=== PATIENT | female | born 1930 | race Caucasian/White ===

== ENCOUNTER 2017-01-05 13:01 | Inpatient (IN) | payer MEDICARE, BC ==
[~2017-01-05] VITALS: Ht 157.5 cm; Wt 48.3 kg
[~2017-01-05 13:01] MED LIST: CHOL20002 PO; DIVA250T4 PO; DIVA500T2 PO; DONE5TAB56 PO; HYDR-2678 PO; HYDR10TA2 PO; LEVO112T2 PO; LORA0.5T PO; MAG30ORA PO; MAGN2400 PO; MELA1TAB9 PO; METH29OI TP; OLAN5TAB5 PO; OMEG-85 PO; QUET25TA5 PO; TRAM50TA PO; TRAZ50TA15 PO
--- NOTE | 2017-01-05 13:07 | PHYS DOC ---
General Chief Complaint: PSYCH EVALUATION Stated Complaint: PSYCH EVAL Time Seen by MD: 13:03 Source: patient, EMS, [facility] records Exam Limitations: clinical condition Problems: History of Present Illness Initial Comments Patient is an 86-year-old female with baseline dementia brought to the emergency department by EMS from [facility] for medical clearance and [facility] admission. Patient has been accepted for [facility] admission pending medical clearance. [facility] records indicate that for approximately the last 2 weeks the patient has become more disruptive. Patient has been screaming/saying "okay" repetitively ( over essentially at all times while awake. The patient has been pinching caregivers she has been physically aggressive hitting and pushing other residents. Patient has prior [facility] admission to this facility. In the emergency department the patient requires constant supervision to prevent her from getting out of bed and trying to wander the halls. She constantly repeats "okay okay" and grabs at ED staff whenever they get into her close proximity. Her vital signs are unremarkable in the emergency department and she refuses to sit still. She appears to understand and be able to answer some questions primarily with "yes no" answers but when asked for other types of detailed responses she ignores or shakes her head. She answers no to if she' s having any discomfort or trouble breathing. Patient is full code Timing/Duration: constant, other Severity: severe Modifying Factors: improves with other Associated Symptoms: other Allergies: Coded Allergies: oxycodone (Verified Allergy, Intermediate, 09/13/14) divalproex sodium (Verified Allergy, Unknown, 01/05/17) hydrocodone (Verified Allergy, Unknown, 01/05/17) sertraline (Verified Allergy, Unknown, 01/05/17) Past Medical History Medical History: other (Alzheimer's dementia, hypothyroidism, anxiety, CKD, depression, encephalopathy, impulse control disorder) Surgical History: other Social History Smoker: non-smoker Alcohol: none Drugs: none Review of Systems All Other Systems: Reviewed and Negative (review of systems as per history of present illness as patient is either too confused or uncooperative for accurate review of systems assessment.) Physical Exam General Appearance: mild distress (disheveled) Eyes: bilateral eye PERRL, bilateral eye EOMI Ear, Nose, Throat: hearing grossly normal, normal ENT inspection, normal pharynx Neck: non-tender, supple Respiratory: normal breath sounds, no respiratory distress Cardiovascular: normal peripheral pulses, regular rate, rhythm Gastrointestinal: non tender, soft Back: no CVA tenderness, no vertebral tenderness Extremities: normal range of motion, non-tender, normal inspection, no calf tenderness, pelvis stable Neurologic/Psychiatric: senior nurse manager II-XII nml as tested, no motor/sensory deficits, alert, other (patient constantly moving a true tremor more rocking, she is alert but has she is unable or unwilling to answer questions her orientation is difficult to establish. She does follow some directions and does not appear to be having any hallucinations) Skin: normal color, warm/dry Orders, Labs, Meds ED staff notifies that EKG evaluation cannot be undertaken in the emergency department due to the patient's constant movement and lack of cooperation. Hemoglobin 11.8 normocytic, BUNs 33, creatinine 1.4, albumin 3.3 otherwise unremarkable ED labs and urine workup with iron, thyroid, and vitamin studies pending. Patient medically cleared for [facility] admission Dr. Minaya is accepting. Departure Time of Disposition: 14:05 Disposition: ADMITTED INPATIENT Diagnosis: Dementia with Behavior Disorder, Condition: STABLE Additional Instructions: [facility] admission Dr Minaya is accepting. WANG RUIZ DO Jan 05, 2017 13:07
[2017-01-05 13:35] LABS: BASO # 0.1 x10^3/uL (0.0-0.2); BASO % 1 % (0-3); EOS # 0.2 x10^3/uL (0.0-0.7); EOS % 3 % (0-3); HEMATOCRIT 36.5 % (36.0-47.0); HEMOGLOBIN 11.8 g/dL (12.0-15.5); LYMPH # 1.6 x10^3/uL (1.0-4.8); LYMPH % 22 % (24-48); MEAN CORPUSCULAR HEMOGLOBIN 28 pg (25-35); MEAN CORPUSCULAR HGB CONC 32 g/dL (31-37); MEAN CORPUSCULAR VOLUME 85 fL (79-100); MONO # 0.8 x10^3/uL (0.0-1.1); MONO % 11 % (0-9); NEUT # 4.7 x10^3uL (1.8-7.7); NEUT % 63 % (31-73); PLATELET COUNT 308 x10^3/uL (140-400); RED BLOOD COUNT 4.28 x10^6/uL (3.50-5.40); RED CELL DISTRIBUTION WIDTH 16.2 % (11.5-14.5); WHITE BLOOD COUNT 7.5 x10^3/uL (4.0-11.0)
[2017-01-05 13:40] LABS: BILIRUBIN,URINE NEG (NEG); CLARITY,URINE CLEAR; COLOR,URINE YELLOW; GLUCOSE,URINE NEG (NEG)
[2017-01-05 13:41] LABS: BACTERIA,URINE 0 /HPF (0-FEW); NITRITE,URINE NEG (NEG); RBC,URINE 0 /HPF (0-2); SQUAMOUS EPITHELIAL CELL,UR OCC /LPF; UROBILINOGEN,URINE 0.2 mg/dL (0.2 mg/dL); WBC,URINE 0 /HPF (0-4)
[2017-01-05 13:49] LABS: ALBUMIN 3.3 g/dL (3.4-5.0); ALBUMIN/GLOBULIN RATIO 0.7 (1.0-1.7); CALCIUM 9.2 mg/dL (8.5-10.1); CREATININE 1.4 mg/dL (0.6-1.0); GFR 35.8; TOTAL BILIRUBIN 0.4 mg/dL (0.2-1.0); TOTAL PROTEIN 8.1 g/dL (6.4-8.2)
--- NOTE | 2017-01-05 15:10 | NUR ---
Admission Note with Justification for Admission to [facility] Patient admitted to [facility] for protective oversight for emergency stabilization of acute psychiatric crisis. Pt admitted from: LT Facility Mode of arrival: EMS Accompanied By: EMS and ER staff Precipitating behaviors that initiated intake and admission: screaming and saying "ok" all day. Pinching care givers, hitting and pushing other residents. Description of failure of out patient attempts at stabilization in previous setting list behavior and medication trials: medication changes Behaviors and assessment findings upon admission: Pt is continuously saying "ok" when staff assess pt, pt has become agitated and has grabbed staff's clothing, pushed staff away and was non compliant when staff attempted to see if pt had dentures-pt pinched staff. Plan: Admit for protective oversight for adjustment and stabilization of medications, behaviors and mood. Intense treatment regimen including groups, medication adjustments, therapy, consistent regimen for ADL's, self care, and sleep hygiene. Daily monitoring by Inpatient staff, Psychiatry, and Medical Physician.
[2017-01-05 15:17] VITALS: BP 121/56
[2017-01-05] MEDS ORDERED: CALC-157 PO (15:45)
[2017-01-05] MEDS ORDERED: CITA10TA8 PO (15:45)
[2017-01-05] MEDS ORDERED: BISA10SU2 RC (15:45)
[2017-01-05] MEDS ORDERED: ACET500T68 PO (15:45)
[2017-01-05] MEDS ORDERED: MEMA10TA PO (15:45)
[2017-01-05] MEDS ORDERED: OMEP20CA9 PO (15:45)
[2017-01-05] MEDS ORDERED: LEVO75TA PO (15:45)
[2017-01-05] MEDS ORDERED: SENN8.6T99 PO (15:45)
[2017-01-05] MEDS ORDERED: NEO/5DRO OU (15:45)
[2017-01-05] MEDS ORDERED: MULT1TAB52 PO (15:45)
[2017-01-05] MEDS ORDERED: DEXT1CAP PO (15:45)
[2017-01-05] MEDS ORDERED: QUET50TA5 PO (15:45)
[2017-01-05] MEDS ORDERED: ZIPR40CA2 PO (15:45)
--- NOTE | 2017-01-05 16:07 | NUR ---
Unable to assess pts skin at this time d/t pts behavior. Pt is wandering up and down the constantly saying "ok" and gets agitated grabbing and pinching staff with redirection.
--- NOTE | 2017-01-05 16:32 | NUR ---
Pt is very intrusive, and resistive and aggressive with redirection. Dr. Toldeo paged. New order to give pt 0.5mg Ativan now and then another 0.5mg in 30 minutes if pts behavior does not improve. Also, Ativan 0.5mg Q4 hours PRN.
[2017-01-05] MEDS: LORazepam 0.5 MG TABLET PO PRN ×2 (16:48→18:24)
[2017-01-05] MEDS ORDERED: METHYL SALICYLATE/MENTHOL TOPICAL OINTMENT 29GM TUBE. TP PRN (17:00)
[2017-01-05] MEDS ORDERED: MAG HYDROX/AL HYDROX/SIMETH 30 ML ORAL.SUSP PO PRN (17:15)
--- NOTE | 2017-01-05 18:27 | NUR ---
Pt is very intrusive wandering up and down the [place] and to other pts continuously saying "ok." staff is unable to redirect pt at this time. PRN ativan given at this time.
[2017-01-05] MEDS: SENNOSIDES 8.6 MG TABLET PO SCH (20:02)
[2017-01-05] MEDS: MEMANTINE 10 MG TABLET. PO SCH (20:02)
[2017-01-05] MEDS: QUEtiapine 50 MG TABLET. PO SCH (20:02)
[2017-01-05] MEDS: CALCIUM CARB/VIT D3 500/200 TABLET PO SCH (20:03)
[2017-01-05] MEDS: DEXTROMETHORPHAN/QUINIDINE 20/10MG CAPSULE. PO SCH (20:04)
[2017-01-05] MEDS: NEO/POLYMYX/DEXAMETH OPHTH SUSPENSION 5ML BOTTLE. OU SCH (20:05)
--- NOTE | 2017-01-05 22:50 | NUR ---
Behavior Intervention Response and Plan: BIRP Note: Behavior: Assumed Care of patient, patient located in Hallway at shift change. Patient exhibited the following behavior Restless, Disorganized, Anxious. Brief assessment on rounds of vital signs, medication needs, lab studies, and pain. Treatment plan problems :1-2 Intervention: Patient assessed and the following interventions initiated safety checks 15 Minute Checks Cognitive Assessment , Head to toe Assessment , Medications. Response: After interactions and interventions patient responded in the following manner, Disorganized , Compliant ,Anxious. Continue to assess behaviors and condition will continue to monitor throughout the shift as needed. Patient educated on ADL's, and hand hygiene. Pt was cooperative w/meds, assessment & ADL's. RAT BREEDER reports that pt's skin is intact w/ no wounds noted. Plan: Continue to monitor Master Treatment Plan for patient's progress toward short term goals of Decreased Agitation, Decreased Aggression, senior care goals to return to previous living setting vs placement. Continue to assess patient for changes in above assessment. Monitor for medication needs, pain, and safety concerns. Hourly rounding performed to ensure safe environment.
[2017-01-06 05:57] VITALS: BP 164/71
[2017-01-06] MEDS: LEVOTHYROXINE 75 MCG TABLET PO SCH (06:05)
[2017-01-06] MEDS: PANTOPRAZOLE 40 MG TABLET. PO SCH (09:01)
[2017-01-06] MEDS: CITALOPRAM 10 MG TABLET. PO SCH (09:01)
[2017-01-06] MEDS: DEXTROMETHORPHAN/QUINIDINE 20/10MG CAPSULE. PO SCH ×2 (09:01→19:32)
[2017-01-06] MEDS: ZIPRASIDONE 40 MG CAPSULE. PO SCH (09:01)
[2017-01-06] MEDS: CALCIUM CARB/VIT D3 500/200 TABLET PO SCH ×2 (09:01→19:32)
[2017-01-06] MEDS: SENNOSIDES 8.6 MG TABLET PO SCH ×2 (09:03→19:32)
[2017-01-06] MEDS: QUEtiapine 50 MG TABLET. PO SCH ×3 (09:03→19:32)
[2017-01-06] MEDS: NEO/POLYMYX/DEXAMETH OPHTH SUSPENSION 5ML BOTTLE. OU SCH ×3 (09:03→19:34)
[2017-01-06] MEDS: MULTIVITAMIN with MINERAL TABLET. PO SCH (09:03)
--- NOTE | 2017-01-06 09:54 | NUR ---
Behavior Intervention Response and Plan: BIRP Note: Behavior: Assumed Care of patient, patient located in Hallway at shift change. Patient exhibited the following behavior Restless, Disorganized, Anxious, constantly saying "ok." Visual hallucinations. Brief assessment on rounds of vital signs, medication needs, lab studies, and pain. Treatment plan problems :1-2 Intervention: Patient assessed and the following interventions initiated safety checks 15 Minute Checks Cognitive Assessment , Head to toe Assessment , Medications. Response: After interactions and interventions patient responded in the following manner, Disorganized, saying "ok." Compliant, Anxious. Continue to assess behaviors and condition will continue to monitor throughout the shift as needed. Patient educated on ADL's, and hand hygiene. Pt was cooperative w/meds, assessment & ADL's. SENIOR MARKET INTELLIGENCE CONSULTANT reports that pt's skin is intact w/ no wounds noted. Plan: Continue to monitor Master Treatment Plan for patient's progress toward short term goals of Decreased Agitation, Decreased Aggression, [facility] goals to return to previous living setting vs placement. Continue to assess patient for changes in above assessment. Monitor for medication needs, pain, and safety concerns. Hourly rounding performed to ensure safe environment.
[2017-01-06] MEDS: LORazepam 0.5 MG TABLET PO PRN (10:01)
--- NOTE | 2017-01-06 10:05 | NUR ---
Pt is attempting to climb the wall, wandering, saying "ok" constantly, Pt pinched and grabbed RASPBERRY CHECKER with redirection. PRN ativan given.
--- NOTE | 2017-01-06 15:46 | NUR ---
Pt was in dayroom ambulating and attempted to sit on the armrest of a chair, pt then slid herself to the floor using the chair and table.
[2017-01-06 17:10] LABS: HEMOGLOBIN A1C 5.2 % (4.8-5.6)
--- NOTE | 2017-01-06 18:21 | NUR ---
Bladder scanned pt, 94mls of urine in bladder.
[2017-01-06] MEDS: MEMANTINE 10 MG TABLET. PO SCH (19:32)
--- NOTE | 2017-01-06 23:12 | NUR ---
Behavior Intervention Response and Plan: BIRP Note: Behavior: Assumed Care of patient, patient located in Bed at shift change. Patient exhibited the following behavior Restless, Disorganized, Compliant. Brief assessment on rounds of vital signs, medication needs, lab studies, and pain. Treatment plan problems:1-2 Intervention: Patient assessed and the following interventions initiated safety checks 15 Minute Checks Cognitive Assessment , Head to toe Assessment , Medications. Response: After interactions and interventions patient responded in the following manner, Disorganized , Anxious ,Compliant. Continue to assess behaviors and condition will continue to monitor throughout the shift as needed. Patient educated on ADL's, and hand hygiene. Plan: Continue to monitor Master Treatment Plan for patient's progress toward short term goals of Decreased Agitation, Decreased Anxiety, watermaster goals to return to previous living setting vs placement. Continue to assess patient for changes in above assessment. Monitor for medication needs, pain, and safety concerns. Hourly rounding performed to ensure safe environment.
--- NOTE | 2017-01-07 00:14 | PSYEV ---
DATE OF SERVICE: 01/06/2017 PSYCHIATRIC EVALUATION REASON FOR ADMISSION: This 86-year-old female was admitted to inpatient program at [facility] and she was transferred from [facility] where she has been a resident since 12/17/2016. The patient was sent here because of the staff's inability to control her behaviors. She is constantly vocalizing one word "okay, okay," keeps on going indefinitely, unable to stop. Sometimes very loud, upsetting all the residents. Also, patient's daughter who is the guardian is trying to set some limits to the staff there; however, she can be treated there, asking to change her meds, sometimes asking her to give her too much medications. Finally, it was decided, it was better for her to be here so that she will be observed and able to control her behavior with the medication without having any major side effects. The patient was also seen on consult at the [facility] on 12/20/2016 for her evaluation. HISTORY OF PRESENT ILLNESS: The patient apparently has been at in 2014. She was also at the [facility] as an inpatient. The patient has been tried on several medications. She was on Haldol 5 mg, then it was decreased to 1 mg daily, stayed on for 2 months. The patient also was at [facility] for 2 years. I met with the daughter at the sn[facility], spent considerable amount of time with her, trying to figure out what the best options we have to treat her. The patient also fell once. The patient was also on Geodon according to her daughter, she did better. She was also on Seroquel for a couple of weeks. The patient tends to grab people screaming constantly, pinching caregivers, hitting, pushing other residents. The patient constantly holding a conversation to herself. The patient sometimes become combative, kicking staff. The patient also has history of alcoholism, was drinking until 13 years ago, she was hospitalized for alcohol poisoning at one time. The patient apparently also having some chronic pain because she had a back surgery and also hip fracture on the left side in 2012 because of the falls. The patient also has been tried on Seroquel 25 mg t.i.d. She was also on Nuedexta twice a day and also Seroquel 100 mg at night. She was also on citalopram 40 mg at night. The patient is constantly pacing, able to walk. Poor eye contact. The patient is indifferent to her surroundings, feeling helpless. CURRENT MEDICATIONS: Include acetaminophen 650 mg q.6 hours p.r.n., vitamin C 1000 mg daily, aspirin 81 mg daily, Zyrtec 10 mg daily, Aricept 10 mg at night, meclizine 25 mg t.i.d. p.r.n., mirtazapine 15 mg at night, olanzapine 1.25 mg q.2 hours p.r.n., Seroquel 25 mg at night and 25 mg t.i.d., Zoloft 75 mg at night, trazodone 50 mg at night and p.r.n. for sleep. PAST MEDICAL HISTORY: History of alcoholic hepatitis, history of falls, history of encephalopathy, macular degeneration. ALLERGIES: OXYCODONE, DEPAKOTE, ZOLOFT, HYDROCODONE, but the patient is still taking Zoloft. Apparently, the patient is having the side effects, not the allergies. VITAL SIGNS: Temperature 97.4, blood pressure 164/71, pulse 68, respirations 20, O2 sat 98% and slept about 8 hours last night. PSYCHOSOCIAL HISTORY: The patient is not able to give much information. Most of the information obtained from medical records and also from the previous assessment when she was at the [facility]. The patient has high school education. 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 No history of any physical or emotional abuse, but patient apparently was a heavy drinker for several years. No history of any legal problems. No history of physical or emotional abuse or sexual abuse. FAMILY HISTORY: Noncontributory. MENTAL STATUS EXAMINATION: The patient appeared to be of her stated age, casually dressed, highly anxious and nervous, constantly pacing. The patient is indifferent to people. The patient starts pinching them and grabbing them and also has been combative with the staff and other residents at the [facility] care. Speech continued vocalization mostly monosyllabic "okay" keeps repeating continuously when she is awake. The only time she stops when she is sleeping. The patient is difficult to redirect. Affect and mood highly anxious, nervous, appears to be hallucinating, seems to be responding to internal stimuli. The patient also not able to comprehend of surroundings. She is disoriented to time, place, and person. Her memory is not testable because of patient's inability to interact, not able to hold a conversation. The patient's judgment is impaired, insight minimal. The patient's functioning in an average intellectual capacity, but patient is very confused. STRENGTHS: Fairly in good health, able to walk, supportive family. ADMITTING DIAGNOSES: AXIS I: 1. Major neurocognitive disorder, most likely Alzheimer's, Lewy body disease, and from chronic alcoholism. 2. Rule out alcohol amnestic disorder. AXIS II: None. AXIS III: Alcoholic hepatitis, macular degeneration, history of falls. INITIAL TREATMENT PLAN: The patient will have a full lab work, physical exam will be seen by the psychiatrist on a daily basis. The patient was given Ativan 0.5 mg q.6 hours p.r.n. p.o. mainly for sedation to keep her calm. The patient will continue on the current medications. The patient at one time was taking fairly high doses of Geodon 40 mg b.i.d. The patient will be observed closely. Also, consider getting an MRI and neurology consultation if she has not had an MRI before. The patient will continue on the medications listed above. The length of stay is 7-10 days. ODILON EMERY MD DR: GURDEEP/shelley JOB#: [id number] / [id number]
[2017-01-07] MEDS: ACETAMINOPHEN 500 MG TABLET PO PRN (05:22)
[2017-01-07] MEDS: LEVOTHYROXINE 75 MCG TABLET PO SCH (05:22)
[2017-01-07] MEDS: LORazepam 0.5 MG TABLET PO PRN (05:22)
--- NOTE | 2017-01-07 06:06 | NUR ---
Nsg Note: Pt awoke & was very anxious. Would not respond to re-direction or engage in activity. She kept trying to get up without assistance & was very ataxic. She also kept repeating "OK , OK" in a loud voice which was agitating her peers. She was given prn Ativan 0.5mg which is beginning to be effective AEB less vocalizations & playing w/ crayons. Will continue to monitor.
[2017-01-07 06:22] VITALS: BP 136/67
[2017-01-07] MEDS: PANTOPRAZOLE 40 MG TABLET. PO SCH (07:49)
--- NOTE | 2017-01-07 08:52 | NUR ---
Nursing Note; Pt scratched and attempted to bite staff in the shower; taken to quiet room to deescalate. Pt placed on mattress on the floor. Pt attempted to stand and fell. Pt did not have any apparent injuries to her head or body. No scrapes, lumps, no rotation of any limbs. Dr. Ruiz and eRi were notified and pt's daughter was notified as well. No orders were received.
[2017-01-07] MEDS: QUEtiapine 50 MG TABLET. PO SCH ×3 (10:09→19:41)
[2017-01-07] MEDS: CITALOPRAM 10 MG TABLET. PO SCH (10:09)
[2017-01-07] MEDS: SENNOSIDES 8.6 MG TABLET PO SCH ×2 (10:10→19:41)
[2017-01-07] MEDS: MULTIVITAMIN with MINERAL TABLET. PO SCH (10:10)
[2017-01-07] MEDS: ZIPRASIDONE 40 MG CAPSULE. PO SCH (10:10)
[2017-01-07] MEDS: CALCIUM CARB/VIT D3 500/200 TABLET PO SCH ×2 (10:10→19:41)
[2017-01-07] MEDS: NEO/POLYMYX/DEXAMETH OPHTH SUSPENSION 5ML BOTTLE. OU SCH ×3 (10:11→19:39)
[2017-01-07] MEDS: DEXTROMETHORPHAN/QUINIDINE 20/10MG CAPSULE. PO SCH ×2 (10:11→19:40)
--- NOTE | 2017-01-07 11:09 | NUR ---
Nursing Note Spoke to pt's daughter Chen and told her about pt's fall that took place in quiet room at approx 0850. Pt shared that her mother has spinal bifida and arthritis in her lower back; however, pt does not adjust her movements accordingly. Daughter stated, "Mom just gets up and goes without thinking. 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 Pt really doesn't like anything around her head at all. Not tags in her clothes- also agitates her. Pt loves singing especially songs by Raul Mccullough. You are my [place], Coming Around the [place], and [place]where [place] the [place] are some of her favorite songs. Needs her space and need things to be explained to her. Best to tell her often that she is in the right place or repeating the following: "You are in the hospital getting your meds adjusted." "You are where you are suppose to be." "Chen is near by."
--- NOTE | 2017-01-07 12:48 | CONS ---
DATE OF CONSULTATION: 01/06/2017 REASON FOR CONSULTATION: Medical management. HISTORY OF PRESENT ILLNESS: The patient is an 86-year-old female patient, a resident of [facility], who was [facility] on account of increasing being aggressive, hitting, pinching other residents and caregivers. All this in the background of dementia, Alzheimer's, vascular with depression, delusion and behavioral disorder. PAST MEDICAL HISTORY: Significant for hypothyroidism, hypovitaminosis D, senile macular degeneration and encephalopathy. PAST SURGICAL HISTORY: Unremarkable. ALLERGIES: SHE IS ALLERGIC TO DIVALPROEX SODIUM, HYDROCODONE, OXYCODONE, SERTRALINE. MEDICATIONS: She is currently on following medications: She is on Tylenol 500 mg every 6 hours, bisacodyl 10 mg suppositories rectally as needed for constipation, calcium carbonate with vitamin D 1 tablet twice a day, Celexa 10 mg once a day, dextromethorphan/quinidine (Nuedexta) 1 capsule twice a day, levothyroxine sodium 75 mcg once a day, milk of magnesia 30 mL p.o. daily p.r.n. for constipation, Namenda 10 mg twice at bedtime, multivitamin 1 tablet once a day, omeprazole 20 mg once a day, quetiapine fumarate 150 mg at bedtime and Seroquel 50 mg twice a day, senna 1 tablet twice a day and ziprasidone 40 mg daily. FAMILY HISTORY: Unremarkable. SOCIAL HISTORY: She is a resident at [facility]. She does not smoke, drink alcohol or use any recreational drugs. REVIEW OF SYSTEMS: Unobtainable. PHYSICAL EXAMINATION: GENERAL: On examining her, she was sitting comfortably in her bed, in no apparent respiratory distress. She was pale, but no jaundice, cyanosis or thyromegaly. No jugular venous distention. No limb edema. VITAL SIGNS: Her heart rate was 68, blood pressure 164/71, temperature was 97.4, respiratory rate 20, and oxygen saturation was 98% on room air. HEAD, EYES, EARS, NOSE AND THROAT: Showed normocephalic, atraumatic. NECK: Supple. HEART: Showed normal first and second heart sounds with no gallop, rub or murmur. CHEST: Clear to auscultation. No crepitation or rhonchi. ABDOMEN: Distended, soft, nontender. No guarding or rigidity. No organomegaly. Hernial orifices intact. Bowel sounds normal. NEUROLOGIC: She is demented without any obvious lateralizing sign. All her cranial nerves intact. She moves extremities without difficulty. She ambulates without assistance or assistive device, although she is very unsteady and a very high fall risk. LABORATORY DATA: Showed white cell count 7500, hemoglobin 11.8, hematocrit 36.5, MCV 85 and platelet count 308,000. Her chemistry showed a serum sodium 144, potassium 4, chloride 105, bicarbonate 29, anion gap of 10, BUN 33, creatinine 1.4, estimated GFR was 36 mL per minute. Her glucose was 84, calcium was 9.2, magnesium 2. Hemoglobin A1c was 5.2. Her serum iron 60, TIBC was 336, percent saturation was 18. Total bilirubin, AST, ALT, alkaline phosphatase were normal. Her total protein was 8.1, albumin was 3.3. Her serum triglycerides of 58, total cholesterol 191, LDL cholesterol 108, VLDL was 11, and HDL cholesterol was 72 and the ratio was 2. Her TSH was . Urinalysis was essentially unremarkable. It was negative for nitrite and leukocyte esterase. No rbc's, no wbc's, and no bacteria. SUMMARY: This is an 86-year-old female patient, who was a resident at [facility] and was admitted. She has been hitting and pinching other residents and caregivers, all this in a background of dementia, Alzheimer's, vascular with depression, delusion, behavioral disorder. She is constantly saying okay, okay, repeatedly. She apparently has been aggressive hitting and pinching caregivers, hitting other residents and pushing other residents. She was admitted to this facility for inpatient psychiatric stabilization. Medically, her vital signs were mostly stable, although she has somewhat labile blood pressure. Her lab work showed that she has some impairment of kidney function as her kidney function before was normal with a creatinine of 0.7 and today her creatinine is 1.4 and BUN is 33. She has hypothyroidism, but she is biochemically euthyroid with a TSH of . Her most recent 25-hydroxy vitamin D was normal at 32 ng/mL. She does have mild normochromic normocytic anemia. Her iron indices are consistent with iron deficiency anemia. I review with her medication and she does not seem to be in any nephrotoxic medications. She probably needs more fluid. Thank you Dr. Minaya for allowing me to participate in the care of this patient. MARGARET MADSEN MD DR: GA/shelley JOB#: [id number] / [id number]
--- NOTE | 2017-01-07 14:52 | NUR ---
SW reviewed Pt. insurance upon admit. Face sheet, csnap and intake state Pt's insurance is Medicare A/B, no Part C and BCBS secondary. NO Part C, no auth required.
--- NOTE | 2017-01-07 15:05 | NUR ---
Psychosocial Assessment completed at previous admit 09/2014 SW spoke w/Marbella Pasha-Dimitris, daughter at [phone] to collect PSA info. and who is also DPOA w/sister Riri Pak. PT has 5 children, all within 4 1/2 year age range. Riri, Marbella, Mini, Driscoll, Blaise. Blaise is diagnosed w/ ALS and not doing well. PT worries about him - family tells her he is in his "special room doing good" PT has 2 siblings - she is middle child oldest is Demetria (diagnosed w/Agoraphobia) and Simone (kidney cancer) PT grew up in a house where she was responsible for her siblings from a very young age. Parents were very controlling and rigid. very young and 1st , Wero and had 5 kids within 4 1/2 years - was also very controlling. in 1966 and met Lizz in 1968 - who she was with, but never until he in 2013. PT becomes upset when you tell her Lizz passed. PT. checked herself into a psych hospital during her final w/Blaise. PT. has a long history of alcoholism. including mixing w/pain meds. Was sober for 12 years after a successful rehab stay. Since the development of Dementia symptoms, PT. has lost interest in alcohol, per daughter, because of her body changes and "not craving" the alcohol anymore. PT. was moved to [facility] in 2013. Up until this time, PT was home and doing well. Family noticed Dementia symptoms in 2006. Daughters Riri and Marbella have both attended [facility] [employer] training and read several books to help better understand Pt's diagnosis and care needed. Pt. admit to this facility in 09/2014 and [facility] in [place] in 10/2016. Pt. transitioned from [facility] to [facility] to [employer]. Addendum: 10/30/17 at 1531 by TERESITA PEREIRA GOALS: Pt. unable to cognitively process goals Pt's dtrRiri, would like for Pt. to be stabilized on medications. 1. Family Support 2. Facility willing to have Pt. return.
[2017-01-07 16:02] VITALS: BP 137/69
--- NOTE | 2017-01-07 17:48 | NUR ---
Behavior Intervention Response and Plan: BIRP Note: Behavior: Assumed Care of patient, patient located in Day Room at shift change. Patient exhibited the following behavior Disorganized, Compulsive, Anxious. Brief assessment on rounds of vital signs, medication needs, lab studies, and pain. Treatment plan problems Dementia w/ depression and Fall Risk. Intervention: Patient assessed and the following interventions initiated safety checks 15 Minute Checks Cognitive Assessment , Head to toe Assessment , Medications. Response: After interactions and interventions patient responded in the following manner, Anxious , Compulsive ,Disorganized. Continue to assess behaviors and condition will continue to monitor throughout the shift as needed. Patient educated on ADL's, and hand hygiene. Plan: Continue to monitor Master Treatment Plan for patient's progress toward short term goals of Decreased Aggression, Decreased Anxiety, nursing home goals to return to previous living setting vs placement. Continue to assess patient for changes in above assessment. Monitor for medication needs, pain, and safety concerns. Hourly rounding performed to ensure safe environment.
[2017-01-07] MEDS: MEMANTINE 10 MG TABLET. PO SCH (19:40)
--- NOTE | 2017-01-07 20:40 | PDOC ---
Exam Ronen Demential Exam: Ronen Note: Please also refer to the separate dictated note~for this date of service dictated separately.~Patient seen individually. Discussed the patient with Nursing staff reviewed the chart.~Reviewed interim history and current functioning. Reviewed vital signs,~Labs/ Radiology~and current medications noted below. Continue current treatment with the changes noted in the dictated addendum note Assessment: Vital Signs: Vital Signs Date Time Temp Pulse Resp B/P (MAP) Pulse Ox O2 Delivery O2 Flow Rate FiO2 01/07/17 16:02 97.5 83 20 137/69 (91) 97 01/07/17 06:22 Room Air I&O Intake and Output 01/08/17 07:00 Intake Total 420 ml Balance 420 ml Intake Oral 420 ml Current Medications: Meds: Current Medications Lorazepam (Ativan) 0.5 mg PRN Q4HRS PRN PO ANXIETY / AGITATION Last administered on 01/07/17 05:22; Start 01/05/17 at 16:45 Acetaminophen (Tylenol) 500 mg Q6HRS PRN PO PAIN / TEMP Last administered on 05:22; Start 01/05/17 at 17:00 Bisacodyl (Dulcolax Supp) 10 mg PRN DAILY PRN RC CONSTIPATION; Start 01/05/17 at 17:00 Calcium/Vitamin D (Oscal D 500mg/ 200uts) 1 tab BID PO Last administered on 19:41; Start 01/05/17 at 21:00 Levothyroxine Sodium (Synthroid) 75 mcg DAILY06 PO Last administered on 05:22; Start 01/06/17 at 06:00 Multi-Ingredient Ointment (Analgesic [place]) 1 peewee PRN QID PRN TP muscle pain; Start 01/05/17 at 17:00 Neomycin/ Polymyxin/ Dexamethasone (Maxitrol) 2 drop TID OU Last administered on 01/07/17 19:39; Start 01/05/17 at 21:00 Sennosides (Senna) 8.6 mg BID PO Last administered on 01/07/17 19:41; Start 01/05/17 at 21:00 Al Hydroxide/Mg Hydroxide (Mylanta Plus Xs) 15 ml PRN AFTMEALHC PRN PO DYSPEPSIA; Start 01/05/17 at 17:15 Magnesium Hydroxide (Milk Of Magnesia) 2,400 mg PRN QHS PRN PO CONSTIPATION; Start 01/05/17 at 17:15 Multivitamins/ Calcium (Thera-M Plus) 1 tab DAILY PO Last administered on 01/07 10:10; Start 01/06/17 at 09:00 Pantoprazole Sodium (Protonix) 40 mg DAILYAC PO Last administered on 07:49; Start 01/06/17 at 07:30 Citalopram Hydrobromide (CeleXA) 10 mg DAILY PO Last administered on 10:09; Start 01/06/17 at 09:00; Stop 01/07/17 at 19:34; Status DC Memantine (Namenda) 10 mg HS PO Last administered on 01/07/17 19:40; Start 01/05/17 at 21:00 Quetiapine Fumarate (SEROquel) 150 mg QHS PO Last administered on 01/07/17 19 :41; Start 01/05/17 at 21:00 Quetiapine Fumarate (SEROquel) 50 mg BID92 PO Last administered on 01/07/17 15:00; Start 01/06/17 at 09:00 Ziprasidone (Geodon) 40 mg DAILY PO Last administered on 01/07/17 10:10; Start 01/06/17 at 09:00 Pneumococcal Polyvalent Vaccine (Pneumovax 23) 0.5 ml ONCE ONCE VAX IM ; Start 01/07/17 at 21:00; Stop 01/07/17 at 21:01 Influenza Virus Vaccine Quadrival (Fluarix Quad [id number] Syringe) 0.5 ml ONCE ONCE VAX IM ; Start 01/07/17 at 21:00; Stop 01/07/17 at 21:01 Fluvoxamine Maleate (Luvox) 25 mg HS PO ; Start 01/07/17 at 21:00; Stop at 20:59 Fluvoxamine Maleate (Luvox) 50 mg HS PO ; Start 01/10/17 at 21:00 Active Scripts Active Reported Synthroid (Levothyroxine Sodium) 75 Mcg Tablet 1 Tab PO DAILY06 Senokot (Sennosides) 8.6 Mg Tablet 1 Tab PO BID Seroquel (Quetiapine Fumarate) 50 Mg Tablet 1 Tab PO BID92 Omeprazole 20 Mg Capsule.dr 1 Cap PO DAILY Nuedexta 20-10 Mg Capsule (Dextromethorphan Hbr/Quinidine) 1 Each Capsule 1 Each PO BID Multivitamins (Multivitamin) 1 Each Tablet 1 Tab PO DAILY Namenda (Memantine Hcl) 10 Mg Tablet 10 Mg PO HS Maxitrol Eye Drops (Jhonathan/Polymyx B Sulf/Dexameth) 5 Ml Drops.susp 2 Drop OU TID Geodon (Ziprasidone Hcl) 40 Mg Capsule 40 Mg PO DAILY Celexa (Citalopram Hydrobromide) 10 Mg Tablet 10 Mg PO DAILY Calcium 500 + Vit D 200 Tablet (Calcium Carbonate/Vitamin D3) 1 Each Tablet 1 Each PO BID Bisacodyl 10 Mg Supp.rect 10 Mg RC PRN DAILY PRN Acetaminophen 500 Mg Tablet 1 Tab PO Q6HRS PRN Mag-Al Plus Suspension (Mag Hydrox/Al Hydrox/Simeth) 30 Ml Oral.susp 15 Ml PO PRN AFTMEALHC PRN Seroquel (Quetiapine Fumarate) 25 Mg Tablet 150 Mg PO HS Analgesic [place] (Methyl Salicylate/Menthol) 29 Gm Oint...g. 1 Peewee TP PRN QID PRN Milk Of Magnesia (Magnesium Hydroxide) 2,400 Mg/10 Ml Oral.susp 2,400 Mg PO PRN QHS PRN Diagnosis: Problems: (1) Hypothyroid (2) Dementia with behavioral disturbance (3) Alzheimer disease (4) Impulse control disorder GRANT STOVER MD Jan 07, 2017 20:40
[2017-01-07] MEDS ORDERED: PNEUMOC CONJ VACC 23-VALENT 0.5 ML VIAL. VAX IM ONE (21:00)
[2017-01-07] MEDS ORDERED: FLU VACC QS2017-18 (36MOS+)/PF 0.5 ML SYRINGE. VAX IM ONE (21:00)
--- NOTE | 2017-01-07 21:18 | NUR ---
Behavior Intervention Response and Plan: BIRP Note: Behavior: Assumed Care of patient, patient located in Day Room at shift change. Patient exhibited the following behavior Disorganized, Irritable, Resistive. Brief assessment on rounds of vital signs, medication needs, lab studies, and pain. Treatment plan problems . Intervention: Patient assessed and the following interventions initiated safety checks 15 Minute Checks Cognitive Assessment , Head to toe Assessment , Medications. Response: After interactions and interventions patient responded in the following manner, Non Compliant with Meds , Defensive ,Agitated. Continue to assess behaviors and condition will continue to monitor throughout the shift as needed. Patient educated on ADL's, and hand hygiene. 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 Continue to assess patient for changes in above assessment. Monitor for medication needs, pain, and safety concerns. Hourly rounding performed to ensure safe environment.
[2017-01-08] MEDS: LEVOTHYROXINE 75 MCG TABLET PO SCH (05:18)
[2017-01-08 05:50] VITALS: BP 120/75
[2017-01-08] MEDS: LORazepam 0.5 MG TABLET PO PRN (05:53)
--- NOTE | 2017-01-08 07:21 | NUR ---
Nursing Note: Pt's daughter Riri reported that pt cannot process generic Synthroid (Levothyroxine). Pharmacy contacted, pt is not receiving generic. Will notify daughter of this fact.
[2017-01-08] MEDS: PANTOPRAZOLE 40 MG TABLET. PO SCH (08:43)
[2017-01-08] MEDS: QUEtiapine 50 MG TABLET. PO SCH ×3 (08:44→19:15)
[2017-01-08] MEDS: SENNOSIDES 8.6 MG TABLET PO SCH ×2 (08:44→19:15)
[2017-01-08] MEDS: ACETAMINOPHEN 500 MG TABLET PO PRN (08:44)
[2017-01-08] MEDS: CALCIUM CARB/VIT D3 500/200 TABLET PO SCH ×2 (08:44→19:15)
[2017-01-08] MEDS: MULTIVITAMIN with MINERAL TABLET. PO SCH (08:44)
[2017-01-08] MEDS: ZIPRASIDONE 40 MG CAPSULE. PO SCH (08:44)
[2017-01-08] MEDS: DEXTROMETHORPHAN/QUINIDINE 20/10MG CAPSULE. PO SCH ×2 (08:46→19:15)
[2017-01-08] MEDS: NEO/POLYMYX/DEXAMETH OPHTH SUSPENSION 5ML BOTTLE. OU SCH ×3 (08:47→19:14)
--- NOTE | 2017-01-08 12:26 | NUR ---
Nursing Note: Attempted to feed pt her lunch which consisted of roast turkey chopped, green beans, mashed sweet potatoes, and tapioca pudding. pt had great difficulty staying away which made it difficult to feed pt as it was hard to know if pt would completely swallow entire bite. Spoke with Deandra, chip unloader, about placing pt on pureed diet which is what pt was on at previous facility according to daughter, Riri. Daughter had wanted pt on regular diet; however, witnessing pt struggle to stay awake to eat and discussing her behavior this am pureed would be best. This morning at breakfast staff reported that pt repeating words over and over made it difficult to feed pt. Will call and discuss returning pt [facility] with and daughter today.
--- NOTE | 2017-01-08 13:20 | NUR ---
SW contacted Pt's dtr/Riri VIRAMONTES to discuss changed treatment team for this week. Will still plan to call.
[2017-01-08 16:12] VITALS: BP 136/67
--- NOTE | 2017-01-08 16:15 | NUR ---
Attempted to meet and complete Activity Therapy Assessment; however, Pt. was asleep.
[2017-01-08] MEDS: MAGNESIUM HYDROXIDE 2,400 MG/30 ML ORAL.SUSP. PO PRN (17:21)
[2017-01-08] MEDS: MEMANTINE 10 MG TABLET. PO SCH (19:14)
--- NOTE | 2017-01-08 21:56 | NUR ---
Behavior Intervention Response and Plan: BIRP Note: Behavior: Assumed Care of patient, patient located in Day Room at shift change. Patient exhibited the following behavior Calm, Compliant, Compulsive. Brief assessment on rounds of vital signs, medication needs, lab studies, and pain. Treatment plan problems . Intervention: Patient assessed and the following interventions initiated safety checks 15 Minute Checks Cognitive Assessment , Head to toe Assessment , Medications. Response: After interactions and interventions patient responded in the following manner, Anxious , Disorganized ,Restless. Continue to assess behaviors and condition will continue to monitor throughout the shift as needed. Patient educated on ADL's, and hand hygiene. 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 Continue to assess patient for changes in above assessment. Monitor for medication needs, pain, and safety concerns. Hourly rounding performed to ensure safe environment.
--- NOTE | 2017-01-08 22:05 | PDOC ---
Exam Ronen Demential Exam: Ronen Note: Please also refer to the separate dictated note~for this date of service dictated separately.~Patient seen individually. Discussed the patient with Nursing staff reviewed the chart.~Reviewed interim history and current functioning. Reviewed vital signs,~Labs/ Radiology~and current medications noted below. Continue current treatment with the changes noted in the dictated addendum note Assessment: Vital Signs: Vital Signs Date Time Temp Pulse Resp B/P (MAP) Pulse Ox O2 Delivery O2 Flow Rate FiO2 01/08/17 16:12 97.8 71 18 136/67 (90) 98 01/07/17 06:22 Room Air I&O Intake and Output 01/09/17 07:00 Intake Total 600 ml Balance 600 ml Intake Oral 600 ml Current Medications: Meds: Current Medications Lorazepam (Ativan) 0.5 mg PRN Q4HRS PRN PO ANXIETY / AGITATION Last administered on 01/08/17 05:53; Start 01/05/17 at 16:45 Acetaminophen (Tylenol) 500 mg Q6HRS PRN PO PAIN / TEMP Last administered on 08:44; Start 01/05/17 at 17:00 Bisacodyl (Dulcolax Supp) 10 mg PRN DAILY PRN RC CONSTIPATION; Start 01/05/17 at 17:00 Calcium/Vitamin D (Oscal D 500mg/ 200uts) 1 tab BID PO Last administered on 19:15; Start 01/05/17 at 21:00 Levothyroxine Sodium (Synthroid) 75 mcg DAILY06 PO Last administered on 05:18; Start 01/06/17 at 06:00 Multi-Ingredient Ointment (Analgesic [place]) 1 peewee PRN QID PRN TP muscle pain; Start 01/05/17 at 17:00 Neomycin/ Polymyxin/ Dexamethasone (Maxitrol) 2 drop TID OU Last administered on 01/08/17 19:14; Start 01/05/17 at 21:00 Sennosides (Senna) 8.6 mg BID PO Last administered on 01/08/17 19:15; Start 01/05/17 at 21:00 Al Hydroxide/Mg Hydroxide (Mylanta Plus Xs) 15 ml PRN AFTMEALHC PRN PO DYSPEPSIA; Start 01/05/17 at 17:15 Magnesium Hydroxide (Milk Of Magnesia) 2,400 mg PRN QHS PRN PO CONSTIPATION Last administered on 01/08/17 17:21; Start 01/05/17 at 17:15 Multivitamins/ Calcium (Thera-M Plus) 1 tab DAILY PO Last administered on 01/08 08:44; Start 01/06/17 at 09:00 Pantoprazole Sodium (Protonix) 40 mg DAILYAC PO Last administered on 08:43; Start 01/06/17 at 07:30 Citalopram Hydrobromide (CeleXA) 10 mg DAILY PO Last administered on 10:09; Start 01/06/17 at 09:00; Stop 01/07/17 at 19:34; Status DC Memantine (Namenda) 10 mg HS PO Last administered on 01/08/17 19:14; Start 01/05/17 at 21:00 Quetiapine Fumarate (SEROquel) 150 mg QHS PO Last administered on 01/08/17 19 :15; Start 01/05/17 at 21:00 Quetiapine Fumarate (SEROquel) 50 mg BID92 PO Last administered on 01/08/17 14:39; Start 01/06/17 at 09:00 Ziprasidone (Geodon) 40 mg DAILY PO Last administered on 01/08/17 08:44; Start 01/06/17 at 09:00 Pneumococcal Polyvalent Vaccine (Pneumovax 23) 0.5 ml ONCE ONCE VAX IM Last administered on 01/07/17 23:11; Start 01/07/17 at 21:00; Stop 01/07/17 at 21 :01; Status DC Influenza Virus Vaccine Quadrival (Fluarix Quad [id number] Syringe) 0.5 ml ONCE ONCE VAX IM Last administered on 01/07/17 23:13; Start 01/07/17 at 21:00; Stop 01/07/17 at 21:01; Status DC Fluvoxamine Maleate (Luvox) 25 mg HS PO Last administered on 01/08/17 19:14; Start 01/07/17 at 21:00; Stop 01/10/17 at 20:59 Fluvoxamine Maleate (Luvox) 50 mg HS PO ; Start 01/10/17 at 21:00 Active Scripts Active Reported Synthroid (Levothyroxine Sodium) 75 Mcg Tablet 1 Tab PO DAILY06 Senokot (Sennosides) 8.6 Mg Tablet 1 Tab PO BID Seroquel (Quetiapine Fumarate) 50 Mg Tablet 1 Tab PO BID92 Omeprazole 20 Mg Capsule.dr 1 Cap PO DAILY Nuedexta 20-10 Mg Capsule (Dextromethorphan Hbr/Quinidine) 1 Each Capsule 1 Each PO BID Multivitamins (Multivitamin) 1 Each Tablet 1 Tab PO DAILY Namenda (Memantine Hcl) 10 Mg Tablet 10 Mg PO HS Maxitrol Eye Drops (Jhonathan/Polymyx B Sulf/Dexameth) 5 Ml Drops.susp 2 Drop OU TID Geodon (Ziprasidone Hcl) 40 Mg Capsule 40 Mg PO DAILY Celexa (Citalopram Hydrobromide) 10 Mg Tablet 10 Mg PO DAILY Calcium 500 + Vit D 200 Tablet (Calcium Carbonate/Vitamin D3) 1 Each Tablet 1 Each PO BID Bisacodyl 10 Mg Supp.rect 10 Mg RC PRN DAILY PRN Acetaminophen 500 Mg Tablet 1 Tab PO Q6HRS PRN Mag-Al Plus Suspension (Mag Hydrox/Al Hydrox/Simeth) 30 Ml Oral.susp 15 Ml PO PRN AFTMEALHC PRN Seroquel (Quetiapine Fumarate) 25 Mg Tablet 150 Mg PO HS Analgesic [place] (Methyl Salicylate/Menthol) 29 Gm Oint...g. 1 Peewee TP PRN QID PRN Milk Of Magnesia (Magnesium Hydroxide) 2,400 Mg/10 Ml Oral.susp 2,400 Mg PO PRN QHS PRN Diagnosis: Problems: (1) Alzheimer disease (2) Impulse control disorder (3) Hypothyroid (4) Dementia with behavioral disturbance GRANT STOVER MD Jan 08, 2017 22:05
--- NOTE | 2017-01-09 01:31 | PN ---
DATE: 01/07/2017 PSYCHIATRIC PROGRESS NOTE This is a late entry for 01/07/2017, covers elements not covered in my initial note of 01/07/2017. SUBJECTIVE: I met with the patient the evening of 01/07/2017. Discussed with Dr. Toledo, who has covered for me on the patient over the last several days. The patient remains confused, somewhat repetitive, anxious. The patient is extremely obsessive about tags per nursing report, repetitive. 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 Gait is unsteady. She is quite labile in her mood the morning of 01/07/2017, scratching and biting in the morning. REVIEW OF SYSTEMS: Ambulation impaired. No CV, , pulmonary, eye, ENT system symptoms on review. Reliability poor. MENTAL STATUS EXAM: Oriented to herself. Insight, judgment, recent and remote memory, attention, concentration, fund of knowledge poor, consistent with her diagnosis mentioned in my initial note. PLAN: Change Celexa 10 mg a day to Luvox 25 mg p.o. at bedtime for 3 days, then 50 mg p.o. at bedtime. It should help with her anxiety, obsessive thought processes and as an antidepressant. Continue Geodon, Nuedexta, Seroquel, Namenda along with Ativan p.r.n. for now. I would like to avoid using 2 atypical antipsychotics and we may taper and stop the Geodon depending on how she does on the Luvox. Reviewed drug interactions. Risk/benefit ratio favors no further change. MAN Abdullahi STOVER MD DR: AMOL/shelley JOB#: [id number] / [id number]
[2017-01-09] MEDS: LEVOTHYROXINE 75 MCG TABLET PO SCH (05:52)
[2017-01-09 05:54] VITALS: BP 134/67
[2017-01-09] MEDS: ACETAMINOPHEN 500 MG TABLET PO PRN (07:56)
[2017-01-09] MEDS: CALCIUM CARB/VIT D3 500/200 TABLET PO SCH ×2 (07:56→19:47)
[2017-01-09] MEDS: ZIPRASIDONE 40 MG CAPSULE. PO SCH (07:56)
[2017-01-09] MEDS: SENNOSIDES 8.6 MG TABLET PO SCH ×2 (07:56→19:47)
[2017-01-09] MEDS: QUEtiapine 50 MG TABLET. PO SCH ×3 (07:56→19:49)
[2017-01-09] MEDS: MULTIVITAMIN with MINERAL TABLET. PO SCH (07:56)
[2017-01-09] MEDS: NEO/POLYMYX/DEXAMETH OPHTH SUSPENSION 5ML BOTTLE. OU SCH ×3 (07:57→19:50)
[2017-01-09] MEDS: DEXTROMETHORPHAN/QUINIDINE 20/10MG CAPSULE. PO SCH ×2 (07:57→19:49)
[2017-01-09] MEDS: PANTOPRAZOLE 40 MG PACKET. PO SCH (08:15)
--- NOTE | 2017-01-09 08:40 | NUR ---
Behavior Intervention Response and Plan: BIRP Note: Behavior: Assumed Care of patient, patient located in Dining Room at shift change. Patient exhibited the following behavior Restless, Disorganized, Compulsive. Brief assessment on rounds of vital signs, medication needs, lab studies, and pain. Treatment plan problems . Intervention: Patient assessed and the following interventions initiated safety checks 15 Minute Checks Head to toe Assessment , Cognitive Assessment , Medications. Response: After interactions and interventions patient responded in the following manner, Resistive , Anxious ,Agitated. Continue to assess behaviors and condition will continue to monitor throughout the shift as needed. Patient educated on ADL's, and hand hygiene. Plan: Continue to monitor Master Treatment Plan for patient's progress toward short term goals of Improved Mood, Medication Compliance, chcf goals to return to previous living setting vs placement. Continue to assess patient for changes in above assessment. Monitor for medication needs, pain, and safety concerns. Hourly rounding performed to ensure safe environment.
--- NOTE | 2017-01-09 08:50 | NUR ---
Patient has no documented BM since 01/05. Administered PRN MOM. Patients bowel sounds are active will continue to monitor for BM.
--- NOTE | 2017-01-09 14:00 | NUR ---
ACTIVITY THERAPY ASSESSMENT Completed based on observation and interview. Pt. constantly talks and says "ok, ok, ok, ok." It is difficult to get her attention and keep it. She is able to process simple, clear directions with repeats often and also able to answer most yes/no questions. Pt. has difficulty answering any assessment questions. Before she closed her eyes to rest, she sang "Piyush love me this I know." Pt. allows headphones to be placed on her head but she shows no sign of relaxation with them. There are moments where she squeezes, hits, kicks but they quickly fade and her attention goes to something else. Initial goal aimed to increase relaxation: Pt. will participate in all sensory stimulation activities.
[2017-01-09] MEDS: MEMANTINE 10 MG TABLET. PO SCH (19:47)
--- NOTE | 2017-01-09 20:49 | PDOC ---
Exam Ronen Demential Exam: Ronen Note: Please also refer to the separate dictated note~for this date of service dictated separately.~Patient seen individually. Discussed the patient with Nursing staff reviewed the chart.~Reviewed interim history and current functioning. Reviewed vital signs,~Labs/ Radiology~and current medications noted below. Continue current treatment with the changes noted in the dictated addendum note Assessment: Vital Signs: Vital Signs Date Time Temp Pulse Resp B/P (MAP) Pulse Ox O2 Delivery O2 Flow Rate FiO2 01/09/17 05:54 97.4 70 16 134/67 (89) 100 Room Air I&O Intake and Output 01/10/17 07:00 Intake Total 960 ml Balance 960 ml Intake Oral 960 ml Current Medications: Meds: Current Medications Lorazepam (Ativan) 0.5 mg PRN Q4HRS PRN PO ANXIETY / AGITATION Last administered on 01/08/17 05:53; Start 01/05/17 at 16:45 Acetaminophen (Tylenol) 500 mg Q6HRS PRN PO PAIN / TEMP Last administered on 07:56; Start 01/05/17 at 17:00 Bisacodyl (Dulcolax Supp) 10 mg PRN DAILY PRN RC CONSTIPATION; Start 01/05/17 at 17:00 Calcium/Vitamin D (Oscal D 500mg/ 200uts) 1 tab BID PO Last administered on 19:47; Start 01/05/17 at 21:00 Levothyroxine Sodium (Synthroid) 75 mcg DAILY06 PO Last administered on 05:52; Start 01/06/17 at 06:00 Multi-Ingredient Ointment (Analgesic [place]) 1 peewee PRN QID PRN TP muscle pain; Start 01/05/17 at 17:00 Neomycin/ Polymyxin/ Dexamethasone (Maxitrol) 2 drop TID OU Last administered on 01/09/17 19:50; Start 01/05/17 at 21:00 Sennosides (Senna) 8.6 mg BID PO Last administered on 01/09/17 19:47; Start 01/05/17 at 21:00 Al Hydroxide/Mg Hydroxide (Mylanta Plus Xs) 15 ml PRN AFTMEALHC PRN PO DYSPEPSIA; Start 01/05/17 at 17:15 Magnesium Hydroxide (Milk Of Magnesia) 2,400 mg PRN QHS PRN PO CONSTIPATION Last administered on 01/08/17 17:21; Start 01/05/17 at 17:15 Multivitamins/ Calcium (Thera-M Plus) 1 tab DAILY PO Last administered on 07:56; Start 01/06/17 at 09:00 Pantoprazole Sodium (Protonix) 40 mg DAILYAC PO Last administered on 08:43; Start 01/06/17 at 07:30; Stop 01/09/17 at 07:50; Status DC Citalopram Hydrobromide (CeleXA) 10 mg DAILY PO Last administered on 10:09; Start 01/06/17 at 09:00; Stop 01/07/17 at 19:34; Status DC Memantine (Namenda) 10 mg HS PO Last administered on 01/09/17 19:47; Start at 21:00 Quetiapine Fumarate (SEROquel) 150 mg QHS PO Last administered on 01/09/17 19: 49; Start 01/05/17 at 21:00 Quetiapine Fumarate (SEROquel) 50 mg BID92 PO Last administered on 01/09/17 13 :43; Start 01/06/17 at 09:00 Ziprasidone (Geodon) 40 mg DAILY PO Last administered on 01/09/17 07:56; Start 01/06/17 at 09:00 Pneumococcal Polyvalent Vaccine (Pneumovax 23) 0.5 ml ONCE ONCE VAX IM Last administered on 01/07/17 23:11; Start 01/07/17 at 21:00; Stop 01/07/17 at 21 :01; Status DC Influenza Virus Vaccine Quadrival (Fluarix Quad [id number] Syringe) 0.5 ml ONCE ONCE VAX IM Last administered on 01/07/17 23:13; Start 01/07/17 at 21:00; Stop 01/07/17 at 21:01; Status DC Fluvoxamine Maleate (Luvox) 25 mg HS PO Last administered on 01/09/17 19:47; Start 01/07/17 at 21:00; Stop 01/10/17 at 20:59 Fluvoxamine Maleate (Luvox) 50 mg HS PO ; Start 01/10/17 at 21:00 Pantoprazole Sodium (Protonix Packet) 40 mg DAILYAC PO Last administered on t 08:15; Start 01/09/17 at 08:15 Active Scripts Active Reported Synthroid (Levothyroxine Sodium) 75 Mcg Tablet 1 Tab PO DAILY06 Senokot (Sennosides) 8.6 Mg Tablet 1 Tab PO BID Seroquel (Quetiapine Fumarate) 50 Mg Tablet 1 Tab PO BID92 Omeprazole 20 Mg Capsule.dr 1 Cap PO DAILY Nuedexta 20-10 Mg Capsule (Dextromethorphan Hbr/Quinidine) 1 Each Capsule 1 Each PO BID Multivitamins (Multivitamin) 1 Each Tablet 1 Tab PO DAILY Namenda (Memantine Hcl) 10 Mg Tablet 10 Mg PO HS Maxitrol Eye Drops (Jhonathan/Polymyx B Sulf/Dexameth) 5 Ml Drops.susp 2 Drop OU TID Geodon (Ziprasidone Hcl) 40 Mg Capsule 40 Mg PO DAILY Celexa (Citalopram Hydrobromide) 10 Mg Tablet 10 Mg PO DAILY Calcium 500 + Vit D 200 Tablet (Calcium Carbonate/Vitamin D3) 1 Each Tablet 1 Each PO BID Bisacodyl 10 Mg Supp.rect 10 Mg RC PRN DAILY PRN Acetaminophen 500 Mg Tablet 1 Tab PO Q6HRS PRN Mag-Al Plus Suspension (Mag Hydrox/Al Hydrox/Simeth) 30 Ml Oral.susp 15 Ml PO PRN AFTMEALHC PRN Seroquel (Quetiapine Fumarate) 25 Mg Tablet 150 Mg PO HS Analgesic [place] (Methyl Salicylate/Menthol) 29 Gm Oint...g. 1 [place]ee[place] TP PRN QID PRN Milk Of Magnesia (Magnesium Hydroxide) 2,400 Mg/10 Ml Oral.susp 2,400 Mg PO PRN QHS PRN Diagnosis: Problems: (1) Alzheimer disease (2) Impulse control disorder (3) Hypothyroid (4) Dementia with behavioral disturbance GRANT STOVER MD Jan 09, 2017 20:49
--- NOTE | 2017-01-09 23:14 | PN ---
DATE: 01/08/2017 PSYCHIATRIC PROGRESS NOTE This late entry date of 01/08/2017 covers elements not covered in my initial note of 01/08/2017. SUBJECTIVE: I met with the patient evening of 01/08/2017. The patient slept 8 hours previous evening, slept in the afternoon, had to be woken up for dinner. She is less anxious, verbally responded briefly to nursing staff, which was improvement for her. She was tired at lunchtime. Diet is changed back to pureed. Around dinnertime, she was more anxious, restless, crashed to nursing staff, difficult to redirect. REVIEW OF SYSTEMS: No CV, , pulmonary, eye, ENT system symptoms on review. Reliability poor. MENTAL STATUS EXAM: Oriented to herself. Insight, judgment, recent and remote memory, attention, concentration, fund of knowledge poor, consistent with her diagnosis. LABORATORY DATA: Reviewed. IMPRESSION: Unchanged from initial note. PLAN: The patient has been started on Luvox, to be increased to 50 mg a day. Maintain the rest of the psychotropics. Reviewed drug interactions, risk/benefit ratio favors no further change. The patient is on 2 atypical antipsychotics, Geodon and Seroquel and depending on how she does on the Luvox, we may simplify that regimen to a single atypical. Reviewed drug interactions, risk/benefit ratio favors no further change at this time. GRANT STOVER MD DR: AMOL/shelley JOB#: [id number] / [id number]
--- NOTE | 2017-01-09 23:24 | NUR ---
Behavior Intervention Response and Plan: BIRP Note: Behavior: Assumed Care of patient, patient located in Day Room at shift change. Patient exhibited the following behavior Restless, Disorganized, Compulsive. Brief assessment on rounds of vital signs, medication needs, lab studies, and pain. Treatment plan problems . Intervention: Patient assessed and the following interventions initiated safety checks 15 Minute Checks Head to toe Assessment , Cognitive Assessment , Medications. Response: After interactions and interventions patient responded in the following manner, Resistive , Agitated ,Combative. Continue to assess behaviors and condition will continue to monitor throughout the shift as needed. Patient educated on ADL's, and hand hygiene. 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 Continue to assess patient for changes in above assessment. Monitor for medication needs, pain, and safety concerns. Hourly rounding performed to ensure safe environment.
[2017-01-10] MEDS: LORazepam 0.5 MG TABLET PO PRN ×2 (00:51→20:30)
[2017-01-10] MEDS: LEVOTHYROXINE 75 MCG TABLET PO SCH (05:49)
[2017-01-10] MEDS: DEXTROMETHORPHAN/QUINIDINE 20/10MG CAPSULE. PO SCH ×2 (07:51→20:40)
[2017-01-10] MEDS: CALCIUM CARB/VIT D3 500/200 TABLET PO SCH ×2 (07:52→20:28)
[2017-01-10] MEDS: QUEtiapine 50 MG TABLET. PO SCH ×3 (07:52→20:28)
[2017-01-10] MEDS: SENNOSIDES 8.6 MG TABLET PO SCH ×2 (07:52→20:26)
[2017-01-10] MEDS: PANTOPRAZOLE 40 MG PACKET. PO SCH (07:52)
[2017-01-10] MEDS: ZIPRASIDONE 40 MG CAPSULE. PO SCH (07:52)
[2017-01-10] MEDS: MULTIVITAMIN with MINERAL TABLET. PO SCH (07:52)
[2017-01-10] MEDS: NEO/POLYMYX/DEXAMETH OPHTH SUSPENSION 5ML BOTTLE. OU SCH ×4 (07:56→20:40)
--- NOTE | 2017-01-10 08:30 | NUR ---
Nursing Note: Pt grabbed spoon out of this nurse's hand and grabbed at this nurse during assessment. Pt held on to this nurse's shirt and would not let go. Administered Pt am meds. Will continue to monitor.
--- NOTE | 2017-01-10 10:52 | NUR ---
Behavior Intervention Response and Plan: BIRP Note: Behavior: Assumed Care of patient, patient located in Dining Room at shift change. Patient exhibited the following behavior Disorganized, Restless, Agitated. Brief assessment on rounds of vital signs, medication needs, lab studies, and pain. Treatment plan problems . Intervention: Patient assessed and the following interventions initiated safety checks 15 Minute Checks Cognitive Assessment , Head to toe Assessment , Medications. Response: After interactions and interventions patient responded in the following manner, Restless , Disorganized ,Agitated. Continue to assess behaviors and condition will continue to monitor throughout the shift as needed. Patient educated on ADL's, and hand hygiene. 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 Continue to assess patient for changes in above assessment. Monitor for medication needs, pain, and safety concerns. Hourly rounding performed to ensure safe environment.
--- NOTE | 2017-01-10 12:21 | PN ---
DATE: 01/09/2017 This is a late entry for date of service 01/09/2017 and covers elements not covered in my initial note of 01/09/2017. The patient was staffed at treatment team meeting with entire team and the patient's daughter, Chen morning of 01/09/2017. Seen individually evening of 01/09/2017. We reviewed the patient's history at length including her admission to [facility] in [place] from 11/05/2016 to 12/17/2016. I have reviewed those records as well the evening of 01/09/2017 with diagnosis consistent with our current diagnosis. Multiple psychotropic medication changes reflected in [facility]'s records, treated by Dr. Goins and Dr. Padilla. The patient takes her medications crushed, remains agitated, aggressive, disruptive, digging her nails into the arms of the nursing staff, repeatedly stating "okay, okay, okay." Past functional history has been quite high, running 3 different Tempronics. Ambulation is impaired, possibly due to her spina bifida and pain which she does not allude to directly, though this could be a function of her dementia. REVIEW OF SYSTEMS: Ambulation impaired. No CV, , pulmonary, eye, ENT system symptoms on review. Reliability poor. MENTAL STATUS EXAM: Oriented to herself. Insight, judgment, recent and remote memory, attention, concentration, fund of knowledge poor, consistent with her diagnoses as mentioned in my note. PLAN: Luvox has been initiated, increasing to 50 mg at bedtime. She was on Geodon 40 mg twice a day at [facility] together with Seroquel. Currently, the Geodon is 40 mg a day, Nuedexta together with Seroquel, Namenda. We will make further adjustments in her psychotropics as clinically indicated. We will try and avoid using atypical antipsychotics due to risk/benefit ratio. Reviewed drug interactions, risk/benefit ratio favors no further change for now. MAN Abdullahi STOVER MD DR: AMOL/shelley JOB#: [id number] / [id number]
[2017-01-10 16:22] VITALS: BP 141/67
[2017-01-10] MEDS: MEMANTINE 10 MG TABLET. PO SCH (20:28)
--- NOTE | 2017-01-10 20:47 | PDOC ---
Exam Ronen Demential Exam: Ronen Note: Please also refer to the separate dictated note~for this date of service dictated separately.~Patient seen individually. Discussed the patient with Nursing staff reviewed the chart.~Reviewed interim history and current functioning. Reviewed vital signs,~Labs/ Radiology~and current medications noted below. Continue current treatment with the changes noted in the dictated addendum note Assessment: Vital Signs: Vital Signs Date Time Temp Pulse Resp B/P (MAP) Pulse Ox O2 Delivery O2 Flow Rate FiO2 01/10/17 16:22 98.7 77 18 141/67 (91) 95 Room Air I&O Intake and Output 01/11/17 07:00 Intake Total 600 ml Balance 600 ml Intake Oral 600 ml Current Medications: Meds: Current Medications Lorazepam (Ativan) 0.5 mg PRN Q4HRS PRN PO ANXIETY / AGITATION Last administered on 01/10/17 20:30; Start 01/05/17 at 16:45 Acetaminophen (Tylenol) 500 mg Q6HRS PRN PO PAIN / TEMP Last administered on 07:56; Start 01/05/17 at 17:00 Bisacodyl (Dulcolax Supp) 10 mg PRN DAILY PRN RC CONSTIPATION; Start 01/05/17 at 17:00 Calcium/Vitamin D (Oscal D 500mg/ 200uts) 1 tab BID PO Last administered on 20:28; Start 01/05/17 at 21:00 Levothyroxine Sodium (Synthroid) 75 mcg DAILY06 PO Last administered on 05:49; Start 01/06/17 at 06:00 Multi-Ingredient Ointment (Analgesic [place]) 1 peewee PRN QID PRN TP muscle pain; Start 01/05/17 at 17:00 Neomycin/ Polymyxin/ Dexamethasone (Maxitrol) 2 drop TID OU Last administered on 01/10/17 20:40; Start 01/05/17 at 21:00 Sennosides (Senna) 8.6 mg BID PO Last administered on 01/10/17 20:26; Start 01/05/17 at 21:00 Al Hydroxide/Mg Hydroxide (Mylanta Plus Xs) 15 ml PRN AFTMEALHC PRN PO DYSPEPSIA; Start 01/05/17 at 17:15 Magnesium Hydroxide (Milk Of Magnesia) 2,400 mg PRN QHS PRN PO CONSTIPATION Last administered on 01/08/17 17:21; Start 01/05/17 at 17:15 Multivitamins/ Calcium (Thera-M Plus) 1 tab DAILY PO Last administered on 07:52; Start 01/06/17 at 09:00 Pantoprazole Sodium (Protonix) 40 mg DAILYAC PO Last administered on 08:43; Start 01/06/17 at 07:30; Stop 01/09/17 at 07:50; Status DC Citalopram Hydrobromide (CeleXA) 10 mg DAILY PO Last administered on 10:09; Start 01/06/17 at 09:00; Stop 01/07/17 at 19:34; Status DC Memantine (Namenda) 10 mg HS PO Last administered on 01/10/17 20:28; Start at 21:00 Quetiapine Fumarate (SEROquel) 150 mg QHS PO Last administered on 01/10/17 20: 28; Start 01/05/17 at 21:00 Quetiapine Fumarate (SEROquel) 50 mg BID92 PO Last administered on 01/10/17 14 :06; Start 01/06/17 at 09:00; Stop 01/10/17 at 19:13; Status DC Ziprasidone (Geodon) 40 mg DAILY PO Last administered on 01/10/17 07:52; Start 01/06/17 at 09:00 Pneumococcal Polyvalent Vaccine (Pneumovax 23) 0.5 ml ONCE ONCE VAX IM Last administered on 01/07/17 23:11; Start 01/07/17 at 21:00; Stop 01/07/17 at 21 :01; Status DC Influenza Virus Vaccine Quadrival (Fluarix Quad [id number] Syringe) 0.5 ml ONCE ONCE VAX IM Last administered on 01/07/17 23:13; Start 01/07/17 at 21:00; Stop 01/07/17 at 21:01; Status DC Fluvoxamine Maleate (Luvox) 25 mg HS PO Last administered on 01/09/17 19:47; Start 01/07/17 at 21:00; Stop 01/10/17 at 20:59 Fluvoxamine Maleate (Luvox) 50 mg HS PO Last administered on 01/10/17 20:28; Start 01/10/17 at 21:00 Pantoprazole Sodium (Protonix Packet) 40 mg DAILYAC PO Last administered on 07:52; Start 01/09/17 at 08:15 Quetiapine Fumarate (SEROquel) 75 mg BID92 PO ; Start 01/11/17 at 09:00 Active Scripts Active Reported Synthroid (Levothyroxine Sodium) 75 Mcg Tablet 1 Tab PO DAILY06 Senokot (Sennosides) 8.6 Mg Tablet 1 Tab PO BID Seroquel (Quetiapine Fumarate) 50 Mg Tablet 1 Tab PO BID92 Omeprazole 20 Mg Capsule.dr 1 Cap PO DAILY Nuedexta 20-10 Mg Capsule (Dextromethorphan Hbr/Quinidine) 1 Each Capsule 1 Each PO BID Multivitamins (Multivitamin) 1 Each Tablet 1 Tab PO DAILY Namenda (Memantine Hcl) 10 Mg Tablet 10 Mg PO HS Maxitrol Eye Drops (Jhonathan/Polymyx B Sulf/Dexameth) 5 Ml Drops.susp 2 Drop OU TID Geodon (Ziprasidone Hcl) 40 Mg Capsule 40 Mg PO DAILY Celexa (Citalopram Hydrobromide) 10 Mg Tablet 10 Mg PO DAILY Calcium 500 + Vit D 200 Tablet (Calcium Carbonate/Vitamin D3) 1 Each Tablet 1 Each PO BID Bisacodyl 10 Mg Supp.rect 10 Mg RC PRN DAILY PRN Acetaminophen 500 Mg Tablet 1 Tab PO Q6HRS PRN Mag-Al Plus Suspension (Mag Hydrox/Al Hydrox/Simeth) 30 Ml Oral.susp 15 Ml PO PRN AFTMEALHC PRN Seroquel (Quetiapine Fumarate) 25 Mg Tablet 150 Mg PO HS Analgesic [place] (Methyl Salicylate/Menthol) 29 Gm Oint...g. 1 [place] TP PRN QID PRN Milk Of Magnesia (Magnesium Hydroxide) 2,400 Mg/10 Ml Oral.susp 2,400 Mg PO PRN QHS PRN Diagnosis: Problems: (1) Alzheimer disease (2) Impulse control disorder (3) Hypothyroid (4) Dementia with behavioral disturbance GRANT STOVER MD Jan 10, 2017 20:47
--- NOTE | 2017-01-10 21:00 | NUR ---
Behavior Intervention Response and Plan: BIRP Note: Behavior: Assumed Care of patient, patient located in Day Room at shift change. Patient exhibited the following behavior Anxious, Resistive, Disorganized. Brief assessment on rounds of vital signs, medication needs, lab studies, and pain. Treatment plan problems 1-3. Intervention: Patient assessed and the following interventions initiated safety checks 15 Minute Checks Head to toe Assessment , Medications , ADL's. Response: After interactions and interventions patient responded in the following manner, Cooperative , Compliant ,Disorganized. Continue to assess behaviors and condition will continue to monitor throughout the shift as needed. Patient educated on ADL's, and hand hygiene. Plan: Continue to monitor Master Treatment Plan for patient's progress toward short term goals of Improved Mood, Decreased Anxiety, senior care goals to return to previous living setting vs placement. Continue to assess patient for changes in above assessment. Monitor for medication needs, pain, and safety concerns. Hourly rounding performed to ensure safe environment.
[2017-01-11 06:12] VITALS: BP 168/62
[2017-01-11] MEDS: LEVOTHYROXINE 75 MCG TABLET PO SCH (06:17)
[2017-01-11] MEDS: NEO/POLYMYX/DEXAMETH OPHTH SUSPENSION 5ML BOTTLE. OU SCH ×3 (09:00→19:22)
[2017-01-11] MEDS: MULTIVITAMIN with MINERAL TABLET. PO SCH (09:21)
[2017-01-11] MEDS: PANTOPRAZOLE 40 MG PACKET. PO SCH (09:21)
[2017-01-11] MEDS: SENNOSIDES 8.6 MG TABLET PO SCH ×2 (09:21→19:20)
[2017-01-11] MEDS: ZIPRASIDONE 40 MG CAPSULE. PO SCH (09:21)
[2017-01-11] MEDS: DEXTROMETHORPHAN/QUINIDINE 20/10MG CAPSULE. PO SCH ×2 (09:21→19:22)
[2017-01-11] MEDS: CALCIUM CARB/VIT D3 500/200 TABLET PO SCH ×2 (09:21→19:20)
[2017-01-11] MEDS: QUEtiapine 50 MG TABLET. PO SCH ×3 (09:23→19:20)
--- NOTE | 2017-01-11 09:37 | NUR ---
Behavior Intervention Response and Plan: BIRP Note: Behavior: Assumed Care of patient, patient located in Patient Room at shift change. Patient exhibited the following behavior Disorganized, Anxious, Cooperative. Brief assessment on rounds of vital signs, medication needs, lab studies, and pain. Treatment plan problems . Intervention: Patient assessed and the following interventions initiated safety checks 15 Minute Checks Cognitive Assessment , Head to toe Assessment , Medications. Response: After interactions and interventions patient responded in the following manner, Disorganized , Anxious ,Compliant. Continue to assess behaviors and condition will continue to monitor throughout the shift as needed. Patient educated on ADL's, and hand hygiene. 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 Continue to assess patient for changes in above assessment. Monitor for medication needs, pain, and safety concerns. Hourly rounding performed to ensure safe environment.
--- NOTE | 2017-01-11 10:02 | NUR ---
KELLI faxed updated clinical notes to [facility].
[2017-01-11] MEDS: LORazepam 0.5 MG TABLET PO PRN (10:39)
[2017-01-11] MEDS: MAGNESIUM HYDROXIDE 2,400 MG/30 ML ORAL.SUSP. PO PRN (10:39)
--- NOTE | 2017-01-11 10:40 | NUR ---
Nursing Note: Pt reached arm for staff, grabbing staff and digging nails into arm and refusing to let go. Attempted to redirect pt and was not successful. Administered PRN Ativan. Will continue to monitor.
[2017-01-11 16:13] VITALS: BP 131/62
--- NOTE | 2017-01-11 17:05 | NUR ---
SW Weekly Progress Note Pt. continues to repeat "OK" throughout the day. Pt. can answer some basic questions posed by this SW, but is unable to follow a full conversation at this time. Pt. will return to [facility] at [place]..
[2017-01-11 17:14] LABS: T3 TOTAL 61 ng/dL (71-180); THYROXINE 4.6 ug/dL (4.5-12.0)
[2017-01-11] MEDS: MEMANTINE 10 MG TABLET. PO SCH (19:20)
--- NOTE | 2017-01-11 20:56 | PDOC ---
Exam Ronen Demential Exam: Ronen Note: Please also refer to the separate dictated note~for this date of service dictated separately.~Patient seen individually. Discussed the patient with Nursing staff reviewed the chart.~Reviewed interim history and current functioning. Reviewed vital signs,~Labs/ Radiology~and current medications noted below. Continue current treatment with the changes noted in the dictated addendum note Assessment: Vital Signs: Vital Signs Date Time Temp Pulse Resp B/P (MAP) Pulse Ox O2 Delivery O2 Flow Rate FiO2 01/11/17 16:13 97.8 80 20 131/62 (85) 98 01/10/17 16:22 Room Air I&O Intake and Output 01/12/17 07:00 Intake Total 720 ml Balance 720 ml Intake Oral 720 ml Current Medications: Meds: Current Medications Lorazepam (Ativan) 0.5 mg PRN Q4HRS PRN PO ANXIETY / AGITATION Last administered on 01/11/17 10:39; Start 01/05/17 at 16:45 Acetaminophen (Tylenol) 500 mg Q6HRS PRN PO PAIN / TEMP Last administered on 07:56; Start 01/05/17 at 17:00 Bisacodyl (Dulcolax Supp) 10 mg PRN DAILY PRN RC CONSTIPATION; Start 01/05/17 at 17:00 Calcium/Vitamin D (Oscal D 500mg/ 200uts) 1 tab BID PO Last administered on 19:20; Start 01/05/17 at 21:00 Levothyroxine Sodium (Synthroid) 75 mcg DAILY06 PO Last administered on 06:17; Start 01/06/17 at 06:00 Multi-Ingredient Ointment (Analgesic [place]) 1 peewee PRN QID PRN TP muscle pain; Start 01/05/17 at 17:00 Neomycin/ Polymyxin/ Dexamethasone (Maxitrol) 2 drop TID OU Last administered on 01/11/17 19:22; Start 01/05/17 at 21:00 Sennosides (Senna) 8.6 mg BID PO Last administered on 01/11/17 19:20; Start 01/05/17 at 21:00 Al Hydroxide/Mg Hydroxide (Mylanta Plus Xs) 15 ml PRN AFTMEALHC PRN PO DYSPEPSIA; Start 01/05/17 at 17:15 Magnesium Hydroxide (Milk Of Magnesia) 2,400 mg PRN QHS PRN PO CONSTIPATION Last administered on 01/11/17 10:39; Start 01/05/17 at 17:15 Multivitamins/ Calcium (Thera-M Plus) 1 tab DAILY PO Last administered on 09:21; Start 01/06/17 at 09:00 Pantoprazole Sodium (Protonix) 40 mg DAILYAC PO Last administered on 08:43; Start 01/06/17 at 07:30; Stop 01/09/17 at 07:50; Status DC Citalopram Hydrobromide (CeleXA) 10 mg DAILY PO Last administered on 10:09; Start 01/06/17 at 09:00; Stop 01/07/17 at 19:34; Status DC Memantine (Namenda) 10 mg HS PO Last administered on 01/11/17 19:20; Start at 21:00 Quetiapine Fumarate (SEROquel) 150 mg QHS PO Last administered on 01/11/17 19: 20; Start 01/05/17 at 21:00 Quetiapine Fumarate (SEROquel) 50 mg BID92 PO Last administered on 01/10/17 14 :06; Start 01/06/17 at 09:00; Stop 01/10/17 at 19:13; Status DC Ziprasidone (Geodon) 40 mg DAILY PO Last administered on 01/11/17 09:21; Start 01/06/17 at 09:00; Stop 01/11/17 at 18:37; Status DC Pneumococcal Polyvalent Vaccine (Pneumovax 23) 0.5 ml ONCE ONCE VAX IM Last administered on 01/07/17 23:11; Start 01/07/17 at 21:00; Stop 01/07/17 at 21 :01; Status DC Influenza Virus Vaccine Quadrival (Fluarix Quad [id number] Syringe) 0.5 ml ONCE ONCE VAX IM Last administered on 01/07/17 23:13; Start 01/07/17 at 21:00; Stop 01/07/17 at 21:01; Status DC Fluvoxamine Maleate (Luvox) 25 mg HS PO Last administered on 01/09/17 19:47; Start 01/07/17 at 21:00; Stop 01/10/17 at 20:59; Status DC Fluvoxamine Maleate (Luvox) 50 mg HS PO Last administered on 01/11/17 19:20; Start 01/10/17 at 21:00 Pantoprazole Sodium (Protonix Packet) 40 mg DAILYAC PO Last administered on 09:21; Start 01/09/17 at 08:15 Quetiapine Fumarate (SEROquel) 75 mg BID92 PO Last administered on 01/11/17 15 :28; Start 01/11/17 at 09:00 Clonazepam (KlonoPIN) 0.25 mg DAILY PO ; Start 01/12/17 at 09:00 Active Scripts Active Reported Synthroid (Levothyroxine Sodium) 75 Mcg Tablet 1 Tab PO DAILY06 Senokot (Sennosides) 8.6 Mg Tablet 1 Tab PO BID Seroquel (Quetiapine Fumarate) 50 Mg Tablet 1 Tab PO BID92 Omeprazole 20 Mg Capsule.dr 1 Cap PO DAILY Nuedexta 20-10 Mg Capsule (Dextromethorphan Hbr/Quinidine) 1 Each Capsule 1 Each PO BID Multivitamins (Multivitamin) 1 Each Tablet 1 Tab PO DAILY Namenda (Memantine Hcl) 10 Mg Tablet 10 Mg PO HS Maxitrol Eye Drops (Jhonathan/Polymyx B Sulf/Dexameth) 5 Ml Drops.susp 2 Drop OU TID Geodon (Ziprasidone Hcl) 40 Mg Capsule 40 Mg PO DAILY Celexa (Citalopram Hydrobromide) 10 Mg Tablet 10 Mg PO DAILY Calcium 500 + Vit D 200 Tablet (Calcium Carbonate/Vitamin D3) 1 Each Tablet 1 Each PO BID Bisacodyl 10 Mg Supp.rect 10 Mg RC PRN DAILY PRN Acetaminophen 500 Mg Tablet 1 Tab PO Q6HRS PRN Mag-Al Plus Suspension (Mag Hydrox/Al Hydrox/Simeth) 30 Ml Oral.susp 15 Ml PO PRN AFTMEALHC PRN Seroquel (Quetiapine Fumarate) 25 Mg Tablet 150 Mg PO HS Analgesic [place] (Methyl Salicylate/Menthol) 29 Gm Oint...g. 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
--- NOTE | 2017-01-11 23:13 | NUR ---
Behavior Intervention Response and Plan: BIRP Note: Behavior: Assumed Care of patient, patient located in Patient Room at shift change. Patient exhibited the following behavior Disorganized, Anxious, Cooperative. Brief assessment on rounds of vital signs, medication needs, lab studies, and pain. Treatment plan problems . Intervention: Patient assessed and the following interventions initiated safety checks 15 Minute Checks Cognitive Assessment , Head to toe Assessment , Medications. Response: After interactions and interventions patient responded in the following manner, Disorganized , Anxious ,Compliant. Continue to assess behaviors and condition will continue to monitor throughout the shift as needed. Patient educated on ADL's, and hand hygiene. 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 Continue to assess patient for changes in above assessment. Monitor for medication needs, pain, and safety concerns. Hourly rounding performed to ensure safe environment.
[2017-01-12] MEDS: LEVOTHYROXINE 75 MCG TABLET PO SCH (05:02)
[2017-01-12 06:02] VITALS: BP 124/62
[2017-01-12] MEDS: LORazepam 0.5 MG TABLET PO PRN (06:08)
[2017-01-12] MEDS: PANTOPRAZOLE 40 MG PACKET. PO SCH (06:35)
[2017-01-12] MEDS: MULTIVITAMIN with MINERAL TABLET. PO SCH (06:35)
[2017-01-12] MEDS: CALCIUM CARB/VIT D3 500/200 TABLET PO SCH ×2 (06:35→19:21)
[2017-01-12] MEDS: SENNOSIDES 8.6 MG TABLET PO SCH ×2 (06:35→19:21)
[2017-01-12] MEDS: QUEtiapine 50 MG TABLET. PO SCH ×3 (06:35→19:21)
[2017-01-12] MEDS ORDERED: clonazePAM 0.5 MG TABLET ONE (06:37)
[2017-01-12] MEDS: clonazePAM 0.5 MG TABLET PO SCH (06:38)
[2017-01-12] MEDS: NEO/POLYMYX/DEXAMETH OPHTH SUSPENSION 5ML BOTTLE. OU SCH ×3 (06:38→19:35)
[2017-01-12] MEDS: DEXTROMETHORPHAN/QUINIDINE 20/10MG CAPSULE. PO SCH ×2 (06:38→19:21)
[2017-01-12] MEDS ORDERED: MAGNESIUM CITRATE 296 ML SOLUTION. PO PRN (07:45)
--- NOTE | 2017-01-12 08:00 | NUR ---
Behavior Intervention Response and Plan: BIRP Note: Behavior: Assumed Care of patient, patient located in Dining Room at shift change. Patient exhibited the following behavior Disorganized, Drowsy, Compliant. Brief assessment on rounds of vital signs, medication needs, lab studies, and pain. Treatment plan problems . Intervention: Patient assessed and the following interventions initiated safety checks 15 Minute Checks Head to toe Assessment , Cognitive Assessment , Medications. Response: After interactions and interventions patient responded in the following manner, Anxious , Drowsy ,Sleeping. Continue to assess behaviors and condition will continue to monitor throughout the shift as needed. Patient educated on ADL's, and hand hygiene. 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 Continue to assess patient for changes in above assessment. Monitor for medication needs, pain, and safety concerns. Hourly rounding performed to ensure safe environment.
--- NOTE | 2017-01-12 09:11 | PN ---
DATE: 01/10/2017 This late entry, 01/10/2017, covers elements not covered in my initial of 01/10/2017. SUBJECTIVE: Met with the patient the evening of 01/10/2017. The patient slept 5-1/4 hours previous evening. She continues to be agitated, anxious, labile, grabbing at anyone around her, trying to dig her nails into their arms, grabbed my tie as I met with her, grabbed my arm, was digging her nails into the arm, repeatedly stating "okay, okay, okay, okay." REVIEW OF SYSTEMS: Ambulation impaired, in Broda chair. No CV, , pulmonary, eye, ENT system symptoms on review. Reliability poor. MENTAL STATUS EXAM: Oriented to herself. Insight, judgment, recent and remote memory, attention, concentration, fund of knowledge poor consistent with her diagnosis mentioned in my initial note. PLAN: Continue Luvox increased to 50 mg a day. Seroquel currently is 50 mg at 9:00 a.m. and 2:00 p.m., 150 mg at bedtime. We will increase the 9:00 a.m. and 2:00 p.m. Seroquel to 75 mg. Maintain the rest unchanged including Geodon, Nuedexta, Luvox along with Ativan p.r.n. Namenda is 10 mg at bedtime, but it is unclear would benefit this could be having at this stage of her dementia. We will reassess this. Reviewed drug interactions. Risk/benefit ratio favors no further change. GRANT STOVER MD DR: AMOL/shelley JOB#: [id number] / [id number]
--- NOTE | 2017-01-12 10:10 | RAD ---
Examination: Single frontal view of the abdomen History: History of abdominal pain, constipation. Comparison: None available Findings: The bowel gas pattern appears unremarkable. Feces and gas noted throughout the colon. Left-sided femoral prosthesis identified. Severe degenerative changes right hip joint. Impression: 1. Unremarkable bowel gas pattern. 2. Feces and gas noted in the colon. Correlate for constipation.
[2017-01-12 16:13] VITALS: BP 165/71
[2017-01-12] MEDS: MEMANTINE 10 MG TABLET. PO SCH (19:21)
--- NOTE | 2017-01-12 21:47 | NUR ---
Behavior Intervention Response and Plan: BIRP Note: Behavior: Assumed Care of patient, patient located in Day Room at shift change. Patient exhibited the following behavior Restless, Disorganized, Agitated. Brief assessment on rounds of vital signs, medication needs, lab studies, and pain. Treatment plan problems:1-2 Intervention: Patient assessed and the following interventions initiated safety checks 15 Minute Checks Cognitive Assessment , Head to toe Assessment , Medications. Response: After interactions and interventions patient responded in the following manner, Restless , Disorganized ,Non Compliant. Continue to assess behaviors and condition will continue to monitor throughout the shift as needed. Patient educated on ADL's, and hand hygiene. 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 Continue to assess patient for changes in above assessment. Monitor for medication needs, pain, and safety concerns. Hourly rounding performed to ensure safe environment.
--- NOTE | 2017-01-12 22:24 | PN ---
DATE: 01/11/2017 This is a late entry for date of service 01/11/2017 and covers elements not covered in my initial note of 01/11/2017. I met with the patient the evening of 01/11/2017. Per nursing report, the patient did well this morning of 01/11/2017 until about 10:30 and then she was agitated, clawing at nursing staff, reaching out, grabbing at things around her. Ativan seemed to help and the nursing staff were quite clear that for a couple of hours, Ativan was very effective. She ate 100% of lunch as a consequence of this little for supper. REVIEW OF SYSTEMS: No CV, , pulmonary, eye, ENT system symptoms on review. Reliability poor. Ambulation impaired, in a Broda chair. MENTAL STATUS EXAM: Oriented to herself. Insight, judgment, recent and remote memory, attention, concentration, fund of knowledge poor, consistent with her diagnoses mentioned in my initial note. PLAN: Since the patient responded to the Ativan, but only for a short period of time, it appears she may do better on low dose benzodiazepines. We will start Klonopin 0.25 mg at 9:00 a.m. Maintain the rest of the psychotropics unchanged. Reviewed drug interactions, risk/benefit ratio favors no further change. GRANT STOVER MD DR: AMOL/shelley JOB#: [id number] / [id number]
--- NOTE | 2017-01-12 23:50 | PDOC ---
Exam Ronen Demential Exam: Ronen Note: Please also refer to the separate dictated note~for this date of service dictated separately.~Patient seen individually. Discussed the patient with Nursing staff reviewed the chart.~Reviewed interim history and current functioning. Reviewed vital signs,~Labs/ Radiology~and current medications noted below. Continue current treatment with the changes noted in the dictated addendum note Assessment: Vital Signs: Vital Signs Date Time Temp Pulse Resp B/P (MAP) Pulse Ox O2 Delivery O2 Flow Rate FiO2 01/12/17 16:13 97.3 67 20 165/71 (102) 99 01/10/17 16:22 Room Air I&O Intake and Output 01/13/17 07:00 Intake Total 360 ml Balance 360 ml Intake Oral 360 ml Current Medications: Meds: Current Medications Lorazepam (Ativan) 0.5 mg PRN Q4HRS PRN PO ANXIETY / AGITATION Last administered on 01/12/17 06:08; Start 01/05/17 at 16:45; Stop 01/12/17 at 19: 11; Status DC Acetaminophen (Tylenol) 500 mg Q6HRS PRN PO PAIN / TEMP Last administered on 07:56; Start 01/05/17 at 17:00 Bisacodyl (Dulcolax Supp) 10 mg PRN DAILY PRN RC CONSTIPATION; Start 01/05/17 at 17:00 Calcium/Vitamin D (Oscal D 500mg/ 200uts) 1 tab BID PO Last administered on 19:21; Start 01/05/17 at 21:00 Levothyroxine Sodium (Synthroid) 75 mcg DAILY06 PO Last administered on 05:02; Start 01/06/17 at 06:00 Multi-Ingredient Ointment (Analgesic [place]) 1 peewee PRN QID PRN TP muscle pain; Start 01/05/17 at 17:00 Neomycin/ Polymyxin/ Dexamethasone (Maxitrol) 2 drop TID OU Last administered on 01/12/17 19:35; Start 01/05/17 at 21:00 Sennosides (Senna) 8.6 mg BID PO Last administered on 01/12/17 19:21; Start 01/05/17 at 21:00 Al Hydroxide/Mg Hydroxide (Mylanta Plus Xs) 15 ml PRN AFTMEALHC PRN PO DYSPEPSIA; Start 01/05/17 at 17:15 Magnesium Hydroxide (Milk Of Magnesia) 2,400 mg PRN QHS PRN PO CONSTIPATION Last administered on 01/11/17 10:39; Start 01/05/17 at 17:15 Multivitamins/ Calcium (Thera-M Plus) 1 tab DAILY PO Last administered on 06:35; Start 01/06/17 at 09:00 Pantoprazole Sodium (Protonix) 40 mg DAILYAC PO Last administered on 08:43; Start 01/06/17 at 07:30; Stop 01/09/17 at 07:50; Status DC Citalopram Hydrobromide (CeleXA) 10 mg DAILY PO Last administered on 10:09; Start 01/06/17 at 09:00; Stop 01/07/17 at 19:34; Status DC Memantine (Namenda) 10 mg HS PO Last administered on 01/12/17 19:21; Start at 21:00 Quetiapine Fumarate (SEROquel) 150 mg QHS PO Last administered on 01/12/17 19: 21; Start 01/05/17 at 21:00 Quetiapine Fumarate (SEROquel) 50 mg BID92 PO Last administered on 01/10/17 14 :06; Start 01/06/17 at 09:00; Stop 01/10/17 at 19:13; Status DC Ziprasidone (Geodon) 40 mg DAILY PO Last administered on 01/11/17 09:21; Start 01/06/17 at 09:00; Stop 01/11/17 at 18:37; Status DC Pneumococcal Polyvalent Vaccine (Pneumovax 23) 0.5 ml ONCE ONCE VAX IM Last administered on 01/07/17 23:11; Start 01/07/17 at 21:00; Stop 01/07/17 at 21 :01; Status DC Influenza Virus Vaccine Quadrival (Fluarix Quad [id number] Syringe) 0.5 ml ONCE ONCE VAX IM Last administered on 01/07/17 23:13; Start 01/07/17 at 21:00; Stop 01/07/17 at 21:01; Status DC Fluvoxamine Maleate (Luvox) 25 mg HS PO Last administered on 01/09/17 19:47; Start 01/07/17 at 21:00; Stop 01/10/17 at 20:59; Status DC Fluvoxamine Maleate (Luvox) 50 mg HS PO Last administered on 01/12/17 19:20; Start 01/10/17 at 21:00 Pantoprazole Sodium (Protonix Packet) 40 mg DAILYAC PO Last administered on 06:35; Start 01/09/17 at 08:15 Quetiapine Fumarate (SEROquel) 75 mg BID92 PO Last administered on 01/12/17 06 :35; Start 01/11/17 at 09:00 Clonazepam (KlonoPIN) 0.25 mg DAILY PO Last administered on 01/12/17 06:38; Start 01/12/17 at 09:00 Clonazepam (KlonoPIN) 0.5 mg STK-MED ONCE .ROUTE Last administered on 06:37; Start 01/12/17 at 06:37; Stop 01/12/17 at 06:38; Status DC Magnesium Citrate (Citroma) 296 ml PRN 1X PRN PO CONSTIPATION Last administered on 01/12/17 19:34; Start 01/12/17 at 07:45 Lorazepam (Ativan) 0.25 mg PRN Q4HRS PRN PO ANXIETY / AGITATION; Start at 19:15 Active Scripts Active Reported Synthroid (Levothyroxine Sodium) 75 Mcg Tablet 1 Tab PO DAILY06 Senokot (Sennosides) 8.6 Mg Tablet 1 Tab PO BID Seroquel (Quetiapine Fumarate) 50 Mg Tablet 1 Tab PO BID92 Omeprazole 20 Mg Capsule.dr 1 Cap PO DAILY Nuedexta 20-10 Mg Capsule (Dextromethorphan Hbr/Quinidine) 1 Each Capsule 1 Each PO BID Multivitamins (Multivitamin) 1 Each Tablet 1 Tab PO DAILY Namenda (Memantine Hcl) 10 Mg Tablet 10 Mg PO HS Maxitrol Eye Drops (Jhonathan/Polymyx B Sulf/Dexameth) 5 Ml Drops.susp 2 Drop OU TID Geodon (Ziprasidone Hcl) 40 Mg Capsule 40 Mg PO DAILY Celexa (Citalopram Hydrobromide) 10 Mg Tablet 10 Mg PO DAILY Calcium 500 + Vit D 200 Tablet (Calcium Carbonate/Vitamin D3) 1 Each Tablet 1 Each PO BID Bisacodyl 10 Mg Supp.rect 10 Mg RC PRN DAILY PRN Acetaminophen 500 Mg Tablet 1 Tab PO Q6HRS PRN Mag-Al Plus Suspension (Mag Hydrox/Al Hydrox/Simeth) 30 Ml Oral.susp 15 Ml PO PRN AFTMEALHC PRN Seroquel (Quetiapine Fumarate) 25 Mg Tablet 150 Mg PO HS Analgesic [place] (Methyl Salicylate/Menthol) 29 Gm Oint...g. 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
[2017-01-13] MEDS: LEVOTHYROXINE 75 MCG TABLET PO SCH (05:40)
[2017-01-13 06:15] VITALS: BP 111/64
[2017-01-13] MEDS: DEXTROMETHORPHAN/QUINIDINE 20/10MG CAPSULE. PO SCH ×2 (06:34→17:30)
[2017-01-13] MEDS: SENNOSIDES 8.6 MG TABLET PO SCH ×2 (06:34→17:27)
[2017-01-13] MEDS: QUEtiapine 50 MG TABLET. PO SCH ×3 (06:34→17:27)
[2017-01-13] MEDS: MULTIVITAMIN with MINERAL TABLET. PO SCH (06:34)
[2017-01-13] MEDS: PANTOPRAZOLE 40 MG PACKET. PO SCH (06:34)
[2017-01-13] MEDS: CALCIUM CARB/VIT D3 500/200 TABLET PO SCH ×2 (06:35→17:27)
[2017-01-13] MEDS: clonazePAM 0.5 MG TABLET PO SCH (06:35)
[2017-01-13] MEDS: NEO/POLYMYX/DEXAMETH OPHTH SUSPENSION 5ML BOTTLE. OU SCH ×3 (06:36→17:27)
--- NOTE | 2017-01-13 08:15 | NUR ---
Behavior Intervention Response and Plan: BIRP Note: Behavior: Assumed Care of patient, patient located in Patient Room at shift change. Patient exhibited the following behavior , Compliant, Cooperative. Brief assessment on rounds of vital signs, medication needs, lab studies, and pain. Treatment plan problems . Intervention: Patient assessed and the following interventions initiated safety checks 15 Minute Checks Head to toe Assessment , Cognitive Assessment , Medications. Response: After interactions and interventions patient responded in the following manner, Drowsy , Disorganized ,Calm. Continue to assess behaviors and condition will continue to monitor throughout the shift as needed. Patient educated on ADL's, and hand hygiene. 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 Continue to assess patient for changes in above assessment. Monitor for medication needs, pain, and safety concerns. Hourly rounding performed to ensure safe environment.
[2017-01-13] MEDS ORDERED: POLYETHYLENE GLYCOL 3350 17 GM PACKET. PO ONE (14:00)
[2017-01-13] MEDS ORDERED: SODIUM PHOSPHATES 19/7GM 133 ML ENEMA. PR ONE (14:15)
[2017-01-13] MEDS: LORazepam 0.5 MG TABLET PO PRN (15:29)
[2017-01-13 16:36] VITALS: BP 95/50
[2017-01-13] MEDS: MEMANTINE 10 MG TABLET. PO SCH (17:27)
--- NOTE | 2017-01-13 18:04 | PDOC ---
Exam Ronen Demential Exam: Ronen Note: Please also refer to the separate dictated note~for this date of service dictated separately.~Patient seen individually. Discussed the patient with Nursing staff reviewed the chart.~Reviewed interim history and current functioning. Reviewed vital signs,~Labs/ Radiology~and current medications noted below. Continue current treatment with the changes noted in the dictated addendum note Assessment: Vital Signs: Vital Signs Date Time Temp Pulse Resp B/P (MAP) Pulse Ox O2 Delivery O2 Flow Rate FiO2 01/13/17 16:36 97.2 76 18 95/50 (65) 96 01/10/17 16:22 Room Air I&O Intake and Output 01/14/17 07:00 Intake Total 240 ml Balance 240 ml Intake Oral 240 ml # Bowel Movements 1 Current Medications: Meds: Current Medications Lorazepam (Ativan) 0.5 mg PRN Q4HRS PRN PO ANXIETY / AGITATION Last administered on 01/12/17 06:08; Start 01/05/17 at 16:45; Stop 01/12/17 at 19: 11; Status DC Acetaminophen (Tylenol) 500 mg Q6HRS PRN PO PAIN / TEMP Last administered on 07:56; Start 01/05/17 at 17:00; Stop 01/13/17 at 14:02; Status DC Bisacodyl (Dulcolax Supp) 10 mg PRN DAILY PRN RC CONSTIPATION; Start 01/05/17 at 17:00 Calcium/Vitamin D (Oscal D 500mg/ 200uts) 1 tab BID PO Last administered on 17:27; Start 01/05/17 at 21:00 Levothyroxine Sodium (Synthroid) 75 mcg DAILY06 PO Last administered on 05:40; Start 01/06/17 at 06:00 Multi-Ingredient Ointment (Analgesic [place]) 1 peewee PRN QID PRN TP muscle pain; Start 01/05/17 at 17:00 Neomycin/ Polymyxin/ Dexamethasone (Maxitrol) 2 drop TID OU Last administered on 01/13/17 17:27; Start 01/05/17 at 21:00 Sennosides (Senna) 8.6 mg BID PO Last administered on 01/13/17 17:27; Start 01/05/17 at 21:00 Al Hydroxide/Mg Hydroxide (Mylanta Plus Xs) 15 ml PRN AFTMEALHC PRN PO DYSPEPSIA; Start 01/05/17 at 17:15 Magnesium Hydroxide (Milk Of Magnesia) 2,400 mg PRN QHS PRN PO CONSTIPATION Last administered on 01/11/17 10:39; Start 01/05/17 at 17:15 Multivitamins/ Calcium (Thera-M Plus) 1 tab DAILY PO Last administered on 06:34; Start 01/06/17 at 09:00 Pantoprazole Sodium (Protonix) 40 mg DAILYAC PO Last administered on 08:43; Start 01/06/17 at 07:30; Stop 01/09/17 at 07:50; Status DC Citalopram Hydrobromide (CeleXA) 10 mg DAILY PO Last administered on 10:09; Start 01/06/17 at 09:00; Stop 01/07/17 at 19:34; Status DC Memantine (Namenda) 10 mg HS PO Last administered on 01/13/17 17:27; Start at 21:00 Quetiapine Fumarate (SEROquel) 150 mg QHS PO Last administered on 01/13/17 17: 27; Start 01/05/17 at 21:00 Quetiapine Fumarate (SEROquel) 50 mg BID92 PO Last administered on 01/10/17 14 :06; Start 01/06/17 at 09:00; Stop 01/10/17 at 19:13; Status DC Ziprasidone (Geodon) 40 mg DAILY PO Last administered on 01/11/17 09:21; Start 01/06/17 at 09:00; Stop 01/11/17 at 18:37; Status DC Pneumococcal Polyvalent Vaccine (Pneumovax 23) 0.5 ml ONCE ONCE VAX IM Last administered on 01/07/17 23:11; Start 01/07/17 at 21:00; Stop 01/07/17 at 21 :01; Status DC Influenza Virus Vaccine Quadrival (Fluarix Quad [id number] Syringe) 0.5 ml ONCE ONCE VAX IM Last administered on 01/07/17 23:13; Start 01/07/17 at 21:00; Stop 01/07/17 at 21:01; Status DC Fluvoxamine Maleate (Luvox) 25 mg HS PO Last administered on 01/09/17 19:47; Start 01/07/17 at 21:00; Stop 01/10/17 at 20:59; Status DC Fluvoxamine Maleate (Luvox) 50 mg HS PO Last administered on 01/13/17 17:27; Start 01/10/17 at 21:00 Pantoprazole Sodium (Protonix Packet) 40 mg DAILYAC PO Last administered on 06:34; Start 01/09/17 at 08:15 Quetiapine Fumarate (SEROquel) 75 mg BID92 PO Last administered on 01/13/17 13 :49; Start 01/11/17 at 09:00 Clonazepam (KlonoPIN) 0.25 mg DAILY PO Last administered on 01/13/17 06:35; Start 01/12/17 at 09:00 Clonazepam (KlonoPIN) 0.5 mg STK-MED ONCE .ROUTE Last administered on 06:37; Start 01/12/17 at 06:37; Stop 01/12/17 at 06:38; Status DC Magnesium Citrate (Citroma) 296 ml PRN 1X PRN PO CONSTIPATION Last administered on 01/12/17 19:34; Start 01/12/17 at 07:45 Lorazepam (Ativan) 0.25 mg PRN Q4HRS PRN PO ANXIETY / AGITATION Last administered on 01/13/17 15:29; Start 01/12/17 at 19:15 Sodium Biphosphate/ Sodium Phosphate (Fleet Adult) 133 ml 1X ONCE MS Last administered on 01/13/17 15:24; Start 01/13/17 at 14:15; Stop 01/13/17 at 14:16 ; Status DC Polyethylene Glycol (miraLAX) 17 gm DAILY PO ; Start 01/14/17 at 09:00 Polyethylene Glycol (miraLAX) 17 gm 1X ONCE PO Last administered on 01/13/17 17:26; Start 01/13/17 at 14:00; Stop 01/13/17 at 14:01; Status DC Acetaminophen (Tylenol) 500 mg PRN Q6HRS PRN PO PAIN / TEMP; Start 01/13/17 at 14:15 Active Scripts Active Reported Synthroid (Levothyroxine Sodium) 75 Mcg Tablet 1 Tab PO DAILY06 Senokot (Sennosides) 8.6 Mg Tablet 1 Tab PO BID Seroquel (Quetiapine Fumarate) 50 Mg Tablet 1 Tab PO BID92 Omeprazole 20 Mg Capsule.dr 1 Cap PO DAILY Nuedexta 20-10 Mg Capsule (Dextromethorphan Hbr/Quinidine) 1 Each Capsule 1 Each PO BID Multivitamins (Multivitamin) 1 Each Tablet 1 Tab PO DAILY Namenda (Memantine Hcl) 10 Mg Tablet 10 Mg PO HS Maxitrol Eye Drops (Jhonathan/Polymyx B Sulf/Dexameth) 5 Ml Drops.susp 2 Drop OU TID Geodon (Ziprasidone Hcl) 40 Mg Capsule 40 Mg PO DAILY Celexa (Citalopram Hydrobromide) 10 Mg Tablet 10 Mg PO DAILY Calcium 500 + Vit D 200 Tablet (Calcium Carbonate/Vitamin D3) 1 Each Tablet 1 Each PO BID Bisacodyl 10 Mg Supp.rect 10 Mg RC PRN DAILY PRN Acetaminophen 500 Mg Tablet 1 Tab PO Q6HRS PRN Mag-Al Plus Suspension (Mag Hydrox/Al Hydrox/Simeth) 30 Ml Oral.susp 15 Ml PO PRN AFTMEALHC PRN Seroquel (Quetiapine Fumarate) 25 Mg Tablet 150 Mg PO HS Analgesic [place] (Methyl Salicylate/Menthol) 29 Gm Oint...g. 1 [place] TP PRN QID PRN Milk Of Magnesia (Magnesium Hydroxide) 2,400 Mg/10 Ml Oral.susp 2,400 Mg PO PRN QHS PRN Diagnosis: Problems: (1) Impulse control disorder (2) Dementia in Alzheimer's disease with delusions (3) Dementia in Alzheimer's disease with depression (4) Dementia, vascular, with delusions (5) Dementia, vascular, with depression (6) Anxiety disorder (7) Dementia with behavioral disturbance (8) Impulse control disorder GRANT STOVER MD Jan 13, 2017 18:04
--- NOTE | 2017-01-13 23:31 | NUR ---
Behavior Intervention Response and Plan: BIRP Note: Behavior: Assumed Care of patient, patient located in Day Room at shift change. Patient exhibited the following behavior Disorganized, Defensive, Anxious. Brief assessment on rounds of vital signs, medication needs, lab studies, and pain. Treatment plan problems :1-2 Intervention: Patient assessed and the following interventions initiated safety checks 15 Minute Checks Cognitive Assessment , Head to toe Assessment , Medications. Response: After interactions and interventions patient responded in the following manner, Irritable , Defensive ,Resistive. Continue to assess behaviors and condition will continue to monitor throughout the shift as needed. Patient educated on ADL's, and hand hygiene. 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 Continue to assess patient for changes in above assessment. Monitor for medication needs, pain, and safety concerns. Hourly rounding performed to ensure safe environment.
[2017-01-14] MEDS: LEVOTHYROXINE 75 MCG TABLET PO SCH (05:46)
[2017-01-14 06:24] VITALS: BP 146/75
[2017-01-14] MEDS: NEO/POLYMYX/DEXAMETH OPHTH SUSPENSION 5ML BOTTLE. OU SCH ×3 (08:53→20:05)
[2017-01-14] MEDS: PANTOPRAZOLE 40 MG PACKET. PO SCH (08:53)
[2017-01-14] MEDS: MULTIVITAMIN with MINERAL TABLET. PO SCH (08:54)
[2017-01-14] MEDS: QUEtiapine 50 MG TABLET. PO SCH ×3 (08:54→20:04)
[2017-01-14] MEDS: DEXTROMETHORPHAN/QUINIDINE 20/10MG CAPSULE. PO SCH ×2 (08:54→20:06)
[2017-01-14] MEDS: SENNOSIDES 8.6 MG TABLET PO SCH ×2 (08:54→20:04)
[2017-01-14] MEDS: CALCIUM CARB/VIT D3 500/200 TABLET PO SCH ×2 (08:55→20:05)
[2017-01-14] MEDS: POLYETHYLENE GLYCOL 3350 17 GM PACKET. PO SCH (08:55)
[2017-01-14] MEDS: clonazePAM 0.5 MG TABLET PO SCH (09:08)
[2017-01-14] MEDS: LORazepam 0.5 MG TABLET PO PRN ×2 (12:22→23:14)
[2017-01-14] MEDS: MAGNESIUM HYDROXIDE 2,400 MG/30 ML ORAL.SUSP. PO PRN (12:22)
--- NOTE | 2017-01-14 12:23 | NUR ---
Nursing Note: Pt agitated. Staff reports pt scratching, pulling, and attempting to bite. This nurse witness pt scratching staff this am. PRN given.
[2017-01-14 16:03] VITALS: BP 113/68
--- NOTE | 2017-01-14 17:47 | NUR ---
Behavior Intervention Response and Plan: BIRP Note: Behavior: Assumed Care of patient, patient located in Day Room at shift change. Patient exhibited the following behavior Disorganized, Agitated, Agitated. Brief assessment on rounds of vital signs, medication needs, lab studies, and pain. Treatment plan problems Dementia w/ BD and Fall risk. Intervention: Patient assessed and the following interventions initiated safety checks 15 Minute Checks Cognitive Assessment , Head to toe Assessment , Medications. Response: After interactions and interventions patient responded in the following manner, Disorganized , Irritable ,Anxious. Continue to assess behaviors and condition will continue to monitor throughout the shift as needed. Patient educated on ADL's, and hand hygiene. 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 Continue to assess patient for changes in above assessment. Monitor for medication needs, pain, and safety concerns. Hourly rounding performed to ensure safe environment.
--- NOTE | 2017-01-14 19:57 | PDOC ---
Exam Ronen Demential Exam: Ronen Note: Please also refer to the separate dictated note~for this date of service dictated separately.~Patient seen individually. Discussed the patient with Nursing staff reviewed the chart.~Reviewed interim history and current functioning. Reviewed vital signs,~Labs/ Radiology~and current medications noted below. Continue current treatment with the changes noted in the dictated addendum note Assessment: Vital Signs: Vital Signs Date Time Temp Pulse Resp B/P (MAP) Pulse Ox O2 Delivery O2 Flow Rate FiO2 01/14/17 16:03 98.6 75 20 113/68 (83) 99 01/10/17 16:22 Room Air I&O Intake and Output 01/15/17 07:00 Intake Total 600 ml Balance 600 ml Intake Oral 600 ml # Bowel Movements 1 Current Medications: Meds: Current Medications Lorazepam (Ativan) 0.5 mg PRN Q4HRS PRN PO ANXIETY / AGITATION Last administered on 01/12/17 06:08; Start 01/05/17 at 16:45; Stop 01/12/17 at 19: 11; Status DC Acetaminophen (Tylenol) 500 mg Q6HRS PRN PO PAIN / TEMP Last administered on 07:56; Start 01/05/17 at 17:00; Stop 01/13/17 at 14:02; Status DC Bisacodyl (Dulcolax Supp) 10 mg PRN DAILY PRN RC CONSTIPATION; Start 01/05/17 at 17:00 Calcium/Vitamin D (Oscal D 500mg/ 200uts) 1 tab BID PO Last administered on 08:55; Start 01/05/17 at 21:00 Levothyroxine Sodium (Synthroid) 75 mcg DAILY06 PO Last administered on 05:46; Start 01/06/17 at 06:00 Multi-Ingredient Ointment (Analgesic [place]) 1 peewee PRN QID PRN TP muscle pain; Start 01/05/17 at 17:00 Neomycin/ Polymyxin/ Dexamethasone (Maxitrol) 2 drop TID OU Last administered on 01/14/17 14:59; Start 01/05/17 at 21:00 Sennosides (Senna) 8.6 mg BID PO Last administered on 01/14/17 08:54; Start 01/05/17 at 21:00 Al Hydroxide/Mg Hydroxide (Mylanta Plus Xs) 15 ml PRN AFTMEALHC PRN PO DYSPEPSIA; Start 01/05/17 at 17:15 Magnesium Hydroxide (Milk Of Magnesia) 2,400 mg PRN QHS PRN PO CONSTIPATION Last administered on 01/14/17 12:22; Start 01/05/17 at 17:15 Multivitamins/ Calcium (Thera-M Plus) 1 tab DAILY PO Last administered on 08:54; Start 01/06/17 at 09:00 Pantoprazole Sodium (Protonix) 40 mg DAILYAC PO Last administered on 08:43; Start 01/06/17 at 07:30; Stop 01/09/17 at 07:50; Status DC Citalopram Hydrobromide (CeleXA) 10 mg DAILY PO Last administered on 10:09; Start 01/06/17 at 09:00; Stop 01/07/17 at 19:34; Status DC Memantine (Namenda) 10 mg HS PO Last administered on 01/13/17 17:27; Start at 21:00 Quetiapine Fumarate (SEROquel) 150 mg QHS PO Last administered on 01/13/17 17: 27; Start 01/05/17 at 21:00 Quetiapine Fumarate (SEROquel) 50 mg BID92 PO Last administered on 01/10/17 14 :06; Start 01/06/17 at 09:00; Stop 01/10/17 at 19:13; Status DC Ziprasidone (Geodon) 40 mg DAILY PO Last administered on 01/11/17 09:21; Start 01/06/17 at 09:00; Stop 01/11/17 at 18:37; Status DC Pneumococcal Polyvalent Vaccine (Pneumovax 23) 0.5 ml ONCE ONCE VAX IM Last administered on 01/07/17 23:11; Start 01/07/17 at 21:00; Stop 01/07/17 at 21 :01; Status DC Influenza Virus Vaccine Quadrival (Fluarix Quad 9127-3004 Syringe) 0.5 ml ONCE ONCE VAX IM Last administered on 01/07/17 23:13; Start 01/07/17 at 21:00; Stop 01/07/17 at 21:01; Status DC Fluvoxamine Maleate (Luvox) 25 mg HS PO Last administered on 01/09/17 19:47; Start 01/07/17 at 21:00; Stop 01/10/17 at 20:59; Status DC Fluvoxamine Maleate (Luvox) 50 mg HS PO Last administered on 01/13/17 17:27; Start 01/10/17 at 21:00 Pantoprazole Sodium (Protonix Packet) 40 mg DAILYAC PO Last administered on 08:53; Start 01/09/17 at 08:15 Quetiapine Fumarate (SEROquel) 75 mg BID92 PO Last administered on 01/14/17 14 :58; Start 01/11/17 at 09:00 Clonazepam (KlonoPIN) 0.25 mg DAILY PO Last administered on 01/14/17 09:08; Start 01/12/17 at 09:00 Clonazepam (KlonoPIN) 0.5 mg STK-MED ONCE .ROUTE Last administered on 06:37; Start 01/12/17 at 06:37; Stop 01/12/17 at 06:38; Status DC Magnesium Citrate (Citroma) 296 ml PRN 1X PRN PO CONSTIPATION Last administered on 01/12/17 19:34; Start 01/12/17 at 07:45 Lorazepam (Ativan) 0.25 mg PRN Q4HRS PRN PO ANXIETY / AGITATION Last administered on 01/14/17 12:22; Start 01/12/17 at 19:15 Sodium Biphosphate/ Sodium Phosphate (Fleet Adult) 133 ml 1X ONCE UT Last administered on 01/13/17 15:24; Start 01/13/17 at 14:15; Stop 01/13/17 at 14:16 ; Status DC Polyethylene Glycol (miraLAX) 17 gm DAILY PO Last administered on 01/14/17 08: 55; Start 01/14/17 at 09:00 Polyethylene Glycol (miraLAX) 17 gm 1X ONCE PO Last administered on 01/13/17 17:26; Start 01/13/17 at 14:00; Stop 01/13/17 at 14:01; Status DC Acetaminophen (Tylenol) 500 mg PRN Q6HRS PRN PO PAIN / TEMP; Start 01/13/17 at 14:15 Divalproex Sodium (Depakote Sprinkles) 125 mg BID92 PO ; Start 01/15/17 at 09:00 ; Status UNV Oxcarbazepine (Trileptal) 150 mg BID92 PO ; Start 01/15/17 at 09:00 Active Scripts Active Reported Synthroid (Levothyroxine Sodium) 75 Mcg Tablet 1 Tab PO DAILY06 Senokot (Sennosides) 8.6 Mg Tablet 1 Tab PO BID Seroquel (Quetiapine Fumarate) 50 Mg Tablet 1 Tab PO BID92 Omeprazole 20 Mg Capsule.dr 1 Cap PO DAILY Nuedexta 20-10 Mg Capsule (Dextromethorphan Hbr/Quinidine) 1 Each Capsule 1 Each PO BID Multivitamins (Multivitamin) 1 Each Tablet 1 Tab PO DAILY Namenda (Memantine Hcl) 10 Mg Tablet 10 Mg PO HS Maxitrol Eye Drops (Jhonathan/Polymyx B Sulf/Dexameth) 5 Ml Drops.susp 2 Drop OU TID Geodon (Ziprasidone Hcl) 40 Mg Capsule 40 Mg PO DAILY Celexa (Citalopram Hydrobromide) 10 Mg Tablet 10 Mg PO DAILY Calcium 500 + Vit D 200 Tablet (Calcium Carbonate/Vitamin D3) 1 Each Tablet 1 Each PO BID Bisacodyl 10 Mg Supp.rect 10 Mg RC PRN DAILY PRN Acetaminophen 500 Mg Tablet 1 Tab PO Q6HRS PRN Mag-Al Plus Suspension (Mag Hydrox/Al Hydrox/Simeth) 30 Ml Oral.susp 15 Ml PO PRN AFTMEALHC PRN Seroquel (Quetiapine Fumarate) 25 Mg Tablet 150 Mg PO HS Analgesic [place] (Methyl Salicylate/Menthol) 29 Gm Oint...g. 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
[2017-01-14] MEDS: MEMANTINE 10 MG TABLET. PO SCH (20:04)
--- NOTE | 2017-01-14 22:45 | NUR ---
Behavior Intervention Response and Plan: BIRP Note: Behavior: Assumed Care of patient, patient located in Day Room at shift change. Patient exhibited the following behavior Disorganized, Restless, Agitated. Brief assessment on rounds of vital signs, medication needs, lab studies, and pain. Treatment plan problems . Intervention: Patient assessed and the following interventions initiated safety checks 15 Minute Checks Cognitive Assessment , Head to toe Assessment , Medications. Response: After interactions and interventions patient responded in the following manner, Resistive , Agitated ,Defensive. Continue to assess behaviors and condition will continue to monitor throughout the shift as needed. Patient educated on ADL's, and hand hygiene. Plan: Continue to monitor Master Treatment Plan for patient's progress toward short term goals of Decreased Anxiety, Decreased Agitation, assistant terminal manager goals to return to previous living setting vs placement. Continue to assess patient for changes in above assessment. Monitor for medication needs, pain, and safety concerns. Hourly rounding performed to ensure safe environment.
[2017-01-14] MEDS: ACETAMINOPHEN 500 MG TABLET PO PRN (23:14)
--- NOTE | 2017-01-15 00:20 | PN ---
DATE: 01/12/2017 This late entry 01/12/2017, covers elements not covered in my initial note of 01/12/2017. SUBJECTIVE: The patient was seen individually evening of 01/12/2017. The patient was somewhat sedated in the morning. She skipped her 2:00 p.m. Seroquel because of sedation. She continues to repeatedly state, "okay, okay, okay, okay." She has been somewhat constipated, KUB was done, but defer to Dr. Ruiz. Received Ativan at 6:00 a.m. due to increased anxiety. REVIEW OF SYSTEMS: Ambulation impaired. No CV, , pulmonary, eye, ENT system symptoms on review. Reliability poor. MENTAL STATUS EXAM: Oriented to herself. Insight, judgment, recent and remote memory, attention, concentration, fund of knowledge poor, consistent with her diagnosis mentioned in my initial note. PLAN: Continue current psychotropics, reduce Ativan to 0.25 mg p.r.n. Maintain the rest unchanged. Consider Depakote as a mood stabilizer. Review drug contractions risk/benefit ratio favors no further change. MAN Abdullahi STOVER MD DR: AMOL/shelley JOB#: [id number] / [id number]
--- NOTE | 2017-01-15 05:57 | PN ---
DATE: 01/13/2017 This late entry for 01/13/2017 covers elements not covered in my initial note of 01/13/2017. SUBJECTIVE: I met with the patient the evening of 01/13/2017. The patient remains anxious, restless, constantly repeating, "okay, okay, okay" over and over. She is compliant with her meds and at bedtime routine. REVIEW OF SYSTEMS: No CV, , pulmonary, eye, ENT system symptoms on review, reliability poor. MENTAL STATUS EXAMINATION: Oriented to herself. Insight, judgment, recent and remote memory, attention, concentration, fund of knowledge poor, consistent with her diagnosis mentioned in my initial note. PLAN: Continue current psychotropics, reviewed drug interactions. Seroquel was increased. We started low dose Klonopin and Geodon was discontinued. We will consider starting Depakote as a mood stabilizer depending on how she does with the above changes. Reviewed drug interactions, risk/benefit ratio, favors no further change. GRANT STOVER MD DR: AMOL/shelley JOB#: [id number] / [id number]
[2017-01-15] MEDS: LEVOTHYROXINE 75 MCG TABLET PO SCH (06:22)
[2017-01-15 06:47] VITALS: BP 120/50
[2017-01-15] MEDS: MULTIVITAMIN with MINERAL TABLET. PO SCH (07:29)
[2017-01-15] MEDS: SENNOSIDES 8.6 MG TABLET PO SCH ×2 (07:29→19:05)
[2017-01-15] MEDS: PANTOPRAZOLE 40 MG PACKET. PO SCH (07:29)
[2017-01-15] MEDS: DEXTROMETHORPHAN/QUINIDINE 20/10MG CAPSULE. PO SCH ×2 (07:30→19:05)
[2017-01-15] MEDS: QUEtiapine 50 MG TABLET. PO SCH ×3 (07:30→19:05)
[2017-01-15] MEDS: CALCIUM CARB/VIT D3 500/200 TABLET PO SCH ×2 (07:30→19:05)
[2017-01-15] MEDS: NEO/POLYMYX/DEXAMETH OPHTH SUSPENSION 5ML BOTTLE. OU SCH ×3 (07:30→19:04)
[2017-01-15] MEDS: POLYETHYLENE GLYCOL 3350 17 GM PACKET. PO SCH (07:30)
[2017-01-15] MEDS: clonazePAM 0.5 MG TABLET PO SCH (07:36)
[2017-01-15] MEDS: OXcarbazepine 150 MG TABLET. PO SCH ×2 (08:27→13:58)
[2017-01-15 08:43] VITALS: BP 111/59
[2017-01-15] MEDS ORDERED: DIVALPROEX 125 MG CAP.SPRINK PO SCH (09:00)
[2017-01-15 09:29] VITALS: BP 119/62
--- NOTE | 2017-01-15 09:30 | NUR ---
Nursing Note: Just after pt finished eating breakfast staff was witnessed pt sleeping with her eyes open at the table. Pt was difficult to awaken and required vigorous shaking of the arm and numerous calls of her name before becoming alert to her surroundings. Doctor notified, orders rec for labs.
[2017-01-15 10:26] LABS: BILIRUBIN,URINE NEG (NEG); CLARITY,URINE HAZY; COLOR,URINE AMBER; GLUCOSE,URINE NEG (NEG)
[2017-01-15 10:27] LABS: BACTERIA,URINE FEW /HPF (0-FEW); GRANULAR CASTS,URINE FEW /HPF; HYALINE CASTS, URINE MANY /HPF; NITRITE,URINE NEG (NEG); SQUAMOUS EPITHELIAL CELL,UR FEW /LPF; UROBILINOGEN,URINE 0.2 mg/dL (0.2 mg/dL)
[2017-01-15 10:35] LABS: BASO # 0.1 x10^3/uL (0.0-0.2); BASO % 1 % (0-3); EOS # 0.2 x10^3/uL (0.0-0.7); EOS % 3 % (0-3); HEMATOCRIT 34.2 % (36.0-47.0); HEMOGLOBIN 11.2 g/dL (12.0-15.5); LYMPH # 1.3 x10^3/uL (1.0-4.8); LYMPH % 19 % (24-48); MEAN CORPUSCULAR HEMOGLOBIN 28 pg (25-35); MEAN CORPUSCULAR HGB CONC 33 g/dL (31-37); MEAN CORPUSCULAR VOLUME 85 fL (79-100); MONO # 0.7 x10^3/uL (0.0-1.1); MONO % 10 % (0-9); NEUT # 4.6 x10^3uL (1.8-7.7); NEUT % 67 % (31-73); PLATELET COUNT 252 x10^3/uL (140-400); RED BLOOD COUNT 4.03 x10^6/uL (3.50-5.40); RED CELL DISTRIBUTION WIDTH 15.8 % (11.5-14.5); WHITE BLOOD COUNT 6.9 x10^3/uL (4.0-11.0)
[2017-01-15 10:57] LABS: ALBUMIN/GLOBULIN RATIO 0.7 (1.0-1.7); CALCIUM 8.8 mg/dL (8.5-10.1); CREATININE 1.1 mg/dL (0.6-1.0); GFR 47.3; POTASSIUM 4.2 mmol/L (3.5-5.1); TOTAL BILIRUBIN 0.3 mg/dL (0.2-1.0); TOTAL PROTEIN 7.5 g/dL (6.4-8.2)
[2017-01-15] MEDS ORDERED: IV NORMAL SALINE 1,000ML 1,000 ML IV ONE (12:00)
--- NOTE | 2017-01-15 12:30 | NUR ---
Nursing Note: Order for bolus of 1000 ml of Normal Saline rec.
--- NOTE | 2017-01-15 14:33 | NUR ---
Nursing Note: Pt ate lunch and currently alert and sitting in day room repeating word, "Okay" over and over.
--- NOTE | 2017-01-15 14:43 | NUR ---
SW attempted to initiate afternoon group, but was unable to due to this peer constantly yelling out. SW met w/PTs individually in the day room. SW attempted to engage Pt. in an activity 1:1 while Pt. sat at the table to deter Pt. from continually yelling out. Pt. was able to interact w/SW rolling a ball back and forth. PT. answered some basic questions, allowed nursing to administer IV bag during activity. Pt. was not aggressive w/this SW.
[2017-01-15 16:38] VITALS: BP 133/54
--- NOTE | 2017-01-15 17:13 | NUR ---
Behavior Intervention Response and Plan: BIRP Note: Behavior: Assumed Care of patient, patient located in Day Room at shift change. Patient exhibited the following behavior Drowsy, Disorganized, Anxious. Brief assessment on rounds of vital signs, medication needs, lab studies, and pain. Treatment plan problems Dementia w/ BD and Fall Risk. Intervention: Patient assessed and the following interventions initiated safety checks 15 Minute Checks Cognitive Assessment , Head to toe Assessment , Medications. Response: After interactions and interventions patient responded in the following manner, Disorganized , Anxious ,Restless. Continue to assess behaviors and condition will continue to monitor throughout the shift as needed. Patient educated on ADL's, and hand hygiene. Plan: Continue to monitor Master Treatment Plan for patient's progress toward short term goals of Decreased Agitation, Decreased Aggression, chcf goals to return to previous living setting vs placement. Continue to assess patient for changes in above assessment. Monitor for medication needs, pain, and safety concerns. Hourly rounding performed to ensure safe environment.
[2017-01-15] MEDS: MEMANTINE 10 MG TABLET. PO SCH (19:05)
--- NOTE | 2017-01-15 21:01 | NUR ---
Behavior Intervention Response and Plan: BIRP Note: Behavior: Assumed Care of patient, patient located in Day Room at shift change. Patient exhibited the following behavior Restless, Disorganized, Compulsive. Brief assessment on rounds of vital signs, medication needs, lab studies, and pain. Treatment plan problems . Intervention: Patient assessed and the following interventions initiated safety checks 15 Minute Checks Cognitive Assessment , Head to toe Assessment , Medications. Response: After interactions and interventions patient responded in the following manner, Non Compliant , Resistive ,Agitated. Continue to assess behaviors and condition will continue to monitor throughout the shift as needed. Patient educated on ADL's, and hand hygiene. Plan: Continue to monitor Master Treatment Plan for patient's progress toward short term goals of Medication Compliance, Decreased Agitation, long term care phlebotomist goals to return to previous living setting vs placement. Continue to assess patient for changes in above assessment. Monitor for medication needs, pain, and safety concerns. Hourly rounding performed to ensure safe environment.
--- NOTE | 2017-01-15 21:46 | PDOC ---
Exam Ronen Demential Exam: Ronen Note: Please also refer to the separate dictated note~for this date of service dictated separately.~Patient seen individually. Discussed the patient with Nursing staff reviewed the chart.~Reviewed interim history and current functioning. Reviewed vital signs,~Labs/ Radiology~and current medications noted below. Continue current treatment with the changes noted in the dictated addendum note Assessment: Vital Signs: Vital Signs Date Time Temp Pulse Resp B/P (MAP) Pulse Ox O2 Delivery O2 Flow Rate FiO2 01/15/17 16:38 97.4 70 18 133/54 (80) 01/15/17 09:29 99 01/10/17 16:22 Room Air I&O Intake and Output 01/16/17 07:00 Intake Total 1310 ml Balance 1310 ml Intake Oral 360 ml Other 950 ml Labs: Laboratory Tests Test 01/15/17 09:49 01/15/17 10:24 Urine Collection Type U cath Urine Color Nella Urine Clarity Hazy Urine pH 6.5 Urine Specific [place] 1.025 Urine Protein Trace (NEG-TRACE) Urine Glucose (UA) Neg mg/dL (NEG) Urine Ketones (Stick) Neg mg/dL (NEG) Urine Blood Neg (NEG) Urine Nitrite Neg (NEG) Urine Bilirubin Neg (NEG) Urine Urobilinogen Dipstick 0.2 mg/dL (0.2 mg/dL) Urine Leukocyte Esterase Neg (NEG) Urine RBC 1-2 /HPF (0-2) Urine WBC 1-4 /HPF (0-4) Urine Squamous Epithelial Cells Few /LPF Urine Bacteria Few /HPF (0-FEW) Urine Hyaline Casts Many /HPF Urine Granular Casts Few /HPF Urine Mucus Slight /LPF White Blood Count 6.9 x10^3/uL (4.0-11.0) Red Blood Count 4.03 x10^6/uL (3.50-5.40) Hemoglobin 11.2 g/dL (12.0-15.5) L Hematocrit 34.2 % (36.0-47.0) L Mean Corpuscular Volume 85 fL (79-100) Mean Corpuscular Hemoglobin 28 pg (25-35) Mean Corpuscular Hemoglobin Concent 33 g/dL (31-37) Red Cell Distribution Width 15.8 % (11.5-14.5) H Platelet Count 252 x10^3/uL (140-400) Neutrophils (%) (Auto) 67 % (31-73) Lymphocytes (%) (Auto) 19 % (24-48) L Monocytes (%) (Auto) 10 % (0-9) H Eosinophils (%) (Auto) 3 % (0-3) Basophils (%) (Auto) 1 % (0-3) Neutrophils # (Auto) 4.6 x10^3uL (1.8-7.7) Lymphocytes # (Auto) 1.3 x10^3/uL (1.0-4.8) Monocytes # (Auto) 0.7 x10^3/uL (0.0-1.1) Eosinophils # (Auto) 0.2 x10^3/uL (0.0-0.7) Basophils # (Auto) 0.1 x10^3/uL (0.0-0.2) Arterial Blood Lactic Acid 0.7 mmol/L (0.5-1.6) Sodium Level 142 mmol/L (136-145) Potassium Level 4.2 mmol/L (3.5-5.1) Chloride Level 106 mmol/L (98-107) Carbon Dioxide Level 30 mmol/L (21-32) Anion Gap 6 (6-14) Blood Urea Nitrogen 30 mg/dL (7-20) H Creatinine 1.1 mg/dL (0.6-1.0) H Estimated GFR (Cockcroft-Gault) 47.3 BUN/Creatinine Ratio 27 (6-20) H Glucose Level 100 mg/dL (70-99) H Calcium Level 8.8 mg/dL (8.5-10.1) Total Bilirubin 0.3 mg/dL (0.2-1.0) Aspartate Amino Transferase (AST) 36 U/L (15-37) Alanine Aminotransferase (ALT) 66 U/L (14-59) H Alkaline Phosphatase 108 U/L (46-116) Creatine Kinase 47 U/L (26-192) Creatine Kinase MB (Mass) 0.8 ng/mL (0.0-3.6) Creatine Kinase MB Relative Index 1.7 % (0-4) Total Protein 7.5 g/dL (6.4-8.2) Albumin 3.0 g/dL (3.4-5.0) L Albumin/Globulin Ratio 0.7 (1.0-1.7) L Current Medications: Meds: Current Medications Lorazepam (Ativan) 0.5 mg PRN Q4HRS PRN PO ANXIETY / AGITATION Last administered on 01/12/17 06:08; Start 01/05/17 at 16:45; Stop 01/12/17 at 19: 11; Status DC Acetaminophen (Tylenol) 500 mg Q6HRS PRN PO PAIN / TEMP Last administered on 07:56; Start 01/05/17 at 17:00; Stop 01/13/17 at 14:02; Status DC Bisacodyl (Dulcolax Supp) 10 mg PRN DAILY PRN RC CONSTIPATION; Start 01/05/17 at 17:00 Calcium/Vitamin D (Oscal D 500mg/ 200uts) 1 tab BID PO Last administered on 19:05; Start 01/05/17 at 21:00 Levothyroxine Sodium (Synthroid) 75 mcg DAILY06 PO Last administered on 06:22; Start 01/06/17 at 06:00 Multi-Ingredient Ointment (Analgesic [place]) 1 peewee PRN QID PRN TP muscle pain; Start 01/05/17 at 17:00 Neomycin/ Polymyxin/ Dexamethasone (Maxitrol) 2 drop TID OU Last administered on 01/15/17 19:04; Start 01/05/17 at 21:00 Sennosides (Senna) 8.6 mg BID PO Last administered on 01/15/17 19:05; Start 01/05/17 at 21:00 Al Hydroxide/Mg Hydroxide (Mylanta Plus Xs) 15 ml PRN AFTMEALHC PRN PO DYSPEPSIA; Start 01/05/17 at 17:15 Magnesium Hydroxide (Milk Of Magnesia) 2,400 mg PRN QHS PRN PO CONSTIPATION Last administered on 01/14/17 12:22; Start 01/05/17 at 17:15 Multivitamins/ Calcium (Thera-M Plus) 1 tab DAILY PO Last administered on 07:29; Start 01/06/17 at 09:00 Pantoprazole Sodium (Protonix) 40 mg DAILYAC PO Last administered on 08:43; Start 01/06/17 at 07:30; Stop 01/09/17 at 07:50; Status DC Citalopram Hydrobromide (CeleXA) 10 mg DAILY PO Last administered on 10:09; Start 01/06/17 at 09:00; Stop 01/07/17 at 19:34; Status DC Memantine (Namenda) 10 mg HS PO Last administered on 01/15/17 19:05; Start at 21:00 Quetiapine Fumarate (SEROquel) 150 mg QHS PO Last administered on 01/15/17 19: 05; Start 01/05/17 at 21:00 Quetiapine Fumarate (SEROquel) 50 mg BID92 PO Last administered on 01/10/17 14 :06; Start 01/06/17 at 09:00; Stop 01/10/17 at 19:13; Status DC Ziprasidone (Geodon) 40 mg DAILY PO Last administered on 01/11/17 09:21; Start 01/06/17 at 09:00; Stop 01/11/17 at 18:37; Status DC Pneumococcal Polyvalent Vaccine (Pneumovax 23) 0.5 ml ONCE ONCE VAX IM Last administered on 01/07/17 23:11; Start 01/07/17 at 21:00; Stop 01/07/17 at 21 :01; Status DC Influenza Virus Vaccine Quadrival (Fluarix Quad [id number] Syringe) 0.5 ml ONCE ONCE VAX IM Last administered on 01/07/17 23:13; Start 01/07/17 at 21:00; Stop 01/07/17 at 21:01; Status DC Fluvoxamine Maleate (Luvox) 25 mg HS PO Last administered on 01/09/17 19:47; Start 01/07/17 at 21:00; Stop 01/10/17 at 20:59; Status DC Fluvoxamine Maleate (Luvox) 50 mg HS PO Last administered on 01/15/17 19:04; Start 01/10/17 at 21:00 Pantoprazole Sodium (Protonix Packet) 40 mg DAILYAC PO Last administered on 07:29; Start 01/09/17 at 08:15 Quetiapine Fumarate (SEROquel) 75 mg BID92 PO Last administered on 01/15/17 13 :59; Start 01/11/17 at 09:00 Clonazepam (KlonoPIN) 0.25 mg DAILY PO Last administered on 01/15/17 07:36; Start 01/12/17 at 09:00 Clonazepam (KlonoPIN) 0.5 mg STK-MED ONCE .ROUTE Last administered on 06:37; Start 01/12/17 at 06:37; Stop 01/12/17 at 06:38; Status DC Magnesium Citrate (Citroma) 296 ml PRN 1X PRN PO CONSTIPATION Last administered on 01/12/17 19:34; Start 01/12/17 at 07:45 Lorazepam (Ativan) 0.25 mg PRN Q4HRS PRN PO ANXIETY / AGITATION Last administered on 01/14/17 23:14; Start 01/12/17 at 19:15; Stop 01/15/17 at 19:30 ; Status DC Sodium Biphosphate/ Sodium Phosphate (Fleet Adult) 133 ml 1X ONCE NE Last administered on 01/13/17 15:24; Start 01/13/17 at 14:15; Stop 01/13/17 at 14:16 ; Status DC Polyethylene Glycol (miraLAX) 17 gm DAILY PO Last administered on 01/15/17 07: 30; Start 01/14/17 at 09:00 Polyethylene Glycol (miraLAX) 17 gm 1X ONCE PO Last administered on 01/13/17 17:26; Start 01/13/17 at 14:00; Stop 01/13/17 at 14:01; Status DC Acetaminophen (Tylenol) 500 mg PRN Q6HRS PRN PO PAIN / TEMP Last administered on 01/14/17 23:14; Start 01/13/17 at 14:15 Divalproex Sodium (Depakote Sprinkles) 125 mg BID92 PO ; Start 01/15/17 at 09:00 ; Status UNV Oxcarbazepine (Trileptal) 150 mg BID92 PO Last administered on 01/15/17 13:58 ; Start 01/15/17 at 09:00 Sodium Chloride 1,000 ml @ 1,000 mls/hr 1X ONCE IV Last administered on 13:50; Start 01/15/17 at 12:00; Stop 01/15/17 at 12:59; Status DC Active Scripts Active Reported Synthroid (Levothyroxine Sodium) 75 Mcg Tablet 1 Tab PO DAILY06 Senokot (Sennosides) 8.6 Mg Tablet 1 Tab PO BID Seroquel (Quetiapine Fumarate) 50 Mg Tablet 1 Tab PO BID92 Omeprazole 20 Mg Capsule.dr 1 Cap PO DAILY Nuedexta 20-10 Mg Capsule (Dextromethorphan Hbr/Quinidine) 1 Each Capsule 1 Each PO BID Multivitamins (Multivitamin) 1 Each Tablet 1 Tab PO DAILY Namenda (Memantine Hcl) 10 Mg Tablet 10 Mg PO HS Maxitrol Eye Drops (Jhonathan/Polymyx B Sulf/Dexameth) 5 Ml Drops.susp 2 Drop OU TID Geodon (Ziprasidone Hcl) 40 Mg Capsule 40 Mg PO DAILY Celexa (Citalopram Hydrobromide) 10 Mg Tablet 10 Mg PO DAILY Calcium 500 + Vit D 200 Tablet (Calcium Carbonate/Vitamin D3) 1 Each Tablet 1 Each PO BID Bisacodyl 10 Mg Supp.rect 10 Mg RC PRN DAILY PRN Acetaminophen 500 Mg Tablet 1 Tab PO Q6HRS PRN Mag-Al Plus Suspension (Mag Hydrox/Al Hydrox/Simeth) 30 Ml Oral.susp 15 Ml PO PRN AFTMEALHC PRN Seroquel (Quetiapine Fumarate) 25 Mg Tablet 150 Mg PO HS Analgesic [place] (Methyl Salicylate/Menthol) 29 Gm Oint...g. 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
[2017-01-16] MEDS: LEVOTHYROXINE 75 MCG TABLET PO SCH (06:06)
[2017-01-16 06:18] VITALS: BP 160/70
[2017-01-16] MEDS: PANTOPRAZOLE 40 MG PACKET. PO SCH (07:39)
[2017-01-16] MEDS: QUEtiapine 50 MG TABLET. PO SCH ×3 (07:40→19:59)
[2017-01-16] MEDS: CALCIUM CARB/VIT D3 500/200 TABLET PO SCH ×2 (07:42→19:59)
[2017-01-16] MEDS: MULTIVITAMIN with MINERAL TABLET. PO SCH (07:43)
[2017-01-16] MEDS: OXcarbazepine 150 MG TABLET. PO SCH ×3 (07:43→20:04)
[2017-01-16] MEDS: SENNOSIDES 8.6 MG TABLET PO SCH ×2 (07:43→19:59)
[2017-01-16] MEDS: DEXTROMETHORPHAN/QUINIDINE 20/10MG CAPSULE. PO SCH ×2 (07:44→19:59)
[2017-01-16] MEDS: POLYETHYLENE GLYCOL 3350 17 GM PACKET. PO SCH (07:44)
[2017-01-16] MEDS: NEO/POLYMYX/DEXAMETH OPHTH SUSPENSION 5ML BOTTLE. OU SCH ×3 (07:45→19:59)
[2017-01-16] MEDS: clonazePAM 0.5 MG TABLET PO SCH (07:48)
--- NOTE | 2017-01-16 08:00 | PN ---
DATE: 01/14/2017 PSYCHIATRIC PROGRESS NOTE This is a late entry for date of service 01/14/2017, covers elements not covered in my initial note of 01/14/2017. Met with the patient in the evening of 01/14/2017. The patient slept 8-1/4 hours previous evening, anxious, restless, grabbing people, scratching at people after lunch, received Ativan at 12:20. She is somewhat constipated. KUB has been ordered and she has received enema and thereafter some diarrhea as a consequence of this. No CV, , pulmonary, eye, ENT system symptoms on review. MENTAL STATUS EXAM: Oriented to herself. Insight, judgment, recent and remote memory, attention, concentration, fund of knowledge poor, consistent with her diagnosis mentioned in my initial note. PLAN: Continue current psychotropics. We will start Depakote 125 mg twice a day, but rechecked with the patient's daughter and the patient responded poorly to Depakote. In place for this, we will start Trileptal 150 mg twice a day. Reviewed CBC and CMP. Tegretol level in 3-5 days. Continue rest of the psychotropics. Reviewed drug interactions, risk/benefit ratio favors no further change. GRANT TSOVER MD DR: AMOL/shelley JOB#: [id number] / [id number]
--- NOTE | 2017-01-16 11:54 | NUR ---
Facility out to on site screen Pt. to determine if they are able to accept Pt. back at discharge. SW will follow up after treatment team on and gently remind facility they are obligated to accept Pt. back.
--- NOTE | 2017-01-16 15:00 | NUR ---
WEEKLY THERAPEUTIC RECREATION NOTE Date of Admission: 01/05/2017 Date of AT Assessment: 01/09/2017 Goal aimed: to increase relaxation Initial goal: Pt. will participate in all sensory stimulation activities. Weekly progress towards goal: on track, no sensory stimulation specific groups this week Group participation level: none besides occasional coffee group Behaviors observed: Pt. constantly saying "ok, ok, ok," and is difficult to redirect. Pt. did sit quietly during music groups yesterday when "[place] over [place] rainbow" was played. She grabs, squeezes, and hits hands occasionally Plan: no changes to goal
[2017-01-16] MEDS: ACETAMINOPHEN 500 MG TABLET PO PRN (16:25)
[2017-01-16 16:35] VITALS: BP 146/83
--- NOTE | 2017-01-16 16:43 | NUR ---
Behavior Intervention Response and Plan: BIRP Note: Behavior: Assumed Care of patient, patient located in Day Room at shift change. Patient exhibited the following behavior Disorganized, Compulsive, Agitated. Brief assessment on rounds of vital signs, medication needs, lab studies, and pain. Treatment plan problems depression w/ bd and fall risk. Intervention: Patient assessed and the following interventions initiated safety checks 15 Minute Checks Cognitive Assessment , Head to toe Assessment , Medications. Response: After interactions and interventions patient responded in the following manner, Restless , Compulsive ,Disorganized. Continue to assess behaviors and condition will continue to monitor throughout the shift as needed. Patient educated on ADL's, and hand hygiene. 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 Continue to assess patient for changes in above assessment. Monitor for medication needs, pain, and safety concerns. Hourly rounding performed to ensure safe environment.
[2017-01-16] MEDS: MEMANTINE 10 MG TABLET. PO SCH (19:59)
--- NOTE | 2017-01-16 21:36 | NUR ---
Behavior Intervention Response and Plan: BIRP Note: Behavior: Assumed Care of patient, patient located in Patient Room at shift change. Patient exhibited the following behavior Restless, Disorganized, Compulsive. Brief assessment on rounds of vital signs, medication needs, lab studies, and pain. Treatment plan problems . Intervention: Patient assessed and the following interventions initiated safety checks 15 Minute Checks Cognitive Assessment , Head to toe Assessment , Medications. Response: After interactions and interventions patient responded in the following manner, Attention Seeking , Agitated ,Anxious. Continue to assess behaviors and condition will continue to monitor throughout the shift as needed. Patient educated on ADL's, and hand hygiene. 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 Continue to assess patient for changes in above assessment. Monitor for medication needs, pain, and safety concerns. Hourly rounding performed to ensure safe environment.
--- NOTE | 2017-01-16 21:47 | PDOC ---
Exam Ronen Demential Exam: Ronen Note: Please also refer to the separate dictated note~for this date of service dictated separately.~Patient seen individually. Discussed the patient with Nursing staff reviewed the chart.~Reviewed interim history and current functioning. Reviewed vital signs,~Labs/ Radiology~and current medications noted below. Continue current treatment with the changes noted in the dictated addendum note Assessment: Vital Signs: Vital Signs Date Time Temp Pulse Resp B/P (MAP) Pulse Ox O2 Delivery O2 Flow Rate FiO2 01/16/17 16:35 97.3 93 22 146/83 (104) 93 Room Air I&O Intake and Output 01/17/17 07:00 Intake Total 480 ml Balance 480 ml Intake Oral 480 ml Current Medications: Meds: Current Medications Lorazepam (Ativan) 0.5 mg PRN Q4HRS PRN PO ANXIETY / AGITATION Last administered on 01/12/17 06:08; Start 01/05/17 at 16:45; Stop 01/12/17 at 19: 11; Status DC Acetaminophen (Tylenol) 500 mg Q6HRS PRN PO PAIN / TEMP Last administered on 07:56; Start 01/05/17 at 17:00; Stop 01/13/17 at 14:02; Status DC Bisacodyl (Dulcolax Supp) 10 mg PRN DAILY PRN RC CONSTIPATION; Start 01/05/17 at 17:00 Calcium/Vitamin D (Oscal D 500mg/ 200uts) 1 tab BID PO Last administered on 19:59; Start 01/05/17 at 21:00 Levothyroxine Sodium (Synthroid) 75 mcg DAILY06 PO Last administered on 06:06; Start 01/06/17 at 06:00 Multi-Ingredient Ointment (Analgesic [place]) 1 peewee PRN QID PRN TP muscle pain; Start 01/05/17 at 17:00 Neomycin/ Polymyxin/ Dexamethasone (Maxitrol) 2 drop TID OU Last administered on 01/16/17 19:59; Start 01/05/17 at 21:00 Sennosides (Senna) 8.6 mg BID PO Last administered on 01/16/17 19:59; Start 01/05/17 at 21:00 Al Hydroxide/Mg Hydroxide (Mylanta Plus Xs) 15 ml PRN AFTMEALHC PRN PO DYSPEPSIA; Start 01/05/17 at 17:15 Magnesium Hydroxide (Milk Of Magnesia) 2,400 mg PRN QHS PRN PO CONSTIPATION Last administered on 01/14/17 12:22; Start 01/05/17 at 17:15 Multivitamins/ Calcium (Thera-M Plus) 1 tab DAILY PO Last administered on 07:43; Start 01/06/17 at 09:00 Pantoprazole Sodium (Protonix) 40 mg DAILYAC PO Last administered on 08:43; Start 01/06/17 at 07:30; Stop 01/09/17 at 07:50; Status DC Citalopram Hydrobromide (CeleXA) 10 mg DAILY PO Last administered on 10:09; Start 01/06/17 at 09:00; Stop 01/07/17 at 19:34; Status DC Memantine (Namenda) 10 mg HS PO Last administered on 01/16/17 19:59; Start at 21:00 Quetiapine Fumarate (SEROquel) 150 mg QHS PO Last administered on 01/16/17 19: 59; Start 01/05/17 at 21:00 Quetiapine Fumarate (SEROquel) 50 mg BID92 PO Last administered on 01/10/17 14 :06; Start 01/06/17 at 09:00; Stop 01/10/17 at 19:13; Status DC Ziprasidone (Geodon) 40 mg DAILY PO Last administered on 01/11/17 09:21; Start 01/06/17 at 09:00; Stop 01/11/17 at 18:37; Status DC Pneumococcal Polyvalent Vaccine (Pneumovax 23) 0.5 ml ONCE ONCE VAX IM Last administered on 01/07/17 23:11; Start 01/07/17 at 21:00; Stop 01/07/17 at 21 :01; Status DC Influenza Virus Vaccine Quadrival (Fluarix Quad [id number] Syringe) 0.5 ml ONCE ONCE VAX IM Last administered on 01/07/17 23:13; Start 01/07/17 at 21:00; Stop 01/07/17 at 21:01; Status DC Fluvoxamine Maleate (Luvox) 25 mg HS PO Last administered on 01/09/17 19:47; Start 01/07/17 at 21:00; Stop 01/10/17 at 20:59; Status DC Fluvoxamine Maleate (Luvox) 50 mg HS PO Last administered on 01/16/17 19:59; Start 01/10/17 at 21:00 Pantoprazole Sodium (Protonix Packet) 40 mg DAILYAC PO Last administered on 07:39; Start 01/09/17 at 08:15 Quetiapine Fumarate (SEROquel) 75 mg BID92 PO Last administered on 01/16/17 14 :17; Start 01/11/17 at 09:00 Clonazepam (KlonoPIN) 0.25 mg DAILY PO Last administered on 01/16/17 07:48; Start 01/12/17 at 09:00 Clonazepam (KlonoPIN) 0.5 mg STK-MED ONCE .ROUTE Last administered on 06:37; Start 01/12/17 at 06:37; Stop 01/12/17 at 06:38; Status DC Magnesium Citrate (Citroma) 296 ml PRN 1X PRN PO CONSTIPATION Last administered on 01/12/17 19:34; Start 01/12/17 at 07:45 Lorazepam (Ativan) 0.25 mg PRN Q4HRS PRN PO ANXIETY / AGITATION Last administered on 01/14/17 23:14; Start 01/12/17 at 19:15; Stop 01/15/17 at 19:30 ; Status DC Sodium Biphosphate/ Sodium Phosphate (Fleet Adult) 133 ml 1X ONCE OK Last administered on 01/13/17 15:24; Start 01/13/17 at 14:15; Stop 01/13/17 at 14:16 ; Status DC Polyethylene Glycol (miraLAX) 17 gm DAILY PO Last administered on 01/16/17 07: 44; Start 01/14/17 at 09:00 Polyethylene Glycol (miraLAX) 17 gm 1X ONCE PO Last administered on 01/13/17 17:26; Start 01/13/17 at 14:00; Stop 01/13/17 at 14:01; Status DC Acetaminophen (Tylenol) 500 mg PRN Q6HRS PRN PO PAIN / TEMP Last administered on 01/16/17 16:25; Start 01/13/17 at 14:15 Divalproex Sodium (Depakote Sprinkles) 125 mg BID92 PO ; Start 01/15/17 at 09:00 ; Status UNV Oxcarbazepine (Trileptal) 150 mg BID92 PO Last administered on 01/16/17 14:17 ; Start 01/15/17 at 09:00; Stop 01/16/17 at 17:31; Status DC Sodium Chloride 1,000 ml @ 1,000 mls/hr 1X ONCE IV Last administered on 13:50; Start 01/15/17 at 12:00; Stop 01/15/17 at 12:59; Status DC Oxcarbazepine (Trileptal) 150 mg HS PO Last administered on 01/16/17 20:04; Start 01/16/17 at 21:00 Oxcarbazepine (Trileptal) 300 mg DAILY PO ; Start 01/17/17 at 09:00 Active Scripts Active Reported Synthroid (Levothyroxine Sodium) 75 Mcg Tablet 1 Tab PO DAILY06 Senokot (Sennosides) 8.6 Mg Tablet 1 Tab PO BID Seroquel (Quetiapine Fumarate) 50 Mg Tablet 1 Tab PO BID92 Omeprazole 20 Mg Capsule.dr 1 Cap PO DAILY Nuedexta 20-10 Mg Capsule (Dextromethorphan Hbr/Quinidine) 1 Each Capsule 1 Each PO BID Multivitamins (Multivitamin) 1 Each Tablet 1 Tab PO DAILY Namenda (Memantine Hcl) 10 Mg Tablet 10 Mg PO HS Maxitrol Eye Drops (Jhonathan/Polymyx B Sulf/Dexameth) 5 Ml Drops.susp 2 Drop OU TID Geodon (Ziprasidone Hcl) 40 Mg Capsule 40 Mg PO DAILY Celexa (Citalopram Hydrobromide) 10 Mg Tablet 10 Mg PO DAILY Calcium 500 + Vit D 200 Tablet (Calcium Carbonate/Vitamin D3) 1 Each Tablet 1 Each PO BID Bisacodyl 10 Mg Supp.rect 10 Mg RC PRN DAILY PRN Acetaminophen 500 Mg Tablet 1 Tab PO Q6HRS PRN Mag-Al Plus Suspension (Mag Hydrox/Al Hydrox/Simeth) 30 Ml Oral.susp 15 Ml PO PRN AFTMEALHC PRN Seroquel (Quetiapine Fumarate) 25 Mg Tablet 150 Mg PO HS Analgesic [place] (Methyl Salicylate/Menthol) 29 Gm Oint...g. 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
--- NOTE | 2017-01-17 03:50 | PN ---
DATE: 01/15/2017 This late entry for 01/15/2017 covers elements not covered in my initial note of 01/15/2017. SUBJECTIVE: I met with the patient the evening of 01/15/2017. The patient slept 5-1/4 hours previous evening, was quite tired, withdrawn, sleeping with her eyes open at breakfast. She received a bolus of normal saline, then was much more alert, interactive, still confused, repeatedly stating "okay, okay, okay." Nursing staff believe the morning tiredness was because she had received Ativan the previous evening, and still had not slept very well. We will go ahead and discontinue the Ativan p.r.n. REVIEW OF SYSTEMS: Ambulation impaired, in a Broda chair. No CV, , pulmonary, eye, ENT system symptoms on review. Reliability poor. MENTAL STATUS EXAMINATION: Oriented to herself. Insight, judgment, recent and remote memory, attention, concentration, fund of knowledge poor, consistent with her diagnosis mentioned in my initial note. PLAN: Continue current psychotropics. Reviewed drug interactions. Risk/benefit ratio favors no further change. GRANT STOVER MD DR: AMOL/shelley JOB#: [id number] / [id number]
[2017-01-17] MEDS: LEVOTHYROXINE 75 MCG TABLET PO SCH (05:48)
[2017-01-17 06:45] VITALS: BP 153/66
[2017-01-17] MEDS: PANTOPRAZOLE 40 MG PACKET. PO SCH ×2 (07:30→07:57)
[2017-01-17] MEDS: CALCIUM CARB/VIT D3 500/200 TABLET PO SCH ×2 (07:57→19:42)
[2017-01-17] MEDS: POLYETHYLENE GLYCOL 3350 17 GM PACKET. PO SCH (07:57)
[2017-01-17] MEDS: DEXTROMETHORPHAN/QUINIDINE 20/10MG CAPSULE. PO SCH ×2 (07:58→19:42)
[2017-01-17] MEDS: SENNOSIDES 8.6 MG TABLET PO SCH ×2 (07:58→19:41)
[2017-01-17] MEDS: clonazePAM 0.5 MG TABLET PO SCH (08:00)
[2017-01-17] MEDS: QUEtiapine 50 MG TABLET. PO SCH ×3 (08:00→19:41)
[2017-01-17] MEDS: MULTIVITAMIN with MINERAL TABLET. PO SCH (08:00)
[2017-01-17] MEDS: NEO/POLYMYX/DEXAMETH OPHTH SUSPENSION 5ML BOTTLE. OU SCH ×4 (08:05→19:41)
--- NOTE | 2017-01-17 13:07 | NUR ---
KELLI faxed updated clinical notes to [facility] w/a target dc date for next . KELLI also contacted Pt's dtr., Riri to update on new dc date. Riri is requesting referrals for [facility] prior to dc so that she can interview for new referral.
--- NOTE | 2017-01-17 14:57 | NUR ---
Behavior Intervention Response and Plan: BIRP Note: Behavior: Assumed Care of patient, patient located in Day Room at shift change. Patient exhibited the following behavior Restless, Disorganized, Anxious. Brief assessment on rounds of vital signs, medication needs, lab studies, and pain. Treatment plan problems 1-2. Intervention: Patient assessed and the following interventions initiated safety checks 15 Minute Checks Cognitive Assessment , Head to toe Assessment , Medications. Response: After interactions and interventions patient responded in the following manner, Restless , Irritable ,Anxious. Continue to assess behaviors and condition will continue to monitor throughout the shift as needed. Patient educated on ADL's, and hand hygiene. Plan: Continue to monitor Master Treatment Plan for patient's progress toward short term goals of Decreased Aggression, Decreased Anxiety, [facility] goals to return to previous living setting vs placement. Continue to assess patient for changes in above assessment. Monitor for medication needs, pain, and safety concerns. Hourly rounding performed to ensure safe environment.
[2017-01-17 15:34] VITALS: BP 120/58
[2017-01-17] MEDS: MEMANTINE 10 MG TABLET. PO SCH (19:41)
[2017-01-17] MEDS: OXcarbazepine 150 MG TABLET. PO SCH (19:41)
--- NOTE | 2017-01-17 23:22 | NUR ---
Behavior Intervention Response and Plan: BIRP Note: Behavior: Assumed Care of patient, patient located in Day Room at shift change. Patient exhibited the following behavior Restless, Disorganized, Combative. Brief assessment on rounds of vital signs, medication needs, lab studies, and pain. Treatment plan problems 1 and 2. Intervention: Patient assessed and the following interventions initiated safety checks 15 Minute Checks Cognitive Assessment , Head to toe Assessment , Medications. Response: After interactions and interventions patient responded in the following manner, Restless , Compliant ,Combative. Continue to assess behaviors and condition will continue to monitor throughout the shift as needed. Patient educated on ADL's, and hand hygiene. 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 Continue to assess patient for changes in above assessment. Monitor for medication needs, pain, and safety concerns. Hourly rounding performed to ensure safe environment.
[2017-01-18] MEDS: LEVOTHYROXINE 75 MCG TABLET PO SCH (06:06)
[2017-01-18 06:14] VITALS: BP 170/78
[2017-01-18] MEDS: PANTOPRAZOLE 40 MG PACKET. PO SCH (07:47)
[2017-01-18] MEDS: DEXTROMETHORPHAN/QUINIDINE 20/10MG CAPSULE. PO SCH ×2 (07:48→19:43)
[2017-01-18] MEDS: MULTIVITAMIN with MINERAL TABLET. PO SCH (07:48)
[2017-01-18] MEDS: POLYETHYLENE GLYCOL 3350 17 GM PACKET. PO SCH (07:48)
[2017-01-18] MEDS: SENNOSIDES 8.6 MG TABLET PO SCH ×2 (07:48→19:42)
[2017-01-18] MEDS: CALCIUM CARB/VIT D3 500/200 TABLET PO SCH ×2 (07:48→19:42)
[2017-01-18] MEDS: QUEtiapine 50 MG TABLET. PO SCH ×3 (07:48→19:42)
[2017-01-18] MEDS: clonazePAM 0.5 MG TABLET PO SCH (07:50)
[2017-01-18] MEDS: NEO/POLYMYX/DEXAMETH OPHTH SUSPENSION 5ML BOTTLE. OU SCH ×3 (07:52→19:42)
--- NOTE | 2017-01-18 10:32 | NUR ---
Behavior Intervention Response and Plan: BIRP Note: Behavior: Assumed Care of patient, patient located in Dining Room at shift change. Patient exhibited the following behavior Restless, Disorganized, Compulsive. Brief assessment on rounds of vital signs, medication needs, lab studies, and pain. Treatment plan problems . Intervention: Patient assessed and the following interventions initiated safety checks 15 Minute Checks Cognitive Assessment , Head to toe Assessment , Medications. Response: After interactions and interventions patient responded in the following manner, Disorganized , Irritable ,Anxious. Continue to assess behaviors and condition will continue to monitor throughout the shift as needed. Patient educated on ADL's, and hand hygiene. 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 Continue to assess patient for changes in above assessment. Monitor for medication needs, pain, and safety concerns. Hourly rounding performed to ensure safe environment.
[2017-01-18] MEDS: MAGNESIUM HYDROXIDE 2,400 MG/30 ML ORAL.SUSP. PO PRN (14:37)
[2017-01-18 16:38] VITALS: BP 100/50
--- NOTE | 2017-01-18 16:48 | NUR ---
SW Weekly Progress Note SW engages w/PT. and Pt. is able to answer short answers most of the time, but continue to say "ok" repeatedly. PT's facility has been out to check on Pt. and is concerned about her lack of improvement w/the "ok". SW stated that may be something that will continue as baseline for this part of the disease. SW will continue to follow up w/facility for dc plans. Pt's dtr, Riri, has also requested [facility] referral in the area for her to interview and possibly access at dc.
[2017-01-18] MEDS: OXcarbazepine 150 MG TABLET. PO SCH (19:42)
[2017-01-18] MEDS: MEMANTINE 10 MG TABLET. PO SCH (19:42)
--- NOTE | 2017-01-18 20:11 | PDOC ---
Exam Note: Ronen Note: Please also refer to the separate dictated note~for this date of service dictated separately.~Patient seen individually. Discussed the patient with Nursing staff reviewed the chart.~Reviewed interim history and current functioning. Reviewed vital signs,~Labs/ Radiology~and current medications noted below. Continue current treatment with the changes noted in the dictated addendum note Assessment: Vital Signs: Vital Signs Date Time Temp Pulse Resp B/P (MAP) Pulse Ox O2 Delivery O2 Flow Rate FiO2 01/18/17 16:38 98.0 80 16 100/50 (67) 95 01/16/17 16:35 Room Air I&O Intake and Output 01/19/17 07:00 Intake Total 700 ml Balance 700 ml Intake Oral 700 ml Current Medications: Meds: Current Medications Lorazepam (Ativan) 0.5 mg PRN Q4HRS PRN PO ANXIETY / AGITATION Last administered on 01/12/17 06:08; Start 01/05/17 at 16:45; Stop 01/12/17 at 19: 11; Status DC Acetaminophen (Tylenol) 500 mg Q6HRS PRN PO PAIN / TEMP Last administered on 07:56; Start 01/05/17 at 17:00; Stop 01/13/17 at 14:02; Status DC Bisacodyl (Dulcolax Supp) 10 mg PRN DAILY PRN RC CONSTIPATION; Start 01/05/17 at 17:00 Calcium/Vitamin D (Oscal D 500mg/ 200uts) 1 tab BID PO Last administered on 19:42; Start 01/05/17 at 21:00 Levothyroxine Sodium (Synthroid) 75 mcg DAILY06 PO Last administered on 06:06; Start 01/06/17 at 06:00 Multi-Ingredient Ointment (Analgesic [place]) 1 peewee PRN QID PRN TP muscle pain; Start 01/05/17 at 17:00 Neomycin/ Polymyxin/ Dexamethasone (Maxitrol) 2 drop TID OU Last administered on 01/18/17 19:42; Start 01/05/17 at 21:00 Sennosides (Senna) 8.6 mg BID PO Last administered on 01/18/17 19:42; Start 01/05/17 at 21:00 Al Hydroxide/Mg Hydroxide (Mylanta Plus Xs) 15 ml PRN AFTMEALHC PRN PO DYSPEPSIA; Start 01/05/17 at 17:15 Magnesium Hydroxide (Milk Of Magnesia) 2,400 mg PRN QHS PRN PO CONSTIPATION Last administered on 01/18/17 14:37; Start 01/05/17 at 17:15 Multivitamins/ Calcium (Thera-M Plus) 1 tab DAILY PO Last administered on 01/18 07:48; Start 01/06/17 at 09:00 Pantoprazole Sodium (Protonix) 40 mg DAILYAC PO Last administered on 08:43; Start 01/06/17 at 07:30; Stop 01/09/17 at 07:50; Status DC Citalopram Hydrobromide (CeleXA) 10 mg DAILY PO Last administered on 10:09; Start 01/06/17 at 09:00; Stop 01/07/17 at 19:34; Status DC Memantine (Namenda) 10 mg HS PO Last administered on 01/18/17 19:42; Start 01/05/17 at 21:00 Quetiapine Fumarate (SEROquel) 150 mg QHS PO Last administered on 01/18/17 19 :42; Start 01/05/17 at 21:00 Quetiapine Fumarate (SEROquel) 50 mg BID92 PO Last administered on 01/10/17 14 :06; Start 01/06/17 at 09:00; Stop 01/10/17 at 19:13; Status DC Ziprasidone (Geodon) 40 mg DAILY PO Last administered on 01/11/17 09:21; Start 01/06/17 at 09:00; Stop 01/11/17 at 18:37; Status DC Pneumococcal Polyvalent Vaccine (Pneumovax 23) 0.5 ml ONCE ONCE VAX IM Last administered on 01/07/17 23:11; Start 01/07/17 at 21:00; Stop 01/07/17 at 21 :01; Status DC Influenza Virus Vaccine Quadrival (Fluarix Quad [id number] Syringe) 0.5 ml ONCE ONCE VAX IM Last administered on 01/07/17 23:13; Start 01/07/17 at 21:00; Stop 01/07/17 at 21:01; Status DC Fluvoxamine Maleate (Luvox) 25 mg HS PO Last administered on 01/09/17 19:47; Start 01/07/17 at 21:00; Stop 01/10/17 at 20:59; Status DC Fluvoxamine Maleate (Luvox) 50 mg HS PO Last administered on 01/18/17 19:42; Start 01/10/17 at 21:00 Pantoprazole Sodium (Protonix Packet) 40 mg DAILYAC PO Last administered on 07:47; Start 01/09/17 at 08:15 Quetiapine Fumarate (SEROquel) 75 mg BID92 PO Last administered on 01/18/17 13:42; Start 01/11/17 at 09:00 Clonazepam (KlonoPIN) 0.25 mg DAILY PO Last administered on 01/18/17 07:50; Start 01/12/17 at 09:00 Clonazepam (KlonoPIN) 0.5 mg STK-MED ONCE .ROUTE Last administered on 06:37; Start 01/12/17 at 06:37; Stop 01/12/17 at 06:38; Status DC Magnesium Citrate (Citroma) 296 ml PRN 1X PRN PO CONSTIPATION Last administered on 01/12/17 19:34; Start 01/12/17 at 07:45 Lorazepam (Ativan) 0.25 mg PRN Q4HRS PRN PO ANXIETY / AGITATION Last administered on 01/14/17 23:14; Start 01/12/17 at 19:15; Stop 01/15/17 at 19:30 ; Status DC Sodium Biphosphate/ Sodium Phosphate (Fleet Adult) 133 ml 1X ONCE UT Last administered on 01/13/17 15:24; Start 01/13/17 at 14:15; Stop 01/13/17 at 14:16 ; Status DC Polyethylene Glycol (miraLAX) 17 gm DAILY PO Last administered on 01/18/17 07 :48; Start 01/14/17 at 09:00 Polyethylene Glycol (miraLAX) 17 gm 1X ONCE PO Last administered on 01/13/17 17:26; Start 01/13/17 at 14:00; Stop 01/13/17 at 14:01; Status DC Acetaminophen (Tylenol) 500 mg PRN Q6HRS PRN PO PAIN / TEMP Last administered on 01/16/17 16:25; Start 01/13/17 at 14:15 Divalproex Sodium (Depakote Sprinkles) 125 mg BID92 PO ; Start 01/15/17 at 09:00 ; Status UNV Oxcarbazepine (Trileptal) 150 mg BID92 PO Last administered on 01/16/17 14:17 ; Start 01/15/17 at 09:00; Stop 01/16/17 at 17:31; Status DC Sodium Chloride 1,000 ml @ 1,000 mls/hr 1X ONCE IV Last administered on 13:50; Start 01/15/17 at 12:00; Stop 01/15/17 at 12:59; Status DC Oxcarbazepine (Trileptal) 150 mg HS PO Last administered on 01/18/17 19:42; Start 01/16/17 at 21:00 Oxcarbazepine (Trileptal) 300 mg DAILY PO Last administered on 01/18/17 07:48 ; Start 01/17/17 at 09:00 Olanzapine (ZyPREXA ZYDIS) 0.125 mg PRN Q4HRS PRN PO PSYCHOSIS; Start at 19:00 Active Scripts Active Reported Synthroid (Levothyroxine Sodium) 75 Mcg Tablet 1 Tab PO DAILY06 Senokot (Sennosides) 8.6 Mg Tablet 1 Tab PO BID Seroquel (Quetiapine Fumarate) 50 Mg Tablet 1 Tab PO BID92 Omeprazole 20 Mg Capsule.dr 1 Cap PO DAILY Nuedexta 20-10 Mg Capsule (Dextromethorphan Hbr/Quinidine) 1 Each Capsule 1 Each PO BID Multivitamins (Multivitamin) 1 Each Tablet 1 Tab PO DAILY Namenda (Memantine Hcl) 10 Mg Tablet 10 Mg PO HS Maxitrol Eye Drops (Jhonathan/Polymyx B Sulf/Dexameth) 5 Ml Drops.susp 2 Drop OU TID Geodon (Ziprasidone Hcl) 40 Mg Capsule 40 Mg PO DAILY Celexa (Citalopram Hydrobromide) 10 Mg Tablet 10 Mg PO DAILY Calcium 500 + Vit D 200 Tablet (Calcium Carbonate/Vitamin D3) 1 Each Tablet 1 Each PO BID Bisacodyl 10 Mg Supp.rect 10 Mg RC PRN DAILY PRN Acetaminophen 500 Mg Tablet 1 Tab PO Q6HRS PRN Mag-Al Plus Suspension (Mag Hydrox/Al Hydrox/Simeth) 30 Ml Oral.susp 15 Ml PO PRN AFTMEALHC PRN Seroquel (Quetiapine Fumarate) 25 Mg Tablet 150 Mg PO HS Analgesic [place] (Methyl Salicylate/Menthol) 29 Gm Oint...g. 1 [place] TP PRN QID PRN Milk Of Magnesia (Magnesium Hydroxide) 2,400 Mg/10 Ml Oral.susp 2,400 Mg PO PRN QHS PRN I have reviewed the current psychotropics carefully including drug interactions. Risk benefit ratio favors no change other than as noted in my dictated progress note. 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
--- NOTE | 2017-01-19 00:52 | NUR ---
Behavior Intervention Response and Plan: BIRP Note: Behavior: Assumed Care of patient, patient located in Day Room at shift change. Patient exhibited the following behavior Restless, Compulsive, Agitated. Brief assessment on rounds of vital signs, medication needs, lab studies, and pain. Treatment plan problems 1 and 2. Intervention: Patient assessed and the following interventions initiated safety checks 15 Minute Checks Cognitive Assessment , Head to toe Assessment , Medications. Response: After interactions and interventions patient responded in the following manner, Restless , Compliant ,Resistive. Continue to assess behaviors and condition will continue to monitor throughout the shift as needed. Patient educated on ADL's, and hand hygiene. 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 Continue to assess patient for changes in above assessment. Monitor for medication needs, pain, and safety concerns. Hourly rounding performed to ensure safe environment.
[2017-01-19] MEDS: LEVOTHYROXINE 75 MCG TABLET PO SCH (06:02)
[2017-01-19 06:06] VITALS: BP 152/79
--- NOTE | 2017-01-19 06:26 | PN ---
DATE: 01/16/2017 PSYCHIATRIC PROGRESS NOTE This late entry 01/16/2017 covers elements, not covered in my initial note of 01/16/2017. I met with the patient evening of 01/16/2017. The patient continues to be repetitive "okay, okay, okay," slept 7-3/4 hours previous evening, scratching, grabbing at staff. REVIEW OF SYSTEMS: Ambulation impaired. No CV, , pulmonary, eye, ENT system symptoms on review. Reliability poor. MENTAL STATUS EXAM: Oriented to herself. Insight, judgment, recent and remote memory, attention, concentration, fund of knowledge poor, consistent with her diagnosis mentioned in my initial note. PLAN: Continue current psychotropics mentioned in my initial note, increase Trileptal from 150 mg b.i.d. to 300 mg in the morning and 150 in the afternoon. Maintain rest of psychotropics. Reviewed drugs interactions. Risk/benefit ratio favors no further change. GRANT STOVER MD DR: AMOL/shelley JOB#: [id number] / [id number]
--- NOTE | 2017-01-19 06:30 | PN ---
DATE: 01/17/2017 PSYCHIATRIC PROGRESS NOTE This is a late entry for 01/17/2017, covers elements not covered in my initial note of 01/17/2017. SUBJECTIVE: The patient staffed at treatment team meeting the morning of 01/17/2017, seen individually the evening of 01/17/2017. She has been somewhat dehydrated, received IV fluids, was much more awake, alert after that, less sedated on 01/17/2017, still grabbing and scratching at people around her. REVIEW OF SYSTEMS: Ambulation impaired, in a wheelchair. No CV, , pulmonary, eye, ENT system symptoms on review. Reliability poor. MENTAL STATUS EXAM: Oriented to herself. Insight, judgment, recent and remote memory, attention, concentration, fund of knowledge poor, consistent with her diagnosis mentioned in my initial note. PLAN: Continue current psychotropics. Reviewed drug interactions. Risk/benefit ratio favors no further change. GRANT STOVER MD DR: AMOL/shelley JOB#: [id number] / [id number]
[2017-01-19] MEDS: PANTOPRAZOLE 40 MG PACKET. PO SCH (10:16)
[2017-01-19] MEDS: NEO/POLYMYX/DEXAMETH OPHTH SUSPENSION 5ML BOTTLE. OU SCH ×3 (10:18→19:53)
[2017-01-19] MEDS: SENNOSIDES 8.6 MG TABLET PO SCH ×2 (10:20→19:54)
[2017-01-19] MEDS: DEXTROMETHORPHAN/QUINIDINE 20/10MG CAPSULE. PO SCH ×2 (10:20→19:54)
[2017-01-19] MEDS: MULTIVITAMIN with MINERAL TABLET. PO SCH (10:20)
[2017-01-19] MEDS: QUEtiapine 50 MG TABLET. PO SCH ×3 (10:20→19:53)
[2017-01-19] MEDS: CALCIUM CARB/VIT D3 500/200 TABLET PO SCH ×2 (10:20→19:54)
[2017-01-19] MEDS: POLYETHYLENE GLYCOL 3350 17 GM PACKET. PO SCH (10:20)
[2017-01-19] MEDS: clonazePAM 0.5 MG TABLET PO SCH (10:20)
--- NOTE | 2017-01-19 14:35 | NUR ---
Behavior Intervention Response and Plan: BIRP Note: Behavior: Assumed Care of patient, patient located in Hallway at shift change. Patient exhibited the following behavior Restless, Disorganized, Anxious, constantly saying "ok." Brief assessment on rounds of vital signs, medication needs, lab studies, and pain. Treatment plan problems :1-2 Intervention: Patient assessed and the following interventions initiated safety checks 15 Minute Checks Cognitive Assessment , Head to toe Assessment , Medications. Response: After interactions and interventions patient responded in the following manner, compliant but Disorganized, and continuously saying "ok." Anxious. Continue to assess behaviors and condition will continue to monitor throughout the shift as needed. Patient educated on ADL's, and hand hygiene. Pt was cooperative w/meds, assessment & ADL's. HEADER DOCK reports that pt's skin is intact w/ no wounds noted. 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 Continue to assess patient for changes in above assessment. Monitor for medication needs, pain, and safety concerns. Hourly rounding performed to ensure safe environment.
[2017-01-19 16:09] VITALS: BP 164/73
[2017-01-19 19:37] LABS: BASO # 0.1 x10^3/uL (0.0-0.2); BASO % 1 % (0-3); EOS # 0.3 x10^3/uL (0.0-0.7); EOS % 4 % (0-3); HEMATOCRIT 34.7 % (36.0-47.0); HEMOGLOBIN 11.4 g/dL (12.0-15.5); LYMPH # 1.9 x10^3/uL (1.0-4.8); LYMPH % 30 % (24-48); MEAN CORPUSCULAR HEMOGLOBIN 28 pg (25-35); MEAN CORPUSCULAR HGB CONC 33 g/dL (31-37); MEAN CORPUSCULAR VOLUME 85 fL (79-100); MONO # 0.8 x10^3/uL (0.0-1.1); MONO % 12 % (0-9); NEUT # 3.5 x10^3uL (1.8-7.7); NEUT % 53 % (31-73); PLATELET COUNT 256 x10^3/uL (140-400); RED BLOOD COUNT 4.09 x10^6/uL (3.50-5.40); RED CELL DISTRIBUTION WIDTH 15.8 % (11.5-14.5); WHITE BLOOD COUNT 6.5 x10^3/uL (4.0-11.0)
[2017-01-19 19:43] LABS: ALBUMIN/GLOBULIN RATIO 0.6 (1.0-1.7); CALCIUM 8.5 mg/dL (8.5-10.1); CREATININE 0.9 mg/dL (0.6-1.0); GFR 59.7; POTASSIUM 3.9 mmol/L (3.5-5.1); TOTAL BILIRUBIN 0.3 mg/dL (0.2-1.0); TOTAL PROTEIN 7.7 g/dL (6.4-8.2)
[2017-01-19] MEDS: OXcarbazepine 150 MG TABLET. PO SCH (19:53)
[2017-01-19] MEDS: MEMANTINE 10 MG TABLET. PO SCH (19:53)
[2017-01-19] MEDS: BISACODYL 10 MG SUPP.RECT RC PRN (19:54)
--- NOTE | 2017-01-19 19:59 | PDOC ---
Exam Note: Ronen Note: Please also refer to the separate dictated note~for this date of service dictated separately.~Patient seen individually. Discussed the patient with Nursing staff reviewed the chart.~Reviewed interim history and current functioning. Reviewed vital signs,~Labs/ Radiology~and current medications noted below. Continue current treatment with the changes noted in the dictated addendum note Assessment: Vital Signs: Vital Signs Date Time Temp Pulse Resp B/P (MAP) Pulse Ox O2 Delivery O2 Flow Rate FiO2 01/19/17 16:09 97.6 69 16 164/73 (103) 99 Room Air I&O Intake and Output 01/20/17 07:00 Intake Total 120 ml Balance 120 ml Intake Oral 120 ml Labs: Laboratory Tests Test 01/19/17 19:08 White Blood Count 6.5 x10^3/uL (4.0-11.0) Red Blood Count 4.09 x10^6/uL (3.50-5.40) Hemoglobin 11.4 g/dL (12.0-15.5) L Hematocrit 34.7 % (36.0-47.0) L Mean Corpuscular Volume 85 fL (79-100) Mean Corpuscular Hemoglobin 28 pg (25-35) Mean Corpuscular Hemoglobin Concent 33 g/dL (31-37) Red Cell Distribution Width 15.8 % (11.5-14.5) H Platelet Count 256 x10^3/uL (140-400) Neutrophils (%) (Auto) 53 % (31-73) Lymphocytes (%) (Auto) 30 % (24-48) Monocytes (%) (Auto) 12 % (0-9) H Eosinophils (%) (Auto) 4 % (0-3) H Basophils (%) (Auto) 1 % (0-3) Neutrophils # (Auto) 3.5 x10^3uL (1.8-7.7) Lymphocytes # (Auto) 1.9 x10^3/uL (1.0-4.8) Monocytes # (Auto) 0.8 x10^3/uL (0.0-1.1) Eosinophils # (Auto) 0.3 x10^3/uL (0.0-0.7) Basophils # (Auto) 0.1 x10^3/uL (0.0-0.2) Sodium Level 141 mmol/L (136-145) Potassium Level 3.9 mmol/L (3.5-5.1) Chloride Level 104 mmol/L (98-107) Carbon Dioxide Level 30 mmol/L (21-32) Anion Gap 7 (6-14) Blood Urea Nitrogen 20 mg/dL (7-20) Creatinine 0.9 mg/dL (0.6-1.0) Estimated GFR (Cockcroft-Gault) 59.7 BUN/Creatinine Ratio 22 (6-20) H Glucose Level 80 mg/dL (70-99) Calcium Level 8.5 mg/dL (8.5-10.1) Total Bilirubin 0.3 mg/dL (0.2-1.0) Aspartate Amino Transferase (AST) 52 U/L (15-37) H Alanine Aminotransferase (ALT) 93 U/L (14-59) H Alkaline Phosphatase 157 U/L (46-116) H Total Protein 7.7 g/dL (6.4-8.2) Albumin 3.0 g/dL (3.4-5.0) L Albumin/Globulin Ratio 0.6 (1.0-1.7) L Current Medications: Meds: Current Medications Lorazepam (Ativan) 0.5 mg PRN Q4HRS PRN PO ANXIETY / AGITATION Last administered on 01/12/17 06:08; Start 01/05/17 at 16:45; Stop 01/12/17 at 19: 11; Status DC Acetaminophen (Tylenol) 500 mg Q6HRS PRN PO PAIN / TEMP Last administered on 07:56; Start 01/05/17 at 17:00; Stop 01/13/17 at 14:02; Status DC Bisacodyl (Dulcolax Supp) 10 mg PRN DAILY PRN RC CONSTIPATION Last administered on 01/19/17 19:54; Start 01/05/17 at 17:00 Calcium/Vitamin D (Oscal D 500mg/ 200uts) 1 tab BID PO Last administered on 19:54; Start 01/05/17 at 21:00 Levothyroxine Sodium (Synthroid) 75 mcg DAILY06 PO Last administered on 06:02; Start 01/06/17 at 06:00 Multi-Ingredient Ointment (Analgesic [place]) 1 peewee PRN QID PRN TP muscle pain; Start 01/05/17 at 17:00 Neomycin/ Polymyxin/ Dexamethasone (Maxitrol) 2 drop TID OU Last administered on 01/19/17 19:53; Start 01/05/17 at 21:00 Sennosides (Senna) 8.6 mg BID PO Last administered on 01/19/17 19:54; Start 01/05/17 at 21:00 Al Hydroxide/Mg Hydroxide (Mylanta Plus Xs) 15 ml PRN AFTMEALHC PRN PO DYSPEPSIA; Start 01/05/17 at 17:15 Magnesium Hydroxide (Milk Of Magnesia) 2,400 mg PRN QHS PRN PO CONSTIPATION Last administered on 01/18/17 14:37; Start 01/05/17 at 17:15 Multivitamins/ Calcium (Thera-M Plus) 1 tab DAILY PO Last administered on 01/19 10:20; Start 01/06/17 at 09:00 Pantoprazole Sodium (Protonix) 40 mg DAILYAC PO Last administered on 08:43; Start 01/06/17 at 07:30; Stop 01/09/17 at 07:50; Status DC Citalopram Hydrobromide (CeleXA) 10 mg DAILY PO Last administered on 10:09; Start 01/06/17 at 09:00; Stop 01/07/17 at 19:34; Status DC Memantine (Namenda) 10 mg HS PO Last administered on 01/19/17 19:53; Start 01/05/17 at 21:00 Quetiapine Fumarate (SEROquel) 150 mg QHS PO Last administered on 01/19/17 19 :53; Start 01/05/17 at 21:00 Quetiapine Fumarate (SEROquel) 50 mg BID92 PO Last administered on 01/10/17 14 :06; Start 01/06/17 at 09:00; Stop 01/10/17 at 19:13; Status DC Ziprasidone (Geodon) 40 mg DAILY PO Last administered on 01/11/17 09:21; Start 01/06/17 at 09:00; Stop 01/11/17 at 18:37; Status DC Pneumococcal Polyvalent Vaccine (Pneumovax 23) 0.5 ml ONCE ONCE VAX IM Last administered on 01/07/17 23:11; Start 01/07/17 at 21:00; Stop 01/07/17 at 21 :01; Status DC Influenza Virus Vaccine Quadrival (Fluarix Quad 4452-0719 Syringe) 0.5 ml ONCE ONCE VAX IM Last administered on 01/07/17 23:13; Start 01/07/17 at 21:00; Stop 01/07/17 at 21:01; Status DC Fluvoxamine Maleate (Luvox) 25 mg HS PO Last administered on 01/09/17 19:47; Start 01/07/17 at 21:00; Stop 01/10/17 at 20:59; Status DC Fluvoxamine Maleate (Luvox) 50 mg HS PO Last administered on 01/19/17 19:54; Start 01/10/17 at 21:00 Pantoprazole Sodium (Protonix Packet) 40 mg DAILYAC PO Last administered on 10:16; Start 01/09/17 at 08:15 Quetiapine Fumarate (SEROquel) 75 mg BID92 PO Last administered on 01/19/17 14:00; Start 01/11/17 at 09:00 Clonazepam (KlonoPIN) 0.25 mg DAILY PO Last administered on 01/19/17 10:20; Start 01/12/17 at 09:00; Stop 01/19/17 at 17:57; Status DC Clonazepam (KlonoPIN) 0.5 mg STK-MED ONCE .ROUTE Last administered on 06:37; Start 01/12/17 at 06:37; Stop 01/12/17 at 06:38; Status DC Magnesium Citrate (Citroma) 296 ml PRN 1X PRN PO CONSTIPATION Last administered on 01/12/17 19:34; Start 01/12/17 at 07:45 Lorazepam (Ativan) 0.25 mg PRN Q4HRS PRN PO ANXIETY / AGITATION Last administered on 01/14/17 23:14; Start 01/12/17 at 19:15; Stop 01/15/17 at 19:30 ; Status DC Sodium Biphosphate/ Sodium Phosphate (Fleet Adult) 133 ml 1X ONCE [place] Last administered on 01/13/17 15:24; Start 01/13/17 at 14:15; Stop 01/13/17 at 14:16 ; Status DC Polyethylene Glycol (miraLAX) 17 gm DAILY PO Last administered on 01/19/17 10 :20; Start 01/14/17 at 09:00 Polyethylene Glycol (miraLAX) 17 gm 1X ONCE PO Last administered on 01/13/17 17:26; Start 01/13/17 at 14:00; Stop 01/13/17 at 14:01; Status DC Acetaminophen (Tylenol) 500 mg PRN Q6HRS PRN PO PAIN / TEMP Last administered on 01/16/17 16:25; Start 01/13/17 at 14:15 Divalproex Sodium (Depakote Sprinkles) 125 mg BID92 PO ; Start 01/15/17 at 09:00 ; Status UNV Oxcarbazepine (Trileptal) 150 mg BID92 PO Last administered on 01/16/17 14:17 ; Start 01/15/17 at 09:00; Stop 01/16/17 at 17:31; Status DC Sodium Chloride 1,000 ml @ 1,000 mls/hr 1X ONCE IV Last administered on 13:50; Start 01/15/17 at 12:00; Stop 01/15/17 at 12:59; Status DC Oxcarbazepine (Trileptal) 150 mg HS PO Last administered on 01/19/17 19:53; Start 01/16/17 at 21:00 Oxcarbazepine (Trileptal) 300 mg DAILY PO Last administered on 01/19/17 10:20 ; Start 01/17/17 at 09:00 Olanzapine (ZyPREXA ZYDIS) 0.125 mg PRN Q4HRS PRN PO PSYCHOSIS; Start at 19:00 Active Scripts Active Reported Synthroid (Levothyroxine Sodium) 75 Mcg Tablet 1 Tab PO DAILY06 Senokot (Sennosides) 8.6 Mg Tablet 1 Tab PO BID Seroquel (Quetiapine Fumarate) 50 Mg Tablet 1 Tab PO BID92 Omeprazole 20 Mg Capsule.dr 1 Cap PO DAILY Nuedexta 20-10 Mg Capsule (Dextromethorphan Hbr/Quinidine) 1 Each Capsule 1 Each PO BID Multivitamins (Multivitamin) 1 Each Tablet 1 Tab PO DAILY Namenda (Memantine Hcl) 10 Mg Tablet 10 Mg PO HS Maxitrol Eye Drops (Jhonathan/Polymyx B Sulf/Dexameth) 5 Ml Drops.susp 2 Drop OU TID Geodon (Ziprasidone Hcl) 40 Mg Capsule 40 Mg PO DAILY Celexa (Citalopram Hydrobromide) 10 Mg Tablet 10 Mg PO DAILY Calcium 500 + Vit D 200 Tablet (Calcium Carbonate/Vitamin D3) 1 Each Tablet 1 Each PO BID Bisacodyl 10 Mg Supp.rect 10 Mg RC PRN DAILY PRN Acetaminophen 500 Mg Tablet 1 Tab PO Q6HRS PRN Mag-Al Plus Suspension (Mag Hydrox/Al Hydrox/Simeth) 30 Ml Oral.susp 15 Ml PO PRN AFTMEALHC PRN Seroquel (Quetiapine Fumarate) 25 Mg Tablet 150 Mg PO HS Analgesic [place] (Methyl Salicylate/Menthol) 29 Gm Oint...g. 1 [place] TP PRN QID PRN Milk Of Magnesia (Magnesium Hydroxide) 2,400 Mg/10 Ml Oral.susp 2,400 Mg PO PRN QHS PRN I have reviewed the current psychotropics carefully including drug interactions. Risk benefit ratio favors no change other than as noted in my dictated progress note. 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
--- NOTE | 2017-01-19 22:30 | NUR ---
Behavior Intervention Response and Plan: BIRP Note: Behavior: Assumed Care of patient, patient located in Patient Room at shift change. Patient exhibited the following behavior Restless, Disorganized, Anxious. Brief assessment on rounds of vital signs, medication needs, lab studies, and pain. Treatment plan problems 1 and 2. Intervention: Patient assessed and the following interventions initiated safety checks 15 Minute Checks Cognitive Assessment , Head to toe Assessment , Medications. Response: After interactions and interventions patient responded in the following manner, Calm , Disorganized ,Compliant. Continue to assess behaviors and condition will continue to monitor throughout the shift as needed. Patient educated on ADL's, and hand hygiene. 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 Continue to assess patient for changes in above assessment. Monitor for medication needs, pain, and safety concerns. Hourly rounding performed to ensure safe environment.
[2017-01-20 06:35] VITALS: BP 158/77
[2017-01-20] MEDS: LEVOTHYROXINE 75 MCG TABLET PO SCH (06:38)
--- NOTE | 2017-01-20 07:24 | PN ---
DATE: 01/18/2017 This is a late entry for date of service 01/18/2017 and covers elements not covered in my initial note of 01/18/2017. I met with the patient the evening of 01/18/2017. She has been more agitated, restless, grabbing at staff. Zyprexa was added p.r.n. after staff called me as an emergency. REVIEW OF SYSTEMS: No CV, , pulmonary, eye, ENT system symptoms on review. Gait unsteady. MENTAL STATUS EXAM: Oriented to herself. Insight, judgment, recent and remote memory, attention, concentration, fund of knowledge poor, consistent with her diagnosis as mentioned in my initial note. PLAN: Continue psychotropics as mentioned in my initial note. MAN Abdullahi STOVER MD DR: AMOL/shelley JOB#: [id number] / [id number]
[2017-01-20] MEDS: POLYETHYLENE GLYCOL 3350 17 GM PACKET. PO SCH (07:46)
[2017-01-20] MEDS: DEXTROMETHORPHAN/QUINIDINE 20/10MG CAPSULE. PO SCH ×2 (07:46→19:42)
[2017-01-20] MEDS: CALCIUM CARB/VIT D3 500/200 TABLET PO SCH ×2 (07:46→19:40)
[2017-01-20] MEDS: SENNOSIDES 8.6 MG TABLET PO SCH ×2 (07:46→19:40)
[2017-01-20] MEDS: PANTOPRAZOLE 40 MG PACKET. PO SCH (07:46)
[2017-01-20] MEDS: MULTIVITAMIN with MINERAL TABLET. PO SCH (07:47)
[2017-01-20] MEDS: QUEtiapine 50 MG TABLET. PO SCH ×3 (07:47→19:40)
[2017-01-20] MEDS: NEO/POLYMYX/DEXAMETH OPHTH SUSPENSION 5ML BOTTLE. OU SCH ×3 (07:48→19:42)
--- NOTE | 2017-01-20 11:13 | NUR ---
Behavior Intervention Response and Plan: BIRP Note: Behavior: Assumed Care of patient, patient located in Hallway at shift change. Patient exhibited the following behavior Restless, Disorganized, Anxious, constantly saying "ok." Brief assessment on rounds of vital signs, medication needs, lab studies, and pain. Treatment plan problems :1-2 Intervention: Patient assessed and the following interventions initiated safety checks 15 Minute Checks Cognitive Assessment , Head to toe Assessment , Medications. Response: After interactions and interventions patient responded in the following manner, compliant but Disorganized, and continuously saying "ok." Anxious, able to redirect but still anxious at times. Continue to assess behaviors and condition will continue to monitor throughout the shift as needed. Patient educated on ADL's, and hand hygiene. Pt was cooperative w/meds, assessment & ADL's. 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 Plan: Continue to monitor Master Treatment Plan for patient's progress toward short term goals of Decreased Agitation, Decreased Aggression, [facility] goals to return to previous living setting vs placement. Continue to assess patient for changes in above assessment. Monitor for medication needs, pain, and safety concerns. Hourly rounding performed to ensure safe environment.
[2017-01-20 16:06] VITALS: BP 138/63
[2017-01-20] MEDS: ACETAMINOPHEN 500 MG TABLET PO PRN (18:25)
--- NOTE | 2017-01-20 18:29 | NUR ---
Pt is yelling out "okay" constantly, attempting to ambulate unassisted, grabbing at staff and peers, wringing her hands and unable to be redirected. PRN tylenol and zyprexa zydis given.
[2017-01-20] MEDS: MEMANTINE 10 MG TABLET. PO SCH (19:40)
[2017-01-20] MEDS: OXcarbazepine 150 MG TABLET. PO SCH (19:40)
--- NOTE | 2017-01-20 20:02 | PDOC ---
Exam Note: Ronen Note: Please also refer to the separate dictated note~for this date of service dictated separately.~Patient seen individually. Discussed the patient with Nursing staff reviewed the chart.~Reviewed interim history and current functioning. Reviewed vital signs,~Labs/ Radiology~and current medications noted below. Continue current treatment with the changes noted in the dictated addendum note Assessment: Vital Signs: Vital Signs Date Time Temp Pulse Resp B/P (MAP) Pulse Ox O2 Delivery O2 Flow Rate FiO2 01/20/17 16:06 97.8 74 18 138/63 (88) 100 Room Air I&O Intake and Output 01/21/17 07:00 Intake Total 580 ml Balance 580 ml Intake Oral 580 ml Current Medications: Meds: Current Medications Lorazepam (Ativan) 0.5 mg PRN Q4HRS PRN PO ANXIETY / AGITATION Last administered on 01/12/17 06:08; Start 01/05/17 at 16:45; Stop 01/12/17 at 19: 11; Status DC Acetaminophen (Tylenol) 500 mg Q6HRS PRN PO PAIN / TEMP Last administered on 07:56; Start 01/05/17 at 17:00; Stop 01/13/17 at 14:02; Status DC Bisacodyl (Dulcolax Supp) 10 mg PRN DAILY PRN RC CONSTIPATION Last administered on 01/19/17 19:54; Start 01/05/17 at 17:00 Calcium/Vitamin D (Oscal D 500mg/ 200uts) 1 tab BID PO Last administered on 19:40; Start 01/05/17 at 21:00 Levothyroxine Sodium (Synthroid) 75 mcg DAILY06 PO Last administered on 06:38; Start 01/06/17 at 06:00 Multi-Ingredient Ointment (Analgesic [place]) 1 peewee PRN QID PRN TP muscle pain; Start 01/05/17 at 17:00 Neomycin/ Polymyxin/ Dexamethasone (Maxitrol) 2 drop TID OU Last administered on 01/20/17 19:42; Start 01/05/17 at 21:00 Sennosides (Senna) 8.6 mg BID PO Last administered on 01/20/17 19:40; Start 01/05/17 at 21:00 Al Hydroxide/Mg Hydroxide (Mylanta Plus Xs) 15 ml PRN AFTMEALHC PRN PO DYSPEPSIA; Start 01/05/17 at 17:15 Magnesium Hydroxide (Milk Of Magnesia) 2,400 mg PRN QHS PRN PO CONSTIPATION Last administered on 01/18/17 14:37; Start 01/05/17 at 17:15 Multivitamins/ Calcium (Thera-M Plus) 1 tab DAILY PO Last administered on 01/20 07:47; Start 01/06/17 at 09:00 Pantoprazole Sodium (Protonix) 40 mg DAILYAC PO Last administered on 08:43; Start 01/06/17 at 07:30; Stop 01/09/17 at 07:50; Status DC Citalopram Hydrobromide (CeleXA) 10 mg DAILY PO Last administered on 10:09; Start 01/06/17 at 09:00; Stop 01/07/17 at 19:34; Status DC Memantine (Namenda) 10 mg HS PO Last administered on 01/20/17 19:40; Start 01/05/17 at 21:00 Quetiapine Fumarate (SEROquel) 150 mg QHS PO Last administered on 01/20/17 19 :40; Start 01/05/17 at 21:00 Quetiapine Fumarate (SEROquel) 50 mg BID92 PO Last administered on 01/10/17 14 :06; Start 01/06/17 at 09:00; Stop 01/10/17 at 19:13; Status DC Ziprasidone (Geodon) 40 mg DAILY PO Last administered on 01/11/17 09:21; Start 01/06/17 at 09:00; Stop 01/11/17 at 18:37; Status DC Pneumococcal Polyvalent Vaccine (Pneumovax 23) 0.5 ml ONCE ONCE VAX IM Last administered on 01/07/17 23:11; Start 01/07/17 at 21:00; Stop 01/07/17 at 21 :01; Status DC Influenza Virus Vaccine Quadrival (Fluarix Quad [id number] Syringe) 0.5 ml ONCE ONCE VAX IM Last administered on 01/07/17 23:13; Start 01/07/17 at 21:00; Stop 01/07/17 at 21:01; Status DC Fluvoxamine Maleate (Luvox) 25 mg HS PO Last administered on 01/09/17 19:47; Start 01/07/17 at 21:00; Stop 01/10/17 at 20:59; Status DC Fluvoxamine Maleate (Luvox) 50 mg HS PO Last administered on 01/20/17 19:40; Start 01/10/17 at 21:00 Pantoprazole Sodium (Protonix Packet) 40 mg DAILYAC PO Last administered on 07:46; Start 01/09/17 at 08:15 Quetiapine Fumarate (SEROquel) 75 mg BID92 PO Last administered on 01/20/17 07:47; Start 01/11/17 at 09:00 Clonazepam (KlonoPIN) 0.25 mg DAILY PO Last administered on 01/19/17 10:20; Start 01/12/17 at 09:00; Stop 01/19/17 at 17:57; Status DC Clonazepam (KlonoPIN) 0.5 mg STK-MED ONCE .ROUTE Last administered on 06:37; Start 01/12/17 at 06:37; Stop 01/12/17 at 06:38; Status DC Magnesium Citrate (Citroma) 296 ml PRN 1X PRN PO CONSTIPATION Last administered on 01/12/17 19:34; Start 01/12/17 at 07:45 Lorazepam (Ativan) 0.25 mg PRN Q4HRS PRN PO ANXIETY / AGITATION Last administered on 01/14/17 23:14; Start 01/12/17 at 19:15; Stop 01/15/17 at 19:30 ; Status DC Sodium Biphosphate/ Sodium Phosphate (Fleet Adult) 133 ml 1X ONCE [place] Last administered on 01/13/17 15:24; Start 01/13/17 at 14:15; Stop 01/13/17 at 14:16 ; Status DC Polyethylene Glycol (miraLAX) 17 gm DAILY PO Last administered on 01/20/17 07 :46; Start 01/14/17 at 09:00 Polyethylene Glycol (miraLAX) 17 gm 1X ONCE PO Last administered on 01/13/17 17:26; Start 01/13/17 at 14:00; Stop 01/13/17 at 14:01; Status DC Acetaminophen (Tylenol) 500 mg PRN Q6HRS PRN PO PAIN / TEMP Last administered on 01/20/17 18:25; Start 01/13/17 at 14:15 Divalproex Sodium (Depakote Sprinkles) 125 mg BID92 PO ; Start 01/15/17 at 09:00 ; Status UNV Oxcarbazepine (Trileptal) 150 mg BID92 PO Last administered on 01/16/17 14:17 ; Start 01/15/17 at 09:00; Stop 01/16/17 at 17:31; Status DC Sodium Chloride 1,000 ml @ 1,000 mls/hr 1X ONCE IV Last administered on 13:50; Start 01/15/17 at 12:00; Stop 01/15/17 at 12:59; Status DC Oxcarbazepine (Trileptal) 150 mg HS PO Last administered on 01/20/17 19:40; Start 01/16/17 at 21:00 Oxcarbazepine (Trileptal) 300 mg DAILY PO Last administered on 01/20/17 07:47 ; Start 01/17/17 at 09:00 Olanzapine (ZyPREXA ZYDIS) 0.125 mg PRN Q4HRS PRN PO PSYCHOSIS Last administered on 01/20/17 18:25; Start 01/18/17 at 19:00 Active Scripts Active Reported Synthroid (Levothyroxine Sodium) 75 Mcg Tablet 1 Tab PO DAILY06 Senokot (Sennosides) 8.6 Mg Tablet 1 Tab PO BID Seroquel (Quetiapine Fumarate) 50 Mg Tablet 1 Tab PO BID92 Omeprazole 20 Mg Capsule.dr 1 Cap PO DAILY Nuedexta 20-10 Mg Capsule (Dextromethorphan Hbr/Quinidine) 1 Each Capsule 1 Each PO BID Multivitamins (Multivitamin) 1 Each Tablet 1 Tab PO DAILY Namenda (Memantine Hcl) 10 Mg Tablet 10 Mg PO HS Maxitrol Eye Drops (Jhonathan/Polymyx B Sulf/Dexameth) 5 Ml Drops.susp 2 Drop OU TID Geodon (Ziprasidone Hcl) 40 Mg Capsule 40 Mg PO DAILY Celexa (Citalopram Hydrobromide) 10 Mg Tablet 10 Mg PO DAILY Calcium 500 + Vit D 200 Tablet (Calcium Carbonate/Vitamin D3) 1 Each Tablet 1 Each PO BID Bisacodyl 10 Mg Supp.rect 10 Mg RC PRN DAILY PRN Acetaminophen 500 Mg Tablet 1 Tab PO Q6HRS PRN Mag-Al Plus Suspension (Mag Hydrox/Al Hydrox/Simeth) 30 Ml Oral.susp 15 Ml PO PRN AFTMEALHC PRN Seroquel (Quetiapine Fumarate) 25 Mg Tablet 150 Mg PO HS Analgesic [place] (Methyl Salicylate/Menthol) 29 Gm Oint...g. 1 [place] TP PRN QID PRN Milk Of Magnesia (Magnesium Hydroxide) 2,400 Mg/10 Ml Oral.susp 2,400 Mg PO PRN QHS PRN I have reviewed the current psychotropics carefully including drug interactions. Risk benefit ratio favors no change other than as noted in my dictated progress note. Diagnosis: Problems: (1) Alzheimer disease (2) Impulse control disorder (3) Dementia with behavioral disturbance (4) Anxiety disorder (5) Dementia, vascular, with depression (6) Dementia, vascular, with delusions (7) Dementia in Alzheimer's disease with depression (8) Dementia in Alzheimer's disease with delusions (9) Impulse control disorder GRANT STOVER MD Jan 20, 2017 20:02
--- NOTE | 2017-01-21 00:19 | NUR ---
Behavior Intervention Response and Plan: BIRP Note: Behavior: Assumed Care of patient, patient located in Patient Room at shift change. Patient exhibited the following behavior Restless, Disorganized, Anxious. Brief assessment on rounds of vital signs, medication needs, lab studies, and pain. Treatment plan problems 1 and 2. Intervention: Patient assessed and the following interventions initiated safety checks 15 Minute Checks Cognitive Assessment , Head to toe Assessment , Medications. Response: After interactions and interventions patient responded in the following manner, Calm , Disorganized ,Compliant. Continue to assess behaviors and condition will continue to monitor throughout the shift as needed. Patient educated on ADL's, and hand hygiene. 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 Continue to assess patient for changes in above assessment. Monitor for medication needs, pain, and safety concerns. Hourly rounding performed to ensure safe environment.
--- NOTE | 2017-01-21 02:57 | PN ---
DATE: 01/19/2017 PSYCHIATRIC PROGRESS NOTE This late entry 01/19/2017 covers elements not covered in my initial note 01/19/2017. SUBJECTIVE: I met with the patient evening of 01/19/2017. The patient slept 6-3/4 hours the previous evening. Continues to repeatedly state "okay, okay, okay, okay" the previous evening. REVIEW OF SYSTEMS: Ambulation impaired, in a Broda chair. No CV, , pulmonary, eye, ENT system symptoms on review. Reliability poor. MENTAL STATUS EXAM: Oriented to herself. Insight, judgment, recent and remote memory, attention, concentration, fund of knowledge poor, consistent with her diagnosis as mentioned in my initial note. PLAN: Stop Klonopin 0.25 mg at 9:00 a.m. Check CBC, CMP and make sure she is not getting dehydrated. Rest unchanged from the initial note. MAN GeneDesmond STOVER MD DR: AMOL/shelley JOB#: [id number] / [id number]
[2017-01-21] MEDS: LEVOTHYROXINE 75 MCG TABLET PO SCH ×2 (06:00→06:11)
[2017-01-21 06:01] VITALS: BP 136/67
[2017-01-21 07:47] LABS: ALBUMIN 3.2 g/dL (3.4-5.0); ALBUMIN/GLOBULIN RATIO 0.7 (1.0-1.7); GFR 52.8; POTASSIUM 4.3 mmol/L (3.5-5.1); TOTAL BILIRUBIN 0.4 mg/dL (0.2-1.0)
[2017-01-21] MEDS: PANTOPRAZOLE 40 MG PACKET. PO SCH (09:24)
[2017-01-21] MEDS: POLYETHYLENE GLYCOL 3350 17 GM PACKET. PO SCH (09:24)
[2017-01-21] MEDS: QUEtiapine 50 MG TABLET. PO SCH ×3 (09:24→19:55)
[2017-01-21] MEDS: DEXTROMETHORPHAN/QUINIDINE 20/10MG CAPSULE. PO SCH ×2 (09:24→19:58)
[2017-01-21] MEDS: CALCIUM CARB/VIT D3 500/200 TABLET PO SCH ×2 (09:24→19:55)
[2017-01-21] MEDS: SENNOSIDES 8.6 MG TABLET PO SCH ×2 (09:24→19:55)
[2017-01-21] MEDS: MULTIVITAMIN with MINERAL TABLET. PO SCH (09:25)
[2017-01-21] MEDS: NEO/POLYMYX/DEXAMETH OPHTH SUSPENSION 5ML BOTTLE. OU SCH ×3 (09:42→19:59)
--- NOTE | 2017-01-21 11:35 | NUR ---
Behavior Intervention Response and Plan: BIRP Note: Behavior: Assumed Care of patient, patient located in Hallway at shift change. Patient exhibited the following behavior Restless but better than over the weekend, Disorganized, Anxious, constantly saying "ok." Brief assessment on rounds of vital signs, medication needs, lab studies, and pain. Treatment plan problems :1-2 Intervention: Patient assessed and the following interventions initiated safety checks 15 Minute Checks Cognitive Assessment , Head to toe Assessment , Medications. Response: After interactions and interventions patient responded in the following manner, compliant but Disorganized, and continuously saying "ok." Continue to assess behaviors and condition will continue to monitor throughout the shift as needed. Patient educated on ADL's, and hand hygiene. Pt was cooperative w/meds, assessment & ADL's. NEW PATIENT ESCORT reports that pt's skin is intact w/ no wounds noted. Plan: Continue to monitor Master Treatment Plan for patient's progress toward short term goals of Decreased Agitation, Decreased Aggression, [facility] goals to return to previous living setting vs placement. Continue to assess patient for changes in above assessment. Monitor for medication needs, pain, and safety concerns. Hourly rounding performed to ensure safe environment.
--- NOTE | 2017-01-21 11:38 | RAD ---
Indication: Elevated LFTs. Technique: Ultrasound abdomen complete was performed. No comparison is available. Findings: Visualized pancreas is unremarkable. Aorta is normal caliber. IVC is patent. Liver is normal in size and echogenicity. There is cholelithiasis. There is no gallbladder wall thickening or pericholecystic fluid. Common bile duct is within normal limits at 4 mm. The right kidney measures at least 9.0 cm in length and the left 9.3 cm. There is no hydronephrosis or renal mass. Spleen is not enlarged. Impression: 1. Cholelithiasis. 2. Renal atrophy.
[2017-01-21 16:19] VITALS: BP 136/64
[2017-01-21] MEDS: MEMANTINE 10 MG TABLET. PO SCH (19:55)
[2017-01-21] MEDS: OXcarbazepine 150 MG TABLET. PO SCH (19:55)
--- NOTE | 2017-01-21 20:15 | PDOC ---
Exam Note: Ronen Note: Please also refer to the separate dictated note~for this date of service dictated separately.~Patient seen individually. Discussed the patient with Nursing staff reviewed the chart.~Reviewed interim history and current functioning. Reviewed vital signs,~Labs/ Radiology~and current medications noted below. Continue current treatment with the changes noted in the dictated addendum note Assessment: Vital Signs: Vital Signs Date Time Temp Pulse Resp B/P (MAP) Pulse Ox O2 Delivery O2 Flow Rate FiO2 01/21/17 16:19 97.8 78 18 136/64 (88) 95 01/20/17 16:06 Room Air I&O Intake and Output 01/21/17 07:00 Intake Total 705 ml Balance 705 ml Intake Oral 705 ml Labs: Laboratory Tests Test 01/21/17 07:00 Sodium Level 141 mmol/L (136-145) Potassium Level 4.3 mmol/L (3.5-5.1) Chloride Level 105 mmol/L (98-107) Carbon Dioxide Level 28 mmol/L (21-32) Anion Gap 8 (6-14) Blood Urea Nitrogen 26 mg/dL (7-20) H Creatinine 1.0 mg/dL (0.6-1.0) Estimated GFR (Cockcroft-Gault) 52.8 BUN/Creatinine Ratio 26 (6-20) H Glucose Level 102 mg/dL (70-99) H Calcium Level 9.0 mg/dL (8.5-10.1) Total Bilirubin 0.4 mg/dL (0.2-1.0) Aspartate Amino Transferase (AST) 31 U/L (15-37) Alanine Aminotransferase (ALT) 67 U/L (14-59) H Alkaline Phosphatase 167 U/L (46-116) H Total Protein 8.0 g/dL (6.4-8.2) Albumin 3.2 g/dL (3.4-5.0) L Albumin/Globulin Ratio 0.7 (1.0-1.7) L Current Medications: Meds: Current Medications Lorazepam (Ativan) 0.5 mg PRN Q4HRS PRN PO ANXIETY / AGITATION Last administered on 01/12/17t 06:08; Start 01/05/17 at 16:45; Stop 01/12/17 at 19: 11; Status DC Acetaminophen (Tylenol) 500 mg Q6HRS PRN PO PAIN / TEMP Last administered on 07:56; Start 01/05/17 at 17:00; Stop 01/13/17 at 14:02; Status DC Bisacodyl (Dulcolax Supp) 10 mg PRN DAILY PRN RC CONSTIPATION Last administered on 01/19/17 19:54; Start 01/05/17 at 17:00 Calcium/Vitamin D (Oscal D 500mg/ 200uts) 1 tab BID PO Last administered on 19:55; Start 01/05/17 at 21:00 Levothyroxine Sodium (Synthroid) 75 mcg DAILY06 PO Last administered on 06:38; Start 01/06/17 at 06:00 Multi-Ingredient Ointment (Analgesic [place]) 1 peewee PRN QID PRN TP muscle pain; Start 01/05/17 at 17:00 Neomycin/ Polymyxin/ Dexamethasone (Maxitrol) 2 drop TID OU Last administered on 01/21/17 19:59; Start 01/05/17 at 21:00 Sennosides (Senna) 8.6 mg BID PO Last administered on 01/21/17 19:55; Start 01/05/17 at 21:00 Al Hydroxide/Mg Hydroxide (Mylanta Plus Xs) 15 ml PRN AFTMEALHC PRN PO DYSPEPSIA; Start 01/05/17 at 17:15 Magnesium Hydroxide (Milk Of Magnesia) 2,400 mg PRN QHS PRN PO CONSTIPATION Last administered on 01/18/17 14:37; Start 01/05/17 at 17:15 Multivitamins/ Calcium (Thera-M Plus) 1 tab DAILY PO Last administered on 01/21 09:25; Start 01/06/17 at 09:00 Pantoprazole Sodium (Protonix) 40 mg DAILYAC PO Last administered on 08:43; Start 01/06/17 at 07:30; Stop 01/09/17 at 07:50; Status DC Citalopram Hydrobromide (CeleXA) 10 mg DAILY PO Last administered on 10:09; Start 01/06/17 at 09:00; Stop 01/07/17 at 19:34; Status DC Memantine (Namenda) 10 mg HS PO Last administered on 01/21/17 19:55; Start 01/05/17 at 21:00 Quetiapine Fumarate (SEROquel) 150 mg QHS PO Last administered on 01/21/17 19 :55; Start 01/05/17 at 21:00 Quetiapine Fumarate (SEROquel) 50 mg BID92 PO Last administered on 01/10/17 14 :06; Start 01/06/17 at 09:00; Stop 01/10/17 at 19:13; Status DC Ziprasidone (Geodon) 40 mg DAILY PO Last administered on 01/11/17 09:21; Start 01/06/17 at 09:00; Stop 01/11/17 at 18:37; Status DC Pneumococcal Polyvalent Vaccine (Pneumovax 23) 0.5 ml ONCE ONCE VAX IM Last administered on 01/07/17 23:11; Start 01/07/17 at 21:00; Stop 01/07/17 at 21 :01; Status DC Influenza Virus Vaccine Quadrival (Fluarix Quad [id number] Syringe) 0.5 ml ONCE ONCE VAX IM Last administered on 01/07/17 23:13; Start 01/07/17 at 21:00; Stop 01/07/17 at 21:01; Status DC Fluvoxamine Maleate (Luvox) 25 mg HS PO Last administered on 01/09/17 19:47; Start 01/07/17 at 21:00; Stop 01/10/17 at 20:59; Status DC Fluvoxamine Maleate (Luvox) 50 mg HS PO Last administered on 01/21/17 19:55; Start 01/10/17 at 21:00 Pantoprazole Sodium (Protonix Packet) 40 mg DAILYAC PO Last administered on 09:24; Start 01/09/17 at 08:15 Quetiapine Fumarate (SEROquel) 75 mg BID92 PO Last administered on 01/21/17 13:15; Start 01/11/17 at 09:00 Clonazepam (KlonoPIN) 0.25 mg DAILY PO Last administered on 01/19/17 10:20; Start 01/12/17 at 09:00; Stop 01/19/17 at 17:57; Status DC Clonazepam (KlonoPIN) 0.5 mg STK-MED ONCE .ROUTE Last administered on 06:37; Start 01/12/17 at 06:37; Stop 01/12/17 at 06:38; Status DC Magnesium Citrate (Citroma) 296 ml PRN 1X PRN PO CONSTIPATION Last administered on 01/12/17 19:34; Start 01/12/17 at 07:45 Lorazepam (Ativan) 0.25 mg PRN Q4HRS PRN PO ANXIETY / AGITATION Last administered on 01/14/17 23:14; Start 01/12/17 at 19:15; Stop 01/15/17 at 19:30 ; Status DC Sodium Biphosphate/ Sodium Phosphate (Fleet Adult) 133 ml 1X ONCE PA Last administered on 01/13/17 15:24; Start 01/13/17 at 14:15; Stop 01/13/17 at 14:16 ; Status DC Polyethylene Glycol (miraLAX) 17 gm DAILY PO Last administered on 01/21/17 09 :24; Start 01/14/17 at 09:00 Polyethylene Glycol (miraLAX) 17 gm 1X ONCE PO Last administered on 01/13/17 17:26; Start 01/13/17 at 14:00; Stop 01/13/17 at 14:01; Status DC Acetaminophen (Tylenol) 500 mg PRN Q6HRS PRN PO PAIN / TEMP Last administered on 01/20/17 18:25; Start 01/13/17 at 14:15 Divalproex Sodium (Depakote Sprinkles) 125 mg BID92 PO ; Start 01/15/17 at 09:00 ; Status UNV Oxcarbazepine (Trileptal) 150 mg BID92 PO Last administered on 01/16/17 14:17 ; Start 01/15/17 at 09:00; Stop 01/16/17 at 17:31; Status DC Sodium Chloride 1,000 ml @ 1,000 mls/hr 1X ONCE IV Last administered on 13:50; Start 01/15/17 at 12:00; Stop 01/15/17 at 12:59; Status DC Oxcarbazepine (Trileptal) 150 mg HS PO Last administered on 11/13/17at 19:55; Start 01/16/17 at 21:00 Oxcarbazepine (Trileptal) 300 mg DAILY PO Last administered on 01/21/17 09:25 ; Start 01/17/17 at 09:00 Olanzapine (ZyPREXA ZYDIS) 0.125 mg PRN Q4HRS PRN PO PSYCHOSIS Last administered on 01/20/17 18:25; Start 01/18/17 at 19:00 Active Scripts Active Reported Synthroid (Levothyroxine Sodium) 75 Mcg Tablet 1 Tab PO DAILY06 Senokot (Sennosides) 8.6 Mg Tablet 1 Tab PO BID Seroquel (Quetiapine Fumarate) 50 Mg Tablet 1 Tab PO BID92 Omeprazole 20 Mg Capsule.dr 1 Cap PO DAILY Nuedexta 20-10 Mg Capsule (Dextromethorphan Hbr/Quinidine) 1 Each Capsule 1 Each PO BID Multivitamins (Multivitamin) 1 Each Tablet 1 Tab PO DAILY Namenda (Memantine Hcl) 10 Mg Tablet 10 Mg PO HS Maxitrol Eye Drops (Jhonathan/Polymyx B Sulf/Dexameth) 5 Ml Drops.susp 2 Drop OU TID Geodon (Ziprasidone Hcl) 40 Mg Capsule 40 Mg PO DAILY Celexa (Citalopram Hydrobromide) 10 Mg Tablet 10 Mg PO DAILY Calcium 500 + Vit D 200 Tablet (Calcium Carbonate/Vitamin D3) 1 Each Tablet 1 Each PO BID Bisacodyl 10 Mg Supp.rect 10 Mg RC PRN DAILY PRN Acetaminophen 500 Mg Tablet 1 Tab PO Q6HRS PRN Mag-Al Plus Suspension (Mag Hydrox/Al Hydrox/Simeth) 30 Ml Oral.susp 15 Ml PO PRN AFTMEALHC PRN Seroquel (Quetiapine Fumarate) 25 Mg Tablet 150 Mg PO HS Analgesic [place] (Methyl Salicylate/Menthol) 29 Gm Oint...g. 1 Pee[place]e TP PRN QID PRN Milk Of Magnesia (Magnesium Hydroxide) 2,400 Mg/10 Ml Oral.susp 2,400 Mg PO PRN QHS PRN I have reviewed the current psychotropics carefully including drug interactions. Risk benefit ratio favors no change other than as noted in my dictated progress note. 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
--- NOTE | 2017-01-21 23:46 | NUR ---
Behavior Intervention Response and Plan: BIRP Note: Behavior: Assumed Care of patient, patient located in Day Room at shift change. Patient exhibited the following behavior Calm, Disorganized, Compliant. Brief assessment on rounds of vital signs, medication needs, lab studies, and pain. Treatment plan problems Dementia w/ BD and Fall risk. Intervention: Patient assessed and the following interventions initiated safety checks 15 Minute Checks Cognitive Assessment , Medications , Oral Hydration. Response: After interactions and interventions patient responded in the following manner, Calm , Disorganized ,Compliant. Continue to assess behaviors and condition will continue to monitor throughout the shift as needed. Patient educated on ADL's, and hand hygiene. 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 Continue to assess patient for changes in above assessment. Monitor for medication needs, pain, and safety concerns. Hourly rounding performed to ensure safe environment.
[2017-01-22 06:04] VITALS: BP 111/55
[2017-01-22] MEDS: LEVOTHYROXINE 75 MCG TABLET PO SCH (06:22)
[2017-01-22] MEDS: PANTOPRAZOLE 40 MG PACKET. PO SCH (07:47)
[2017-01-22] MEDS: POLYETHYLENE GLYCOL 3350 17 GM PACKET. PO SCH (07:49)
[2017-01-22] MEDS: QUEtiapine 50 MG TABLET. PO SCH ×3 (07:50→20:28)
[2017-01-22] MEDS: MULTIVITAMIN with MINERAL TABLET. PO SCH (07:50)
[2017-01-22] MEDS: SENNOSIDES 8.6 MG TABLET PO SCH ×2 (07:51→20:28)
[2017-01-22] MEDS: CALCIUM CARB/VIT D3 500/200 TABLET PO SCH ×2 (07:51→20:28)
[2017-01-22] MEDS: NEO/POLYMYX/DEXAMETH OPHTH SUSPENSION 5ML BOTTLE. OU SCH ×3 (07:53→20:31)
[2017-01-22] MEDS: DEXTROMETHORPHAN/QUINIDINE 20/10MG CAPSULE. PO SCH ×2 (07:53→20:31)
--- NOTE | 2017-01-22 07:57 | PN ---
DATE: 01/20/2017 PSYCHIATRIC PROGRESS NOTE This late entry 01/20/2017 covers elements not covered in my initial note of 01/20/2017. I met with the patient evening of 01/20/2017. The patient's liver enzymes are elevated. We will defer to Dr. Justice. Abdominal ultrasound is awaited, at 2:00 p.m. Seroquel was held because of her sedation, but then she was much more anxious, agitated late in the evening. We will also order a Pharmacy consult to see if any of the other medication she is taking could be contributing to the raised liver enzymes. REVIEW OF SYSTEMS: No CV, , pulmonary, eye, ENT system symptoms on review. Reliability poor. The patient is constantly repeating "okay, okay, okay, okay." MENTAL STATUS EXAM: Oriented to herself. Insight, judgment, recent, remote memory, attention, concentration, fund of knowledge poor, consistent with her diagnosis mentioned in my initial note. PLAN: Continue current psychotropics. Reviewed drug interactions. Risk/benefit ratio favors no further change. MAN Abdullahi STOVER MD DR: AMOL/shelley JOB#: [id number] / [id number]
--- NOTE | 2017-01-22 09:57 | NUR ---
Behavior Intervention Response and Plan: BIRP Note: Behavior: Assumed Care of patient, patient located in Dining Room at shift change. Patient exhibited the following behavior Disorganized, Irritable, Compliant. Brief assessment on rounds of vital signs, medication needs, lab studies, and pain. Treatment plan problems 1-2. Intervention: Patient assessed and the following interventions initiated safety checks 15 Minute Checks Cognitive Assessment , Head to toe Assessment , Medications. Response: After interactions and interventions patient responded in the following manner, Restless , Disorganized ,Compliant. Continue to assess behaviors and condition will continue to monitor throughout the shift as needed. Patient educated on ADL's, and hand hygiene. 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 Continue to assess patient for changes in above assessment. Monitor for medication needs, pain, and safety concerns. Hourly rounding performed to ensure safe environment.
--- NOTE | 2017-01-22 16:10 | NUR ---
Pt. repeating okay over and over to herself throughout the day. In the afternoon pt. reaching out and grabbing whoever walked by and she could reach. [employer] sat 1:1 with her in the hallway to try to redirect her but it was unsuccessful. This RN administered PRN Zyprexa at 1530. Will continue to monitor.
[2017-01-22 16:48] VITALS: BP 130/52
--- NOTE | 2017-01-22 19:05 | NUR ---
Pharmacy consults per Dr. Minaya to see if any of her antipsychotics were causing an increase in her liver enzymes. Pharmacy said it might be the Trileptal. Trileptal is known to cause a fluctuation in liver enzymes when first starting. Will continue to monitor and notify Dr. Minaya.
--- NOTE | 2017-01-22 20:01 | PDOC ---
Exam Note: Ronen Note: Please also refer to the separate dictated note~for this date of service dictated separately.~Patient seen individually. Discussed the patient with Nursing staff reviewed the chart.~Reviewed interim history and current functioning. Reviewed vital signs,~Labs/ Radiology~and current medications noted below. Continue current treatment with the changes noted in the dictated addendum note Assessment: Vital Signs: Vital Signs Date Time Temp Pulse Resp B/P (MAP) Pulse Ox O2 Delivery O2 Flow Rate FiO2 01/22/17 16:48 98.3 86 20 130/52 (78) 95 01/20/17 16:06 Room Air I&O Intake and Output 01/22/17 07:00 Intake Total 600 ml Balance 600 ml Intake Oral 600 ml Current Medications: Meds: Current Medications Lorazepam (Ativan) 0.5 mg PRN Q4HRS PRN PO ANXIETY / AGITATION Last administered on 01/12/17 06:08; Start 01/05/17 at 16:45; Stop 01/12/17 at 19: 11; Status DC Acetaminophen (Tylenol) 500 mg Q6HRS PRN PO PAIN / TEMP Last administered on 07:56; Start 01/05/17 at 17:00; Stop 01/13/17 at 14:02; Status DC Bisacodyl (Dulcolax Supp) 10 mg PRN DAILY PRN RC CONSTIPATION Last administered on 01/19/17 19:54; Start 01/05/17 at 17:00 Calcium/Vitamin D (Oscal D 500mg/ 200uts) 1 tab BID PO Last administered on 07:51; Start 01/05/17 at 21:00 Levothyroxine Sodium (Synthroid) 75 mcg DAILY06 PO Last administered on 06:22; Start 01/06/17 at 06:00 Multi-Ingredient Ointment (Analgesic [place]) 1 peewee PRN QID PRN TP muscle pain; Start 01/05/17 at 17:00 Neomycin/ Polymyxin/ Dexamethasone (Maxitrol) 2 drop TID OU Last administered on 01/22/17 13:57; Start 01/05/17 at 21:00 Sennosides (Senna) 8.6 mg BID PO Last administered on 01/22/17 07:51; Start 01/05/17 at 21:00 Al Hydroxide/Mg Hydroxide (Mylanta Plus Xs) 15 ml PRN AFTMEALHC PRN PO DYSPEPSIA; Start 01/05/17 at 17:15 Magnesium Hydroxide (Milk Of Magnesia) 2,400 mg PRN QHS PRN PO CONSTIPATION Last administered on 01/18/17 14:37; Start 01/05/17 at 17:15 Multivitamins/ Calcium (Thera-M Plus) 1 tab DAILY PO Last administered on 01/22 07:50; Start 01/06/17 at 09:00 Pantoprazole Sodium (Protonix) 40 mg DAILYAC PO Last administered on 08:43; Start 01/06/17 at 07:30; Stop 01/09/17 at 07:50; Status DC Citalopram Hydrobromide (CeleXA) 10 mg DAILY PO Last administered on 10:09; Start 01/06/17 at 09:00; Stop 01/07/17 at 19:34; Status DC Memantine (Namenda) 10 mg HS PO Last administered on 01/21/17 19:55; Start 01/05/17 at 21:00 Quetiapine Fumarate (SEROquel) 150 mg QHS PO Last administered on 01/21/17 19 :55; Start 01/05/17 at 21:00 Quetiapine Fumarate (SEROquel) 50 mg BID92 PO Last administered on 01/10/17 14 :06; Start 01/06/17 at 09:00; Stop 01/10/17 at 19:13; Status DC Ziprasidone (Geodon) 40 mg DAILY PO Last administered on 01/11/17 09:21; Start 01/06/17 at 09:00; Stop 01/11/17 at 18:37; Status DC Pneumococcal Polyvalent Vaccine (Pneumovax 23) 0.5 ml ONCE ONCE VAX IM Last administered on 01/07/17 23:11; Start 01/07/17 at 21:00; Stop 01/07/17 at 21 :01; Status DC Influenza Virus Vaccine Quadrival (Fluarix Quad [id number] Syringe) 0.5 ml ONCE ONCE VAX IM Last administered on 01/07/17 23:13; Start 01/07/17 at 21:00; Stop 01/07/17 at 21:01; Status DC Fluvoxamine Maleate (Luvox) 25 mg HS PO Last administered on 01/09/17 19:47; Start 01/07/17 at 21:00; Stop 01/10/17 at 20:59; Status DC Fluvoxamine Maleate (Luvox) 50 mg HS PO Last administered on 01/21/17 19:55; Start 01/10/17 at 21:00 Pantoprazole Sodium (Protonix Packet) 40 mg DAILYAC PO Last administered on 07:47; Start 01/09/17 at 08:15 Quetiapine Fumarate (SEROquel) 75 mg BID92 PO Last administered on 01/22/17 13:57; Start 01/11/17 at 09:00 Clonazepam (KlonoPIN) 0.25 mg DAILY PO Last administered on 01/19/17 10:20; Start 01/12/17 at 09:00; Stop 01/19/17 at 17:57; Status DC Clonazepam (KlonoPIN) 0.5 mg STK-MED ONCE .ROUTE Last administered on 06:37; Start 01/12/17 at 06:37; Stop 01/12/17 at 06:38; Status DC Magnesium Citrate (Citroma) 296 ml PRN 1X PRN PO CONSTIPATION Last administered on 01/12/17 19:34; Start 01/12/17 at 07:45 Lorazepam (Ativan) 0.25 mg PRN Q4HRS PRN PO ANXIETY / AGITATION Last administered on 01/14/17 23:14; Start 01/12/17 at 19:15; Stop 01/15/17 at 19:30 ; Status DC Sodium Biphosphate/ Sodium Phosphate (Fleet Adult) 133 ml 1X ONCE ME Last administered on 01/13/17 15:24; Start 01/13/17 at 14:15; Stop 01/13/17 at 14:16 ; Status DC Polyethylene Glycol (miraLAX) 17 gm DAILY PO Last administered on 01/22/17 07 :49; Start 01/14/17 at 09:00 Polyethylene Glycol (miraLAX) 17 gm 1X ONCE PO Last administered on 01/13/17 17:26; Start 01/13/17 at 14:00; Stop 01/13/17 at 14:01; Status DC Acetaminophen (Tylenol) 500 mg PRN Q6HRS PRN PO PAIN / TEMP Last administered on 01/20/17 18:25; Start 01/13/17 at 14:15 Divalproex Sodium (Depakote Sprinkles) 125 mg BID92 PO ; Start 01/15/17 at 09:00 ; Status UNV Oxcarbazepine (Trileptal) 150 mg BID92 PO Last administered on 01/16/17 14:17 ; Start 01/15/17 at 09:00; Stop 01/16/17 at 17:31; Status DC Sodium Chloride 1,000 ml @ 1,000 mls/hr 1X ONCE IV Last administered on 13:50; Start 01/15/17 at 12:00; Stop 01/15/17 at 12:59; Status DC Oxcarbazepine (Trileptal) 150 mg HS PO Last administered on 01/21/17 19:55; Start 01/16/17 at 21:00 Oxcarbazepine (Trileptal) 300 mg DAILY PO Last administered on 01/22/17 07:50 ; Start 01/17/17 at 09:00 Olanzapine (ZyPREXA ZYDIS) 0.125 mg PRN Q4HRS PRN PO PSYCHOSIS Last administered on 01/22/17 15:35; Start 01/18/17 at 19:00 Active Scripts Active Reported Synthroid (Levothyroxine Sodium) 75 Mcg Tablet 1 Tab PO DAILY06 Senokot (Sennosides) 8.6 Mg Tablet 1 Tab PO BID Seroquel (Quetiapine Fumarate) 50 Mg Tablet 1 Tab PO BID92 Omeprazole 20 Mg Capsule.dr 1 Cap PO DAILY Nuedexta 20-10 Mg Capsule (Dextromethorphan Hbr/Quinidine) 1 Each Capsule 1 Each PO BID Multivitamins (Multivitamin) 1 Each Tablet 1 Tab PO DAILY Namenda (Memantine Hcl) 10 Mg Tablet 10 Mg PO HS Maxitrol Eye Drops (Jhonathan/Polymyx B Sulf/Dexameth) 5 Ml Drops.susp 2 Drop OU TID Geodon (Ziprasidone Hcl) 40 Mg Capsule 40 Mg PO DAILY Celexa (Citalopram Hydrobromide) 10 Mg Tablet 10 Mg PO DAILY Calcium 500 + Vit D 200 Tablet (Calcium Carbonate/Vitamin D3) 1 Each Tablet 1 Each PO BID Bisacodyl 10 Mg Supp.rect 10 Mg RC PRN DAILY PRN Acetaminophen 500 Mg Tablet 1 Tab PO Q6HRS PRN Mag-Al Plus Suspension (Mag Hydrox/Al Hydrox/Simeth) 30 Ml Oral.susp 15 Ml PO PRN AFTMEALHC PRN Seroquel (Quetiapine Fumarate) 25 Mg Tablet 150 Mg PO HS Analgesic [place] (Methyl Salicylate/Menthol) 29 Gm Oint...g. 1 [place]ee[place] TP PRN QID PRN Milk Of Magnesia (Magnesium Hydroxide) 2,400 Mg/10 Ml Oral.susp 2,400 Mg PO PRN QHS PRN I have reviewed the current psychotropics carefully including drug interactions. Risk benefit ratio favors no change other than as noted in my dictated progress note. 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
[2017-01-22] MEDS: MEMANTINE 10 MG TABLET. PO SCH (20:28)
[2017-01-22] MEDS: OXcarbazepine 150 MG TABLET. PO SCH (20:28)
--- NOTE | 2017-01-22 23:15 | NUR ---
Behavior Intervention Response and Plan: BIRP Note: Behavior: Assumed Care of patient, patient located in Day Room at shift change. Patient exhibited the following behavior Calm, Compliant, Disorganized. Brief assessment on rounds of vital signs, medication needs, lab studies, and pain. Treatment plan problems Dementia w/ BD and Fall risk. Intervention: Patient assessed and the following interventions initiated safety checks 15 Minute Checks Personal Alarm in place , Cognitive Assessment , Medications. Response: After interactions and interventions patient responded in the following manner, Calm , Disorganized ,Compliant. Continue to assess behaviors and condition will continue to monitor throughout the shift as needed. Patient educated on ADL's, and hand hygiene. 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 Continue to assess patient for changes in above assessment. Monitor for medication needs, pain, and safety concerns. Hourly rounding performed to ensure safe environment.
[2017-01-23 05:46] VITALS: BP 159/61
[2017-01-23] MEDS: LEVOTHYROXINE 75 MCG TABLET PO SCH (05:58)
[2017-01-23 07:27] LABS: ALBUMIN 3.1 g/dL (3.4-5.0); DIRECT BILIRUBIN 0.1 mg/dL (0.0-0.2); TOTAL BILIRUBIN 0.4 mg/dL (0.2-1.0); TOTAL PROTEIN 7.9 g/dL (6.4-8.2)
[2017-01-23] MEDS: PANTOPRAZOLE 40 MG PACKET. PO SCH (07:44)
[2017-01-23] MEDS: QUEtiapine 50 MG TABLET. PO SCH ×3 (07:44→19:56)
[2017-01-23] MEDS: CALCIUM CARB/VIT D3 500/200 TABLET PO SCH ×2 (07:44→19:57)
[2017-01-23] MEDS: POLYETHYLENE GLYCOL 3350 17 GM PACKET. PO SCH (07:44)
[2017-01-23] MEDS: SENNOSIDES 8.6 MG TABLET PO SCH ×2 (07:44→19:57)
[2017-01-23] MEDS: MULTIVITAMIN with MINERAL TABLET. PO SCH (07:44)
[2017-01-23] MEDS: NEO/POLYMYX/DEXAMETH OPHTH SUSPENSION 5ML BOTTLE. OU SCH ×3 (07:47→19:59)
[2017-01-23] MEDS: MAGNESIUM HYDROXIDE 2,400 MG/30 ML ORAL.SUSP. PO PRN (09:48)
[2017-01-23] MEDS: DEXTROMETHORPHAN/QUINIDINE 20/10MG CAPSULE. PO SCH ×2 (09:48→19:59)
--- NOTE | 2017-01-23 10:23 | NUR ---
Behavior Intervention Response and Plan: BIRP Note: Behavior: Assumed Care of patient, patient located in Dining Room at shift change. Patient exhibited the following behavior Restless, Disorganized, Compulsive. Brief assessment on rounds of vital signs, medication needs, lab studies, and pain. Treatment plan problems . Intervention: Patient assessed and the following interventions initiated safety checks 15 Minute Checks Cognitive Assessment , Personal Alarm in place , Medications. Response: After interactions and interventions patient responded in the following manner, Disorganized , Compliant ,Drowsy. Continue to assess behaviors and condition will continue to monitor throughout the shift as needed. Patient educated on ADL's, and hand hygiene. 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 Continue to assess patient for changes in above assessment. Monitor for medication needs, pain, and safety concerns. Hourly rounding performed to ensure safe environment.
--- NOTE | 2017-01-23 10:40 | PN ---
DATE: 01/21/2017 PSYCHIATRIC PROGRESS NOTE This late entry 01/21/2017 covers elements, not covered in my initial note. SUBJECTIVE: I met with the patient in the evening of 01/21/2017. The patient's AST is reduced, ALT is slightly elevated. Medical workup per Dr. Justice is in progress. Pharmacy consult has been requested to see if any of her psychotropics could be contributing to raised liver enzymes. She continues to be confused, constantly yelling out okay, okay, okay, okay, but perhaps a little better than before. REVIEW OF SYSTEMS: Ambulation impaired. No CV, , pulmonary, eye, ENT system symptoms on review. Reliability poor. MENTAL STATUS EXAM: Oriented to herself. Insight, judgment, recent and remote memory, attention, concentration, fund of knowledge poor, consistent with her diagnosis mentioned in my initial note. PLAN: Continue psychotropics mentioned in my initial note. Monitor the liver enzymes. Await pharmacy consult. Rest as noted in my initial note. MAN Abdullahi STOVER MD DR: AMOL/shelley JOB#: [id number] / [id number]
--- NOTE | 2017-01-23 14:36 | NUR ---
Patient restless, unable to redirect effectively. Patient taken to her room to lay down, but she would not stay in bed. Patient given an activity at the table in the day room, but she has increased agitation and continues to grab at staff. Patient given PRN zydis for agitation, will continue to monitor.
--- NOTE | 2017-01-23 15:00 | NUR ---
WEEKLY THERAPEUTIC RECREATION NOTE Date of Admission: 01/05/2017 Date of AT Assessment: 01/09/2017 Goal aimed: to increase relaxation Initial goal: Pt. will participate in all sensory stimulation activities. Weekly progress towards goal: on track, no sensory stimulation specific groups this week Group participation level: none besides occasional coffee group Behaviors observed: Pt. more quiet this week but still constantly saying "ok, ok, ok," and is difficult to redirect. Less grabbing and squeezing of hands of staff. Plan: no changes to goal
[2017-01-23 16:06] VITALS: BP 144/80
[2017-01-23] MEDS: MEMANTINE 10 MG TABLET. PO SCH (19:57)
[2017-01-23] MEDS: OXcarbazepine 150 MG TABLET. PO SCH (19:57)
[2017-01-23] MEDS: MIRTAZAPINE 7.5 MG TABLET. PO SCH (19:59)
--- NOTE | 2017-01-23 20:07 | PDOC ---
Exam Note: Ronen Note: Please also refer to the separate dictated note~for this date of service dictated separately.~Patient seen individually. Discussed the patient with Nursing staff reviewed the chart.~Reviewed interim history and current functioning. Reviewed vital signs,~Labs/ Radiology~and current medications noted below. Continue current treatment with the changes noted in the dictated addendum note Assessment: Vital Signs: Vital Signs Date Time Temp Pulse Resp B/P (MAP) Pulse Ox O2 Delivery O2 Flow Rate FiO2 01/23/17 16:06 97.4 87 20 144/80 (101) 95 01/20/17 16:06 Room Air I&O Intake and Output 01/23/17 07:00 Intake Total 900 ml Balance 900 ml Intake Oral 900 ml Labs: Laboratory Tests Test 01/23/17 06:42 Total Bilirubin 0.4 mg/dL (0.2-1.0) Direct Bilirubin 0.1 mg/dL (0.0-0.2) Aspartate Amino Transferase (AST) 27 U/L (15-37) Alanine Aminotransferase (ALT) 49 U/L (14-59) Alkaline Phosphatase 176 U/L (46-116) H Total Protein 7.9 g/dL (6.4-8.2) Albumin 3.1 g/dL (3.4-5.0) L Current Medications: Meds: Current Medications Lorazepam (Ativan) 0.5 mg PRN Q4HRS PRN PO ANXIETY / AGITATION Last administered on 01/12/17 06:08; Start 01/05/17 at 16:45; Stop 01/12/17 at 19: 11; Status DC Acetaminophen (Tylenol) 500 mg Q6HRS PRN PO PAIN / TEMP Last administered on 07:56; Start 01/05/17 at 17:00; Stop 01/13/17 at 14:02; Status DC Bisacodyl (Dulcolax Supp) 10 mg PRN DAILY PRN RC CONSTIPATION Last administered on 01/19/17 19:54; Start 01/05/17 at 17:00 Calcium/Vitamin D (Oscal D 500mg/ 200uts) 1 tab BID PO Last administered on 19:57; Start 01/05/17 at 21:00 Levothyroxine Sodium (Synthroid) 75 mcg DAILY06 PO Last administered on 05:58; Start 01/06/17 at 06:00 Multi-Ingredient Ointment (Analgesic Payson) 1 peewee PRN QID PRN TP muscle pain; Start 01/05/17 at 17:00 Neomycin/ Polymyxin/ Dexamethasone (Maxitrol) 2 drop TID OU Last administered on 01/23/17 19:59; Start 01/05/17 at 21:00 Sennosides (Senna) 8.6 mg BID PO Last administered on 01/23/17 19:57; Start 01/05/17 at 21:00 Al Hydroxide/Mg Hydroxide (Mylanta Plus Xs) 15 ml PRN AFTMEALHC PRN PO DYSPEPSIA; Start 01/05/17 at 17:15 Magnesium Hydroxide (Milk Of Magnesia) 2,400 mg PRN QHS PRN PO CONSTIPATION Last administered on 01/23/17 09:48; Start 01/05/17 at 17:15 Multivitamins/ Calcium (Thera-M Plus) 1 tab DAILY PO Last administered on 01/23 07:44; Start 01/06/17 at 09:00 Pantoprazole Sodium (Protonix) 40 mg DAILYAC PO Last administered on 08:43; Start 01/06/17 at 07:30; Stop 01/09/17 at 07:50; Status DC Citalopram Hydrobromide (CeleXA) 10 mg DAILY PO Last administered on 10:09; Start 01/06/17 at 09:00; Stop 01/07/17 at 19:34; Status DC Memantine (Namenda) 10 mg HS PO Last administered on 01/23/17 19:57; Start 01/05/17 at 21:00 Quetiapine Fumarate (SEROquel) 150 mg QHS PO Last administered on 01/23/17 19 :56; Start 01/05/17 at 21:00 Quetiapine Fumarate (SEROquel) 50 mg BID92 PO Last administered on 01/10/17 14 :06; Start 01/06/17 at 09:00; Stop 01/10/17 at 19:13; Status DC Ziprasidone (Geodon) 40 mg DAILY PO Last administered on 01/11/17 09:21; Start 01/06/17 at 09:00; Stop 01/11/17 at 18:37; Status DC Pneumococcal Polyvalent Vaccine (Pneumovax 23) 0.5 ml ONCE ONCE VAX IM Last administered on 01/07/17 23:11; Start 01/07/17 at 21:00; Stop 01/07/17 at 21 :01; Status DC Influenza Virus Vaccine Quadrival (Fluarix Quad 4951-1514 Syringe) 0.5 ml ONCE ONCE VAX IM Last administered on 01/07/17 23:13; Start 01/07/17 at 21:00; Stop 01/07/17 at 21:01; Status DC Fluvoxamine Maleate (Luvox) 25 mg HS PO Last administered on 01/09/17 19:47; Start 01/07/17 at 21:00; Stop 01/10/17 at 20:59; Status DC Fluvoxamine Maleate (Luvox) 50 mg HS PO Last administered on 01/23/17 19:56; Start 01/10/17 at 21:00 Pantoprazole Sodium (Protonix Packet) 40 mg DAILYAC PO Last administered on 07:44; Start 01/09/17 at 08:15 Quetiapine Fumarate (SEROquel) 75 mg BID92 PO Last administered on 01/23/17 14:06; Start 01/11/17 at 09:00 Clonazepam (KlonoPIN) 0.25 mg DAILY PO Last administered on 01/19/17 10:20; Start 01/12/17 at 09:00; Stop 01/19/17 at 17:57; Status DC Clonazepam (KlonoPIN) 0.5 mg STK-MED ONCE .ROUTE Last administered on 06:37; Start 01/12/17 at 06:37; Stop 01/12/17 at 06:38; Status DC Magnesium Citrate (Citroma) 296 ml PRN 1X PRN PO CONSTIPATION Last administered on 01/12/17 19:34; Start 01/12/17 at 07:45 Lorazepam (Ativan) 0.25 mg PRN Q4HRS PRN PO ANXIETY / AGITATION Last administered on 01/14/17 23:14; Start 01/12/17 at 19:15; Stop 01/15/17 at 19:30 ; Status DC Sodium Biphosphate/ Sodium Phosphate (Fleet Adult) 133 ml 1X ONCE MI Last administered on 01/13/17 15:24; Start 01/13/17 at 14:15; Stop 01/13/17 at 14:16 ; Status DC Polyethylene Glycol (miraLAX) 17 gm DAILY PO Last administered on 01/23/17 07 :44; Start 01/14/17 at 09:00 Polyethylene Glycol (miraLAX) 17 gm 1X ONCE PO Last administered on 01/13/17 17:26; Start 01/13/17 at 14:00; Stop 01/13/17 at 14:01; Status DC Acetaminophen (Tylenol) 500 mg PRN Q6HRS PRN PO PAIN / TEMP Last administered on 01/20/17 18:25; Start 01/13/17 at 14:15 Divalproex Sodium (Depakote Sprinkles) 125 mg BID92 PO ; Start 01/15/17 at 09:00 ; Status UNV Oxcarbazepine (Trileptal) 150 mg BID92 PO Last administered on 01/16/17 14:17 ; Start 01/15/17 at 09:00; Stop 01/16/17 at 17:31; Status DC Sodium Chloride 1,000 ml @ 1,000 mls/hr 1X ONCE IV Last administered on 13:50; Start 01/15/17 at 12:00; Stop 01/15/17 at 12:59; Status DC Oxcarbazepine (Trileptal) 150 mg HS PO Last administered on 01/23/17 19:57; Start 01/16/17 at 21:00 Oxcarbazepine (Trileptal) 300 mg DAILY PO Last administered on 01/23/17 07:44 ; Start 01/17/17 at 09:00 Olanzapine (ZyPREXA ZYDIS) 0.125 mg PRN Q4HRS PRN PO PSYCHOSIS Last administered on 01/23/17 14:06; Start 01/18/17 at 19:00 Mirtazapine (Remeron) 7.5 mg QHS PO Last administered on 01/23/17 19:59; Start 01/23/17 at 21:00 Active Scripts Active Reported Synthroid (Levothyroxine Sodium) 75 Mcg Tablet 1 Tab PO DAILY06 Senokot (Sennosides) 8.6 Mg Tablet 1 Tab PO BID Seroquel (Quetiapine Fumarate) 50 Mg Tablet 1 Tab PO BID92 Omeprazole 20 Mg Capsule. 1 Cap PO DAILY Nuedexta 20-10 Mg Capsule (Dextromethorphan Hbr/Quinidine) 1 Each Capsule 1 Each PO BID Multivitamins (Multivitamin) 1 Each Tablet 1 Tab PO DAILY Namenda (Memantine Hcl) 10 Mg Tablet 10 Mg PO HS Maxitrol Eye Drops (Jhonathan/Polymyx B Sulf/Dexameth) 5 Ml Drops.susp 2 Drop OU TID Geodon (Ziprasidone Hcl) 40 Mg Capsule 40 Mg PO DAILY Celexa (Citalopram Hydrobromide) 10 Mg Tablet 10 Mg PO DAILY Calcium 500 + Vit D 200 Tablet (Calcium Carbonate/Vitamin D3) 1 Each Tablet 1 Each PO BID Bisacodyl 10 Mg Supp.rect 10 Mg RC PRN DAILY PRN Acetaminophen 500 Mg Tablet 1 Tab PO Q6HRS PRN Mag-Al Plus Suspension (Mag Hydrox/Al Hydrox/Simeth) 30 Ml Oral.susp 15 Ml PO PRN AFTMEALHC PRN Seroquel (Quetiapine Fumarate) 25 Mg Tablet 150 Mg PO HS Analgesic [place] (Methyl Salicylate/Menthol) 29 Gm Oint...g. 1 Peewee TP PRN QID PRN Milk Of Magnesia (Magnesium Hydroxide) 2,400 Mg/10 Ml Oral.susp 2,400 Mg PO PRN QHS PRN I have reviewed the current psychotropics carefully including drug interactions. Risk benefit ratio favors no change other than as noted in my dictated progress note. 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
[2017-01-24 05:50] VITALS: BP 158/81
[2017-01-24] MEDS: LEVOTHYROXINE 75 MCG TABLET PO SCH (06:09)
--- NOTE | 2017-01-24 07:41 | PN ---
DATE: 01/22/2017 The late entry 01/22/2017 covers elements not covered in my initial note of 01/22/2017. SUBJECTIVE: I met with the patient the evening of 01/22/2017. The patient slept 6-1/2 hours previous evening, continues to repeatedly state "okay, okay, okay," the patient has been grabbing at anyone around her even with physical therapy staff. She was waking up repeatedly at night, received Zyprexa p.r.n. We will be repeating liver enzymes in the morning and pharmacy recommendations for any changes in her psychotropics consequent to the raised liver enzymes are still awaited. REVIEW OF SYSTEMS: No CV, , pulmonary, eye, ENT system symptoms on review. Gait unsteady. Reliability poor. MENTAL STATUS EXAM: Oriented to herself. Insight, judgment, recent and remote memory, attention, concentration, fund of knowledge poor, consistent with her diagnosis mentioned in my initial note. PLAN: Continue current psychotropics mentioned in my initial note. Reviewed drug interactions. Risk/benefit ratio favors no further change. MAN Abdullahi STOVER MD DR: AMOL/shelley JOB#: [id number] / [id number]
[2017-01-24] MEDS: CALCIUM CARB/VIT D3 500/200 TABLET PO SCH ×2 (08:41→20:26)
[2017-01-24] MEDS: MULTIVITAMIN with MINERAL TABLET. PO SCH (08:41)
[2017-01-24] MEDS: POLYETHYLENE GLYCOL 3350 17 GM PACKET. PO SCH (08:41)
[2017-01-24] MEDS: QUEtiapine 50 MG TABLET. PO SCH ×3 (08:41→20:25)
[2017-01-24] MEDS: SENNOSIDES 8.6 MG TABLET PO SCH ×2 (08:42→20:25)
[2017-01-24] MEDS: PANTOPRAZOLE 40 MG PACKET. PO SCH (08:42)
[2017-01-24] MEDS: NEO/POLYMYX/DEXAMETH OPHTH SUSPENSION 5ML BOTTLE. OU SCH ×3 (08:43→20:30)
[2017-01-24] MEDS: DEXTROMETHORPHAN/QUINIDINE 20/10MG CAPSULE. PO SCH ×2 (08:43→20:25)
[2017-01-24 09:54] LABS: BASO # 0.1 x10^3/uL (0.0-0.2); BASO % 1 % (0-3); EOS # 0.2 x10^3/uL (0.0-0.7); EOS % 2 % (0-3); HEMATOCRIT 37.8 % (36.0-47.0); HEMOGLOBIN 12.1 g/dL (12.0-15.5); LYMPH # 0.8 x10^3/uL (1.0-4.8); LYMPH % 9 % (24-48); MEAN CORPUSCULAR HEMOGLOBIN 28 pg (25-35); MEAN CORPUSCULAR HGB CONC 32 g/dL (31-37); MEAN CORPUSCULAR VOLUME 87 fL (79-100); MONO # 0.5 x10^3/uL (0.0-1.1); MONO % 6 % (0-9); NEUT % 82 % (31-73); PLATELET COUNT 228 x10^3/uL (140-400); RED BLOOD COUNT 4.32 x10^6/uL (3.50-5.40); RED CELL DISTRIBUTION WIDTH 16.8 % (11.5-14.5); WHITE BLOOD COUNT 8.6 x10^3/uL (4.0-11.0)
[2017-01-24 10:14] LABS: ALBUMIN 2.7 g/dL (3.4-5.0); ALBUMIN/GLOBULIN RATIO 0.6 (1.0-1.7); CALCIUM 8.6 mg/dL (8.5-10.1); GFR 52.8; MAGNESIUM 2.7 mg/dL (1.8-2.4); POTASSIUM 4.1 mmol/L (3.5-5.1); TOTAL BILIRUBIN 0.3 mg/dL (0.2-1.0); TOTAL PROTEIN 7.5 g/dL (6.4-8.2)
[2017-01-24 10:49] LABS: % BASOS 1 % (0-3); % EOS 2 % (0-5); % LYMPHS 9 % (24-48); % MONOS 5 % (0-10); % SEGS 83 % (35-66); PLT ESTIMATE ADEQUATE (ADEQUATE)
[2017-01-24 10:50] LABS: OVALOCYTES OCC
--- NOTE | 2017-01-24 11:14 | NUR ---
Behavior Intervention Response and Plan: BIRP Note: Behavior: Assumed Care of patient, patient located in Dining Room at shift change. Patient exhibited the following behavior Disorganized, Compulsive, Compliant. Brief assessment on rounds of vital signs, medication needs, lab studies, and pain. Treatment plan problems . Intervention: Patient assessed and the following interventions initiated safety checks 15 Minute Checks Cognitive Assessment , Head to toe Assessment , Medications. Response: After interactions and interventions patient responded in the following manner, Disorganized , Drowsy ,Withdrawn. Continue to assess behaviors and condition will continue to monitor throughout the shift as needed. Patient educated on ADL's, and hand hygiene. 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 Continue to assess patient for changes in above assessment. Monitor for medication needs, pain, and safety concerns. Hourly rounding performed to ensure safe environment.
--- NOTE | 2017-01-24 14:29 | NUR ---
KELLI contacted PT's dtr/dpoaRiri regarding dc plans set for early next week. Riri is very concerned Pt. continues to say "ok" repeatedly throughout the day. KELLI offered for Dr. Minaya to follow up after rounds this evening to address this concern and to report his overall continued plan for Pt. KELLI emailed Riri [email or web address]) contact information for a Psychiatry office in [place] for follow up. ( [facility] ).
[2017-01-24 16:56] VITALS: BP 155/65
--- NOTE | 2017-01-24 20:23 | PDOC ---
Exam Note: Ronen Note: Please also refer to the separate dictated note~for this date of service dictated separately.~Patient seen individually. Discussed the patient with Nursing staff reviewed the chart.~Reviewed interim history and current functioning. Reviewed vital signs,~Labs/ Radiology~and current medications noted below. Continue current treatment with the changes noted in the dictated addendum note Assessment: Vital Signs: Vital Signs Date Time Temp Pulse Resp B/P (MAP) Pulse Ox O2 Delivery O2 Flow Rate FiO2 01/24/17 16:56 98.0 73 19 155/65 (95) 93 Room Air I&O Intake and Output 01/24/17 07:00 Intake Total 780 ml Balance 780 ml Intake Oral 780 ml # Bowel Movements 1 Labs: Laboratory Tests Test 01/24/17 09:40 White Blood Count 8.6 x10^3/uL (4.0-11.0) Red Blood Count 4.32 x10^6/uL (3.50-5.40) Hemoglobin 12.1 g/dL (12.0-15.5) Hematocrit 37.8 % (36.0-47.0) Mean Corpuscular Volume 87 fL (79-100) Mean Corpuscular Hemoglobin 28 pg (25-35) Mean Corpuscular Hemoglobin Concent 32 g/dL (31-37) Red Cell Distribution Width 16.8 % (11.5-14.5) H Platelet Count 228 x10^3/uL (140-400) Neutrophils (%) (Auto) 82 % (31-73) H Lymphocytes (%) (Auto) 9 % (24-48) L Monocytes (%) (Auto) 6 % (0-9) Eosinophils (%) (Auto) 2 % (0-3) Basophils (%) (Auto) 1 % (0-3) Neutrophils # (Auto) 7.0 x10^3uL (1.8-7.7) Lymphocytes # (Auto) 0.8 x10^3/uL (1.0-4.8) L Monocytes # (Auto) 0.5 x10^3/uL (0.0-1.1) Eosinophils # (Auto) 0.2 x10^3/uL (0.0-0.7) Basophils # (Auto) 0.1 x10^3/uL (0.0-0.2) Segmented Neutrophils % 83 % (35-66) H Lymphocytes % 9 % (24-48) L Monocytes % 5 % (0-10) Eosinophils % 2 % (0-5) Basophils % 1 % (0-3) Platelet Estimate Adequate (ADEQUATE) Ovalocytes Occ Sodium Level 138 mmol/L (136-145) Potassium Level 4.1 mmol/L (3.5-5.1) Chloride Level 105 mmol/L (98-107) Carbon Dioxide Level 25 mmol/L (21-32) Anion Gap 8 (6-14) Blood Urea Nitrogen 26 mg/dL (7-20) H Creatinine 1.0 mg/dL (0.6-1.0) Estimated GFR (Cockcroft-Gault) 52.8 BUN/Creatinine Ratio 26 (6-20) H Glucose Level 174 mg/dL (70-99) H Calcium Level 8.6 mg/dL (8.5-10.1) Magnesium Level 2.7 mg/dL (1.8-2.4) H Total Bilirubin 0.3 mg/dL (0.2-1.0) Aspartate Amino Transferase (AST) 32 U/L (15-37) Alanine Aminotransferase (ALT) 44 U/L (14-59) Alkaline Phosphatase 169 U/L (46-116) H Total Protein 7.5 g/dL (6.4-8.2) Albumin 2.7 g/dL (3.4-5.0) L Albumin/Globulin Ratio 0.6 (1.0-1.7) L Current Medications: Meds: Current Medications Lorazepam (Ativan) 0.5 mg PRN Q4HRS PRN PO ANXIETY / AGITATION Last administered on 01/12/17 06:08; Start 01/05/17 at 16:45; Stop 01/12/17 at 19: 11; Status DC Acetaminophen (Tylenol) 500 mg Q6HRS PRN PO PAIN / TEMP Last administered on 07:56; Start 01/05/17 at 17:00; Stop 01/13/17 at 14:02; Status DC Bisacodyl (Dulcolax Supp) 10 mg PRN DAILY PRN RC CONSTIPATION Last administered on 01/19/17 19:54; Start 01/05/17 at 17:00 Calcium/Vitamin D (Oscal D 500mg/ 200uts) 1 tab BID PO Last administered on 08:41; Start 01/05/17 at 21:00 Levothyroxine Sodium (Synthroid) 75 mcg DAILY06 PO Last administered on 06:09; Start 01/06/17 at 06:00 Multi-Ingredient Ointment (Analgesic Larue) 1 peewee PRN QID PRN TP muscle pain; Start 01/05/17 at 17:00 Neomycin/ Polymyxin/ Dexamethasone (Maxitrol) 2 drop TID OU Last administered on 01/24/17 14:50; Start 01/05/17 at 21:00 Sennosides (Senna) 8.6 mg BID PO Last administered on 01/24/17 08:42; Start 01/05/17 at 21:00 Al Hydroxide/Mg Hydroxide (Mylanta Plus Xs) 15 ml PRN AFTMEALHC PRN PO DYSPEPSIA; Start 01/05/17 at 17:15 Magnesium Hydroxide (Milk Of Magnesia) 2,400 mg PRN QHS PRN PO CONSTIPATION Last administered on 01/23/17 09:48; Start 01/05/17 at 17:15 Multivitamins/ Calcium (Thera-M Plus) 1 tab DAILY PO Last administered on 01/24 08:41; Start 01/06/17 at 09:00 Pantoprazole Sodium (Protonix) 40 mg DAILYAC PO Last administered on 08:43; Start 01/06/17 at 07:30; Stop 01/09/17 at 07:50; Status DC Citalopram Hydrobromide (CeleXA) 10 mg DAILY PO Last administered on 10:09; Start 01/06/17 at 09:00; Stop 01/07/17 at 19:34; Status DC Memantine (Namenda) 10 mg HS PO Last administered on 01/23/17 19:57; Start 01/05/17 at 21:00 Quetiapine Fumarate (SEROquel) 150 mg QHS PO Last administered on 01/23/17 19 :56; Start 01/05/17 at 21:00 Quetiapine Fumarate (SEROquel) 50 mg BID92 PO Last administered on 01/10/17 14 :06; Start 01/06/17 at 09:00; Stop 01/10/17 at 19:13; Status DC Ziprasidone (Geodon) 40 mg DAILY PO Last administered on 01/11/17 09:21; Start 01/06/17 at 09:00; Stop 01/11/17 at 18:37; Status DC Pneumococcal Polyvalent Vaccine (Pneumovax 23) 0.5 ml ONCE ONCE VAX IM Last administered on 01/07/17 23:11; Start 01/07/17 at 21:00; Stop 01/07/17 at 21 :01; Status DC Influenza Virus Vaccine Quadrival (Fluarix Quad [id number] Syringe) 0.5 ml ONCE ONCE VAX IM Last administered on 01/07/17 23:13; Start 01/07/17 at 21:00; Stop 01/07/17 at 21:01; Status DC Fluvoxamine Maleate (Luvox) 25 mg HS PO Last administered on 01/09/17 19:47; Start 01/07/17 at 21:00; Stop 01/10/17 at 20:59; Status DC Fluvoxamine Maleate (Luvox) 50 mg HS PO Last administered on 01/23/17 19:56; Start 01/10/17 at 21:00; Stop 01/24/17 at 19:14; Status DC Pantoprazole Sodium (Protonix Packet) 40 mg DAILYAC PO Last administered on 08:42; Start 01/09/17 at 08:15 Quetiapine Fumarate (SEROquel) 75 mg BID92 PO Last administered on 01/24/17 14:50; Start 01/11/17 at 09:00 Clonazepam (KlonoPIN) 0.25 mg DAILY PO Last administered on 01/19/17 10:20; Start 01/12/17 at 09:00; Stop 01/19/17 at 17:57; Status DC Clonazepam (KlonoPIN) 0.5 mg STK-MED ONCE .ROUTE Last administered on 06:37; Start 01/12/17 at 06:37; Stop 01/12/17 at 06:38; Status DC Magnesium Citrate (Citroma) 296 ml PRN 1X PRN PO CONSTIPATION Last administered on 01/12/17 19:34; Start 01/12/17 at 07:45 Lorazepam (Ativan) 0.25 mg PRN Q4HRS PRN PO ANXIETY / AGITATION Last administered on 01/14/17 23:14; Start 01/12/17 at 19:15; Stop 01/15/17 at 19:30 ; Status DC Sodium Biphosphate/ Sodium Phosphate (Fleet Adult) [address] Last administered on 01/13/17 15:24; Start 01/13/17 at 14:15; Stop 01/13/17 at 14:16 ; Status DC Polyethylene Glycol (miraLAX) 17 gm DAILY PO Last administered on 01/24/17 08 :41; Start 01/14/17 at 09:00 Polyethylene Glycol (miraLAX) 17 gm 1X ONCE PO Last administered on 01/13/17 17:26; Start 01/13/17 at 14:00; Stop 01/13/17 at 14:01; Status DC Acetaminophen (Tylenol) 500 mg PRN Q6HRS PRN PO PAIN / TEMP Last administered on 01/20/17 18:25; Start 01/13/17 at 14:15 Divalproex Sodium (Depakote Sprinkles) 125 mg BID92 PO ; Start 01/15/17 at 09:00 ; Status UNV Oxcarbazepine (Trileptal) 150 mg BID92 PO Last administered on 01/16/17 14:17 ; Start 01/15/17 at 09:00; Stop 01/16/17 at 17:31; Status DC Sodium Chloride 1,000 ml @ 1,000 mls/hr 1X ONCE IV Last administered on 13:50; Start 01/15/17 at 12:00; Stop 01/15/17 at 12:59; Status DC Oxcarbazepine (Trileptal) 150 mg HS PO Last administered on 01/23/17 19:57; Start 01/16/17 at 21:00 Oxcarbazepine (Trileptal) 300 mg DAILY PO Last administered on 01/24/17 08:42 ; Start 01/17/17 at 09:00 Olanzapine (ZyPREXA ZYDIS) 0.125 mg PRN Q4HRS PRN PO PSYCHOSIS Last administered on 11/15/17at 14:06; Start 01/18/17 at 19:00 Mirtazapine (Remeron) 7.5 mg QHS PO Last administered on 01/23/17t 19:59; Start 01/23/17 at 21:00 Fluvoxamine Maleate (Luvox) 75 mg HS PO ; Start 01/24/17 at 21:00 Active Scripts Active Reported Synthroid (Levothyroxine Sodium) 75 Mcg Tablet 1 Tab PO DAILY06 Senokot (Sennosides) 8.6 Mg Tablet 1 Tab PO BID Seroquel (Quetiapine Fumarate) 50 Mg Tablet 1 Tab PO BID92 Omeprazole 20 Mg Capsule.dr 1 Cap PO DAILY Nuedexta 20-10 Mg Capsule (Dextromethorphan Hbr/Quinidine) 1 Each Capsule 1 Each PO BID Multivitamins (Multivitamin) 1 Each Tablet 1 Tab PO DAILY Namenda (Memantine Hcl) 10 Mg Tablet 10 Mg PO HS Maxitrol Eye Drops (Jhonathan/Polymyx B Sulf/Dexameth) 5 Ml Drops.susp 2 Drop OU TID Geodon (Ziprasidone Hcl) 40 Mg Capsule 40 Mg PO DAILY Celexa (Citalopram Hydrobromide) 10 Mg Tablet 10 Mg PO DAILY Calcium 500 + Vit D 200 Tablet (Calcium Carbonate/Vitamin D3) 1 Each Tablet 1 Each PO BID Bisacodyl 10 Mg Supp.rect 10 Mg RC PRN DAILY PRN Acetaminophen 500 Mg Tablet 1 Tab PO Q6HRS PRN Mag-Al Plus Suspension (Mag Hydrox/Al Hydrox/Simeth) 30 Ml Oral.susp 15 Ml PO PRN AFTMEALHC PRN Seroquel (Quetiapine Fumarate) 25 Mg Tablet 150 Mg PO HS Analgesic Larue (Methyl Salicylate/Menthol) 29 Gm Oint...g. 1 Peewee TP PRN QID PRN Milk Of Magnesia (Magnesium Hydroxide) 2,400 Mg/10 Ml Oral.susp 2,400 Mg PO PRN QHS PRN I have reviewed the current psychotropics carefully including drug interactions. Risk benefit ratio favors no change other than as noted in my dictated progress note. Diagnosis: Problems: (1) Alzheimer disease (2) Impulse control disorder (3) Hypothyroid (4) Dementia with behavioral disturbance (5) Anxiety disorder (6) Dementia, vascular, with depression (7) Dementia, vascular, with delusions (8) Dementia in Alzheimer's disease with depression (9) Dementia in Alzheimer's disease with delusions (10) Impulse control disorder GRANT STOVER MD Jan 24, 2017 20:22
[2017-01-24] MEDS: MIRTAZAPINE 7.5 MG TABLET. PO SCH (20:25)
[2017-01-24] MEDS: MEMANTINE 10 MG TABLET. PO SCH (20:25)
[2017-01-24] MEDS: OXcarbazepine 150 MG TABLET. PO SCH (20:26)
--- NOTE | 2017-01-24 22:22 | NUR ---
Behavior Intervention Response and Plan: BIRP Note: Behavior: Assumed Care of patient, patient located in Day Room at shift change. Patient exhibited the following behavior Irritable, Manic, Attention Seeking. Brief assessment on rounds of vital signs, medication needs, lab studies, and pain. Treatment plan problems . Intervention: Patient assessed and the following interventions initiated safety checks 15 Minute Checks Cognitive Assessment , Head to toe Assessment , Medications. Response: After interactions and interventions patient responded in the following manner, Compliant , Agitated ,Resistive. Continue to assess behaviors and condition will continue to monitor throughout the shift as needed. Patient educated on ADL's, and hand hygiene. Plan: Continue to monitor Master Treatment Plan for patient's progress toward short term goals of Decreased Anxiety, Decreased Agitation, longterm goals to return to previous living setting vs placement. Continue to assess patient for changes in above assessment. Monitor for medication needs, pain, and safety concerns. Hourly rounding performed to ensure safe environment.
[2017-01-25] MEDS: LEVOTHYROXINE 75 MCG TABLET PO SCH (05:51)
[2017-01-25 06:03] VITALS: BP 156/56
[2017-01-25] MEDS: CALCIUM CARB/VIT D3 500/200 TABLET PO SCH ×2 (07:40→19:27)
[2017-01-25] MEDS: QUEtiapine 50 MG TABLET. PO SCH ×3 (07:40→19:28)
[2017-01-25] MEDS: SENNOSIDES 8.6 MG TABLET PO SCH ×2 (07:41→19:27)
[2017-01-25] MEDS: POLYETHYLENE GLYCOL 3350 17 GM PACKET. PO SCH (07:41)
[2017-01-25] MEDS: MULTIVITAMIN with MINERAL TABLET. PO SCH (07:41)
[2017-01-25] MEDS: PANTOPRAZOLE 40 MG PACKET. PO SCH (07:41)
[2017-01-25] MEDS: NEO/POLYMYX/DEXAMETH OPHTH SUSPENSION 5ML BOTTLE. OU SCH ×3 (07:43→19:30)
[2017-01-25] MEDS: DEXTROMETHORPHAN/QUINIDINE 20/10MG CAPSULE. PO SCH ×2 (07:44→19:28)
--- NOTE | 2017-01-25 10:10 | NUR ---
Behavior Intervention Response and Plan: BIRP Note: Behavior: Assumed Care of patient, patient located in Day Room at shift change. Patient exhibited the following behavior Disorganized, Attention Seeking, Compliant. Brief assessment on rounds of vital signs, medication needs, lab studies, and pain. Treatment plan problems 1 and 2. Intervention: Patient assessed and the following interventions initiated safety checks 15 Minute Checks Cognitive Assessment , Head to toe Assessment , Medications. Response: After interactions and interventions patient responded in the following manner, Restless , Interactive ,Attention Seeking. Continue to assess behaviors and condition will continue to monitor throughout the shift as needed. Patient educated on ADL's, and hand hygiene. Plan: Continue to monitor Master Treatment Plan for patient's progress toward short term goals of Decreased Agitation, Decreased Anxiety, equipment [employer] goals to return to previous living setting vs placement. Continue to assess patient for changes in above assessment. Monitor for medication needs, pain, and safety concerns. Hourly rounding performed to ensure safe environment.
--- NOTE | 2017-01-25 15:06 | NUR ---
KELLI Weekly Progress Note Pt. will target dc for early next week. Pt. continues to repeat "ok", which is a cause for concern w/Pt's dtr for Pt. to return to her facility. KELLI left a note for Dr. Minaya, but is not sure of the outcome of the conversation as there is not a current note available to read. KELLI will follow up early next week for possible dc.
[2017-01-25 16:16] VITALS: BP 153/72
--- NOTE | 2017-01-25 16:40 | NUR ---
resumed pt care. up in chair in day room.
[2017-01-25] MEDS: MIRTAZAPINE 7.5 MG TABLET. PO SCH (19:27)
[2017-01-25] MEDS: OXcarbazepine 150 MG TABLET. PO SCH (19:27)
[2017-01-25] MEDS: MEMANTINE 10 MG TABLET. PO SCH (19:29)
--- NOTE | 2017-01-25 20:06 | PDOC ---
Exam Note: Ronen Note: Please also refer to the separate dictated note~for this date of service dictated separately.~Patient seen individually. Discussed the patient with Nursing staff reviewed the chart.~Reviewed interim history and current functioning. Reviewed vital signs,~Labs/ Radiology~and current medications noted below. Continue current treatment with the changes noted in the dictated addendum note Assessment: Vital Signs: Vital Signs Date Time Temp Pulse Resp B/P (MAP) Pulse Ox O2 Delivery O2 Flow Rate FiO2 01/25/17 16:16 97.6 85 20 153/72 (99) 99 Room Air I&O Intake and Output 01/25/17 07:00 Intake Total 420 ml Balance 420 ml Intake Oral 420 ml # Bowel Movements 2 Current Medications: Meds: Current Medications Lorazepam (Ativan) 0.5 mg PRN Q4HRS PRN PO ANXIETY / AGITATION Last administered on 01/12/17 06:08; Start 01/05/17 at 16:45; Stop 01/12/17 at 19: 11; Status DC Acetaminophen (Tylenol) 500 mg Q6HRS PRN PO PAIN / TEMP Last administered on 07:56; Start 01/05/17 at 17:00; Stop 01/13/17 at 14:02; Status DC Bisacodyl (Dulcolax Supp) 10 mg PRN DAILY PRN RC CONSTIPATION Last administered on 01/19/17 19:54; Start 01/05/17 at 17:00 Calcium/Vitamin D (Oscal D 500mg/ 200uts) 1 tab BID PO Last administered on 19:27; Start 01/05/17 at 21:00 Levothyroxine Sodium (Synthroid) 75 mcg DAILY06 PO Last administered on 05:51; Start 01/06/17 at 06:00 Multi-Ingredient Ointment (Analgesic [place]) 1 peewee PRN QID PRN TP muscle pain; Start 01/05/17 at 17:00 Neomycin/ Polymyxin/ Dexamethasone (Maxitrol) 2 drop TID OU Last administered on 01/25/17 19:30; Start 01/05/17 at 21:00 Sennosides (Senna) 8.6 mg BID PO Last administered on 01/25/17 19:27; Start 01/05/17 at 21:00 Al Hydroxide/Mg Hydroxide (Mylanta Plus Xs) 15 ml PRN AFTMEALHC PRN PO DYSPEPSIA; Start 01/05/17 at 17:15 Magnesium Hydroxide (Milk Of Magnesia) 2,400 mg PRN QHS PRN PO CONSTIPATION Last administered on 01/23/17 09:48; Start 01/05/17 at 17:15 Multivitamins/ Calcium (Thera-M Plus) 1 tab DAILY PO Last administered on 01/25 07:41; Start 01/06/17 at 09:00 Pantoprazole Sodium (Protonix) 40 mg DAILYAC PO Last administered on 08:43; Start 01/06/17 at 07:30; Stop 01/09/17 at 07:50; Status DC Citalopram Hydrobromide (CeleXA) 10 mg DAILY PO Last administered on 10:09; Start 01/06/17 at 09:00; Stop 01/07/17 at 19:34; Status DC Memantine (Namenda) 10 mg HS PO Last administered on 01/25/17 19:29; Start 01/05/17 at 21:00 Quetiapine Fumarate (SEROquel) 150 mg QHS PO Last administered on 01/25/17 19 :28; Start 01/05/17 at 21:00 Quetiapine Fumarate (SEROquel) 50 mg BID92 PO Last administered on 01/10/17 14 :06; Start 01/06/17 at 09:00; Stop 01/10/17 at 19:13; Status DC Ziprasidone (Geodon) 40 mg DAILY PO Last administered on 01/11/17 09:21; Start 01/06/17 at 09:00; Stop 01/11/17 at 18:37; Status DC Pneumococcal Polyvalent Vaccine (Pneumovax 23) 0.5 ml ONCE ONCE VAX IM Last administered on 01/07/17 23:11; Start 01/07/17 at 21:00; Stop 01/07/17 at 21 :01; Status DC Influenza Virus Vaccine Quadrival (Fluarix Quad [id number] Syringe) 0.5 ml ONCE ONCE VAX IM Last administered on 01/07/17 23:13; Start 01/07/17 at 21:00; Stop 01/07/17 at 21:01; Status DC Fluvoxamine Maleate (Luvox) 25 mg HS PO Last administered on 01/09/17 19:47; Start 01/07/17 at 21:00; Stop 01/10/17 at 20:59; Status DC Fluvoxamine Maleate (Luvox) 50 mg HS PO Last administered on 01/23/17 19:56; Start 01/10/17 at 21:00; Stop 01/24/17 at 19:14; Status DC Pantoprazole Sodium (Protonix Packet) 40 mg DAILYAC PO Last administered on 07:41; Start 01/09/17 at 08:15 Quetiapine Fumarate (SEROquel) 75 mg BID92 PO Last administered on 01/25/17 13:27; Start 01/11/17 at 09:00 Clonazepam (KlonoPIN) 0.25 mg DAILY PO Last administered on 01/19/17 10:20; Start 01/12/17 at 09:00; Stop 01/19/17 at 17:57; Status DC Clonazepam (KlonoPIN) 0.5 mg STK-MED ONCE .ROUTE Last administered on 06:37; Start 01/12/17 at 06:37; Stop 01/12/17 at 06:38; Status DC Magnesium Citrate (Citroma) 296 ml PRN 1X PRN PO CONSTIPATION Last administered on 01/12/17 19:34; Start 01/12/17 at 07:45 Lorazepam (Ativan) 0.25 mg PRN Q4HRS PRN PO ANXIETY / AGITATION Last administered on 01/14/17 23:14; Start 01/12/17 at 19:15; Stop 01/15/17 at 19:30 ; Status DC Sodium Biphosphate/ Sodium Phosphate (Fleet Adult) 133 ml 1X ONCE [place] Last administered on 01/13/17 15:24; Start 01/13/17 at 14:15; Stop 01/13/17 at 14:16 ; Status DC Polyethylene Glycol (miraLAX) 17 gm DAILY PO Last administered on 01/25/17 07 :41; Start 01/14/17 at 09:00 Polyethylene Glycol (miraLAX) 17 gm 1X ONCE PO Last administered on 01/13/17 17:26; Start 01/13/17 at 14:00; Stop 01/13/17 at 14:01; Status DC Acetaminophen (Tylenol) 500 mg PRN Q6HRS PRN PO PAIN / TEMP Last administered on 01/20/17 18:25; Start 01/13/17 at 14:15 Divalproex Sodium (Depakote Sprinkles) 125 mg BID92 PO ; Start 01/15/17 at 09:00 ; Status UNV Oxcarbazepine (Trileptal) 150 mg BID92 PO Last administered on 01/16/17 14:17 ; Start 01/15/17 at 09:00; Stop 01/16/17 at 17:31; Status DC Sodium Chloride 1,000 ml @ 1,000 mls/hr 1X ONCE IV Last administered on 13:50; Start 01/15/17 at 12:00; Stop 01/15/17 at 12:59; Status DC Oxcarbazepine (Trileptal) 150 mg HS PO Last administered on 01/25/17 19:27; Start 01/16/17 at 21:00 Oxcarbazepine (Trileptal) 300 mg DAILY PO Last administered on 01/25/17 07:41 ; Start 01/17/17 at 09:00 Olanzapine (ZyPREXA ZYDIS) 0.125 mg PRN Q4HRS PRN PO PSYCHOSIS Last administered on 01/24/17 23:21; Start 01/18/17 at 19:00 Mirtazapine (Remeron) 7.5 mg QHS PO Last administered on 01/25/17 19:27; Start 01/23/17 at 21:00 Fluvoxamine Maleate (Luvox) 75 mg HS PO Last administered on 01/25/17 19:29; Start 01/24/17 at 21:00 Active Scripts Active Reported Synthroid (Levothyroxine Sodium) 75 Mcg Tablet 1 Tab PO DAILY06 Senokot (Sennosides) 8.6 Mg Tablet 1 Tab PO BID Seroquel (Quetiapine Fumarate) 50 Mg Tablet 1 Tab PO BID92 Omeprazole 20 Mg Capsule.dr 1 Cap PO DAILY Nuedexta 20-10 Mg Capsule (Dextromethorphan Hbr/Quinidine) 1 Each Capsule 1 Each PO BID Multivitamins (Multivitamin) 1 Each Tablet 1 Tab PO DAILY Namenda (Memantine Hcl) 10 Mg Tablet 10 Mg PO HS Maxitrol Eye Drops (Jhonathan/Polymyx B Sulf/Dexameth) 5 Ml Drops.susp 2 Drop OU TID Geodon (Ziprasidone Hcl) 40 Mg Capsule 40 Mg PO DAILY Celexa (Citalopram Hydrobromide) 10 Mg Tablet 10 Mg PO DAILY Calcium 500 + Vit D 200 Tablet (Calcium Carbonate/Vitamin D3) 1 Each Tablet 1 Each PO BID Bisacodyl 10 Mg Supp.rect 10 Mg RC PRN DAILY PRN Acetaminophen 500 Mg Tablet 1 Tab PO Q6HRS PRN Mag-Al Plus Suspension (Mag Hydrox/Al Hydrox/Simeth) 30 Ml Oral.susp 15 Ml PO PRN AFTMEALHC PRN Seroquel (Quetiapine Fumarate) 25 Mg Tablet 150 Mg PO HS Analgesic [place] (Methyl Salicylate/Menthol) 29 Gm Oint...g. 1 Peewee TP PRN QID PRN Milk Of Magnesia (Magnesium Hydroxide) 2,400 Mg/10 Ml Oral.susp 2,400 Mg PO PRN QHS PRN I have reviewed the current psychotropics carefully including drug interactions. Risk benefit ratio favors no change other than as noted in my dictated progress note. 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
--- NOTE | 2017-01-25 23:07 | NUR ---
Behavior Intervention Response and Plan: BIRP Note: Behavior: Assumed Care of patient, patient located in Day Room at shift change. Patient exhibited the following behavior Restless, Interactive, Disorganized. Brief assessment on rounds of vital signs, medication needs, lab studies, and pain. Treatment plan problems 1 and 2. Intervention: Patient assessed and the following interventions initiated safety checks 15 Minute Checks Cognitive Assessment , Head to toe Assessment , Medications. Response: After interactions and interventions patient responded in the following manner, Disorganized , Compliant ,Drowsy. Continue to assess behaviors and condition will continue to monitor throughout the shift as needed. Patient educated on ADL's, and hand hygiene. Plan: Continue to monitor Master Treatment Plan for patient's progress toward short term goals of Decreased Agitation, Decreased Aggression, [facility] goals to return to previous living setting vs placement. Continue to assess patient for changes in above assessment. Monitor for medication needs, pain, and safety concerns. Hourly rounding performed to ensure safe environment.
[2017-01-26 05:53] VITALS: BP 182/82
[2017-01-26] MEDS: LEVOTHYROXINE 75 MCG TABLET PO SCH (05:56)
--- NOTE | 2017-01-26 06:17 | PN ---
DATE: 01/23/2017 PSYCHIATRIC PROGRESS NOTE This is a late entry for 01/23/2017, covers the elements not covered in my initial note of 01/23/2017. SUBJECTIVE: I met with the patient in the evening of 01/23/2017. Reviewed pharmacy consult. The Trileptal could have some effect on the LFTs and these are gradually moderating. She slept 3-1/4 hours previous evening. AST, ALT on 01/23/2017 are unremarkable. Received Zyprexa at 2:00 p.m., somewhat grabby at times, constantly stating "okay, okay, okay." REVIEW OF SYSTEMS: Ambulation impaired. No CV, , pulmonary, eye, ENT system symptoms on review. Reliability poor. MENTAL STATUS EXAM: Oriented to herself. Insight, judgment, recent and remote memory, attention, concentration, fund of knowledge poor, consistent with her diagnosis mentioned in my initial note. PLAN: No change from my initial note. GRANT STOVER MD DR: AMOL/shelley JOB#: [id number] / [id number]
--- NOTE | 2017-01-26 06:21 | PN ---
DATE: 01/24/2017 PSYCHIATRIC PROGRESS NOTE This is a late entry for 01/24/2017, covers the elements not covered in my initial note of 01/24/2017. SUBJECTIVE: The patient was staffed at a treatment team meeting with the entire team in the morning and seen individually in the evening and also talked with the patient's daughter, Riri, telephone [phone] at some length. Daughter had concerns about discharge next week and we will just have to see how she does before deciding on this. Discussed patient's current psychotropics and adjustments we were making including the Seroquel and Trileptal. REVIEW OF SYSTEMS: Ambulation impaired, in wheelchair. No CV, , pulmonary, eye, ENT system symptoms on review. Reliability poor. MENTAL STATUS EXAM: Oriented to herself. Insight, judgment, recent and remote memory, attention, concentration, fund of knowledge poor, consistent with her diagnosis mentioned in my initial note. She continues to repeat "okay okay." Grabbing out at staff at times. PLAN: Continue current psychotropics mentioned in my initial note. We will adjust further as clinically indicated. MAN Abdullahi STOVER MD DR: AMOL/shelley JOB#: [id number] / [id number]
[2017-01-26] MEDS: DEXTROMETHORPHAN/QUINIDINE 20/10MG CAPSULE. PO SCH ×2 (07:48→20:36)
[2017-01-26] MEDS: PANTOPRAZOLE 40 MG PACKET. PO SCH (07:48)
[2017-01-26] MEDS: POLYETHYLENE GLYCOL 3350 17 GM PACKET. PO SCH (07:48)
[2017-01-26] MEDS: SENNOSIDES 8.6 MG TABLET PO SCH ×2 (07:48→20:34)
[2017-01-26] MEDS: CALCIUM CARB/VIT D3 500/200 TABLET PO SCH ×2 (07:49→20:34)
[2017-01-26] MEDS: MULTIVITAMIN with MINERAL TABLET. PO SCH (07:49)
[2017-01-26] MEDS: NEO/POLYMYX/DEXAMETH OPHTH SUSPENSION 5ML BOTTLE. OU SCH ×3 (07:49→20:34)
[2017-01-26] MEDS: QUEtiapine 50 MG TABLET. PO SCH ×3 (07:50→20:35)
--- NOTE | 2017-01-26 10:27 | NUR ---
Behavior Intervention Response and Plan: BIRP Note: Behavior: Assumed Care of patient, patient located in Patient Room at shift change. Patient exhibited the following behavior Disorganized, Calm, Sleeping. Brief assessment on rounds of vital signs, medication needs, lab studies, and pain. Treatment plan problems . Intervention: Patient assessed and the following interventions initiated safety checks 15 Minute Checks Cognitive Assessment , Head to toe Assessment , Medications. Response: After interactions and interventions patient responded in the following manner, Disorganized , Calm ,Sleeping. Continue to assess behaviors and condition will continue to monitor throughout the shift as needed. Patient educated on ADL's, and hand hygiene. Plan: Continue to monitor Master Treatment Plan for patient's progress toward short term goals of Decreased Agitation, Decreased Aggression, [facility] goals to return to previous living setting vs placement. Continue to assess patient for changes in above assessment. Monitor for medication needs, pain, and safety concerns. Hourly rounding performed to ensure safe environment.
[2017-01-26] MEDS: MEMANTINE 10 MG TABLET. PO SCH (20:34)
[2017-01-26] MEDS: MIRTAZAPINE 7.5 MG TABLET. PO SCH (20:34)
[2017-01-26] MEDS: OXcarbazepine 150 MG TABLET. PO SCH (20:35)
--- NOTE | 2017-01-26 21:16 | PDOC ---
Exam Note: Ronen Note: Please also refer to the separate dictated note~for this date of service dictated separately.~Patient seen individually. Discussed the patient with Nursing staff reviewed the chart.~Reviewed interim history and current functioning. Reviewed vital signs,~Labs/ Radiology~and current medications noted below. Continue current treatment with the changes noted in the dictated addendum note Assessment: Vital Signs: Vital Signs Date Time Temp Pulse Resp B/P (MAP) Pulse Ox O2 Delivery O2 Flow Rate FiO2 01/26/17 05:53 97.3 67 18 182/82 (115) 99 01/25/17 16:16 Room Air I&O Intake and Output 01/26/17 07:00 Intake Total 600 ml Balance 600 ml Intake Oral 600 ml Current Medications: Meds: Current Medications Lorazepam (Ativan) 0.5 mg PRN Q4HRS PRN PO ANXIETY / AGITATION Last administered on 01/12/17 06:08; Start 01/05/17 at 16:45; Stop 01/12/17 at 19: 11; Status DC Acetaminophen (Tylenol) 500 mg Q6HRS PRN PO PAIN / TEMP Last administered on 07:56; Start 01/05/17 at 17:00; Stop 01/13/17 at 14:02; Status DC Bisacodyl (Dulcolax Supp) 10 mg PRN DAILY PRN RC CONSTIPATION Last administered on 01/19/17 19:54; Start 01/05/17 at 17:00 Calcium/Vitamin D (Oscal D 500mg/ 200uts) 1 tab BID PO Last administered on 20:34; Start 01/05/17 at 21:00 Levothyroxine Sodium (Synthroid) 75 mcg DAILY06 PO Last administered on 05:56; Start 01/06/17 at 06:00 Multi-Ingredient Ointment (Analgesic [place]) 1 peewee PRN QID PRN TP muscle pain; Start 01/05/17 at 17:00 Neomycin/ Polymyxin/ Dexamethasone (Maxitrol) 2 drop TID OU Last administered on 01/26/17 20:34; Start 01/05/17 at 21:00 Sennosides (Senna) 8.6 mg BID PO Last administered on 01/26/17 20:34; Start 01/05/17 at 21:00 Al Hydroxide/Mg Hydroxide (Mylanta Plus Xs) 15 ml PRN AFTMEALHC PRN PO DYSPEPSIA; Start 01/05/17 at 17:15 Magnesium Hydroxide (Milk Of Magnesia) 2,400 mg PRN QHS PRN PO CONSTIPATION Last administered on 01/23/17 09:48; Start 01/05/17 at 17:15 Multivitamins/ Calcium (Thera-M Plus) 1 tab DAILY PO Last administered on 01/26 07:49; Start 01/06/17 at 09:00 Pantoprazole Sodium (Protonix) 40 mg DAILYAC PO Last administered on 08:43; Start 01/06/17 at 07:30; Stop 01/09/17 at 07:50; Status DC Citalopram Hydrobromide (CeleXA) 10 mg DAILY PO Last administered on 10:09; Start 01/06/17 at 09:00; Stop 01/07/17 at 19:34; Status DC Memantine (Namenda) 10 mg HS PO Last administered on 01/26/17 20:34; Start 01/05/17 at 21:00 Quetiapine Fumarate (SEROquel) 150 mg QHS PO Last administered on 01/26/17 20 :35; Start 01/05/17 at 21:00 Quetiapine Fumarate (SEROquel) 50 mg BID92 PO Last administered on 01/10/17 14 :06; Start 01/06/17 at 09:00; Stop 01/10/17 at 19:13; Status DC Ziprasidone (Geodon) 40 mg DAILY PO Last administered on 01/11/17 09:21; Start 01/06/17 at 09:00; Stop 01/11/17 at 18:37; Status DC Pneumococcal Polyvalent Vaccine (Pneumovax 23) 0.5 ml ONCE ONCE VAX IM Last administered on 01/07/17 23:11; Start 01/07/17 at 21:00; Stop 01/07/17 at 21 :01; Status DC Influenza Virus Vaccine Quadrival (Fluarix Quad [id number] Syringe) 0.5 ml ONCE ONCE VAX IM Last administered on 01/07/17 23:13; Start 01/07/17 at 21:00; Stop 01/07/17 at 21:01; Status DC Fluvoxamine Maleate (Luvox) 25 mg HS PO Last administered on 01/09/17 19:47; Start 01/07/17 at 21:00; Stop 01/10/17 at 20:59; Status DC Fluvoxamine Maleate (Luvox) 50 mg HS PO Last administered on 01/23/17 19:56; Start 01/10/17 at 21:00; Stop 01/24/17 at 19:14; Status DC Pantoprazole Sodium (Protonix Packet) 40 mg DAILYAC PO Last administered on 07:48; Start 01/09/17 at 08:15 Quetiapine Fumarate (SEROquel) 75 mg BID92 PO Last administered on 01/26/17 14:00; Start 01/11/17 at 09:00 Clonazepam (KlonoPIN) 0.25 mg DAILY PO Last administered on 01/19/17 10:20; Start 01/12/17 at 09:00; Stop 01/19/17 at 17:57; Status DC Clonazepam (KlonoPIN) 0.5 mg STK-MED ONCE .ROUTE Last administered on 06:37; Start 01/12/17 at 06:37; Stop 01/12/17 at 06:38; Status DC Magnesium Citrate (Citroma) 296 ml PRN 1X PRN PO CONSTIPATION Last administered on 01/12/17 19:34; Start 01/12/17 at 07:45 Lorazepam (Ativan) 0.25 mg PRN Q4HRS PRN PO ANXIETY / AGITATION Last administered on 01/14/17 23:14; Start 01/12/17 at 19:15; Stop 01/15/17 at 19:30 ; Status DC Sodium Biphosphate/ Sodium Phosphate (Fleet Adult) 133 ml 1X ONCE [place] Last administered on 01/13/17 15:24; Start 01/13/17 at 14:15; Stop 01/13/17 at 14:16 ; Status DC Polyethylene Glycol (miraLAX) 17 gm DAILY PO Last administered on 01/26/17 07 :48; Start 01/14/17 at 09:00 Polyethylene Glycol (miraLAX) 17 gm 1X ONCE PO Last administered on 01/13/17 17:26; Start 01/13/17 at 14:00; Stop 01/13/17 at 14:01; Status DC Acetaminophen (Tylenol) 500 mg PRN Q6HRS PRN PO PAIN / TEMP Last administered on 01/20/17 18:25; Start 01/13/17 at 14:15 Divalproex Sodium (Depakote Sprinkles) 125 mg BID92 PO ; Start 01/15/17 at 09:00 ; Status UNV Oxcarbazepine (Trileptal) 150 mg BID92 PO Last administered on 01/16/17 14:17 ; Start 01/15/17 at 09:00; Stop 01/16/17 at 17:31; Status DC Sodium Chloride 1,000 ml @ 1,000 mls/hr 1X ONCE IV Last administered on 13:50; Start 01/15/17 at 12:00; Stop 01/15/17 at 12:59; Status DC Oxcarbazepine (Trileptal) 150 mg HS PO Last administered on 01/25/17 19:27; Start 01/16/17 at 21:00; Stop 01/26/17 at 18:37; Status DC Oxcarbazepine (Trileptal) 300 mg DAILY PO Last administered on 01/26/17 07:49 ; Start 01/17/17 at 09:00; Stop 01/26/17 at 18:38; Status DC Olanzapine (ZyPREXA ZYDIS) 0.125 mg PRN Q4HRS PRN PO PSYCHOSIS Last administered on 01/24/17 23:21; Start 01/18/17 at 19:00 Mirtazapine (Remeron) 7.5 mg QHS PO Last administered on 01/26/17 20:34; Start 01/23/17 at 21:00 Fluvoxamine Maleate (Luvox) 75 mg HS PO Last administered on 01/26/17 20:34; Start 01/24/17 at 21:00 Oxcarbazepine (Trileptal) 300 mg BID PO Last administered on 01/26/17 20:35; Start 01/26/17 at 21:00 Trazodone HCl (Desyrel) 50 mg PRN QHS PRN PO INSOMNIA, MAY REPEAT X1; Start at 18:45 Active Scripts Active Reported Synthroid (Levothyroxine Sodium) 75 Mcg Tablet 1 Tab PO DAILY06 Senokot (Sennosides) 8.6 Mg Tablet 1 Tab PO BID Seroquel (Quetiapine Fumarate) 50 Mg Tablet 1 Tab PO BID92 Omeprazole 20 Mg Capsule.dr 1 Cap PO DAILY Nuedexta 20-10 Mg Capsule (Dextromethorphan Hbr/Quinidine) 1 Each Capsule 1 Each PO BID Multivitamins (Multivitamin) 1 Each Tablet 1 Tab PO DAILY Namenda (Memantine Hcl) 10 Mg Tablet 10 Mg PO HS Maxitrol Eye Drops (Jhonathan/Polymyx B Sulf/Dexameth) 5 Ml Drops.susp 2 Drop OU TID Geodon (Ziprasidone Hcl) 40 Mg Capsule 40 Mg PO DAILY Celexa (Citalopram Hydrobromide) 10 Mg Tablet 10 Mg PO DAILY Calcium 500 + Vit D 200 Tablet (Calcium Carbonate/Vitamin D3) 1 Each Tablet 1 Each PO BID Bisacodyl 10 Mg Supp.rect 10 Mg RC PRN DAILY PRN Acetaminophen 500 Mg Tablet 1 Tab PO Q6HRS PRN Mag-Al Plus Suspension (Mag Hydrox/Al Hydrox/Simeth) 30 Ml Oral.susp 15 Ml PO PRN AFTMEALHC PRN Seroquel (Quetiapine Fumarate) 25 Mg Tablet 150 Mg PO HS Analgesic [place] (Methyl Salicylate/Menthol) 29 Gm Oint...g. 1 [place] TP PRN QID PRN Milk Of Magnesia (Magnesium Hydroxide) 2,400 Mg/10 Ml Oral.susp 2,400 Mg PO PRN QHS PRN I have reviewed the current psychotropics carefully including drug interactions. Risk benefit ratio favors no change other than as noted in my dictated progress note. 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
--- NOTE | 2017-01-26 22:44 | NUR ---
Behavior Intervention Response and Plan: BIRP Note: Behavior: Assumed Care of patient, patient located in Day Room at shift change. Patient exhibited the following behavior Compulsive, Disorganized, Anxious. Brief assessment on rounds of vital signs, medication needs, lab studies, and pain. Treatment plan problems .pinching, grabbing, hyper-verbal Intervention: Patient assessed and the following interventions initiated safety checks 15 Minute Checks Cognitive Assessment , Head to toe Assessment , Medications. Response: After interactions and interventions patient responded in the following manner, Defensive , Attention Seeking ,Cooperative. Continue to assess behaviors and condition will continue to monitor throughout the shift as needed. Patient educated on ADL's, and hand hygiene. Plan: Continue to monitor Master Treatment Plan for patient's progress toward short term goals of Decreased Agitation, Decreased Anxiety, [facility] goals to return to previous living setting vs placement. Continue to assess patient for changes in above assessment. Monitor for medication needs, pain, and safety concerns. Hourly rounding performed to ensure safe environment.
[2017-01-27 06:14] VITALS: BP 156/69
[2017-01-27] MEDS: LEVOTHYROXINE 75 MCG TABLET PO SCH (06:33)
[2017-01-27] MEDS: MULTIVITAMIN with MINERAL TABLET. PO SCH (07:41)
[2017-01-27] MEDS: PANTOPRAZOLE 40 MG PACKET. PO SCH (07:41)
[2017-01-27] MEDS: POLYETHYLENE GLYCOL 3350 17 GM PACKET. PO SCH (07:41)
[2017-01-27] MEDS: QUEtiapine 50 MG TABLET. PO SCH ×3 (07:41→20:10)
[2017-01-27] MEDS: SENNOSIDES 8.6 MG TABLET PO SCH ×2 (07:41→20:10)
[2017-01-27] MEDS: OXcarbazepine 150 MG TABLET. PO SCH ×2 (07:42→20:10)
[2017-01-27] MEDS: CALCIUM CARB/VIT D3 500/200 TABLET PO SCH ×2 (07:42→20:10)
[2017-01-27] MEDS: NEO/POLYMYX/DEXAMETH OPHTH SUSPENSION 5ML BOTTLE. OU SCH ×3 (07:45→20:11)
[2017-01-27] MEDS: DEXTROMETHORPHAN/QUINIDINE 20/10MG CAPSULE. PO SCH ×2 (07:46→20:11)
[2017-01-27 08:11] LABS: ALBUMIN 3.5 g/dL (3.4-5.0); ALBUMIN/GLOBULIN RATIO 0.7 (1.0-1.7); CALCIUM 9.2 mg/dL (8.5-10.1); CREATININE 1.2 mg/dL (0.6-1.0); GFR 42.8; TOTAL BILIRUBIN 0.3 mg/dL (0.2-1.0); TOTAL PROTEIN 8.7 g/dL (6.4-8.2)
--- NOTE | 2017-01-27 09:22 | NUR ---
Behavior Intervention Response and Plan: BIRP Note: Behavior: Assumed Care of patient, patient located in Patient Room at shift change. Patient exhibited the following behavior Disorganized, Calm, Sleeping. Brief assessment on rounds of vital signs, medication needs, lab studies, and pain. Treatment plan problems . Intervention: Patient assessed and the following interventions initiated safety checks 15 Minute Checks Cognitive Assessment , Head to toe Assessment , Medications. Response: After interactions and interventions patient responded in the following manner, Disorganized , Calm ,Sleeping. Continue to assess behaviors and condition will continue to monitor throughout the shift as needed. Patient educated on ADL's, and hand hygiene. Plan: Continue to monitor Master Treatment Plan for patient's progress toward short term goals of Decreased Agitation, Decreased Aggression, half-way goals to return to previous living setting vs placement. Continue to assess patient for changes in above assessment. Monitor for medication needs, pain, and safety concerns. Hourly rounding performed to ensure safe environment.
[2017-01-27 16:08] VITALS: BP 152/78
--- NOTE | 2017-01-27 18:29 | PN ---
DATE: 01/25/2017 This is a late entry 01/25, covers elements not covered in my initial note of 01/25. SUBJECTIVE: I met with the patient evening of 01/25. The patient is compliant with her medications, more steady on her feet, continuously repeating "okay, okay, okay, okay." Restless, anxious, obsessive. REVIEW OF SYSTEMS: No CV, , eye, ENT or pulmonary system symptoms on review. Reliability poor. MENTAL STATUS EXAM: Oriented to herself. Insight, judgment, recent and remote memory, attention, concentration, fund of knowledge poor, consistent with her diagnosis mentioned in my initial note. PLAN: No changes from a psychiatric standpoint and psychotropics from initial note adjust as clinically indicated. MAN Abdullahi STOVER MD DR: AMOL/shelley JOB#: [id number] / [id number]
--- NOTE | 2017-01-27 18:34 | PN ---
DATE: 01/26/2017 This is a late entry 01/26 covers elements not covered in my initial note 01/26. SUBJECTIVE: I met with the patient in the evening of 01/26. She was up much of the night and we will add trazodone 50 mg at bedtime p.r.n., may repeat x 1 for insomnia. Continues to repeating "okay, okay, okay, okay." REVIEW OF SYSTEMS: No CV, , pulmonary, eye, ENT system symptoms on review. Reliability poor. MENTAL STATUS EXAM: Oriented to herself. Insight, judgment, recent and remote memory, attention, concentration, fund of knowledge poor, consistent with her diagnosis. Grabbing at arm as I sat with her attempting to feed her supper. LABORATORY DATA: Reviewed. IMPRESSION: Unchanged from initial note. PLAN: Increase Trileptal to 300 mg twice a day. Check CMP on 01/27. Trazodone as it is noted above, rest unchanged from initial note. GRANT STOVER MD DR: AMOL/shelley JOB#: [id number] / [id number]
--- NOTE | 2017-01-27 18:34 | NUR ---
pt up for breakfast. compliant with meds. went straight to bed. slept thru lunch. family here. pt deep asleep. was up for supper. sitting in day room stating "okay, okay".
[2017-01-27] MEDS: MIRTAZAPINE 7.5 MG TABLET. PO SCH (20:09)
[2017-01-27] MEDS: MEMANTINE 10 MG TABLET. PO SCH (20:10)
--- NOTE | 2017-01-27 20:19 | PDOC ---
Exam Note: Ronen Note: Please also refer to the separate dictated note~for this date of service dictated separately.~Patient seen individually. Discussed the patient with Nursing staff reviewed the chart.~Reviewed interim history and current functioning. Reviewed vital signs,~Labs/ Radiology~and current medications noted below. Continue current treatment with the changes noted in the dictated addendum note Assessment: Vital Signs: Vital Signs Date Time Temp Pulse Resp B/P (MAP) Pulse Ox O2 Delivery O2 Flow Rate FiO2 01/27/17 16:08 97.1 76 20 152/78 (102) 98 01/25/17 16:16 Room Air I&O Intake and Output 01/27/17 07:00 Intake Total 480 ml Balance 480 ml Intake Oral 480 ml Labs: Laboratory Tests Test 01/27/17 07:34 Sodium Level 141 mmol/L (136-145) Potassium Level 4.0 mmol/L (3.5-5.1) Chloride Level 105 mmol/L (98-107) Carbon Dioxide Level 29 mmol/L (21-32) Anion Gap 7 (6-14) Blood Urea Nitrogen 31 mg/dL (7-20) H Creatinine 1.2 mg/dL (0.6-1.0) H Estimated GFR (Cockcroft-Gault) 42.8 BUN/Creatinine Ratio 26 (6-20) H Glucose Level 118 mg/dL (70-99) H Calcium Level 9.2 mg/dL (8.5-10.1) Total Bilirubin 0.3 mg/dL (0.2-1.0) Aspartate Amino Transferase (AST) 29 U/L (15-37) Alanine Aminotransferase (ALT) 50 U/L (14-59) Alkaline Phosphatase 206 U/L (46-116) H Total Protein 8.7 g/dL (6.4-8.2) H Albumin 3.5 g/dL (3.4-5.0) Albumin/Globulin Ratio 0.7 (1.0-1.7) L Current Medications: Meds: Current Medications Lorazepam (Ativan) 0.5 mg PRN Q4HRS PRN PO ANXIETY / AGITATION Last administered on 01/12/17t 06:08; Start 01/05/17 at 16:45; Stop 01/12/17 at 19: 11; Status DC Acetaminophen (Tylenol) 500 mg Q6HRS PRN PO PAIN / TEMP Last administered on 07:56; Start 01/05/17 at 17:00; Stop 01/13/17 at 14:02; Status DC Bisacodyl (Dulcolax Supp) 10 mg PRN DAILY PRN RC CONSTIPATION Last administered on 01/19/17 19:54; Start 01/05/17 at 17:00 Calcium/Vitamin D (Oscal D 500mg/ 200uts) 1 tab BID PO Last administered on 20:10; Start 01/05/17 at 21:00 Levothyroxine Sodium (Synthroid) 75 mcg DAILY06 PO Last administered on 06:33; Start 01/06/17 at 06:00 Multi-Ingredient Ointment (Analgesic [place]) 1 peewee PRN QID PRN TP muscle pain; Start 01/05/17 at 17:00 Neomycin/ Polymyxin/ Dexamethasone (Maxitrol) 2 drop TID OU Last administered on 01/27/17 20:11; Start 01/05/17 at 21:00 Sennosides (Senna) 8.6 mg BID PO Last administered on 01/27/17 20:10; Start 01/05/17 at 21:00 Al Hydroxide/Mg Hydroxide (Mylanta Plus Xs) 15 ml PRN AFTMEALHC PRN PO DYSPEPSIA; Start 01/05/17 at 17:15 Magnesium Hydroxide (Milk Of Magnesia) 2,400 mg PRN QHS PRN PO CONSTIPATION Last administered on 01/23/17 09:48; Start 01/05/17 at 17:15 Multivitamins/ Calcium (Thera-M Plus) 1 tab DAILY PO Last administered on 01/27 07:41; Start 01/06/17 at 09:00 Pantoprazole Sodium (Protonix) 40 mg DAILYAC PO Last administered on 08:43; Start 01/06/17 at 07:30; Stop 01/09/17 at 07:50; Status DC Citalopram Hydrobromide (CeleXA) 10 mg DAILY PO Last administered on 10:09; Start 01/06/17 at 09:00; Stop 01/07/17 at 19:34; Status DC Memantine (Namenda) 10 mg HS PO Last administered on 01/27/17 20:10; Start 01/05/17 at 21:00 Quetiapine Fumarate (SEROquel) 150 mg QHS PO Last administered on 01/27/17 20 :10; Start 01/05/17 at 21:00 Quetiapine Fumarate (SEROquel) 50 mg BID92 PO Last administered on 01/10/17 14 :06; Start 01/06/17 at 09:00; Stop 01/10/17 at 19:13; Status DC Ziprasidone (Geodon) 40 mg DAILY PO Last administered on 01/11/17 09:21; Start 01/06/17 at 09:00; Stop 01/11/17 at 18:37; Status DC Pneumococcal Polyvalent Vaccine (Pneumovax 23) 0.5 ml ONCE ONCE VAX IM Last administered on 01/07/17 23:11; Start 01/07/17 at 21:00; Stop 01/07/17 at 21 :01; Status DC Influenza Virus Vaccine Quadrival (Fluarix Quad 2256-5049 Syringe) 0.5 ml ONCE ONCE VAX IM Last administered on 01/07/17 23:13; Start 01/07/17 at 21:00; Stop 01/07/17 at 21:01; Status DC Fluvoxamine Maleate (Luvox) 25 mg HS PO Last administered on 01/09/17 19:47; Start 01/07/17 at 21:00; Stop 01/10/17 at 20:59; Status DC Fluvoxamine Maleate (Luvox) 50 mg HS PO Last administered on 01/23/17 19:56; Start 01/10/17 at 21:00; Stop 01/24/17 at 19:14; Status DC Pantoprazole Sodium (Protonix Packet) 40 mg DAILYAC PO Last administered on 07:41; Start 01/09/17 at 08:15 Quetiapine Fumarate (SEROquel) 75 mg BID92 PO Last administered on 01/27/17 07:41; Start 01/11/17 at 09:00; Stop 01/27/17 at 15:53; Status DC Clonazepam (KlonoPIN) 0.25 mg DAILY PO Last administered on 01/19/17 10:20; Start 01/12/17 at 09:00; Stop 01/19/17 at 17:57; Status DC Clonazepam (KlonoPIN) 0.5 mg STK-MED ONCE .ROUTE Last administered on 06:37; Start 01/12/17 at 06:37; Stop 01/12/17 at 06:38; Status DC Magnesium Citrate (Citroma) 296 ml PRN 1X PRN PO CONSTIPATION Last administered on 01/12/17 19:34; Start 01/12/17 at 07:45 Lorazepam (Ativan) 0.25 mg PRN Q4HRS PRN PO ANXIETY / AGITATION Last administered on 01/14/17 23:14; Start 01/12/17 at 19:15; Stop 01/15/17 at 19:30 ; Status DC Sodium Biphosphate/ Sodium Phosphate (Fleet Adult) 133 ml 1X ONCE [place] Last administered on 01/13/17 15:24; Start 01/13/17 at 14:15; Stop 01/13/17 at 14:16 ; Status DC Polyethylene Glycol (miraLAX) 17 gm DAILY PO Last administered on 01/27/17 07 :41; Start 01/14/17 at 09:00 Polyethylene Glycol (miraLAX) 17 gm 1X ONCE PO Last administered on 01/13/17 17:26; Start 01/13/17 at 14:00; Stop 01/13/17 at 14:01; Status DC Acetaminophen (Tylenol) 500 mg PRN Q6HRS PRN PO PAIN / TEMP Last administered on 01/20/17 18:25; Start 01/13/17 at 14:15 Divalproex Sodium (Depakote Sprinkles) 125 mg BID92 PO ; Start 01/15/17 at 09:00 ; Status UNV Oxcarbazepine (Trileptal) 150 mg BID92 PO Last administered on 01/16/17 14:17 ; Start 01/15/17 at 09:00; Stop 01/16/17 at 17:31; Status DC Sodium Chloride 1,000 ml @ 1,000 mls/hr 1X ONCE IV Last administered on 13:50; Start 01/15/17 at 12:00; Stop 01/15/17 at 12:59; Status DC Oxcarbazepine (Trileptal) 150 mg HS PO Last administered on 01/25/17 19:27; Start 01/16/17 at 21:00; Stop 01/26/17 at 18:37; Status DC Oxcarbazepine (Trileptal) 300 mg DAILY PO Last administered on 01/26/17 07:49 ; Start 01/17/17 at 09:00; Stop 01/26/17 at 18:38; Status DC Olanzapine (ZyPREXA ZYDIS) 0.125 mg PRN Q4HRS PRN PO PSYCHOSIS Last administered on 01/24/17 23:21; Start 01/18/17 at 19:00 Mirtazapine (Remeron) 7.5 mg QHS PO Last administered on 01/27/17 20:09; Start 01/23/17 at 21:00 Fluvoxamine Maleate (Luvox) 75 mg HS PO Last administered on 01/27/17 20:10; Start 01/24/17 at 21:00 Oxcarbazepine (Trileptal) 300 mg BID PO Last administered on 01/27/17 20:10; Start 01/26/17 at 21:00 Trazodone HCl (Desyrel) 50 mg PRN QHS PRN PO INSOMNIA, MAY REPEAT X1; Start at 18:45 Quetiapine Fumarate (SEROquel) 75 mg BID92 PO ; Start 01/28/17 at 09:00 Active Scripts Active Reported Synthroid (Levothyroxine Sodium) 75 Mcg Tablet 1 Tab PO DAILY06 Senokot (Sennosides) 8.6 Mg Tablet 1 Tab PO BID Seroquel (Quetiapine Fumarate) 50 Mg Tablet 1 Tab PO BID92 Omeprazole 20 Mg Capsule.dr 1 Cap PO DAILY Nuedexta 20-10 Mg Capsule (Dextromethorphan Hbr/Quinidine) 1 Each Capsule 1 Each PO BID Multivitamins (Multivitamin) 1 Each Tablet 1 Tab PO DAILY Namenda (Memantine Hcl) 10 Mg Tablet 10 Mg PO HS Maxitrol Eye Drops (Jhonathan/Polymyx B Sulf/Dexameth) 5 Ml Drops.susp 2 Drop OU TID Geodon (Ziprasidone Hcl) 40 Mg Capsule 40 Mg PO DAILY Celexa (Citalopram Hydrobromide) 10 Mg Tablet 10 Mg PO DAILY Calcium 500 + Vit D 200 Tablet (Calcium Carbonate/Vitamin D3) 1 Each Tablet 1 Each PO BID Bisacodyl 10 Mg Supp.rect 10 Mg RC PRN DAILY PRN Acetaminophen 500 Mg Tablet 1 Tab PO Q6HRS PRN Mag-Al Plus Suspension (Mag Hydrox/Al Hydrox/Simeth) 30 Ml Oral.susp 15 Ml PO PRN AFTMEALHC PRN Seroquel (Quetiapine Fumarate) 25 Mg Tablet 150 Mg PO HS Analgesic [place] (Methyl Salicylate/Menthol) 29 Gm Oint...g. 1 Pee[place]e TP PRN QID PRN Milk Of Magnesia (Magnesium Hydroxide) 2,400 Mg/10 Ml Oral.susp 2,400 Mg PO PRN QHS PRN I have reviewed the current psychotropics carefully including drug interactions. Risk benefit ratio favors no change other than as noted in my dictated progress note. 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
[2017-01-27] MEDS: traZODone 50 MG TABLET. PO PRN (20:33)
[2017-01-28 05:59] VITALS: BP 158/65
[2017-01-28] MEDS: LEVOTHYROXINE 75 MCG TABLET PO SCH (06:07)
[2017-01-28] MEDS: PANTOPRAZOLE 40 MG PACKET. PO SCH (08:05)
[2017-01-28] MEDS: POLYETHYLENE GLYCOL 3350 17 GM PACKET. PO SCH (08:05)
[2017-01-28] MEDS: SENNOSIDES 8.6 MG TABLET PO SCH ×2 (08:06→19:59)
[2017-01-28] MEDS: NEO/POLYMYX/DEXAMETH OPHTH SUSPENSION 5ML BOTTLE. OU SCH ×3 (08:06→20:01)
[2017-01-28] MEDS: OXcarbazepine 150 MG TABLET. PO SCH ×2 (08:06→19:59)
[2017-01-28] MEDS: CALCIUM CARB/VIT D3 500/200 TABLET PO SCH ×2 (08:06→19:59)
[2017-01-28] MEDS: MULTIVITAMIN with MINERAL TABLET. PO SCH (08:06)
[2017-01-28] MEDS: QUEtiapine 25 MG TABLET. PO SCH ×2 (08:09→14:23)
[2017-01-28] MEDS: DEXTROMETHORPHAN/QUINIDINE 20/10MG CAPSULE. PO SCH ×2 (08:34→20:30)
--- NOTE | 2017-01-28 09:47 | NUR ---
Behavior Intervention Response and Plan: BIRP Note: Behavior: Assumed Care of patient, patient located in Dining Room at shift change. Patient exhibited the following behavior Disorganized, Anxious, Compliant. Brief assessment on rounds of vital signs, medication needs, lab studies, and pain. Treatment plan problems 1-2. Intervention: Patient assessed and the following interventions initiated safety checks 15 Minute Checks Cognitive Assessment , Head to toe Assessment , Medications. Response: After interactions and interventions patient responded in the following manner, Disorganized , Compliant ,Restless. Continue to assess behaviors and condition will continue to monitor throughout the shift as needed. Patient educated on ADL's, and hand hygiene. Plan: Continue to monitor Master Treatment Plan for patient's progress toward short term goals of Decreased Agitation, Decreased Anxiety, tank terminal gauger goals to return to previous living setting vs placement. Continue to assess patient for changes in above assessment. Monitor for medication needs, pain, and safety concerns. Hourly rounding performed to ensure safe environment.
--- NOTE | 2017-01-28 09:48 | NUR ---
KELLI contacted DON at [facility] regarding dc plans. Facility requested for dc to possible be set for Saturday next week to ensure they are able to do an onsite eval prior to dc. KELLI will follow up Saturday regarding dc plans. KELLI contacted Pt's dtr/dpoa, Riri regarding the changed dc plans. Riri was very relieved dc would be moved to next week to continue to work on Pt's anxiety and "ok". KELLI will follow up on Saturday.
[2017-01-28] MEDS: MAGNESIUM HYDROXIDE 2,400 MG/30 ML ORAL.SUSP. PO PRN (14:23)
[2017-01-28 16:18] VITALS: BP 140/77
[2017-01-28] MEDS: MEMANTINE 10 MG TABLET. PO SCH (19:59)
[2017-01-28] MEDS: MIRTAZAPINE 7.5 MG TABLET. PO SCH (19:59)
--- NOTE | 2017-01-28 19:59 | PDOC ---
Exam Note: Ronen Note: Please also refer to the separate dictated note~for this date of service dictated separately.~Patient seen individually. Discussed the patient with Nursing staff reviewed the chart.~Reviewed interim history and current functioning. Reviewed vital signs,~Labs/ Radiology~and current medications noted below. Continue current treatment with the changes noted in the dictated addendum note Assessment: Vital Signs: Vital Signs Date Time Temp Pulse Resp B/P (MAP) Pulse Ox O2 Delivery O2 Flow Rate FiO2 01/28/17 16:18 97.9 86 20 140/77 (98) 95 01/25/17 16:16 Room Air I&O Intake and Output 01/28/17 07:00 Intake Total 340 ml Balance 340 ml Intake Oral 340 ml Current Medications: Meds: Current Medications Lorazepam (Ativan) 0.5 mg PRN Q4HRS PRN PO ANXIETY / AGITATION Last administered on 01/12/17 06:08; Start 01/05/17 at 16:45; Stop 01/12/17 at 19: 11; Status DC Acetaminophen (Tylenol) 500 mg Q6HRS PRN PO PAIN / TEMP Last administered on 07:56; Start 01/05/17 at 17:00; Stop 01/13/17 at 14:02; Status DC Bisacodyl (Dulcolax Supp) 10 mg PRN DAILY PRN RC CONSTIPATION Last administered on 01/19/17 19:54; Start 01/05/17 at 17:00 Calcium/Vitamin D (Oscal D 500mg/ 200uts) 1 tab BID PO Last administered on 08:06; Start 01/05/17 at 21:00 Levothyroxine Sodium (Synthroid) 75 mcg DAILY06 PO Last administered on 06:07; Start 01/06/17 at 06:00 Multi-Ingredient Ointment (Analgesic [place]) 1 peewee PRN QID PRN TP muscle pain; Start 01/05/17 at 17:00 Neomycin/ Polymyxin/ Dexamethasone (Maxitrol) 2 drop TID OU Last administered on 01/28/17 14:24; Start 01/05/17 at 21:00 Sennosides (Senna) 8.6 mg BID PO Last administered on 01/28/17 08:06; Start 01/05/17 at 21:00 Al Hydroxide/Mg Hydroxide (Mylanta Plus Xs) 15 ml PRN AFTMEALHC PRN PO DYSPEPSIA; Start 01/05/17 at 17:15 Magnesium Hydroxide (Milk Of Magnesia) 2,400 mg PRN QHS PRN PO CONSTIPATION Last administered on 01/28/17 14:23; Start 01/05/17 at 17:15 Multivitamins/ Calcium (Thera-M Plus) 1 tab DAILY PO Last administered on 01/28 08:06; Start 01/06/17 at 09:00 Pantoprazole Sodium (Protonix) 40 mg DAILYAC PO Last administered on 08:43; Start 01/06/17 at 07:30; Stop 01/09/17 at 07:50; Status DC Citalopram Hydrobromide (CeleXA) 10 mg DAILY PO Last administered on 10:09; Start 01/06/17 at 09:00; Stop 01/07/17 at 19:34; Status DC Memantine (Namenda) 10 mg HS PO Last administered on 01/27/17 20:10; Start 01/05/17 at 21:00 Quetiapine Fumarate (SEROquel) 150 mg QHS PO Last administered on 01/27/17 20 :10; Start 01/05/17 at 21:00 Quetiapine Fumarate (SEROquel) 50 mg BID92 PO Last administered on 01/10/17 14 :06; Start 01/06/17 at 09:00; Stop 01/10/17 at 19:13; Status DC Ziprasidone (Geodon) 40 mg DAILY PO Last administered on 01/11/17 09:21; Start 01/06/17 at 09:00; Stop 01/11/17 at 18:37; Status DC Pneumococcal Polyvalent Vaccine (Pneumovax 23) 0.5 ml ONCE ONCE VAX IM Last administered on 01/07/17 23:11; Start 01/07/17 at 21:00; Stop 01/07/17 at 21 :01; Status DC Influenza Virus Vaccine Quadrival (Fluarix Quad [id number] Syringe) 0.5 ml ONCE ONCE VAX IM Last administered on 01/07/17 23:13; Start 01/07/17 at 21:00; Stop 01/07/17 at 21:01; Status DC Fluvoxamine Maleate (Luvox) 25 mg HS PO Last administered on 01/09/17 19:47; Start 01/07/17 at 21:00; Stop 01/10/17 at 20:59; Status DC Fluvoxamine Maleate (Luvox) 50 mg HS PO Last administered on 01/23/17 19:56; Start 01/10/17 at 21:00; Stop 01/24/17 at 19:14; Status DC Pantoprazole Sodium (Protonix Packet) 40 mg DAILYAC PO Last administered on 08:05; Start 01/09/17 at 08:15 Quetiapine Fumarate (SEROquel) 75 mg BID92 PO Last administered on 01/27/17 07:41; Start 01/11/17 at 09:00; Stop 01/27/17 at 15:53; Status DC Clonazepam (KlonoPIN) 0.25 mg DAILY PO Last administered on 01/19/17 10:20; Start 01/12/17 at 09:00; Stop 01/19/17 at 17:57; Status DC Clonazepam (KlonoPIN) 0.5 mg STK-MED ONCE .ROUTE Last administered on 06:37; Start 01/12/17 at 06:37; Stop 01/12/17 at 06:38; Status DC Magnesium Citrate (Citroma) 296 ml PRN 1X PRN PO CONSTIPATION Last administered on 01/12/17 19:34; Start 01/12/17 at 07:45 Lorazepam (Ativan) 0.25 mg PRN Q4HRS PRN PO ANXIETY / AGITATION Last administered on 01/14/17 23:14; Start 01/12/17 at 19:15; Stop 01/15/17 at 19:30 ; Status DC Sodium Biphosphate/ Sodium Phosphate (Fleet Adult) 133 ml 1X ONCE [place] Last administered on 01/13/17 15:24; Start 01/13/17 at 14:15; Stop 01/13/17 at 14:16 ; Status DC Polyethylene Glycol (miraLAX) 17 gm DAILY PO Last administered on 01/28/17 08 :05; Start 01/14/17 at 09:00 Polyethylene Glycol (miraLAX) 17 gm 1X ONCE PO Last administered on 01/13/17 17:26; Start 01/13/17 at 14:00; Stop 01/13/17 at 14:01; Status DC Acetaminophen (Tylenol) 500 mg PRN Q6HRS PRN PO PAIN / TEMP Last administered on 01/20/17 18:25; Start 01/13/17 at 14:15 Divalproex Sodium (Depakote Sprinkles) 125 mg BID92 PO ; Start 01/15/17 at 09:00 ; Status UNV Oxcarbazepine (Trileptal) 150 mg BID92 PO Last administered on 01/16/17 14:17 ; Start 01/15/17 at 09:00; Stop 01/16/17 at 17:31; Status DC Sodium Chloride 1,000 ml @ 1,000 mls/hr 1X ONCE IV Last administered on 13:50; Start 01/15/17 at 12:00; Stop 01/15/17 at 12:59; Status DC Oxcarbazepine (Trileptal) 150 mg HS PO Last administered on 01/25/17 19:27; Start 01/16/17 at 21:00; Stop 01/26/17 at 18:37; Status DC Oxcarbazepine (Trileptal) 300 mg DAILY PO Last administered on 01/26/17 07:49 ; Start 01/17/17 at 09:00; Stop 01/26/17 at 18:38; Status DC Olanzapine (ZyPREXA ZYDIS) 0.125 mg PRN Q4HRS PRN PO PSYCHOSIS Last administered on 01/27/17 22:00; Start 01/18/17 at 19:00 Mirtazapine (Remeron) 7.5 mg QHS PO Last administered on 01/27/17 20:09; Start 01/23/17 at 21:00 Fluvoxamine Maleate (Luvox) 75 mg HS PO Last administered on 01/27/17 20:10; Start 01/24/17 at 21:00 Oxcarbazepine (Trileptal) 300 mg BID PO Last administered on 01/28/17 08:06; Start 01/26/17 at 21:00 Trazodone HCl (Desyrel) 50 mg PRN QHS PRN PO INSOMNIA, MAY REPEAT X1 Last administered on 01/27/17t 20:33; Start 01/26/17 at 18:45 Quetiapine Fumarate (SEROquel) 75 mg BID92 PO Last administered on 01/28/17 14:23; Start 01/28/17 at 09:00 Active Scripts Active Reported Synthroid (Levothyroxine Sodium) 75 Mcg Tablet 1 Tab PO DAILY06 Senokot (Sennosides) 8.6 Mg Tablet 1 Tab PO BID Seroquel (Quetiapine Fumarate) 50 Mg Tablet 1 Tab PO BID92 Omeprazole 20 Mg Capsule.dr 1 Cap PO DAILY Nuedexta 20-10 Mg Capsule (Dextromethorphan Hbr/Quinidine) 1 Each Capsule 1 Each PO BID Multivitamins (Multivitamin) 1 Each Tablet 1 Tab PO DAILY Namenda (Memantine Hcl) 10 Mg Tablet 10 Mg PO HS Maxitrol Eye Drops (Jhonathan/Polymyx B Sulf/Dexameth) 5 Ml Drops.susp 2 Drop OU TID Geodon (Ziprasidone Hcl) 40 Mg Capsule 40 Mg PO DAILY Celexa (Citalopram Hydrobromide) 10 Mg Tablet 10 Mg PO DAILY Calcium 500 + Vit D 200 Tablet (Calcium Carbonate/Vitamin D3) 1 Each Tablet 1 Each PO BID Bisacodyl 10 Mg Supp.rect 10 Mg RC PRN DAILY PRN Acetaminophen 500 Mg Tablet 1 Tab PO Q6HRS PRN Mag-Al Plus Suspension (Mag Hydrox/Al Hydrox/Simeth) 30 Ml Oral.susp 15 Ml PO PRN AFTMEALHC PRN Seroquel (Quetiapine Fumarate) 25 Mg Tablet 150 Mg PO HS Analgesic [place] (Methyl Salicylate/Menthol) 29 Gm Oint...g. 1 [place]ee[place] TP PRN QID PRN Milk Of Magnesia (Magnesium Hydroxide) 2,400 Mg/10 Ml Oral.susp 2,400 Mg PO PRN QHS PRN I have reviewed the current psychotropics carefully including drug interactions. Risk benefit ratio favors no change other than as noted in my dictated progress note. 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
[2017-01-28] MEDS: QUEtiapine 50 MG TABLET. PO SCH (20:03)
--- NOTE | 2017-01-28 23:07 | NUR ---
Behavior Intervention Response and Plan: BIRP Note: Behavior: Assumed Care of patient, patient located in Day Room at shift change. Patient exhibited the following behavior Restless, Disorganized, Compulsive. Brief assessment on rounds of vital signs, medication needs, lab studies, and pain. Treatment plan problems 1 and 2. Intervention: Patient assessed and the following interventions initiated safety checks 15 Minute Checks Cognitive Assessment , Head to toe Assessment , Medications. Response: After interactions and interventions patient responded in the following manner, Restless , Compliant ,Cooperative. Continue to assess behaviors and condition will continue to monitor throughout the shift as needed. Patient educated on ADL's, and hand hygiene. Plan: Continue to monitor Master Treatment Plan for patient's progress toward short term goals of Decreased Agitation, Decreased Aggression, mcfp goals to return to previous living setting vs placement. Continue to assess patient for changes in above assessment. Monitor for medication needs, pain, and safety concerns. Hourly rounding performed to ensure safe environment.
[2017-01-29] MEDS: traZODone 50 MG TABLET. PO PRN ×2 (00:42→20:34)
--- NOTE | 2017-01-29 04:18 | PN ---
DATE: 01/28/2017 PSYCHIATRIC PROGRESS NOTE This note covers the elements not covered in my initial note of 01/28/2017. SUBJECTIVE: I met with the patient the morning of 01/28/2017. Per nursing report, she continues to repeat ok, ok, ok over and over, grabbing at people sitting around her, compliant with medications, at times a little less anxious. REVIEW OF SYSTEMS: No CV, , pulmonary, eye, ENT system symptoms on review. Reliability poor. Gait unsteady. MENTAL STATUS EXAM: Oriented to herself. Insight, judgment, recent and remote memory, attention, concentration, fund of knowledge poor, consistent with her diagnosis mentioned in my initial note. PLAN: Continue current psychotropics. May consider increasing Luvox in a day or so. MAN Abdullahi STOVER MD DR: AMOL/shelley JOB#: [id number] / [id number]
[2017-01-29] MEDS: LEVOTHYROXINE 75 MCG TABLET PO SCH (05:23)
[2017-01-29 06:25] VITALS: BP 164/80
[2017-01-29] MEDS: MULTIVITAMIN with MINERAL TABLET. PO SCH (08:42)
[2017-01-29] MEDS: SENNOSIDES 8.6 MG TABLET PO SCH ×2 (08:42→20:29)
[2017-01-29] MEDS: POLYETHYLENE GLYCOL 3350 17 GM PACKET. PO SCH (08:42)
[2017-01-29] MEDS: PANTOPRAZOLE 40 MG PACKET. PO SCH (08:42)
[2017-01-29] MEDS: OXcarbazepine 150 MG TABLET. PO SCH ×2 (08:42→20:29)
[2017-01-29] MEDS: DEXTROMETHORPHAN/QUINIDINE 20/10MG CAPSULE. PO SCH ×2 (08:42→20:30)
[2017-01-29] MEDS: QUEtiapine 25 MG TABLET. PO SCH ×2 (08:42→14:13)
[2017-01-29] MEDS: CALCIUM CARB/VIT D3 500/200 TABLET PO SCH ×2 (08:42→20:29)
[2017-01-29] MEDS: NEO/POLYMYX/DEXAMETH OPHTH SUSPENSION 5ML BOTTLE. OU SCH ×3 (08:44→20:29)
--- NOTE | 2017-01-29 10:00 | PN ---
DATE: 01/27/2017 This late entry, date of service 01/27/2017, covers elements not covered in my initial note 01/27/2017. The patient slept 5-3/4 hours previous evening, met with her evening of 01/27/2017. She was awake in the morning, then slept through lunch. Alkaline phosphatase is 206. She has continued to sleep, verbalizing okay, okay, okay, at times a little less anxious. REVIEW OF SYSTEMS: No CV, , pulmonary, eye, ENT system symptoms on review. Reliability poor. MENTAL STATUS EXAM: Oriented to herself. Insight, judgment, recent and remote memory, attention, concentration, fund of knowledge poor, consistent with her diagnosis mentioned in my initial note. PLAN: Continue psychotropics mentioned in my initial note. May need to adjust Seroquel further in due course. MAN Abdullahi STOVER MD DR: AMOL/shelley JOB#: [id number] / [id number]
--- NOTE | 2017-01-29 10:32 | NUR ---
Behavior Intervention Response and Plan: BIRP Note: Behavior: Assumed Care of patient, patient located in Dining Room at shift change. Patient exhibited the following behavior Restless, Anxious, Compliant. Brief assessment on rounds of vital signs, medication needs, lab studies, and pain. Treatment plan problems 1-2. Intervention: Patient assessed and the following interventions initiated safety checks 15 Minute Checks Cognitive Assessment , Head to toe Assessment , Medications. Response: After interactions and interventions patient responded in the following manner, Restless , Disorganized ,Anxious. Continue to assess behaviors and condition will continue to monitor throughout the shift as needed. Patient educated on ADL's, and hand hygiene. Plan: Continue to monitor Master Treatment Plan for patient's progress toward short term goals of Decreased Agitation, Decreased Anxiety, half-way goals to return to previous living setting vs placement. Continue to assess patient for changes in above assessment. Monitor for medication needs, pain, and safety concerns. Hourly rounding performed to ensure safe environment.
[2017-01-29 16:15] VITALS: BP 123/76
[2017-01-29] MEDS: MEMANTINE 10 MG TABLET. PO SCH (20:29)
[2017-01-29] MEDS: QUEtiapine 50 MG TABLET. PO SCH (20:29)
[2017-01-29] MEDS: MIRTAZAPINE 7.5 MG TABLET. PO SCH (20:29)
--- NOTE | 2017-01-29 22:46 | NUR ---
Behavior Intervention Response and Plan: BIRP Note: Behavior: Assumed Care of patient, patient located in Day Room at shift change. Patient exhibited the following behavior Restless, Disorganized, Compulsive. Brief assessment on rounds of vital signs, medication needs, lab studies, and pain. Treatment plan problems 1 and 2. Intervention: Patient assessed and the following interventions initiated safety checks 15 Minute Checks Cognitive Assessment , Head to toe Assessment , Medications. Response: After interactions and interventions patient responded in the following manner, Compulsive , Cooperative ,Compliant. Continue to assess behaviors and condition will continue to monitor throughout the shift as needed. Patient educated on ADL's, and hand hygiene. 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 Continue to assess patient for changes in above assessment. Monitor for medication needs, pain, and safety concerns. Hourly rounding performed to ensure safe environment.
[2017-01-30] MEDS: LEVOTHYROXINE 75 MCG TABLET PO SCH (05:30)
[2017-01-30 06:03] VITALS: BP 152/67
[2017-01-30] MEDS: MULTIVITAMIN with MINERAL TABLET. PO SCH (07:54)
[2017-01-30] MEDS: OXcarbazepine 150 MG TABLET. PO SCH ×2 (07:54→20:18)
[2017-01-30] MEDS: SENNOSIDES 8.6 MG TABLET PO SCH ×2 (07:54→20:18)
[2017-01-30] MEDS: CALCIUM CARB/VIT D3 500/200 TABLET PO SCH ×2 (07:54→20:18)
[2017-01-30] MEDS: DEXTROMETHORPHAN/QUINIDINE 20/10MG CAPSULE. PO SCH ×2 (07:54→20:19)
[2017-01-30] MEDS: PANTOPRAZOLE 40 MG PACKET. PO SCH (07:55)
[2017-01-30] MEDS: NEO/POLYMYX/DEXAMETH OPHTH SUSPENSION 5ML BOTTLE. OU SCH ×3 (07:55→20:18)
[2017-01-30] MEDS: POLYETHYLENE GLYCOL 3350 17 GM PACKET. PO SCH (07:55)
[2017-01-30] MEDS: QUEtiapine 25 MG TABLET. PO SCH ×2 (07:55→14:00)
--- NOTE | 2017-01-30 09:17 | NUR ---
Behavior Intervention Response and Plan: BIRP Note: Behavior: Assumed Care of patient, patient located in Dining Room at shift change. Patient exhibited the following behavior Interactive, Disorganized, Attention Seeking. Brief assessment on rounds of vital signs, medication needs, lab studies, and pain. Treatment plan problems 1 and 2. Intervention: Patient assessed and the following interventions initiated safety checks 15 Minute Checks Cognitive Assessment , Head to toe Assessment , Medications. Response: After interactions and interventions patient responded in the following manner, Disorganized , Calm ,Compliant. Continue to assess behaviors and condition will continue to monitor throughout the shift as needed. Patient educated on ADL's, and hand hygiene. Plan: Continue to monitor Master Treatment Plan for patient's progress toward short term goals of Decreased Agitation, Decreased Anxiety, [facility] goals to return to previous living setting vs placement. Continue to assess patient for changes in above assessment. Monitor for medication needs, pain, and safety concerns. Hourly rounding performed to ensure safe environment.
--- NOTE | 2017-01-30 14:30 | NUR ---
patient is asleep since breakfast. Held 1400 seroquel 75mg at this time. Addendum: 01/30/17 at 1532 by MIGUELINA SENIOR RN dosage of seroquel reduced. Seroquel 25mg BID 0900,1400. Remains seroquel 150mg at HS per Dr. Moody in treatment team.
--- NOTE | 2017-01-30 15:00 | NUR ---
WEEKLY THERAPEUTIC RECREATION NOTE Date of Admission: 01/05/2017 Date of AT Assessment: 01/09/2017 Goal aimed: to increase relaxation Initial goal: Pt. will participate in all sensory stimulation activities. Weekly progress towards goal: on track, no sensory stimulation specific groups this week Group participation level: none besides occasional coffee group Behaviors observed: Pt. sleeping more often and grabbing and squeezing hands of staff for frequently. When awake, she repeats "ok, ok, ok," and is difficult to redirect. Plan: no changes to goal
[2017-01-30 16:08] VITALS: BP 129/69
[2017-01-30] MEDS: QUEtiapine 50 MG TABLET. PO SCH (20:18)
[2017-01-30] MEDS: MIRTAZAPINE 7.5 MG TABLET. PO SCH (20:18)
[2017-01-30] MEDS: MEMANTINE 10 MG TABLET. PO SCH (20:19)
[2017-01-30] MEDS: traZODone 50 MG TABLET. PO PRN (20:21)
--- NOTE | 2017-01-30 22:18 | NUR ---
Behavior Intervention Response and Plan: BIRP Note: Behavior: Assumed Care of patient, patient located in Day Room at shift change. Patient exhibited the following behavior Restless, Disorganized, . Brief assessment on rounds of vital signs, medication needs, lab studies, and pain. Treatment plan problems 1 and 2. Intervention: Patient assessed and the following interventions initiated safety checks 15 Minute Checks Cognitive Assessment , Head to toe Assessment , Medications. Response: After interactions and interventions patient responded in the following manner, Restless , Compulsive ,Compliant. Continue to assess behaviors and condition will continue to monitor throughout the shift as needed. Patient educated on ADL's, and hand hygiene. Plan: Continue to monitor Master Treatment Plan for patient's progress toward short term goals of Decreased Agitation, Decreased Aggression, [facility] goals to return to previous living setting vs placement. Continue to assess patient for changes in above assessment. Monitor for medication needs, pain, and safety concerns. Hourly rounding performed to ensure safe environment.
--- NOTE | 2017-01-31 04:14 | PN ---
DATE: 01/30/2017 SUBJECTIVE: The patient was seen today, met with the staff, chart reviewed, and covering for Dr. Minaya. Staff reports no major problems except for increased sedation. The patient also sleeping excessively and also she is a fall risk. OBSERVATION: Temperature 97.9, blood pressure 152/67, pulse 90, respirations 24, O2 sat 95%. The patient slept about 7 hours last night. The patient's appetite is fair. The patient is not having any physical complaints. The patient's lab reviewed. MEDICATIONS: The patient's current medications include Seroquel 25 mg b.i.d., Trileptal 300 mg b.i.d., trazodone 50 mg at night p.r.n., __ at night, mirtazapine 7.5 mg at night, Seroquel 150 mg at night, Namenda 10 mg at night. 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 PLAN: The patient's Seroquel will be decreased to 25 mg b.i.d. and 150 at night. ODILON EMERY MD DR: GURDEEP/shelley JOB#: [id number] / [id number]
[2017-01-31] MEDS: LEVOTHYROXINE 75 MCG TABLET PO SCH (05:32)
[2017-01-31 05:58] VITALS: BP 100/60
[2017-01-31] MEDS: POLYETHYLENE GLYCOL 3350 17 GM PACKET. PO SCH (08:08)
[2017-01-31] MEDS: CALCIUM CARB/VIT D3 500/200 TABLET PO SCH ×2 (08:08→20:14)
[2017-01-31] MEDS: MULTIVITAMIN with MINERAL TABLET. PO SCH (08:08)
[2017-01-31] MEDS: PANTOPRAZOLE 40 MG PACKET. PO SCH (08:08)
[2017-01-31] MEDS: OXcarbazepine 150 MG TABLET. PO SCH ×2 (08:08→20:14)
[2017-01-31] MEDS: SENNOSIDES 8.6 MG TABLET PO SCH ×2 (08:08→20:14)
[2017-01-31] MEDS: NEO/POLYMYX/DEXAMETH OPHTH SUSPENSION 5ML BOTTLE. OU SCH ×3 (08:09→20:17)
[2017-01-31] MEDS: DEXTROMETHORPHAN/QUINIDINE 20/10MG CAPSULE. PO SCH ×2 (08:09→20:14)
[2017-01-31] MEDS: QUEtiapine 25 MG TABLET. PO SCH ×2 (08:11→13:39)
--- NOTE | 2017-01-31 10:14 | NUR ---
Behavior Intervention Response and Plan: BIRP Note: Behavior: Assumed Care of patient, patient located in Patient Room at shift change. Patient exhibited the following behavior Disorganized, Calm, Sleeping. Brief assessment on rounds of vital signs, medication needs, lab studies, and pain. Treatment plan problems . Intervention: Patient assessed and the following interventions initiated safety checks 15 Minute Checks Cognitive Assessment , Head to toe Assessment , Medications. Response: After interactions and interventions patient responded in the following manner, Disorganized , Calm ,Sleeping. Continue to assess behaviors and condition will continue to monitor throughout the shift as needed. Patient educated on ADL's, and hand hygiene. 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 Continue to assess patient for changes in above assessment. Monitor for medication needs, pain, and safety concerns. Hourly rounding performed to ensure safe environment.
[2017-01-31 16:12] VITALS: BP 148/68
--- NOTE | 2017-01-31 16:19 | NUR ---
pt up for meals. returned to bed after meals. very sleepy. compliant with meds and cares.
--- NOTE | 2017-01-31 16:24 | PN ---
DATE: 01/31/2017 PSYCHIATRIC EVALUATION SUBJECTIVE: The patient was seen today, met with the staff, chart reviewed. Staff reports continued fluctuating behavior problems and the patient at times is very sedated and when she awake, she is hyperirritable, constantly havering. OBSERVATION: VITAL SIGNS: Temperature 98.1, blood pressure 100/60, pulse 74, respirations 18, O2 sat 97%. Slept about 6 hours last night. LABORATORY DATA: The patient's lab reviewed, no change. CURRENT MEDICATIONS: Seroquel 25 mg b.i.d., Trileptal 300 mg b.i.d., fluvoxamine 75 mg at night, mirtazapine 7.5 mg at night. She is also on Seroquel 150 mg at night, Namenda 10 mg at night. The patient apparently is not presenting with any major side effects. 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 PLAN: To continue with the treatment. ODILON EMERY MD DR: GURDEEP/shelley JOB#: [id number] / [id number]
[2017-01-31] MEDS: MIRTAZAPINE 7.5 MG TABLET. PO SCH (20:14)
[2017-01-31] MEDS: QUEtiapine 50 MG TABLET. PO SCH (20:14)
[2017-01-31] MEDS: MEMANTINE 10 MG TABLET. PO SCH (20:14)
[2017-01-31] MEDS: traZODone 50 MG TABLET. PO PRN (20:15)
--- NOTE | 2017-01-31 22:40 | NUR ---
Behavior Intervention Response and Plan: BIRP Note: Behavior: Assumed Care of patient, patient located in Patient Room at shift change. Patient exhibited the following behavior Restless, Disorganized, Anxious. Brief assessment on rounds of vital signs, medication needs, lab studies, and pain. Treatment plan problems 1 and 2. Intervention: Patient assessed and the following interventions initiated safety checks 15 Minute Checks Cognitive Assessment , Head to toe Assessment , Medications. Response: After interactions and interventions patient responded in the following manner, Calm , Compliant ,Drowsy. Continue to assess behaviors and condition will continue to monitor throughout the shift as needed. Patient educated on ADL's, and hand hygiene. Plan: Continue to monitor Master Treatment Plan for patient's progress toward short term goals of Decreased Agitation, Decreased Anxiety, half-way goals to return to previous living setting vs placement. Continue to assess patient for changes in above assessment. Monitor for medication needs, pain, and safety concerns. Hourly rounding performed to ensure safe environment.
[2017-02-01] MEDS: LEVOTHYROXINE 75 MCG TABLET PO SCH (05:01)
[2017-02-01 05:52] VITALS: BP 148/66
[2017-02-01 06:15] LABS: BASO # 0.1 x10^3/uL (0.0-0.2); BASO % 1 % (0-3); EOS # 0.5 x10^3/uL (0.0-0.7); EOS % 6 % (0-3); HEMATOCRIT 33.1 % (36.0-47.0); HEMOGLOBIN 10.9 g/dL (12.0-15.5); LYMPH # 1.9 x10^3/uL (1.0-4.8); LYMPH % 24 % (24-48); MEAN CORPUSCULAR HEMOGLOBIN 28 pg (25-35); MEAN CORPUSCULAR HGB CONC 33 g/dL (31-37); MEAN CORPUSCULAR VOLUME 86 fL (79-100); MONO # 0.9 x10^3/uL (0.0-1.1); MONO % 11 % (0-9); NEUT # 4.6 x10^3uL (1.8-7.7); NEUT % 58 % (31-73); PLATELET COUNT 248 x10^3/uL (140-400); RED BLOOD COUNT 3.87 x10^6/uL (3.50-5.40); RED CELL DISTRIBUTION WIDTH 16.6 % (11.5-14.5); WHITE BLOOD COUNT 7.9 x10^3/uL (4.0-11.0)
[2017-02-01 06:30] LABS: ALBUMIN 2.7 g/dL (3.4-5.0); ALBUMIN/GLOBULIN RATIO 0.6 (1.0-1.7); CALCIUM 8.8 mg/dL (8.5-10.1); CREATININE 0.9 mg/dL (0.6-1.0); GFR 59.7; POTASSIUM 4.1 mmol/L (3.5-5.1); TOTAL BILIRUBIN 0.3 mg/dL (0.2-1.0); TOTAL PROTEIN 7.5 g/dL (6.4-8.2)
[2017-02-01] MEDS: SENNOSIDES 8.6 MG TABLET PO SCH ×2 (07:43→19:23)
[2017-02-01] MEDS: POLYETHYLENE GLYCOL 3350 17 GM PACKET. PO SCH (07:43)
[2017-02-01] MEDS: CALCIUM CARB/VIT D3 500/200 TABLET PO SCH ×2 (07:44→19:23)
[2017-02-01] MEDS: MULTIVITAMIN with MINERAL TABLET. PO SCH (07:44)
[2017-02-01] MEDS: OXcarbazepine 150 MG TABLET. PO SCH ×2 (07:44→19:24)
[2017-02-01] MEDS: QUEtiapine 25 MG TABLET. PO SCH ×2 (07:44→14:08)
[2017-02-01] MEDS: PANTOPRAZOLE 40 MG PACKET. PO SCH (07:44)
[2017-02-01] MEDS: NEO/POLYMYX/DEXAMETH OPHTH SUSPENSION 5ML BOTTLE. OU SCH ×3 (07:46→19:22)
[2017-02-01] MEDS: DEXTROMETHORPHAN/QUINIDINE 20/10MG CAPSULE. PO SCH ×2 (07:47→19:25)
--- NOTE | 2017-02-01 10:20 | NUR ---
Behavior Intervention Response and Plan: BIRP Note: Behavior: Assumed Care of patient, patient located in Patient Room at shift change. Patient exhibited the following behavior Restless, Disorganized, Anxious. Brief assessment on rounds of vital signs, medication needs, lab studies, and pain. Treatment plan problems 1 & 2. Intervention: Patient assessed and the following interventions initiated safety checks 15 Minute Checks Cognitive Assessment , Head to toe Assessment , Medications. Response: After interactions and interventions patient responded in the following manner, Calm , Appropriate ,Compliant. Continue to assess behaviors and condition will continue to monitor throughout the shift as needed. Patient educated on ADL's, and hand hygiene. Plan: Continue to monitor Master Treatment Plan for patient's progress toward short term goals of Decreased Agitation, Decreased Anxiety, long-term goals to return to previous living setting vs placement. Continue to assess patient for changes in above assessment. Monitor for medication needs, pain, and safety concerns. Hourly rounding performed to ensure safe environment.
--- NOTE | 2017-02-01 11:08 | NUR ---
SW sat w/Pt. at table in day room. PT. was sitting by herself w/a color page and crayons, repeating "ok". SW attempted to engage PT., Pt. was able to respond to some of SW's questions and compliments. SW attempted to assist PT. in coloring the picture, however, Pt. became confused w/the crayons and attempted to eat them several times. SW redirected and then put crayons up to keep Pt. safe.
[2017-02-01 15:53] VITALS: BP 156/69
[2017-02-01] MEDS: QUEtiapine 50 MG TABLET. PO SCH (19:23)
[2017-02-01] MEDS: MIRTAZAPINE 7.5 MG TABLET. PO SCH (19:23)
[2017-02-01] MEDS: MEMANTINE 10 MG TABLET. PO SCH (19:24)
[2017-02-01] MEDS: traZODone 50 MG TABLET. PO PRN (19:26)
--- NOTE | 2017-02-01 19:52 | PN ---
DATE: 02/01/2017 SUBJECTIVE: The patient was seen today, met with the staff, chart reviewed. The patient's behavior has improved slightly, still irritable, when she is awake constantly hollering. Staff denies of any falls. OBSERVATION: VITAL SIGNS: Temperature 96.9, blood pressure 148/66, pulse 78, respirations 22, and O2 sat 93%. Slept about 9 hours last night. MEDICATIONS: Include Seroquel 25 mg b.i.d., Trileptal 300 mg b.i.d., fluvoxamine 75 mg at night, mirtazapine 7.5 mg at night. The patient is also on Namenda 10 mg at night and Seroquel 150 mg at night. The patient is not showing any major side effects to the medication. 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 PLAN: To continue with the treatment. ODILON EMERY MD DR: GURDEEP/shelley JOB#: [id number] / [id number]
--- NOTE | 2017-02-01 23:00 | NUR ---
Behavior Intervention Response and Plan: BIRP Note: Behavior: Assumed Care of patient, patient located in Patient Room at shift change. Patient exhibited the following behavior repetitive speech pattern, says "Ok" over and over, grabbing at nurses arm, confused, anxious. Brief assessment on rounds of vital signs, medication needs, lab studies, and pain. Treatment plan problems 1-2. Intervention: Patient assessed and the following interventions initiated safety checks 15 Minute Checks Cognitive Assessment , Head to toe Assessment , Medications. Response: After interactions and interventions patient responded in the following manner, Disorganized , Calm , drowsy. Continue to assess behaviors and condition will continue to monitor throughout the shift as needed. Patient educated on ADL's, and hand hygiene. 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 Continue to assess patient for changes in above assessment. Monitor for medication needs, pain, and safety concerns. Hourly rounding performed to ensure safe environment.
[2017-02-02 05:28] VITALS: BP 154/77
[2017-02-02] MEDS: LEVOTHYROXINE 75 MCG TABLET PO SCH (06:15)
[2017-02-02] MEDS: POLYETHYLENE GLYCOL 3350 17 GM PACKET. PO SCH (07:36)
[2017-02-02] MEDS: CALCIUM CARB/VIT D3 500/200 TABLET PO SCH ×2 (07:36→19:26)
[2017-02-02] MEDS: SENNOSIDES 8.6 MG TABLET PO SCH ×2 (07:36→19:25)
[2017-02-02] MEDS: OXcarbazepine 150 MG TABLET. PO SCH ×2 (07:36→19:25)
[2017-02-02] MEDS: PANTOPRAZOLE 40 MG PACKET. PO SCH (07:36)
[2017-02-02] MEDS: QUEtiapine 25 MG TABLET. PO SCH ×2 (07:36→13:59)
[2017-02-02] MEDS: MULTIVITAMIN with MINERAL TABLET. PO SCH (07:36)
[2017-02-02] MEDS: NEO/POLYMYX/DEXAMETH OPHTH SUSPENSION 5ML BOTTLE. OU SCH ×3 (09:17→19:27)
[2017-02-02] MEDS: DEXTROMETHORPHAN/QUINIDINE 20/10MG CAPSULE. PO SCH ×2 (09:18→19:27)
--- NOTE | 2017-02-02 09:30 | NUR ---
Behavior Intervention Response and Plan: BIRP Note: Behavior: Assumed Care of patient, patient located in Patient Room at shift change. Patient exhibited the following behavior Disorganized, Calm, Sleeping. Brief assessment on rounds of vital signs, medication needs, lab studies, and pain. Treatment plan problems . Intervention: Patient assessed and the following interventions initiated safety checks 15 Minute Checks Cognitive Assessment , Head to toe Assessment , Medications. Response: After interactions and interventions patient responded in the following manner, Disorganized , Calm ,Sleeping. Continue to assess behaviors and condition will continue to monitor throughout the shift as needed. Patient educated on ADL's, and hand hygiene. Plan: Continue to monitor Master Treatment Plan for patient's progress toward short term goals of Decreased Agitation, Decreased Aggression, halfway goals to return to previous living setting vs placement. Continue to assess patient for changes in above assessment. Monitor for medication needs, pain, and safety concerns. Hourly rounding performed to ensure safe environment.
--- NOTE | 2017-02-02 16:09 | NUR ---
pt up for meals in wc. still repeats okay, okay but is a lower volume. compliant with meds in pudding. has been drowsy on and off today.
[2017-02-02 16:33] VITALS: BP 170/72
[2017-02-02] MEDS: QUEtiapine 50 MG TABLET. PO SCH (19:25)
[2017-02-02] MEDS: MIRTAZAPINE 7.5 MG TABLET. PO SCH (19:26)
[2017-02-02] MEDS: MEMANTINE 10 MG TABLET. PO SCH (19:26)
--- NOTE | 2017-02-02 20:59 | PDOC ---
Exam Note: Ronen Note: Please also refer to the separate dictated note~for this date of service dictated separately.~Patient seen individually. Discussed the patient with Nursing staff reviewed the chart.~Reviewed interim history and current functioning. Reviewed vital signs,~Labs/ Radiology~and current medications noted below. Continue current treatment with the changes noted in the dictated addendum note Assessment: Vital Signs: Vital Signs Date Time Temp Pulse Resp B/P (MAP) Pulse Ox O2 Delivery O2 Flow Rate FiO2 02/02/17 16:33 98.7 73 20 170/72 (104) 96 02/02/17 05:31 Room Air I&O Intake and Output 02/02/17 07:00 Intake Total 960 ml Balance 960 ml Intake Oral 960 ml # Voids 1 # Bowel Movements 1 Current Medications: Meds: Current Medications Lorazepam (Ativan) 0.5 mg PRN Q4HRS PRN PO ANXIETY / AGITATION Last administered on 01/12/17 06:08; Start 01/05/17 at 16:45; Stop 01/12/17 at 19: 11; Status DC Acetaminophen (Tylenol) 500 mg Q6HRS PRN PO PAIN / TEMP Last administered on 07:56; Start 01/05/17 at 17:00; Stop 01/13/17 at 14:02; Status DC Bisacodyl (Dulcolax Supp) 10 mg PRN DAILY PRN RC CONSTIPATION Last administered on 01/19/17 19:54; Start 01/05/17 at 17:00 Calcium/Vitamin D (Oscal D 500mg/ 200uts) 1 tab BID PO Last administered on 19:26; Start 01/05/17 at 21:00 Levothyroxine Sodium (Synthroid) 75 mcg DAILY06 PO Last administered on 06:15; Start 01/06/17 at 06:00 Multi-Ingredient Ointment (Analgesic [place]) 1 peewee PRN QID PRN TP muscle pain; Start 01/05/17 at 17:00 Neomycin/ Polymyxin/ Dexamethasone (Maxitrol) 2 drop TID OU Last administered on 02/02/17 19:27; Start 01/05/17 at 21:00 Sennosides (Senna) 8.6 mg BID PO Last administered on 02/02/17 19:25; Start 01/05/17 at 21:00 Al Hydroxide/Mg Hydroxide (Mylanta Plus Xs) 15 ml PRN AFTMEALHC PRN PO DYSPEPSIA; Start 01/05/17 at 17:15 Magnesium Hydroxide (Milk Of Magnesia) 2,400 mg PRN QHS PRN PO CONSTIPATION Last administered on 01/28/17 14:23; Start 01/05/17 at 17:15 Multivitamins/ Calcium (Thera-M Plus) 1 tab DAILY PO Last administered on 02/02 07:36; Start 01/06/17 at 09:00 Pantoprazole Sodium (Protonix) 40 mg DAILYAC PO Last administered on 08:43; Start 01/06/17 at 07:30; Stop 01/09/17 at 07:50; Status DC Citalopram Hydrobromide (CeleXA) 10 mg DAILY PO Last administered on 10:09; Start 01/06/17 at 09:00; Stop 01/07/17 at 19:34; Status DC Memantine (Namenda) 10 mg HS PO Last administered on 02/02/17 19:26; Start 01/05/17 at 21:00 Quetiapine Fumarate (SEROquel) 150 mg QHS PO Last administered on 02/02/17 19 :25; Start 01/05/17 at 21:00 Quetiapine Fumarate (SEROquel) 50 mg BID92 PO Last administered on 01/10/17 14 :06; Start 01/06/17 at 09:00; Stop 01/10/17 at 19:13; Status DC Ziprasidone (Geodon) 40 mg DAILY PO Last administered on 01/11/17 09:21; Start 01/06/17 at 09:00; Stop 01/11/17 at 18:37; Status DC Pneumococcal Polyvalent Vaccine (Pneumovax 23) 0.5 ml ONCE ONCE VAX IM Last administered on 01/07/17 23:11; Start 01/07/17 at 21:00; Stop 01/07/17 at 21 :01; Status DC Influenza Virus Vaccine Quadrival (Fluarix Quad [id number] Syringe) 0.5 ml ONCE ONCE VAX IM Last administered on 01/07/17 23:13; Start 01/07/17 at 21:00; Stop 01/07/17 at 21:01; Status DC Fluvoxamine Maleate (Luvox) 25 mg HS PO Last administered on 01/09/17 19:47; Start 01/07/17 at 21:00; Stop 01/10/17 at 20:59; Status DC Fluvoxamine Maleate (Luvox) 50 mg HS PO Last administered on 01/23/17 19:56; Start 01/10/17 at 21:00; Stop 01/24/17 at 19:14; Status DC Pantoprazole Sodium (Protonix Packet) 40 mg DAILYAC PO Last administered on 07:36; Start 01/09/17 at 08:15 Quetiapine Fumarate (SEROquel) 75 mg BID92 PO Last administered on 01/27/17 07:41; Start 01/11/17 at 09:00; Stop 01/27/17 at 15:53; Status DC Clonazepam (KlonoPIN) 0.25 mg DAILY PO Last administered on 01/19/17 10:20; Start 01/12/17 at 09:00; Stop 01/19/17 at 17:57; Status DC Clonazepam (KlonoPIN) 0.5 mg STK-MED ONCE .ROUTE Last administered on 06:37; Start 01/12/17 at 06:37; Stop 01/12/17 at 06:38; Status DC Magnesium Citrate (Citroma) 296 ml PRN 1X PRN PO CONSTIPATION Last administered on 01/12/17 19:34; Start 01/12/17 at 07:45 Lorazepam (Ativan) 0.25 mg PRN Q4HRS PRN PO ANXIETY / AGITATION Last administered on 01/14/17 23:14; Start 01/12/17 at 19:15; Stop 01/15/17 at 19:30 ; Status DC Sodium Biphosphate/ Sodium Phosphate (Fleet Adult) 133 ml 1X ONCE OH Last administered on 01/13/17 15:24; Start 01/13/17 at 14:15; Stop 01/13/17 at 14:16 ; Status DC Polyethylene Glycol (miraLAX) 17 gm DAILY PO Last administered on 02/02/17 07 :36; Start 01/14/17 at 09:00 Polyethylene Glycol (miraLAX) 17 gm 1X ONCE PO Last administered on 01/13/17 17:26; Start 01/13/17 at 14:00; Stop 01/13/17 at 14:01; Status DC Acetaminophen (Tylenol) 500 mg PRN Q6HRS PRN PO PAIN / TEMP Last administered on 01/20/17 18:25; Start 01/13/17 at 14:15 Divalproex Sodium (Depakote Sprinkles) 125 mg BID92 PO ; Start 01/15/17 at 09:00 ; Status UNV Oxcarbazepine (Trileptal) 150 mg BID92 PO Last administered on 01/16/17 14:17 ; Start 01/15/17 at 09:00; Stop 01/16/17 at 17:31; Status DC Sodium Chloride 1,000 ml @ 1,000 mls/hr 1X ONCE IV Last administered on 13:50; Start 01/15/17 at 12:00; Stop 01/15/17 at 12:59; Status DC Oxcarbazepine (Trileptal) 150 mg HS PO Last administered on 01/25/17 19:27; Start 01/16/17 at 21:00; Stop 01/26/17 at 18:37; Status DC Oxcarbazepine (Trileptal) 300 mg DAILY PO Last administered on 01/26/17 07:49 ; Start 01/17/17 at 09:00; Stop 01/26/17 at 18:38; Status DC Olanzapine (ZyPREXA ZYDIS) 0.125 mg PRN Q4HRS PRN PO PSYCHOSIS Last administered on 01/27/17 22:00; Start 01/18/17 at 19:00; Stop 02/02/17 at 10 :57; Status DC Mirtazapine (Remeron) 7.5 mg QHS PO Last administered on 02/02/17 19:26; Start 01/23/17 at 21:00 Fluvoxamine Maleate (Luvox) 75 mg HS PO Last administered on 02/02/17 19:26; Start 01/24/17 at 21:00 Oxcarbazepine (Trileptal) 300 mg BID PO Last administered on 02/02/17 19:25; Start 01/26/17 at 21:00 Trazodone HCl (Desyrel) 50 mg PRN QHS PRN PO INSOMNIA, MAY REPEAT X1 Last administered on 02/01/17 19:26; Start 01/26/17 at 18:45 Quetiapine Fumarate (SEROquel) 75 mg BID92 PO Last administered on 01/30/17 07:55; Start 01/28/17 at 09:00; Stop 01/30/17 at 15:33; Status DC Quetiapine Fumarate (SEROquel) 25 mg BID92 PO Last administered on 02/02/17 13:59; Start 01/31/17 at 09:00 Olanzapine (ZyPREXA ZYDIS) 1.25 mg PRN Q4HRS PRN PO PSYCHOSIS; Start 02/02/17 at 10:57 Active Scripts Active Reported Synthroid (Levothyroxine Sodium) 75 Mcg Tablet 1 Tab PO DAILY06 Senokot (Sennosides) 8.6 Mg Tablet 1 Tab PO BID Seroquel (Quetiapine Fumarate) 50 Mg Tablet 1 Tab PO BID92 Omeprazole 20 Mg Capsule.dr 1 Cap PO DAILY Nuedexta 20-10 Mg Capsule (Dextromethorphan Hbr/Quinidine) 1 Each Capsule 1 Each PO BID Multivitamins (Multivitamin) 1 Each Tablet 1 Tab PO DAILY Namenda (Memantine Hcl) 10 Mg Tablet 10 Mg PO HS Maxitrol Eye Drops (Jhonathan/Polymyx B Sulf/Dexameth) 5 Ml Drops.susp 2 Drop OU TID Geodon (Ziprasidone Hcl) 40 Mg Capsule 40 Mg PO DAILY Celexa (Citalopram Hydrobromide) 10 Mg Tablet 10 Mg PO DAILY Calcium 500 + Vit D 200 Tablet (Calcium Carbonate/Vitamin D3) 1 Each Tablet 1 Each PO BID Bisacodyl 10 Mg Supp.rect 10 Mg RC PRN DAILY PRN Acetaminophen 500 Mg Tablet 1 Tab PO Q6HRS PRN Mag-Al Plus Suspension (Mag Hydrox/Al Hydrox/Simeth) 30 Ml Oral.susp 15 Ml PO PRN AFTMEALHC PRN Seroquel (Quetiapine Fumarate) 25 Mg Tablet 150 Mg PO HS Analgesic [place] (Methyl Salicylate/Menthol) 29 Gm Oint...g. 1 Peewee TP PRN QID PRN Milk Of Magnesia (Magnesium Hydroxide) 2,400 Mg/10 Ml Oral.susp 2,400 Mg PO PRN QHS PRN I have reviewed the current psychotropics carefully including drug interactions. Risk benefit ratio favors no change other than as noted in my dictated progress note. 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
[2017-02-02] MEDS: ACETAMINOPHEN 500 MG TABLET PO PRN (22:24)
--- NOTE | 2017-02-02 22:50 | NUR ---
Behavior Intervention Response and Plan: BIRP Note: Behavior: Assumed Care of patient, patient located in Patient Room at shift change. Patient exhibited the following behavior Restless, Disorganized, Cooperative. Brief assessment on rounds of vital signs, medication needs, lab studies, and pain. Treatment plan problems:1-2 Intervention: Patient assessed and the following interventions initiated safety checks 15 Minute Checks Cognitive Assessment , Head to toe Assessment , Medications. Response: After interactions and interventions patient responded in the following manner, Restless , Disorganized ,Compliant. Continue to assess behaviors and condition will continue to monitor throughout the shift as needed. Patient educated on ADL's, and hand hygiene. 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 Continue to assess patient for changes in above assessment. Monitor for medication needs, pain, and safety concerns. Hourly rounding performed to ensure safe environment.
[2017-02-03] MEDS: LEVOTHYROXINE 75 MCG TABLET PO SCH (05:38)
[2017-02-03 06:21] VITALS: BP 150/80
[2017-02-03] MEDS: SENNOSIDES 8.6 MG TABLET PO SCH ×2 (08:14→19:44)
[2017-02-03] MEDS: OXcarbazepine 150 MG TABLET. PO SCH ×2 (08:14→19:44)
[2017-02-03] MEDS: CALCIUM CARB/VIT D3 500/200 TABLET PO SCH ×2 (08:14→19:43)
[2017-02-03] MEDS: PANTOPRAZOLE 40 MG PACKET. PO SCH (08:14)
[2017-02-03] MEDS: POLYETHYLENE GLYCOL 3350 17 GM PACKET. PO SCH (08:14)
[2017-02-03] MEDS: DEXTROMETHORPHAN/QUINIDINE 20/10MG CAPSULE. PO SCH ×2 (08:15→19:47)
[2017-02-03] MEDS: QUEtiapine 25 MG TABLET. PO SCH ×2 (08:15→14:00)
[2017-02-03] MEDS: MULTIVITAMIN with MINERAL TABLET. PO SCH (08:15)
[2017-02-03] MEDS: NEO/POLYMYX/DEXAMETH OPHTH SUSPENSION 5ML BOTTLE. OU SCH ×3 (08:16→19:48)
--- NOTE | 2017-02-03 09:30 | NUR ---
Behavior Intervention Response and Plan: BIRP Note: Behavior: Assumed Care of patient, patient located in Patient Room at shift change. Patient exhibited the following behavior Disorganized, Calm, Sleeping. Brief assessment on rounds of vital signs, medication needs, lab studies, and pain. Treatment plan problems . Intervention: Patient assessed and the following interventions initiated safety checks 15 Minute Checks Cognitive Assessment , Head to toe Assessment , Medications. Response: After interactions and interventions patient responded in the following manner, Disorganized , Calm ,Sleeping. Continue to assess behaviors and condition will continue to monitor throughout the shift as needed. Patient educated on ADL's, and hand hygiene. Plan: Continue to monitor Master Treatment Plan for patient's progress toward short term goals of Decreased Agitation, Decreased Aggression, [facility] goals to return to previous living setting vs placement. Continue to assess patient for changes in above assessment. Monitor for medication needs, pain, and safety concerns. Hourly rounding performed to ensure safe environment.
--- NOTE | 2017-02-03 15:45 | NUR ---
pt up for meals. still repeating "okay, okay". compliant with meds and cares. resting quietly this afternoon.
[2017-02-03 15:59] VITALS: BP 168/92
--- NOTE | 2017-02-03 18:55 | PN ---
DATE: 02/02/2017 PSYCHIATRIC PROGRESS NOTE This late entry 02/02/2017 covers elements, not covered in my initial note of 02/02/2017. I met with the patient evening of 02/02/2017. Reviewed information from Dr. Toledo. The patient continues to repeat okay, okay over and over, compliant with medications that are hidden in food and fluids. At times, she is somewhat aggressive, trying to grab the arms of anyone around her, difficult to redirect. REVIEW OF SYSTEMS: No CV, , pulmonary, eye, ENT system symptoms on review. Reliability poor. MENTAL STATUS EXAM: Oriented to herself. Insight, judgment, recent and remote memory, attention, concentration, fund of knowledge poor, consistent with her diagnosis mentioned in my initial note. PLAN: Continue current psychotropics mentioned in my initial note. Reviewed drug interactions. Increase the Luvox to 100 mg p.o. at bedtime. Risk/benefit ratio favors no further change with the Luvox should help some of her obsessive, repetitive ruminations and verbalizations. Reviewed information with Dr. Toledo since Dr. Toledo had covered for me over the past several days. MAN Abdullahi STOVER MD DR: AMOL/shelley JOB#: [id number] / [id number]
[2017-02-03] MEDS: QUEtiapine 50 MG TABLET. PO SCH (19:43)
[2017-02-03] MEDS: MEMANTINE 10 MG TABLET. PO SCH (19:43)
[2017-02-03] MEDS: MIRTAZAPINE 7.5 MG TABLET. PO SCH (19:43)
--- NOTE | 2017-02-03 19:54 | PDOC ---
Exam Note: Ronen Note: Please also refer to the separate dictated note~for this date of service dictated separately.~Patient seen individually. Discussed the patient with Nursing staff reviewed the chart.~Reviewed interim history and current functioning. Reviewed vital signs,~Labs/ Radiology~and current medications noted below. Continue current treatment with the changes noted in the dictated addendum note Assessment: Vital Signs: Vital Signs Date Time Temp Pulse Resp B/P (MAP) Pulse Ox O2 Delivery O2 Flow Rate FiO2 02/03/17 15:59 97.4 89 22 168/92 (117) 98 02/02/17 05:31 Room Air I&O Intake and Output 02/03/17 07:00 Intake Total 780 ml Balance 780 ml Intake Oral 780 ml # Voids 1 # Bowel Movements 2 Current Medications: Meds: Current Medications Lorazepam (Ativan) 0.5 mg PRN Q4HRS PRN PO ANXIETY / AGITATION Last administered on 01/12/17 06:08; Start 01/05/17 at 16:45; Stop 01/12/17 at 19: 11; Status DC Acetaminophen (Tylenol) 500 mg Q6HRS PRN PO PAIN / TEMP Last administered on 07:56; Start 01/05/17 at 17:00; Stop 01/13/17 at 14:02; Status DC Bisacodyl (Dulcolax Supp) 10 mg PRN DAILY PRN RC CONSTIPATION Last administered on 01/19/17 19:54; Start 01/05/17 at 17:00 Calcium/Vitamin D (Oscal D 500mg/ 200uts) 1 tab BID PO Last administered on 19:43; Start 01/05/17 at 21:00 Levothyroxine Sodium (Synthroid) 75 mcg DAILY06 PO Last administered on 05:38; Start 01/06/17 at 06:00 Multi-Ingredient Ointment (Analgesic [place]) 1 peewee PRN QID PRN TP muscle pain; Start 01/05/17 at 17:00 Neomycin/ Polymyxin/ Dexamethasone (Maxitrol) 2 drop TID OU Last administered on 02/03/17 19:48; Start 01/05/17 at 21:00 Sennosides (Senna) 8.6 mg BID PO Last administered on 02/03/17 19:44; Start 01/05/17 at 21:00 Al Hydroxide/Mg Hydroxide (Mylanta Plus Xs) 15 ml PRN AFTMEALHC PRN PO DYSPEPSIA; Start 01/05/17 at 17:15 Magnesium Hydroxide (Milk Of Magnesia) 2,400 mg PRN QHS PRN PO CONSTIPATION Last administered on 01/28/17 14:23; Start 01/05/17 at 17:15 Multivitamins/ Calcium (Thera-M Plus) 1 tab DAILY PO Last administered on 02/03 08:15; Start 01/06/17 at 09:00 Pantoprazole Sodium (Protonix) 40 mg DAILYAC PO Last administered on 08:43; Start 01/06/17 at 07:30; Stop 01/09/17 at 07:50; Status DC Citalopram Hydrobromide (CeleXA) 10 mg DAILY PO Last administered on 10:09; Start 01/06/17 at 09:00; Stop 01/07/17 at 19:34; Status DC Memantine (Namenda) 10 mg HS PO Last administered on 02/03/17 19:43; Start 01/05/17 at 21:00 Quetiapine Fumarate (SEROquel) 150 mg QHS PO Last administered on 02/03/17 19 :43; Start 01/05/17 at 21:00 Quetiapine Fumarate (SEROquel) 50 mg BID92 PO Last administered on 01/10/17 14 :06; Start 01/06/17 at 09:00; Stop 01/10/17 at 19:13; Status DC Ziprasidone (Geodon) 40 mg DAILY PO Last administered on 01/11/17 09:21; Start 01/06/17 at 09:00; Stop 01/11/17 at 18:37; Status DC Pneumococcal Polyvalent Vaccine (Pneumovax 23) 0.5 ml ONCE ONCE VAX IM Last administered on 01/07/17 23:11; Start 01/07/17 at 21:00; Stop 01/07/17 at 21 :01; Status DC Influenza Virus Vaccine Quadrival (Fluarix Quad 1384-0588 Syringe) 0.5 ml ONCE ONCE VAX IM Last administered on 01/07/17 23:13; Start 01/07/17 at 21:00; Stop 01/07/17 at 21:01; Status DC Fluvoxamine Maleate (Luvox) 25 mg HS PO Last administered on 01/09/17 19:47; Start 01/07/17 at 21:00; Stop 01/10/17 at 20:59; Status DC Fluvoxamine Maleate (Luvox) 50 mg HS PO Last administered on 01/23/17 19:56; Start 01/10/17 at 21:00; Stop 01/24/17 at 19:14; Status DC Pantoprazole Sodium (Protonix Packet) 40 mg DAILYAC PO Last administered on 08:14; Start 01/09/17 at 08:15 Quetiapine Fumarate (SEROquel) 75 mg BID92 PO Last administered on 01/27/17 07:41; Start 01/11/17 at 09:00; Stop 01/27/17 at 15:53; Status DC Clonazepam (KlonoPIN) 0.25 mg DAILY PO Last administered on 01/19/17 10:20; Start 01/12/17 at 09:00; Stop 01/19/17 at 17:57; Status DC Clonazepam (KlonoPIN) 0.5 mg STK-MED ONCE .ROUTE Last administered on 06:37; Start 01/12/17 at 06:37; Stop 01/12/17 at 06:38; Status DC Magnesium Citrate (Citroma) 296 ml PRN 1X PRN PO CONSTIPATION Last administered on 01/12/17 19:34; Start 01/12/17 at 07:45 Lorazepam (Ativan) 0.25 mg PRN Q4HRS PRN PO ANXIETY / AGITATION Last administered on 01/14/17 23:14; Start 01/12/17 at 19:15; Stop 01/15/17 at 19:30 ; Status DC Sodium Biphosphate/ Sodium Phosphate (Fleet Adult) 133 ml 1X ONCE [place] Last administered on 01/13/17 15:24; Start 01/13/17 at 14:15; Stop 01/13/17 at 14:16 ; Status DC Polyethylene Glycol (miraLAX) 17 gm DAILY PO Last administered on 02/03/17 08 :14; Start 01/14/17 at 09:00 Polyethylene Glycol (miraLAX) 17 gm 1X ONCE PO Last administered on 01/13/17 17:26; Start 01/13/17 at 14:00; Stop 01/13/17 at 14:01; Status DC Acetaminophen (Tylenol) 500 mg PRN Q6HRS PRN PO PAIN / TEMP Last administered on 02/02/17 22:24; Start 01/13/17 at 14:15 Divalproex Sodium (Depakote Sprinkles) 125 mg BID92 PO ; Start 01/15/17 at 09:00 ; Status UNV Oxcarbazepine (Trileptal) 150 mg BID92 PO Last administered on 01/16/17 14:17 ; Start 01/15/17 at 09:00; Stop 01/16/17 at 17:31; Status DC Sodium Chloride 1,000 ml @ 1,000 mls/hr 1X ONCE IV Last administered on 13:50; Start 01/15/17 at 12:00; Stop 01/15/17 at 12:59; Status DC Oxcarbazepine (Trileptal) 150 mg HS PO Last administered on 01/25/17 19:27; Start 01/16/17 at 21:00; Stop 01/26/17 at 18:37; Status DC Oxcarbazepine (Trileptal) 300 mg DAILY PO Last administered on 01/26/17 07:49 ; Start 01/17/17 at 09:00; Stop 01/26/17 at 18:38; Status DC Olanzapine (ZyPREXA ZYDIS) 0.125 mg PRN Q4HRS PRN PO PSYCHOSIS Last administered on 01/27/17 22:00; Start 01/18/17 at 19:00; Stop 02/02/17 at 10 :57; Status DC Mirtazapine (Remeron) 7.5 mg QHS PO Last administered on 02/03/17 19:43; Start 01/23/17 at 21:00 Fluvoxamine Maleate (Luvox) 75 mg HS PO Last administered on 02/02/17 19:26; Start 01/24/17 at 21:00; Stop 02/03/17 at 13:04; Status DC Oxcarbazepine (Trileptal) 300 mg BID PO Last administered on 02/03/17 19:44; Start 01/26/17 at 21:00 Trazodone HCl (Desyrel) 50 mg PRN QHS PRN PO INSOMNIA, MAY REPEAT X1 Last administered on 02/01/17 19:26; Start 01/26/17 at 18:45 Quetiapine Fumarate (SEROquel) 75 mg BID92 PO Last administered on 01/30/17 07:55; Start 01/28/17 at 09:00; Stop 01/30/17 at 15:33; Status DC Quetiapine Fumarate (SEROquel) 25 mg BID92 PO Last administered on 02/03/17 08:15; Start 01/31/17 at 09:00 Olanzapine (ZyPREXA ZYDIS) 1.25 mg PRN Q4HRS PRN PO PSYCHOSIS; Start 02/02/17 at 10:57 Fluvoxamine Maleate (Luvox) 100 mg HS PO Last administered on 02/03/17 19:46 ; Start 02/03/17 at 21:00 Active Scripts Active Reported Synthroid (Levothyroxine Sodium) 75 Mcg Tablet 1 Tab PO DAILY06 Senokot (Sennosides) 8.6 Mg Tablet 1 Tab PO BID Seroquel (Quetiapine Fumarate) 50 Mg Tablet 1 Tab PO BID92 Omeprazole 20 Mg Capsule.dr 1 Cap PO DAILY Nuedexta 20-10 Mg Capsule (Dextromethorphan Hbr/Quinidine) 1 Each Capsule 1 Each PO BID Multivitamins (Multivitamin) 1 Each Tablet 1 Tab PO DAILY Namenda (Memantine Hcl) 10 Mg Tablet 10 Mg PO HS Maxitrol Eye Drops (Jhonathan/Polymyx B Sulf/Dexameth) 5 Ml Drops.susp 2 Drop OU TID Geodon (Ziprasidone Hcl) 40 Mg Capsule 40 Mg PO DAILY Celexa (Citalopram Hydrobromide) 10 Mg Tablet 10 Mg PO DAILY Calcium 500 + Vit D 200 Tablet (Calcium Carbonate/Vitamin D3) 1 Each Tablet 1 Each PO BID Bisacodyl 10 Mg Supp.rect 10 Mg RC PRN DAILY PRN Acetaminophen 500 Mg Tablet 1 Tab PO Q6HRS PRN Mag-Al Plus Suspension (Mag Hydrox/Al Hydrox/Simeth) 30 Ml Oral.susp 15 Ml PO PRN AFTMEALHC PRN Seroquel (Quetiapine Fumarate) 25 Mg Tablet 150 Mg PO HS Analgesic [place] (Methyl Salicylate/Menthol) 29 Gm Oint...g. 1 [place] TP PRN QID PRN Milk Of Magnesia (Magnesium Hydroxide) 2,400 Mg/10 Ml Oral.susp 2,400 Mg PO PRN QHS PRN I have reviewed the current psychotropics carefully including drug interactions. Risk benefit ratio favors no change other than as noted in my dictated progress note. 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
--- NOTE | 2017-02-03 21:45 | NUR ---
Behavior Intervention Response and Plan: BIRP Note: Behavior: Assumed Care of patient, patient located in Day Room at shift change. Patient exhibited the following behavior Restless, Disorganized, Anxious. Brief assessment on rounds of vital signs, medication needs, lab studies, and pain. Treatment plan problems:1-2 Intervention: Patient assessed and the following interventions initiated safety checks 15 Minute Checks Cognitive Assessment , Head to toe Assessment , Medications. Response: After interactions and interventions patient responded in the following manner, Disorganized , Cooperative ,Compliant. Continue to assess behaviors and condition will continue to monitor throughout the shift as needed. Patient educated on ADL's, and hand hygiene. Plan: Continue to monitor Master Treatment Plan for patient's progress toward short term goals of Decreased Agitation, Improved Mood, retirement goals to return to previous living setting vs placement. Continue to assess patient for changes in above assessment. Monitor for medication needs, pain, and safety concerns. Hourly rounding performed to ensure safe environment.
[2017-02-04] MEDS: LEVOTHYROXINE 75 MCG TABLET PO SCH (05:49)
[2017-02-04 06:18] VITALS: BP 134/61
[2017-02-04] MEDS: OXcarbazepine 150 MG TABLET. PO SCH (08:18)
[2017-02-04] MEDS: CALCIUM CARB/VIT D3 500/200 TABLET PO SCH ×2 (08:18→19:16)
[2017-02-04] MEDS: POLYETHYLENE GLYCOL 3350 17 GM PACKET. PO SCH (08:18)
[2017-02-04] MEDS: MULTIVITAMIN with MINERAL TABLET. PO SCH (08:19)
[2017-02-04] MEDS: QUEtiapine 25 MG TABLET. PO SCH ×2 (08:19→14:26)
[2017-02-04] MEDS: SENNOSIDES 8.6 MG TABLET PO SCH ×2 (08:19→19:17)
[2017-02-04] MEDS: PANTOPRAZOLE 40 MG PACKET. PO SCH (08:19)
[2017-02-04] MEDS: NEO/POLYMYX/DEXAMETH OPHTH SUSPENSION 5ML BOTTLE. OU SCH ×3 (08:20→19:20)
[2017-02-04] MEDS: DEXTROMETHORPHAN/QUINIDINE 20/10MG CAPSULE. PO SCH ×2 (08:20→19:18)
--- NOTE | 2017-02-04 12:55 | NUR ---
KELLI contacted KELLI Venegas at [facility] to discuss updated target dc date set for later this week. KELLI encouraged facility to come out to do an on-site either Saturday or Saturday this week. This is a Facility standard for [facility], however, KELLI did discuss Pt. is their resident and will be returning regardless of their assessment findings. Rubi stated on Saturday she understood. Kelli then contacted Pt's dtr, Chen regarding target dc date. Riri is very concerned that Pt. has not progressed towards improvement. Her words to this KELLI were, "This is not working. We need to figure out something else". KELLI offered for Dr. Minaya to follow up w/Riri regarding her concerns and Riri was agreeable. KELLI has left a note for Dr. Minaya to follow up this evening.
[2017-02-04 15:52] VITALS: BP 145/75
--- NOTE | 2017-02-04 15:58 | NUR ---
Behavior Intervention Response and Plan: BIRP Note: Behavior: Assumed Care of patient, patient located in Dining Room at shift change. Patient exhibited the following behavior Disorganized, Compulsive, Compliant. Brief assessment on rounds of vital signs, medication needs, lab studies, and pain. Treatment plan problems . Intervention: Patient assessed and the following interventions initiated safety checks 15 Minute Checks Cognitive Assessment , Head to toe Assessment , Medications. Response: After interactions and interventions patient responded in the following manner, Disorganized , Calm ,Cooperative. Continue to assess behaviors and condition will continue to monitor throughout the shift as needed. Patient educated on ADL's, and hand hygiene. 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 Continue to assess patient for changes in above assessment. Monitor for medication needs, pain, and safety concerns. Hourly rounding performed to ensure safe environment.
[2017-02-04] MEDS: MIRTAZAPINE 7.5 MG TABLET. PO SCH (19:16)
[2017-02-04] MEDS: MEMANTINE 10 MG TABLET. PO SCH (19:16)
[2017-02-04] MEDS: QUEtiapine 50 MG TABLET. PO SCH (19:16)
--- NOTE | 2017-02-04 20:05 | PDOC ---
Exam Note: Ronen Note: Please also refer to the separate dictated note~for this date of service dictated separately.~Patient seen individually. Discussed the patient with Nursing staff reviewed the chart.~Reviewed interim history and current functioning. Reviewed vital signs,~Labs/ Radiology~and current medications noted below. Continue current treatment with the changes noted in the dictated addendum note Assessment: Vital Signs: Vital Signs Date Time Temp Pulse Resp B/P (MAP) Pulse Ox O2 Delivery O2 Flow Rate FiO2 02/04/17 15:52 98.4 83 20 145/75 (98) 93 0.0 02/02/17 05:31 Room Air I&O Intake and Output 02/04/17 07:00 Intake Total 800 ml Balance 800 ml Intake Oral 800 ml # Voids 1 # Bowel Movements 1 Current Medications: Meds: Current Medications Lorazepam (Ativan) 0.5 mg PRN Q4HRS PRN PO ANXIETY / AGITATION Last administered on 01/12/17 06:08; Start 01/05/17 at 16:45; Stop 01/12/17 at 19: 11; Status DC Acetaminophen (Tylenol) 500 mg Q6HRS PRN PO PAIN / TEMP Last administered on 07:56; Start 01/05/17 at 17:00; Stop 01/13/17 at 14:02; Status DC Bisacodyl (Dulcolax Supp) 10 mg PRN DAILY PRN RC CONSTIPATION Last administered on 01/19/17 19:54; Start 01/05/17 at 17:00 Calcium/Vitamin D (Oscal D 500mg/ 200uts) 1 tab BID PO Last administered on 19:16; Start 01/05/17 at 21:00 Levothyroxine Sodium (Synthroid) 75 mcg DAILY06 PO Last administered on 05:49; Start 01/06/17 at 06:00 Multi-Ingredient Ointment (Analgesic [place]) 1 peewee PRN QID PRN TP muscle pain; Start 01/05/17 at 17:00 Neomycin/ Polymyxin/ Dexamethasone (Maxitrol) 2 drop TID OU Last administered on 02/04/17 19:20; Start 01/05/17 at 21:00 Sennosides (Senna) 8.6 mg BID PO Last administered on 02/04/17 19:17; Start 01/05/17 at 21:00 Al Hydroxide/Mg Hydroxide (Mylanta Plus Xs) 15 ml PRN AFTMEALHC PRN PO DYSPEPSIA; Start 01/05/17 at 17:15 Magnesium Hydroxide (Milk Of Magnesia) 2,400 mg PRN QHS PRN PO CONSTIPATION Last administered on 01/28/17 14:23; Start 01/05/17 at 17:15 Multivitamins/ Calcium (Thera-M Plus) 1 tab DAILY PO Last administered on 02/04 08:19; Start 01/06/17 at 09:00 Pantoprazole Sodium (Protonix) 40 mg DAILYAC PO Last administered on 08:43; Start 01/06/17 at 07:30; Stop 01/09/17 at 07:50; Status DC Citalopram Hydrobromide (CeleXA) 10 mg DAILY PO Last administered on 10:09; Start 01/06/17 at 09:00; Stop 01/07/17 at 19:34; Status DC Memantine (Namenda) 10 mg HS PO Last administered on 02/04/17 19:16; Start 01/05/17 at 21:00 Quetiapine Fumarate (SEROquel) 150 mg QHS PO Last administered on 02/04/17 19 :16; Start 01/05/17 at 21:00 Quetiapine Fumarate (SEROquel) 50 mg BID92 PO Last administered on 01/10/17 14 :06; Start 01/06/17 at 09:00; Stop 01/10/17 at 19:13; Status DC Ziprasidone (Geodon) 40 mg DAILY PO Last administered on 01/11/17 09:21; Start 01/06/17 at 09:00; Stop 01/11/17 at 18:37; Status DC Pneumococcal Polyvalent Vaccine (Pneumovax 23) 0.5 ml ONCE ONCE VAX IM Last administered on 01/07/17 23:11; Start 01/07/17 at 21:00; Stop 01/07/17 at 21 :01; Status DC Influenza Virus Vaccine Quadrival (Fluarix Quad [id number] Syringe) 0.5 ml ONCE ONCE VAX IM Last administered on 01/07/17 23:13; Start 01/07/17 at 21:00; Stop 01/07/17 at 21:01; Status DC Fluvoxamine Maleate (Luvox) 25 mg HS PO Last administered on 01/09/17 19:47; Start 01/07/17 at 21:00; Stop 01/10/17 at 20:59; Status DC Fluvoxamine Maleate (Luvox) 50 mg HS PO Last administered on 01/23/17 19:56; Start 01/10/17 at 21:00; Stop 01/24/17 at 19:14; Status DC Pantoprazole Sodium (Protonix Packet) 40 mg DAILYAC PO Last administered on 08:19; Start 01/09/17 at 08:15 Quetiapine Fumarate (SEROquel) 75 mg BID92 PO Last administered on 01/27/17 07:41; Start 01/11/17 at 09:00; Stop 01/27/17 at 15:53; Status DC Clonazepam (KlonoPIN) 0.25 mg DAILY PO Last administered on 01/19/17 10:20; Start 01/12/17 at 09:00; Stop 01/19/17 at 17:57; Status DC Clonazepam (KlonoPIN) 0.5 mg STK-MED ONCE .ROUTE Last administered on 06:37; Start 01/12/17 at 06:37; Stop 01/12/17 at 06:38; Status DC Magnesium Citrate (Citroma) 296 ml PRN 1X PRN PO CONSTIPATION Last administered on 01/12/17 19:34; Start 01/12/17 at 07:45 Lorazepam (Ativan) 0.25 mg PRN Q4HRS PRN PO ANXIETY / AGITATION Last administered on 01/14/17 23:14; Start 01/12/17 at 19:15; Stop 01/15/17 at 19:30 ; Status DC Sodium Biphosphate/ Sodium Phosphate (Fleet Adult) 133 ml 1X ONCE [place] Last administered on 01/13/17 15:24; Start 01/13/17 at 14:15; Stop 01/13/17 at 14:16 ; Status DC Polyethylene Glycol (miraLAX) 17 gm DAILY PO Last administered on 02/04/17 08 :18; Start 01/14/17 at 09:00 Polyethylene Glycol (miraLAX) 17 gm 1X ONCE PO Last administered on 01/13/17 17:26; Start 01/13/17 at 14:00; Stop 01/13/17 at 14:01; Status DC Acetaminophen (Tylenol) 500 mg PRN Q6HRS PRN PO PAIN / TEMP Last administered on 02/02/17 22:24; Start 01/13/17 at 14:15 Divalproex Sodium (Depakote Sprinkles) 125 mg BID92 PO ; Start 01/15/17 at 09:00 ; Status UNV Oxcarbazepine (Trileptal) 150 mg BID92 PO Last administered on 01/16/17 14:17 ; Start 01/15/17 at 09:00; Stop 01/16/17 at 17:31; Status DC Sodium Chloride 1,000 ml @ 1,000 mls/hr 1X ONCE IV Last administered on 13:50; Start 01/15/17 at 12:00; Stop 01/15/17 at 12:59; Status DC Oxcarbazepine (Trileptal) 150 mg HS PO Last administered on 01/25/17 19:27; Start 01/16/17 at 21:00; Stop 01/26/17 at 18:37; Status DC Oxcarbazepine (Trileptal) 300 mg DAILY PO Last administered on 01/26/17 07:49 ; Start 01/17/17 at 09:00; Stop 01/26/17 at 18:38; Status DC Olanzapine (ZyPREXA ZYDIS) 0.125 mg PRN Q4HRS PRN PO PSYCHOSIS Last administered on 01/27/17 22:00; Start 01/18/17 at 19:00; Stop 02/02/17 at 10 :57; Status DC Mirtazapine (Remeron) 7.5 mg QHS PO Last administered on 02/04/17 19:16; Start 01/23/17 at 21:00 Fluvoxamine Maleate (Luvox) 75 mg HS PO Last administered on 02/02/17 19:26; Start 01/24/17 at 21:00; Stop 02/03/17 at 13:04; Status DC Oxcarbazepine (Trileptal) 300 mg BID PO Last administered on 02/04/17 08:18; Start 01/26/17 at 21:00; Stop 02/04/17 at 19:06; Status DC Trazodone HCl (Desyrel) 50 mg PRN QHS PRN PO INSOMNIA, MAY REPEAT X1 Last administered on 02/01/17 19:26; Start 01/26/17 at 18:45 Quetiapine Fumarate (SEROquel) 75 mg BID92 PO Last administered on 01/30/17 07:55; Start 01/28/17 at 09:00; Stop 01/30/17 at 15:33; Status DC Quetiapine Fumarate (SEROquel) 25 mg BID92 PO Last administered on 02/04/17 14:26; Start 01/31/17 at 09:00 Olanzapine (ZyPREXA ZYDIS) 1.25 mg PRN Q4HRS PRN PO PSYCHOSIS; Start 02/02/17 at 10:57 Fluvoxamine Maleate (Luvox) 100 mg HS PO Last administered on 02/04/17 19:16 ; Start 02/03/17 at 21:00 Oxcarbazepine (Trileptal) 300 mg DAILY PO ; Start 02/05/17 at 09:00 Oxcarbazepine (Trileptal) 600 mg HS PO Last administered on 02/04/17 19:31; Start 02/04/17 at 21:00 Active Scripts Active Reported Synthroid (Levothyroxine Sodium) 75 Mcg Tablet 1 Tab PO DAILY06 Senokot (Sennosides) 8.6 Mg Tablet 1 Tab PO BID Seroquel (Quetiapine Fumarate) 50 Mg Tablet 1 Tab PO BID92 Omeprazole 20 Mg Capsule.dr 1 Cap PO DAILY Nuedexta 20-10 Mg Capsule (Dextromethorphan Hbr/Quinidine) 1 Each Capsule 1 Each PO BID Multivitamins (Multivitamin) 1 Each Tablet 1 Tab PO DAILY Namenda (Memantine Hcl) 10 Mg Tablet 10 Mg PO HS Maxitrol Eye Drops (Jhonathan/Polymyx B Sulf/Dexameth) 5 Ml Drops.susp 2 Drop OU TID Geodon (Ziprasidone Hcl) 40 Mg Capsule 40 Mg PO DAILY Celexa (Citalopram Hydrobromide) 10 Mg Tablet 10 Mg PO DAILY Calcium 500 + Vit D 200 Tablet (Calcium Carbonate/Vitamin D3) 1 Each Tablet 1 Each PO BID Bisacodyl 10 Mg Supp.rect 10 Mg RC PRN DAILY PRN Acetaminophen 500 Mg Tablet 1 Tab PO Q6HRS PRN Mag-Al Plus Suspension (Mag Hydrox/Al Hydrox/Simeth) 30 Ml Oral.susp 15 Ml PO PRN AFTMEALHC PRN Seroquel (Quetiapine Fumarate) 25 Mg Tablet 150 Mg PO HS Analgesic [place] (Methyl Salicylate/Menthol) 29 Gm Oint...g. 1 [place] TP PRN QID PRN Milk Of Magnesia (Magnesium Hydroxide) 2,400 Mg/10 Ml Oral.susp 2,400 Mg PO PRN QHS PRN I have reviewed the current psychotropics carefully including drug interactions. Risk benefit ratio favors no change other than as noted in my dictated progress note. 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
--- NOTE | 2017-02-05 01:20 | NUR ---
Behavior Intervention Response and Plan: BIRP Note: Behavior: Assumed Care of patient, patient located in Day Room at shift change. Patient exhibited the following behavior Restless, Disorganized, Anxious. Brief assessment on rounds of vital signs, medication needs, lab studies, and pain. Treatment plan problems . Intervention: Patient assessed and the following interventions initiated safety checks 15 Minute Checks Head to toe Assessment , Cognitive Assessment , Medications. Response: After interactions and interventions patient responded in the following manner, Agitated , Compliant ,Cooperative. Continue to assess behaviors and condition will continue to monitor throughout the shift as needed. Patient educated on ADL's, and hand hygiene. 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 Continue to assess patient for changes in above assessment. Monitor for medication needs, pain, and safety concerns. Hourly rounding performed to ensure safe environment.
--- NOTE | 2017-02-05 03:35 | PN ---
DATE: 02/03/2017 PSYCHIATRIC PROGRESS NOTE This late entry 02/03/2017 covers elements not covered in my initial note of 02/03/2017. I met with the patient in the evening of 02/03/2017. The patient remains confused, still agitated, extremely tense. At suppertime received Zyprexa x 1 constantly stating "okay, okay, okay." This is not as loud as before. Still tries to grab anyone around her, difficult to redirect. Ambulation impaired. REVIEW OF SYSTEMS: No CV, , pulmonary, eye, ENT system symptoms on review. Reliability poor. MENTAL STATUS EXAM: Oriented to herself. Insight, judgment, recent and remote memory, attention, concentration, fund of knowledge poor, consistent with her diagnosis mentioned in my initial note. PLAN: Continue current psychotropics, Luvox was increased. We will adjust further as clinically indicated. GRANT STOVER MD DR: AMOL/shelley JOB#: [id number] / [id number]
[2017-02-05] MEDS: LEVOTHYROXINE 75 MCG TABLET PO SCH (06:03)
[2017-02-05 06:11] VITALS: BP 156/82
[2017-02-05 07:48] LABS: BASO # 0.1 x10^3/uL (0.0-0.2); BASO % 1 % (0-3); EOS # 0.3 x10^3/uL (0.0-0.7); EOS % 5 % (0-3); HEMATOCRIT 36.3 % (36.0-47.0); LYMPH # 1.3 x10^3/uL (1.0-4.8); LYMPH % 19 % (24-48); MEAN CORPUSCULAR HEMOGLOBIN 28 pg (25-35); MEAN CORPUSCULAR HGB CONC 33 g/dL (31-37); MEAN CORPUSCULAR VOLUME 86 fL (79-100); MONO # 0.6 x10^3/uL (0.0-1.1); MONO % 10 % (0-9); NEUT # 4.3 x10^3uL (1.8-7.7); NEUT % 65 % (31-73); PLATELET COUNT 274 x10^3/uL (140-400); RED BLOOD COUNT 4.24 x10^6/uL (3.50-5.40); RED CELL DISTRIBUTION WIDTH 16.2 % (11.5-14.5); WHITE BLOOD COUNT 6.6 x10^3/uL (4.0-11.0)
[2017-02-05 07:52] LABS: ALBUMIN/GLOBULIN RATIO 0.6 (1.0-1.7); CREATININE 0.9 mg/dL (0.6-1.0); GFR 59.7; POTASSIUM 4.1 mmol/L (3.5-5.1); TOTAL BILIRUBIN 0.3 mg/dL (0.2-1.0); TOTAL PROTEIN 8.2 g/dL (6.4-8.2)
[2017-02-05] MEDS: MULTIVITAMIN with MINERAL TABLET. PO SCH (09:55)
[2017-02-05] MEDS: CALCIUM CARB/VIT D3 500/200 TABLET PO SCH ×2 (09:55→20:03)
[2017-02-05] MEDS: QUEtiapine 25 MG TABLET. PO SCH ×2 (09:55→13:25)
[2017-02-05] MEDS: SENNOSIDES 8.6 MG TABLET PO SCH ×2 (09:55→20:03)
[2017-02-05] MEDS: PANTOPRAZOLE 40 MG PACKET. PO SCH (09:55)
[2017-02-05] MEDS: POLYETHYLENE GLYCOL 3350 17 GM PACKET. PO SCH (09:57)
[2017-02-05] MEDS: NEO/POLYMYX/DEXAMETH OPHTH SUSPENSION 5ML BOTTLE. OU SCH ×3 (09:59→20:06)
[2017-02-05] MEDS: DEXTROMETHORPHAN/QUINIDINE 20/10MG CAPSULE. PO SCH ×2 (09:59→20:04)
--- NOTE | 2017-02-05 11:46 | NUR ---
Behavior Intervention Response and Plan: BIRP Note: Behavior: Assumed Care of patient, patient located in Day Room at shift change. Patient exhibited the following behavior Calm, Disorganized, Compliant. Brief assessment on rounds of vital signs, medication needs, lab studies, and pain. Treatment plan problems . Intervention: Patient assessed and the following interventions initiated safety checks 15 Minute Checks Cognitive Assessment , Head to toe Assessment , Medications. Response: After interactions and interventions patient responded in the following manner, Calm , Motor Retardation ,Cooperative. Continue to assess behaviors and condition will continue to monitor throughout the shift as needed. Patient educated on ADL's, and hand hygiene. Plan: Continue to monitor Master Treatment Plan for patient's progress toward short term goals of Decreased Agitation, Decreased Anxiety, [facility] goals to return to previous living setting vs placement. Continue to assess patient for changes in above assessment. Monitor for medication needs, pain, and safety concerns. Hourly rounding performed to ensure safe environment.
[2017-02-05 15:28] VITALS: BP 179/85
--- NOTE | 2017-02-05 19:55 | NUR ---
Behavior Intervention Response and Plan: BIRP Note: Behavior: Assumed Care of patient, patient located in Day Room at shift change. Patient exhibited the following behavior Compulsive, Cooperative, Cooperative. Brief assessment on rounds of vital signs, medication needs, lab studies, and pain. Treatment plan problems . Intervention: Patient assessed and the following interventions initiated safety checks 15 Minute Checks Cognitive Assessment , Head to toe Assessment , Medications. Response: After interactions and interventions patient responded in the following manner, Disorganized , Compulsive ,Compliant. Continue to assess behaviors and condition will continue to monitor throughout the shift as needed. Patient educated on ADL's, and hand hygiene. 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 Continue to assess patient for changes in above assessment. Monitor for medication needs, pain, and safety concerns. Hourly rounding performed to ensure safe environment.
[2017-02-05] MEDS: QUEtiapine 50 MG TABLET. PO SCH (20:02)
[2017-02-05] MEDS: MIRTAZAPINE 7.5 MG TABLET. PO SCH (20:02)
--- NOTE | 2017-02-05 20:02 | PDOC ---
Exam Note: Ronen Note: Please also refer to the separate dictated note~for this date of service dictated separately.~Patient seen individually. Discussed the patient with Nursing staff reviewed the chart.~Reviewed interim history and current functioning. Reviewed vital signs,~Labs/ Radiology~and current medications noted below. Continue current treatment with the changes noted in the dictated addendum note Assessment: Vital Signs: Vital Signs Date Time Temp Pulse Resp B/P (MAP) Pulse Ox O2 Delivery O2 Flow Rate FiO2 02/05/17 15:28 97.4 77 20 179/85 (116) 92 Room Air 02/04/17 15:52 0.0 I&O Intake and Output 02/05/17 07:00 Intake Total 700 ml Balance 700 ml Intake Oral 700 ml Labs: Laboratory Tests Test 02/05/17 07:25 White Blood Count 6.6 x10^3/uL (4.0-11.0) Red Blood Count 4.24 x10^6/uL (3.50-5.40) Hemoglobin 12.0 g/dL (12.0-15.5) Hematocrit 36.3 % (36.0-47.0) Mean Corpuscular Volume 86 fL (79-100) Mean Corpuscular Hemoglobin 28 pg (25-35) Mean Corpuscular Hemoglobin Concent 33 g/dL (31-37) Red Cell Distribution Width 16.2 % (11.5-14.5) H Platelet Count 274 x10^3/uL (140-400) Neutrophils (%) (Auto) 65 % (31-73) Lymphocytes (%) (Auto) 19 % (24-48) L Monocytes (%) (Auto) 10 % (0-9) H Eosinophils (%) (Auto) 5 % (0-3) H Basophils (%) (Auto) 1 % (0-3) Neutrophils # (Auto) 4.3 x10^3uL (1.8-7.7) Lymphocytes # (Auto) 1.3 x10^3/uL (1.0-4.8) Monocytes # (Auto) 0.6 x10^3/uL (0.0-1.1) Eosinophils # (Auto) 0.3 x10^3/uL (0.0-0.7) Basophils # (Auto) 0.1 x10^3/uL (0.0-0.2) Sodium Level 144 mmol/L (136-145) Potassium Level 4.1 mmol/L (3.5-5.1) Chloride Level 108 mmol/L (98-107) H Carbon Dioxide Level 29 mmol/L (21-32) Anion Gap 7 (6-14) Blood Urea Nitrogen 29 mg/dL (7-20) H Creatinine 0.9 mg/dL (0.6-1.0) Estimated GFR (Cockcroft-Gault) 59.7 BUN/Creatinine Ratio 32 (6-20) H Glucose Level 99 mg/dL (70-99) Calcium Level 9.0 mg/dL (8.5-10.1) Magnesium Level 2.1 mg/dL (1.8-2.4) Total Bilirubin 0.3 mg/dL (0.2-1.0) Aspartate Amino Transferase (AST) 30 U/L (15-37) Alanine Aminotransferase (ALT) 59 U/L (14-59) Alkaline Phosphatase 161 U/L (46-116) H Total Protein 8.2 g/dL (6.4-8.2) Albumin 3.0 g/dL (3.4-5.0) L Albumin/Globulin Ratio 0.6 (1.0-1.7) L Current Medications: Meds: Current Medications Lorazepam (Ativan) 0.5 mg PRN Q4HRS PRN PO ANXIETY / AGITATION Last administered on 01/12/17 06:08; Start 01/05/17 at 16:45; Stop 01/12/17 at 19: 11; Status DC Acetaminophen (Tylenol) 500 mg Q6HRS PRN PO PAIN / TEMP Last administered on 07:56; Start 01/05/17 at 17:00; Stop 01/13/17 at 14:02; Status DC Bisacodyl (Dulcolax Supp) 10 mg PRN DAILY PRN RC CONSTIPATION Last administered on 01/19/17 19:54; Start 01/05/17 at 17:00 Calcium/Vitamin D (Oscal D 500mg/ 200uts) 1 tab BID PO Last administered on 09:55; Start 01/05/17 at 21:00 Levothyroxine Sodium (Synthroid) 75 mcg DAILY06 PO Last administered on 06:03; Start 01/06/17 at 06:00 Multi-Ingredient Ointment (Analgesic [place]) 1 peewee PRN QID PRN TP muscle pain; Start 01/05/17 at 17:00 Neomycin/ Polymyxin/ Dexamethasone (Maxitrol) 2 drop TID OU Last administered on 02/05/17 13:25; Start 01/05/17 at 21:00 Sennosides (Senna) 8.6 mg BID PO Last administered on 02/05/17 09:55; Start 01/05/17 at 21:00 Al Hydroxide/Mg Hydroxide (Mylanta Plus Xs) 15 ml PRN AFTMEALHC PRN PO DYSPEPSIA; Start 01/05/17 at 17:15 Magnesium Hydroxide (Milk Of Magnesia) 2,400 mg PRN QHS PRN PO CONSTIPATION Last administered on 01/28/17 14:23; Start 01/05/17 at 17:15 Multivitamins/ Calcium (Thera-M Plus) 1 tab DAILY PO Last administered on 02/05 09:55; Start 01/06/17 at 09:00 Pantoprazole Sodium (Protonix) 40 mg DAILYAC PO Last administered on 08:43; Start 01/06/17 at 07:30; Stop 01/09/17 at 07:50; Status DC Citalopram Hydrobromide (CeleXA) 10 mg DAILY PO Last administered on 10:09; Start 01/06/17 at 09:00; Stop 01/07/17 at 19:34; Status DC Memantine (Namenda) 10 mg HS PO Last administered on 02/04/17 19:16; Start 01/05/17 at 21:00; Stop 02/05/17 at 16:43; Status DC Quetiapine Fumarate (SEROquel) 150 mg QHS PO Last administered on 02/04/17 19 :16; Start 01/05/17 at 21:00 Quetiapine Fumarate (SEROquel) 50 mg BID92 PO Last administered on 01/10/17 14 :06; Start 01/06/17 at 09:00; Stop 01/10/17 at 19:13; Status DC Ziprasidone (Geodon) 40 mg DAILY PO Last administered on 01/11/17 09:21; Start 01/06/17 at 09:00; Stop 01/11/17 at 18:37; Status DC Pneumococcal Polyvalent Vaccine (Pneumovax 23) 0.5 ml ONCE ONCE VAX IM Last administered on 01/07/17 23:11; Start 01/07/17 at 21:00; Stop 01/07/17 at 21 :01; Status DC Influenza Virus Vaccine Quadrival (Fluarix Quad 8725-0418 Syringe) 0.5 ml ONCE ONCE VAX IM Last administered on 01/07/17 23:13; Start 01/07/17 at 21:00; Stop 01/07/17 at 21:01; Status DC Fluvoxamine Maleate (Luvox) 25 mg HS PO Last administered on 01/09/17 19:47; Start 01/07/17 at 21:00; Stop 01/10/17 at 20:59; Status DC Fluvoxamine Maleate (Luvox) 50 mg HS PO Last administered on 01/23/17 19:56; Start 01/10/17 at 21:00; Stop 01/24/17 at 19:14; Status DC Pantoprazole Sodium (Protonix Packet) 40 mg DAILYAC PO Last administered on 09:55; Start 01/09/17 at 08:15 Quetiapine Fumarate (SEROquel) 75 mg BID92 PO Last administered on 01/27/17 07:41; Start 01/11/17 at 09:00; Stop 01/27/17 at 15:53; Status DC Clonazepam (KlonoPIN) 0.25 mg DAILY PO Last administered on 01/19/17 10:20; Start 01/12/17 at 09:00; Stop 01/19/17 at 17:57; Status DC Clonazepam (KlonoPIN) 0.5 mg STK-MED ONCE .ROUTE Last administered on 06:37; Start 01/12/17 at 06:37; Stop 01/12/17 at 06:38; Status DC Magnesium Citrate (Citroma) 296 ml PRN 1X PRN PO CONSTIPATION Last administered on 01/12/17 19:34; Start 01/12/17 at 07:45 Lorazepam (Ativan) 0.25 mg PRN Q4HRS PRN PO ANXIETY / AGITATION Last administered on 01/14/17 23:14; Start 01/12/17 at 19:15; Stop 01/15/17 at 19:30 ; Status DC Sodium Biphosphate/ Sodium Phosphate (Fleet Adult) 133 ml 1X ONCE AR Last administered on 01/13/17 15:24; Start 01/13/17 at 14:15; Stop 01/13/17 at 14:16 ; Status DC Polyethylene Glycol (miraLAX) 17 gm DAILY PO Last administered on 02/05/17 09 :57; Start 01/14/17 at 09:00 Polyethylene Glycol (miraLAX) 17 gm 1X ONCE PO Last administered on 01/13/17 17:26; Start 01/13/17 at 14:00; Stop 01/13/17 at 14:01; Status DC Acetaminophen (Tylenol) 500 mg PRN Q6HRS PRN PO PAIN / TEMP Last administered on 02/02/17 22:24; Start 01/13/17 at 14:15 Divalproex Sodium (Depakote Sprinkles) 125 mg BID92 PO ; Start 01/15/17 at 09:00 ; Status UNV Oxcarbazepine (Trileptal) 150 mg BID92 PO Last administered on 01/16/17 14:17 ; Start 01/15/17 at 09:00; Stop 01/16/17 at 17:31; Status DC Sodium Chloride 1,000 ml @ 1,000 mls/hr 1X ONCE IV Last administered on 13:50; Start 01/15/17 at 12:00; Stop 01/15/17 at 12:59; Status DC Oxcarbazepine (Trileptal) 150 mg HS PO Last administered on 01/25/17 19:27; Start 01/16/17 at 21:00; Stop 01/26/17 at 18:37; Status DC Oxcarbazepine (Trileptal) 300 mg DAILY PO Last administered on 01/26/17 07:49 ; Start 01/17/17 at 09:00; Stop 01/26/17 at 18:38; Status DC Olanzapine (ZyPREXA ZYDIS) 0.125 mg PRN Q4HRS PRN PO PSYCHOSIS Last administered on 01/27/17 22:00; Start 01/18/17 at 19:00; Stop 02/02/17 at 10 :57; Status DC Mirtazapine (Remeron) 7.5 mg QHS PO Last administered on 02/04/17 19:16; Start 01/23/17 at 21:00 Fluvoxamine Maleate (Luvox) 75 mg HS PO Last administered on 02/02/17 19:26; Start 01/24/17 at 21:00; Stop 02/03/17 at 13:04; Status DC Oxcarbazepine (Trileptal) 300 mg BID PO Last administered on 02/04/17 08:18; Start 01/26/17 at 21:00; Stop 02/04/17 at 19:06; Status DC Trazodone HCl (Desyrel) 50 mg PRN QHS PRN PO INSOMNIA, MAY REPEAT X1 Last administered on 02/01/17 19:26; Start 01/26/17 at 18:45 Quetiapine Fumarate (SEROquel) 75 mg BID92 PO Last administered on 01/30/17 07:55; Start 01/28/17 at 09:00; Stop 01/30/17 at 15:33; Status DC Quetiapine Fumarate (SEROquel) 25 mg BID92 PO Last administered on 02/05/17 13:25; Start 01/31/17 at 09:00 Olanzapine (ZyPREXA ZYDIS) 1.25 mg PRN Q4HRS PRN PO PSYCHOSIS; Start 02/02/17 at 10:57 Fluvoxamine Maleate (Luvox) 100 mg HS PO Last administered on 02/04/17 19:16 ; Start 02/03/17 at 21:00 Oxcarbazepine (Trileptal) 300 mg DAILY PO Last administered on 02/05/17 09:59 ; Start 02/05/17 at 09:00 Oxcarbazepine (Trileptal) 600 mg HS PO Last administered on 02/04/17 19:31; Start 02/04/17 at 21:00 Active Scripts Active Reported Synthroid (Levothyroxine Sodium) 75 Mcg Tablet 1 Tab PO DAILY06 Senokot (Sennosides) 8.6 Mg Tablet 1 Tab PO BID Seroquel (Quetiapine Fumarate) 50 Mg Tablet 1 Tab PO BID92 Omeprazole 20 Mg Capsule.dr 1 Cap PO DAILY Nuedexta 20-10 Mg Capsule (Dextromethorphan Hbr/Quinidine) 1 Each Capsule 1 Each PO BID Multivitamins (Multivitamin) 1 Each Tablet 1 Tab PO DAILY Namenda (Memantine Hcl) 10 Mg Tablet 10 Mg PO HS Maxitrol Eye Drops (Jhonathan/Polymyx B Sulf/Dexameth) 5 Ml Drops.susp 2 Drop OU TID Geodon (Ziprasidone Hcl) 40 Mg Capsule 40 Mg PO DAILY Celexa (Citalopram Hydrobromide) 10 Mg Tablet 10 Mg PO DAILY Calcium 500 + Vit D 200 Tablet (Calcium Carbonate/Vitamin D3) 1 Each Tablet 1 Each PO BID Bisacodyl 10 Mg Supp.rect 10 Mg RC PRN DAILY PRN Acetaminophen 500 Mg Tablet 1 Tab PO Q6HRS PRN Mag-Al Plus Suspension (Mag Hydrox/Al Hydrox/Simeth) 30 Ml Oral.susp 15 Ml PO PRN AFTMEALHC PRN Seroquel (Quetiapine Fumarate) 25 Mg Tablet 150 Mg PO HS Analgesic [place] (Methyl Salicylate/Menthol) 29 Gm Oint...g. 1 [place]ee[place]e TP PRN QID PRN Milk Of Magnesia (Magnesium Hydroxide) 2,400 Mg/10 Ml Oral.susp 2,400 Mg PO PRN QHS PRN I have reviewed the current psychotropics carefully including drug interactions. Risk benefit ratio favors no change other than as noted in my dictated progress note. 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
--- NOTE | 2017-02-05 22:25 | PN ---
DATE: 02/04/2017 PSYCHIATRIC PROGRESS NOTE This is a late entry 02/04/2017 covers elements not covered in my initial note of 02/04/2017. SUBJECTIVE: I met with the patient evening of 02/04/2017. The patient continues to be repetitive, stating "okay, okay, okay." She did better until about 4 p.m. was irritable, labile after dinner, sleeping well at night. I returned the call from the patient's daughter, Riri [phone] and had a very lengthy discussion about the patient's diagnosis, progress, relative nonresponse to current psychotropics risks and benefit ratio. Daughter would like Geodon reinitiated as she is convinced this helped the patient in the past. Discussed pros and cons of adding another atypical and as noted below, we will be increasing the Trileptal to 300 mg in the morning and 600 in the evening for now and then may add Geodon depending on the patient's progress. Also, discussed the patient's diagnosis and progressive deterioration expected as part of her illness as the confusion worsens. REVIEW OF SYSTEMS: Ambulation impaired. No CV, , pulmonary, eye, ENT system symptoms on review. Reliability poor. MENTAL STATUS EXAM: Oriented to herself. Insight, judgment, recent and remote memory, attention, concentration, fund of knowledge poor, consistent with her diagnosis. She is grabbing at me repeatedly, as I met with her late evening of 02/04/2017. IMPRESSION: Major neurocognitive disorder, Alzheimer, vascular with depression, delusion, behavioral disturbance; anxiety disorder, unspecified; impulse control disorder, unspecified. Rest unchanged. PLAN: Increase Trileptal as noted. Continue Seroquel. May consider stopping the Namenda. Maintain Luvox 100 mg at bedtime, Zyprexa p.r.n., Remeron 7.5 mg at bedtime, Nuedexta 20/10 mg b.i.d., trazodone p.r.n. Make further changes as clinically indicated. MAN Abdullahi STOVER MD DR: AMOL/shelley JOB#: [id number] / [id number]
[2017-02-06] MEDS: LEVOTHYROXINE 75 MCG TABLET PO SCH (05:27)
[2017-02-06 06:24] VITALS: BP 140/61
[2017-02-06] MEDS: PANTOPRAZOLE 40 MG PACKET. PO SCH (08:32)
[2017-02-06] MEDS: SENNOSIDES 8.6 MG TABLET PO SCH ×2 (08:32→19:14)
[2017-02-06] MEDS: QUEtiapine 25 MG TABLET. PO SCH ×2 (08:33→14:41)
[2017-02-06] MEDS: DEXTROMETHORPHAN/QUINIDINE 20/10MG CAPSULE. PO SCH ×2 (08:33→19:13)
[2017-02-06] MEDS: CALCIUM CARB/VIT D3 500/200 TABLET PO SCH ×2 (08:33→19:13)
[2017-02-06] MEDS: POLYETHYLENE GLYCOL 3350 17 GM PACKET. PO SCH (08:33)
[2017-02-06] MEDS: MULTIVITAMIN with MINERAL TABLET. PO SCH (08:33)
[2017-02-06] MEDS: NEO/POLYMYX/DEXAMETH OPHTH SUSPENSION 5ML BOTTLE. OU SCH ×3 (08:33→19:13)
--- NOTE | 2017-02-06 09:06 | NUR ---
Patient was noted to be having difficulty swallowing at breakfast and with medications crushed in pudding. Food and drink trickled out of her mouth, as she was not swallowing, even when prompted by staff. Attempted multiple times by multiple staff members. Advised Dr. Ruiz, placed order for Swallow study.
--- NOTE | 2017-02-06 10:38 | NUR ---
SW faxed updated clinical notes to Pt's facility.
--- NOTE | 2017-02-06 15:00 | NUR ---
WEEKLY THERAPEUTIC RECREATION NOTE Date of Admission: 01/05/2017 Date of AT Assessment: 01/09/2017 Goal aimed: to increase relaxation Initial goal: Pt. will participate in all sensory stimulation activities. Weekly progress towards goal: on track, no sensory stimulation specific groups this week Group participation level: none to minimal. Pt. participated in balloon/pool noodle activity on Saturday afternoon Behaviors observed: Pt. more quiet this week but still constantly saying "ok, ok, ok," and is difficult to redirect. Less grabbing and squeezing of hands of staff. Plan: no changes to goal
[2017-02-06 15:30] VITALS: BP 153/76
--- NOTE | 2017-02-06 16:51 | NUR ---
Behavior Intervention Response and Plan: BIRP Note: Behavior: Assumed Care of patient, patient located in Day Room at shift change. Patient exhibited the following behavior Restless, Attention Seeking, Compliant. Brief assessment on rounds of vital signs, medication needs, lab studies, and pain. Treatment plan problems 1 and 2. Intervention: Patient assessed and the following interventions initiated safety checks 15 Minute Checks Cognitive Assessment , Head to toe Assessment , Medications. Response: After interactions and interventions patient responded in the following manner, Restless , Disorganized ,Attention Seeking. Continue to assess behaviors and condition will continue to monitor throughout the shift as needed. Patient educated on ADL's, and hand hygiene. 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 Continue to assess patient for changes in above assessment. Monitor for medication needs, pain, and safety concerns. Hourly rounding performed to ensure safe environment.
[2017-02-06] MEDS: QUEtiapine 50 MG TABLET. PO SCH (19:14)
[2017-02-06] MEDS: MIRTAZAPINE 7.5 MG TABLET. PO SCH (19:14)
--- NOTE | 2017-02-06 20:03 | PDOC ---
Exam Note: Ronen Note: Please also refer to the separate dictated note~for this date of service dictated separately.~Patient seen individually. Discussed the patient with Nursing staff reviewed the chart.~Reviewed interim history and current functioning. Reviewed vital signs,~Labs/ Radiology~and current medications noted below. Continue current treatment with the changes noted in the dictated addendum note Assessment: Vital Signs: Vital Signs Date Time Temp Pulse Resp B/P (MAP) Pulse Ox O2 Delivery O2 Flow Rate FiO2 02/06/17 15:30 97.7 97 26 153/76 (101) 96 02/05/17 15:28 Room Air 02/04/17 15:52 0.0 I&O Intake and Output 02/06/17 07:00 Intake Total 1200 ml Balance 1200 ml Intake Oral 1200 ml # Bowel Movements 2 Current Medications: Meds: Current Medications Lorazepam (Ativan) 0.5 mg PRN Q4HRS PRN PO ANXIETY / AGITATION Last administered on 01/12/17 06:08; Start 01/05/17 at 16:45; Stop 01/12/17 at 19: 11; Status DC Acetaminophen (Tylenol) 500 mg Q6HRS PRN PO PAIN / TEMP Last administered on 07:56; Start 01/05/17 at 17:00; Stop 01/13/17 at 14:02; Status DC Bisacodyl (Dulcolax Supp) 10 mg PRN DAILY PRN RC CONSTIPATION Last administered on 01/19/17 19:54; Start 01/05/17 at 17:00 Calcium/Vitamin D (Oscal D 500mg/ 200uts) 1 tab BID PO Last administered on 19:13; Start 01/05/17 at 21:00 Levothyroxine Sodium (Synthroid) 75 mcg DAILY06 PO Last administered on 05:27; Start 01/06/17 at 06:00 Multi-Ingredient Ointment (Analgesic Allen) 1 peewee PRN QID PRN TP muscle pain; Start 01/05/17 at 17:00 Neomycin/ Polymyxin/ Dexamethasone (Maxitrol) 2 drop TID OU Last administered on 02/06/17 19:13; Start 01/05/17 at 21:00 Sennosides (Senna) 8.6 mg BID PO Last administered on 02/06/17 19:14; Start 01/05/17 at 21:00 Al Hydroxide/Mg Hydroxide (Mylanta Plus Xs) 15 ml PRN AFTMEALHC PRN PO DYSPEPSIA; Start 01/05/17 at 17:15 Magnesium Hydroxide (Milk Of Magnesia) 2,400 mg PRN QHS PRN PO CONSTIPATION Last administered on 01/28/17 14:23; Start 01/05/17 at 17:15 Multivitamins/ Calcium (Thera-M Plus) 1 tab DAILY PO Last administered on 02/06 08:33; Start 01/06/17 at 09:00 Pantoprazole Sodium (Protonix) 40 mg DAILYAC PO Last administered on 08:43; Start 01/06/17 at 07:30; Stop 01/09/17 at 07:50; Status DC Citalopram Hydrobromide (CeleXA) 10 mg DAILY PO Last administered on 10:09; Start 01/06/17 at 09:00; Stop 01/07/17 at 19:34; Status DC Memantine (Namenda) 10 mg HS PO Last administered on 02/04/17 19:16; Start 01/05/17 at 21:00; Stop 02/05/17 at 16:43; Status DC Quetiapine Fumarate (SEROquel) 150 mg QHS PO Last administered on 02/06/17 19 :14; Start 01/05/17 at 21:00 Quetiapine Fumarate (SEROquel) 50 mg BID92 PO Last administered on 01/10/17 14 :06; Start 01/06/17 at 09:00; Stop 01/10/17 at 19:13; Status DC Ziprasidone (Geodon) 40 mg DAILY PO Last administered on 01/11/17 09:21; Start 01/06/17 at 09:00; Stop 01/11/17 at 18:37; Status DC Pneumococcal Polyvalent Vaccine (Pneumovax 23) 0.5 ml ONCE ONCE VAX IM Last administered on 01/07/17 23:11; Start 01/07/17 at 21:00; Stop 01/07/17 at 21 :01; Status DC Influenza Virus Vaccine Quadrival (Fluarix Quad 8972-8760 Syringe) 0.5 ml ONCE ONCE VAX IM Last administered on 01/07/17 23:13; Start 01/07/17 at 21:00; Stop 01/07/17 at 21:01; Status DC Fluvoxamine Maleate (Luvox) 25 mg HS PO Last administered on 01/09/17 19:47; Start 01/07/17 at 21:00; Stop 01/10/17 at 20:59; Status DC Fluvoxamine Maleate (Luvox) 50 mg HS PO Last administered on 01/23/17 19:56; Start 01/10/17 at 21:00; Stop 01/24/17 at 19:14; Status DC Pantoprazole Sodium (Protonix Packet) 40 mg DAILYAC PO Last administered on 08:32; Start 01/09/17 at 08:15 Quetiapine Fumarate (SEROquel) 75 mg BID92 PO Last administered on 01/27/17 07:41; Start 01/11/17 at 09:00; Stop 01/27/17 at 15:53; Status DC Clonazepam (KlonoPIN) 0.25 mg DAILY PO Last administered on 01/19/17 10:20; Start 01/12/17 at 09:00; Stop 01/19/17 at 17:57; Status DC Clonazepam (KlonoPIN) 0.5 mg STK-MED ONCE .ROUTE Last administered on 06:37; Start 01/12/17 at 06:37; Stop 01/12/17 at 06:38; Status DC Magnesium Citrate (Citroma) 296 ml PRN 1X PRN PO CONSTIPATION Last administered on 01/12/17 19:34; Start 01/12/17 at 07:45 Lorazepam (Ativan) 0.25 mg PRN Q4HRS PRN PO ANXIETY / AGITATION Last administered on 01/14/17 23:14; Start 01/12/17 at 19:15; Stop 01/15/17 at 19:30 ; Status DC Sodium Biphosphate/ Sodium Phosphate (Fleet Adult) 133 ml 1X ONCE AL Last administered on 01/13/17 15:24; Start 01/13/17 at 14:15; Stop 01/13/17 at 14:16 ; Status DC Polyethylene Glycol (miraLAX) 17 gm DAILY PO Last administered on 02/06/17 08 :33; Start 01/14/17 at 09:00 Polyethylene Glycol (miraLAX) 17 gm 1X ONCE PO Last administered on 01/13/17 17:26; Start 01/13/17 at 14:00; Stop 01/13/17 at 14:01; Status DC Acetaminophen (Tylenol) 500 mg PRN Q6HRS PRN PO PAIN / TEMP Last administered on 02/02/17 22:24; Start 01/13/17 at 14:15 Divalproex Sodium (Depakote Sprinkles) 125 mg BID92 PO ; Start 01/15/17 at 09:00 ; Status UNV Oxcarbazepine (Trileptal) 150 mg BID92 PO Last administered on 01/16/17 14:17 ; Start 01/15/17 at 09:00; Stop 01/16/17 at 17:31; Status DC Sodium Chloride 1,000 ml @ 1,000 mls/hr 1X ONCE IV Last administered on 13:50; Start 01/15/17 at 12:00; Stop 01/15/17 at 12:59; Status DC Oxcarbazepine (Trileptal) 150 mg HS PO Last administered on 01/25/17 19:27; Start 01/16/17 at 21:00; Stop 01/26/17 at 18:37; Status DC Oxcarbazepine (Trileptal) 300 mg DAILY PO Last administered on 01/26/17 07:49 ; Start 01/17/17 at 09:00; Stop 01/26/17 at 18:38; Status DC Olanzapine (ZyPREXA ZYDIS) 0.125 mg PRN Q4HRS PRN PO PSYCHOSIS Last administered on 01/27/17 22:00; Start 01/18/17 at 19:00; Stop 02/02/17 at 10 :57; Status DC Mirtazapine (Remeron) 7.5 mg QHS PO Last administered on 02/06/17 19:14; Start 01/23/17 at 21:00 Fluvoxamine Maleate (Luvox) 75 mg HS PO Last administered on 02/02/17 19:26; Start 01/24/17 at 21:00; Stop 02/03/17 at 13:04; Status DC Oxcarbazepine (Trileptal) 300 mg BID PO Last administered on 02/04/17 08:18; Start 01/26/17 at 21:00; Stop 02/04/17 at 19:06; Status DC Trazodone HCl (Desyrel) 50 mg PRN QHS PRN PO INSOMNIA, MAY REPEAT X1 Last administered on 02/01/17 19:26; Start 01/26/17 at 18:45 Quetiapine Fumarate (SEROquel) 75 mg BID92 PO Last administered on 01/30/17 07:55; Start 01/28/17 at 09:00; Stop 01/30/17 at 15:33; Status DC Quetiapine Fumarate (SEROquel) 25 mg BID92 PO Last administered on 02/06/17 14:41; Start 01/31/17 at 09:00 Olanzapine (ZyPREXA ZYDIS) 1.25 mg PRN Q4HRS PRN PO PSYCHOSIS; Start 02/02/17 at 10:57 Fluvoxamine Maleate (Luvox) 100 mg HS PO Last administered on 02/06/17 19:13 ; Start 02/03/17 at 21:00 Oxcarbazepine (Trileptal) 300 mg DAILY PO Last administered on 02/06/17 08:33 ; Start 02/05/17 at 09:00; Stop 02/06/17 at 18:26; Status DC Oxcarbazepine (Trileptal) 600 mg HS PO Last administered on 02/05/17 20:03; Start 02/04/17 at 21:00; Stop 02/06/17 at 18:26; Status DC Active Scripts Active Reported Synthroid (Levothyroxine Sodium) 75 Mcg Tablet 1 Tab PO DAILY06 Senokot (Sennosides) 8.6 Mg Tablet 1 Tab PO BID Seroquel (Quetiapine Fumarate) 50 Mg Tablet 1 Tab PO BID92 Omeprazole 20 Mg Capsule. 1 Cap PO DAILY Nuedexta 20-10 Mg Capsule (Dextromethorphan Hbr/Quinidine) 1 Each Capsule 1 Each PO BID Multivitamins (Multivitamin) 1 Each Tablet 1 Tab PO DAILY Namenda (Memantine Hcl) 10 Mg Tablet 10 Mg PO HS Maxitrol Eye Drops (Jhonathan/Polymyx B Sulf/Dexameth) 5 Ml Drops.susp 2 Drop OU TID Geodon (Ziprasidone Hcl) 40 Mg Capsule 40 Mg PO DAILY Celexa (Citalopram Hydrobromide) 10 Mg Tablet 10 Mg PO DAILY Calcium 500 + Vit D 200 Tablet (Calcium Carbonate/Vitamin D3) 1 Each Tablet 1 Each PO BID Bisacodyl 10 Mg Supp.rect 10 Mg RC PRN DAILY PRN Acetaminophen 500 Mg Tablet 1 Tab PO Q6HRS PRN Mag-Al Plus Suspension (Mag Hydrox/Al Hydrox/Simeth) 30 Ml Oral.susp 15 Ml PO PRN AFTMEALHC PRN Seroquel (Quetiapine Fumarate) 25 Mg Tablet 150 Mg PO HS Analgesic Allen (Methyl Salicylate/Menthol) 29 Gm Oint...g. 1 Peewee TP PRN QID PRN Milk Of Magnesia (Magnesium Hydroxide) 2,400 Mg/10 Ml Oral.susp 2,400 Mg PO PRN QHS PRN I have reviewed the current psychotropics carefully including drug interactions. Risk benefit ratio favors no change other than as noted in my dictated progress note. 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
--- NOTE | 2017-02-06 20:48 | NUR ---
Behavior Intervention Response and Plan: BIRP Note: Behavior: Assumed Care of patient, patient located in Day Room at shift change. Patient exhibited the following behavior Restless, Disorganized, Defensive. Brief assessment on rounds of vital signs, medication needs, lab studies, and pain. Treatment plan problems . Intervention: Patient assessed and the following interventions initiated safety checks 15 Minute Checks Cognitive Assessment , Head to toe Assessment , Medications. Response: After interactions and interventions patient responded in the following manner, Compliant , Cooperative ,Anxious. Continue to assess behaviors and condition will continue to monitor throughout the shift as needed. Patient educated on ADL's, and hand hygiene. 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 Continue to assess patient for changes in above assessment. Monitor for medication needs, pain, and safety concerns. Hourly rounding performed to ensure safe environment.
[2017-02-07] MEDS: LEVOTHYROXINE 75 MCG TABLET PO SCH (04:56)
[2017-02-07 05:57] VITALS: BP 96/62
[2017-02-07] MEDS: PANTOPRAZOLE 40 MG PACKET. PO SCH (08:56)
[2017-02-07] MEDS: CALCIUM CARB/VIT D3 500/200 TABLET PO SCH ×2 (08:56→19:39)
[2017-02-07] MEDS: DEXTROMETHORPHAN/QUINIDINE 20/10MG CAPSULE. PO SCH ×2 (08:57→20:01)
[2017-02-07] MEDS: MULTIVITAMIN with MINERAL TABLET. PO SCH (08:57)
[2017-02-07] MEDS: SENNOSIDES 8.6 MG TABLET PO SCH ×2 (08:57→19:40)
[2017-02-07] MEDS: QUEtiapine 25 MG TABLET. PO SCH ×2 (08:57→14:49)
[2017-02-07] MEDS: POLYETHYLENE GLYCOL 3350 17 GM PACKET. PO SCH (08:57)
[2017-02-07] MEDS: NEO/POLYMYX/DEXAMETH OPHTH SUSPENSION 5ML BOTTLE. OU SCH ×3 (08:57→19:38)
--- NOTE | 2017-02-07 10:06 | PN ---
DATE: 02/05/2017 This is a late entry for 02/05/2017 and covers elements not covered in my initial note of 02/05/2017. I met with the patient evening of 02/05/2017. The patient continues to be confused, anxious, constantly repeating okay, okay, okay and grabbing at things around her. Nursing staff, however, feel she is somewhat better despite the above. I have received information from the daughter and the daughter's observation is the patient did best when she was on a combination of Geodon 40 mg twice a day, Seroquel 25 mg 3 times a day and 100 mg at bedtime, Zyprexa 10 mg p.r.n. Using 3 atypical antipsychotics in an 86-year-old demented lady perhaps is a little concerning, but the daughter is quite clear that is the combination she did best on. Nursing staff have seen a slight improvement over the last day or so and I would like to persist with what we are doing, but if this fails, I would be open to putting her on the combination the daughter feels she did best on and see where we go from there. REVIEW OF SYSTEMS: Ambulation impaired. No CV, , pulmonary, eye, ENT system symptoms on review. Reliability poor. MENTAL STATUS EXAM: Oriented to herself. Insight, judgment, recent and remote memory, attention, concentration, fund of knowledge poor, consistent with her diagnosis as mentioned in my initial note. PLAN: Continue current psychotropics. Adjust further as clinically indicated. GRANT STOVER MD DR: AMOL/shelley JOB#: [id number] / [id number]
--- NOTE | 2017-02-07 10:52 | NUR ---
Behavior Intervention Response and Plan: BIRP Note: Behavior: Assumed Care of patient, patient located in Day Room at shift change. Patient exhibited the following behavior Restless, Attention Seeking, Compliant. Brief assessment on rounds of vital signs, medication needs, lab studies, and pain. Treatment plan problems 1 and 2. Intervention: Patient assessed and the following interventions initiated safety checks 15 Minute Checks Cognitive Assessment , Head to toe Assessment , Medications. Response: After interactions and interventions patient responded in the following manner, Restless , Disorganized ,Attention Seeking. Continue to assess behaviors and condition will continue to monitor throughout the shift as needed. Patient educated on ADL's, and hand hygiene. 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 Continue to assess patient for changes in above assessment. Monitor for medication needs, pain, and safety concerns. Hourly rounding performed to ensure safe environment.
[2017-02-07] MEDS: ZIPRASIDONE 40 MG CAPSULE. PO SCH (11:56)
--- NOTE | 2017-02-07 14:38 | NUR ---
KELLI and ALMA Lopez contacted Pt's dtr, Riri to discuss the results of the swallow study completed yesterday. Recommendations for NPO were reported to Pt's dtr to help ensure Pt. did not aspirate or develop pneumonia as a result of difficulty w/swallowing. ALMA Lopez offered additional information regarding a feeding tube, which was immediately decided as not an option by Pt's dtr. Riri stated Pt. is not even comfortable w/tags in her clothing, and something like a feeding tube would only lead to more serious issues w/Pt. not leaving it alone. Riri believes Pt. is not on the correct medication cocktail and requests Dr. Minaya to make further medication adjustments. Riri provided RN w/medications Pt. was on during her stay in November [address] [facility] in [place] that seemed to help Pt. to do better. Although this was at Riri's request, it was somewhat difficult to understand what else this facility could do to help Pt. as Riri at one point stated this facility was not making changes fast enough, but then also stated [facility] made too many changes at once. RN received medication doses and provided for approval to Dr. Minaya. ALMA and KELLI contacted Riri to report Dr. Minaya's approval for medication changes and will continue to monitor until next week.
[2017-02-07 15:56] VITALS: BP 140/76
[2017-02-07] MEDS: MIRTAZAPINE 7.5 MG TABLET. PO SCH (19:39)
[2017-02-07] MEDS: QUEtiapine 50 MG TABLET. PO SCH (19:40)
--- NOTE | 2017-02-07 20:03 | PDOC ---
Exam Note: Ronen Note: Please also refer to the separate dictated note~for this date of service dictated separately.~Patient seen individually. Discussed the patient with Nursing staff reviewed the chart.~Reviewed interim history and current functioning. Reviewed vital signs,~Labs/ Radiology~and current medications noted below. Continue current treatment with the changes noted in the dictated addendum note Assessment: Vital Signs: Vital Signs Date Time Temp Pulse Resp B/P (MAP) Pulse Ox O2 Delivery O2 Flow Rate FiO2 02/07/17 15:56 97.3 94 18 140/76 (97) 95 Room Air 02/04/17 15:52 0.0 I&O Intake and Output 02/07/17 07:00 Intake Total 240 ml Balance 240 ml Intake Oral 240 ml # Voids 1 # Bowel Movements 2 Current Medications: Meds: Current Medications Lorazepam (Ativan) 0.5 mg PRN Q4HRS PRN PO ANXIETY / AGITATION Last administered on 01/12/17 06:08; Start 01/05/17 at 16:45; Stop 01/12/17 at 19: 11; Status DC Acetaminophen (Tylenol) 500 mg Q6HRS PRN PO PAIN / TEMP Last administered on 07:56; Start 01/05/17 at 17:00; Stop 01/13/17 at 14:02; Status DC Bisacodyl (Dulcolax Supp) 10 mg PRN DAILY PRN RC CONSTIPATION Last administered on 01/19/17 19:54; Start 01/05/17 at 17:00 Calcium/Vitamin D (Oscal D 500mg/ 200uts) 1 tab BID PO Last administered on 19:39; Start 01/05/17 at 21:00 Levothyroxine Sodium (Synthroid) 75 mcg DAILY06 PO Last administered on 04:56; Start 01/06/17 at 06:00 Multi-Ingredient Ointment (Analgesic Four States) 1 peewee PRN QID PRN TP muscle pain; Start 01/05/17 at 17:00 Neomycin/ Polymyxin/ Dexamethasone (Maxitrol) 2 drop TID OU Last administered on 02/07/17 19:38; Start 01/05/17 at 21:00 Sennosides (Senna) 8.6 mg BID PO Last administered on 02/07/17 19:40; Start 01/05/17 at 21:00 Al Hydroxide/Mg Hydroxide (Mylanta Plus Xs) 15 ml PRN AFTMEALHC PRN PO DYSPEPSIA; Start 01/05/17 at 17:15 Magnesium Hydroxide (Milk Of Magnesia) 2,400 mg PRN QHS PRN PO CONSTIPATION Last administered on 01/28/17 14:23; Start 01/05/17 at 17:15 Multivitamins/ Calcium (Thera-M Plus) 1 tab DAILY PO Last administered on 02/07 08:57; Start 01/06/17 at 09:00 Pantoprazole Sodium (Protonix) 40 mg DAILYAC PO Last administered on 08:43; Start 01/06/17 at 07:30; Stop 01/09/17 at 07:50; Status DC Citalopram Hydrobromide (CeleXA) 10 mg DAILY PO Last administered on 10:09; Start 01/06/17 at 09:00; Stop 01/07/17 at 19:34; Status DC Memantine (Namenda) 10 mg HS PO Last administered on 02/04/17 19:16; Start 01/05/17 at 21:00; Stop 02/05/17 at 16:43; Status DC Quetiapine Fumarate (SEROquel) 150 mg QHS PO Last administered on 02/07/17 19 :40; Start 01/05/17 at 21:00 Quetiapine Fumarate (SEROquel) 50 mg BID92 PO Last administered on 01/10/17 14 :06; Start 01/06/17 at 09:00; Stop 01/10/17 at 19:13; Status DC Ziprasidone (Geodon) 40 mg DAILY PO Last administered on 01/11/17 09:21; Start 01/06/17 at 09:00; Stop 01/11/17 at 18:37; Status DC Pneumococcal Polyvalent Vaccine (Pneumovax 23) 0.5 ml ONCE ONCE VAX IM Last administered on 01/07/17 23:11; Start 01/07/17 at 21:00; Stop 01/07/17 at 21 :01; Status DC Influenza Virus Vaccine Quadrival (Fluarix Quad [id number] Syringe) 0.5 ml ONCE ONCE VAX IM Last administered on 01/07/17 23:13; Start 01/07/17 at 21:00; Stop 01/07/17 at 21:01; Status DC Fluvoxamine Maleate (Luvox) 25 mg HS PO Last administered on 01/09/17 19:47; Start 01/07/17 at 21:00; Stop 01/10/17 at 20:59; Status DC Fluvoxamine Maleate (Luvox) 50 mg HS PO Last administered on 01/23/17 19:56; Start 01/10/17 at 21:00; Stop 01/24/17 at 19:14; Status DC Pantoprazole Sodium (Protonix Packet) 40 mg DAILYAC PO Last administered on 08:56; Start 01/09/17 at 08:15 Quetiapine Fumarate (SEROquel) 75 mg BID92 PO Last administered on 01/27/17 07:41; Start 01/11/17 at 09:00; Stop 01/27/17 at 15:53; Status DC Clonazepam (KlonoPIN) 0.25 mg DAILY PO Last administered on 01/19/17 10:20; Start 01/12/17 at 09:00; Stop 01/19/17 at 17:57; Status DC Clonazepam (KlonoPIN) 0.5 mg STK-MED ONCE .ROUTE Last administered on 06:37; Start 01/12/17 at 06:37; Stop 01/12/17 at 06:38; Status DC Magnesium Citrate (Citroma) 296 ml PRN 1X PRN PO CONSTIPATION Last administered on 01/12/17 19:34; Start 01/12/17 at 07:45 Lorazepam (Ativan) 0.25 mg PRN Q4HRS PRN PO ANXIETY / AGITATION Last administered on 01/14/17 23:14; Start 01/12/17 at 19:15; Stop 01/15/17 at 19:30 ; Status DC Sodium Biphosphate/ Sodium Phosphate (Fleet Adult) 133 ml 1X ONCE NE Last administered on 01/13/17 15:24; Start 01/13/17 at 14:15; Stop 01/13/17 at 14:16 ; Status DC Polyethylene Glycol (miraLAX) 17 gm DAILY PO Last administered on 02/07/17 08 :57; Start 01/14/17 at 09:00 Polyethylene Glycol (miraLAX) 17 gm 1X ONCE PO Last administered on 01/13/17 17:26; Start 01/13/17 at 14:00; Stop 01/13/17 at 14:01; Status DC Acetaminophen (Tylenol) 500 mg PRN Q6HRS PRN PO PAIN / TEMP Last administered on 02/02/17 22:24; Start 01/13/17 at 14:15 Divalproex Sodium (Depakote Sprinkles) 125 mg BID92 PO ; Start 01/15/17 at 09:00 ; Status UNV Oxcarbazepine (Trileptal) 150 mg BID92 PO Last administered on 01/16/17 14:17 ; Start 01/15/17 at 09:00; Stop 01/16/17 at 17:31; Status DC Sodium Chloride 1,000 ml @ 1,000 mls/hr 1X ONCE IV Last administered on 13:50; Start 01/15/17 at 12:00; Stop 01/15/17 at 12:59; Status DC Oxcarbazepine (Trileptal) 150 mg HS PO Last administered on 01/25/17 19:27; Start 01/16/17 at 21:00; Stop 01/26/17 at 18:37; Status DC Oxcarbazepine (Trileptal) 300 mg DAILY PO Last administered on 01/26/17 07:49 ; Start 01/17/17 at 09:00; Stop 01/26/17 at 18:38; Status DC Olanzapine (ZyPREXA ZYDIS) 0.125 mg PRN Q4HRS PRN PO PSYCHOSIS Last administered on 01/27/17 22:00; Start 01/18/17 at 19:00; Stop 02/02/17 at 10 :57; Status DC Mirtazapine (Remeron) 7.5 mg QHS PO Last administered on 02/07/17 19:39; Start 01/23/17 at 21:00 Fluvoxamine Maleate (Luvox) 75 mg HS PO Last administered on 02/02/17 19:26; Start 01/24/17 at 21:00; Stop 02/03/17 at 13:04; Status DC Oxcarbazepine (Trileptal) 300 mg BID PO Last administered on 02/04/17 08:18; Start 01/26/17 at 21:00; Stop 02/04/17 at 19:06; Status DC Trazodone HCl (Desyrel) 50 mg PRN QHS PRN PO INSOMNIA, MAY REPEAT X1 Last administered on 02/01/17 19:26; Start 01/26/17 at 18:45 Quetiapine Fumarate (SEROquel) 75 mg BID92 PO Last administered on 01/30/17 07:55; Start 01/28/17 at 09:00; Stop 01/30/17 at 15:33; Status DC Quetiapine Fumarate (SEROquel) 25 mg BID92 PO Last administered on 02/07/17 14:49; Start 01/31/17 at 09:00 Olanzapine (ZyPREXA ZYDIS) 1.25 mg PRN Q4HRS PRN PO PSYCHOSIS; Start 02/02/17 at 10:57 Fluvoxamine Maleate (Luvox) 100 mg HS PO Last administered on 02/06/17 19:13 ; Start 02/03/17 at 21:00; Stop 02/07/17 at 11:47; Status DC Oxcarbazepine (Trileptal) 300 mg DAILY PO Last administered on 02/06/17 08:33 ; Start 02/05/17 at 09:00; Stop 02/06/17 at 18:26; Status DC Oxcarbazepine (Trileptal) 600 mg HS PO Last administered on 02/05/17 20:03; Start 02/04/17 at 21:00; Stop 02/06/17 at 18:26; Status DC Fluvoxamine Maleate (Luvox) 125 mg HS PO Last administered on 02/07/17 19:45 ; Start 02/07/17 at 21:00 Ziprasidone (Geodon) 40 mg DAILY PO Last administered on 02/07/17 11:56; Start 02/07/17 at 11:45; Stop 02/10/17 at 07:00 Ziprasidone (Geodon) 40 mg BID PO ; Start 02/10/17 at 09:00 Active Scripts Active Reported Synthroid (Levothyroxine Sodium) 75 Mcg Tablet 1 Tab PO DAILY06 Senokot (Sennosides) 8.6 Mg Tablet 1 Tab PO BID Seroquel (Quetiapine Fumarate) 50 Mg Tablet 1 Tab PO BID92 Omeprazole 20 Mg Capsule.dr 1 Cap PO DAILY Nuedexta 20-10 Mg Capsule (Dextromethorphan Hbr/Quinidine) 1 Each Capsule 1 Each PO BID Multivitamins (Multivitamin) 1 Each Tablet 1 Tab PO DAILY Namenda (Memantine Hcl) 10 Mg Tablet 10 Mg PO HS Maxitrol Eye Drops (Jhonathan/Polymyx B Sulf/Dexameth) 5 Ml Drops.susp 2 Drop OU TID Geodon (Ziprasidone Hcl) 40 Mg Capsule 40 Mg PO DAILY Celexa (Citalopram Hydrobromide) 10 Mg Tablet 10 Mg PO DAILY Calcium 500 + Vit D 200 Tablet (Calcium Carbonate/Vitamin D3) 1 Each Tablet 1 Each PO BID Bisacodyl 10 Mg Supp.rect 10 Mg RC PRN DAILY PRN Acetaminophen 500 Mg Tablet 1 Tab PO Q6HRS PRN Mag-Al Plus Suspension (Mag Hydrox/Al Hydrox/Simeth) 30 Ml Oral.susp 15 Ml PO PRN AFTMEALHC PRN Seroquel (Quetiapine Fumarate) 25 Mg Tablet 150 Mg PO HS Analgesic Four States (Methyl Salicylate/Menthol) 29 Gm Oint...g. 1 Peewee TP PRN QID PRN Milk Of Magnesia (Magnesium Hydroxide) 2,400 Mg/10 Ml Oral.susp 2,400 Mg PO PRN QHS PRN I have reviewed the current psychotropics carefully including drug interactions. Risk benefit ratio favors no change other than as noted in my dictated progress note. Diagnosis: Problems: (1) Alzheimer disease (2) Impulse control disorder (3) Hypothyroid (4) Dementia with behavioral disturbance (5) Anxiety disorder (6) Dementia, vascular, with depression (7) Dementia, vascular, with delusions (8) Dementia in Alzheimer's disease with depression (9) Dementia in Alzheimer's disease with delusions (10) Impulse control disorder GRANT STOVER MD Feb 07, 2017 20:03
--- NOTE | 2017-02-07 22:55 | NUR ---
Behavior Intervention Response and Plan: BIRP Note: Behavior: Assumed Care of patient, patient located in Day Room at shift change. Patient exhibited the following behavior Compulsive, Calm, Disorganized. Brief assessment on rounds of vital signs, medication needs, lab studies, and pain. Treatment plan problems .1 & 2 Intervention: Patient assessed and the following interventions initiated safety checks 15 Minute Checks Cognitive Assessment , Head to toe Assessment , Medications. Response: After interactions and interventions patient responded in the following manner, Compliant , Cooperative ,Attention Seeking. Continue to assess behaviors and condition will continue to monitor throughout the shift as needed. Patient educated on ADL's, and hand hygiene. Plan: Continue to monitor Master Treatment Plan for patient's progress toward short term goals of Decreased Anxiety, Decreased Agitation, retirement goals to return to previous living setting vs placement. Continue to assess patient for changes in above assessment. Monitor for medication needs, pain, and safety concerns. Hourly rounding performed to ensure safe environment.
[2017-02-08] MEDS: LEVOTHYROXINE 75 MCG TABLET PO SCH (05:11)
[2017-02-08 05:43] VITALS: BP 153/84
[2017-02-08] MEDS: PANTOPRAZOLE 40 MG PACKET. PO SCH (07:46)
[2017-02-08] MEDS: DEXTROMETHORPHAN/QUINIDINE 20/10MG CAPSULE. PO SCH ×2 (07:46→19:54)
[2017-02-08] MEDS: NEO/POLYMYX/DEXAMETH OPHTH SUSPENSION 5ML BOTTLE. OU SCH ×3 (07:46→19:54)
[2017-02-08] MEDS: CALCIUM CARB/VIT D3 500/200 TABLET PO SCH ×2 (07:46→19:52)
[2017-02-08] MEDS: POLYETHYLENE GLYCOL 3350 17 GM PACKET. PO SCH (07:46)
[2017-02-08] MEDS: SENNOSIDES 8.6 MG TABLET PO SCH ×2 (07:46→19:52)
[2017-02-08] MEDS: ZIPRASIDONE 40 MG CAPSULE. PO SCH (07:47)
[2017-02-08] MEDS: MULTIVITAMIN with MINERAL TABLET. PO SCH (07:47)
[2017-02-08] MEDS: QUEtiapine 25 MG TABLET. PO SCH ×2 (07:47→14:28)
[2017-02-08 15:52] VITALS: BP 125/54
--- NOTE | 2017-02-08 17:41 | NUR ---
Behavior Intervention Response and Plan: BIRP Note: Behavior: Assumed Care of patient, patient located in Day Room at shift change. Patient exhibited the following behavior Restless, Disorganized, Attention Seeking. Brief assessment on rounds of vital signs, medication needs, lab studies, and pain. Treatment plan problems 1 and 2. Intervention: Patient assessed and the following interventions initiated safety checks 15 Minute Checks Cognitive Assessment , Head to toe Assessment , Medications. Response: After interactions and interventions patient responded in the following manner, Restless , Disorganized ,Compliant. Continue to assess behaviors and condition will continue to monitor throughout the shift as needed. Patient educated on ADL's, and hand hygiene. 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 Continue to assess patient for changes in above assessment. Monitor for medication needs, pain, and safety concerns. Hourly rounding performed to ensure safe environment.
--- NOTE | 2017-02-08 17:42 | NUR ---
Patient noted to have increased drooling, 1400 medications given crushed in putting were not swallowed. Patient allowed them to run out of mouth and down chin.
[2017-02-08] MEDS: QUEtiapine 50 MG TABLET. PO SCH (19:52)
[2017-02-08] MEDS: MIRTAZAPINE 7.5 MG TABLET. PO SCH (19:52)
--- NOTE | 2017-02-08 20:23 | PDOC ---
Exam Note: Ronen Note: Please also refer to the separate dictated note~for this date of service dictated separately.~Patient seen individually. Discussed the patient with Nursing staff reviewed the chart.~Reviewed interim history and current functioning. Reviewed vital signs,~Labs/ Radiology~and current medications noted below. Continue current treatment with the changes noted in the dictated addendum note Assessment: Vital Signs: Vital Signs Date Time Temp Pulse Resp B/P (MAP) Pulse Ox O2 Delivery O2 Flow Rate FiO2 02/08/17 15:52 97.2 92 22 125/54 (77) 97 02/07/17 15:56 Room Air 02/04/17 15:52 0.0 I&O Intake and Output 02/08/17 07:00 Intake Total 860 ml Balance 860 ml Intake Oral 860 ml # Bowel Movements 2 Current Medications: Meds: Current Medications Lorazepam (Ativan) 0.5 mg PRN Q4HRS PRN PO ANXIETY / AGITATION Last administered on 01/12/17 06:08; Start 01/05/17 at 16:45; Stop 01/12/17 at 19: 11; Status DC Acetaminophen (Tylenol) 500 mg Q6HRS PRN PO PAIN / TEMP Last administered on 07:56; Start 01/05/17 at 17:00; Stop 01/13/17 at 14:02; Status DC Bisacodyl (Dulcolax Supp) 10 mg PRN DAILY PRN RC CONSTIPATION Last administered on 01/19/17 19:54; Start 01/05/17 at 17:00 Calcium/Vitamin D (Oscal D 500mg/ 200uts) 1 tab BID PO Last administered on 19:52; Start 01/05/17 at 21:00 Levothyroxine Sodium (Synthroid) 75 mcg DAILY06 PO Last administered on 05:11; Start 01/06/17 at 06:00 Multi-Ingredient Ointment (Analgesic [place]) 1 peewee PRN QID PRN TP muscle pain; Start 01/05/17 at 17:00 Neomycin/ Polymyxin/ Dexamethasone (Maxitrol) 2 drop TID OU Last administered on 02/08/17 19:54; Start 01/05/17 at 21:00 Sennosides (Senna) 8.6 mg BID PO Last administered on 02/08/17 19:52; Start 01/05/17 at 21:00 Al Hydroxide/Mg Hydroxide (Mylanta Plus Xs) 15 ml PRN AFTMEALHC PRN PO DYSPEPSIA; Start 01/05/17 at 17:15 Magnesium Hydroxide (Milk Of Magnesia) 2,400 mg PRN QHS PRN PO CONSTIPATION Last administered on 01/28/17 14:23; Start 01/05/17 at 17:15 Multivitamins/ Calcium (Thera-M Plus) 1 tab DAILY PO Last administered on 07:47; Start 01/06/17 at 09:00 Pantoprazole Sodium (Protonix) 40 mg DAILYAC PO Last administered on 08:43; Start 01/06/17 at 07:30; Stop 01/09/17 at 07:50; Status DC Citalopram Hydrobromide (CeleXA) 10 mg DAILY PO Last administered on 10:09; Start 01/06/17 at 09:00; Stop 01/07/17 at 19:34; Status DC Memantine (Namenda) 10 mg HS PO Last administered on 02/04/17 19:16; Start 01/05/17 at 21:00; Stop 02/05/17 at 16:43; Status DC Quetiapine Fumarate (SEROquel) 150 mg QHS PO Last administered on 02/08/17 19: 52; Start 01/05/17 at 21:00 Quetiapine Fumarate (SEROquel) 50 mg BID92 PO Last administered on 01/10/17 14 :06; Start 01/06/17 at 09:00; Stop 01/10/17 at 19:13; Status DC Ziprasidone (Geodon) 40 mg DAILY PO Last administered on 01/11/17 09:21; Start 01/06/17 at 09:00; Stop 01/11/17 at 18:37; Status DC Pneumococcal Polyvalent Vaccine (Pneumovax 23) 0.5 ml ONCE ONCE VAX IM Last administered on 01/07/17 23:11; Start 01/07/17 at 21:00; Stop 01/07/17 at 21 :01; Status DC Influenza Virus Vaccine Quadrival (Fluarix Quad [id number] Syringe) 0.5 ml ONCE ONCE VAX IM Last administered on 01/07/17 23:13; Start 01/07/17 at 21:00; Stop 01/07/17 at 21:01; Status DC Fluvoxamine Maleate (Luvox) 25 mg HS PO Last administered on 01/09/17 19:47; Start 01/07/17 at 21:00; Stop 01/10/17 at 20:59; Status DC Fluvoxamine Maleate (Luvox) 50 mg HS PO Last administered on 01/23/17 19:56; Start 01/10/17 at 21:00; Stop 01/24/17 at 19:14; Status DC Pantoprazole Sodium (Protonix Packet) 40 mg DAILYAC PO Last administered on 07:46; Start 01/09/17 at 08:15 Quetiapine Fumarate (SEROquel) 75 mg BID92 PO Last administered on 01/27/17 07:41; Start 01/11/17 at 09:00; Stop 01/27/17 at 15:53; Status DC Clonazepam (KlonoPIN) 0.25 mg DAILY PO Last administered on 01/19/17 10:20; Start 01/12/17 at 09:00; Stop 01/19/17 at 17:57; Status DC Clonazepam (KlonoPIN) 0.5 mg STK-MED ONCE .ROUTE Last administered on 06:37; Start 01/12/17 at 06:37; Stop 01/12/17 at 06:38; Status DC Magnesium Citrate (Citroma) 296 ml PRN 1X PRN PO CONSTIPATION Last administered on 01/12/17 19:34; Start 01/12/17 at 07:45 Lorazepam (Ativan) 0.25 mg PRN Q4HRS PRN PO ANXIETY / AGITATION Last administered on 01/14/17 23:14; Start 01/12/17 at 19:15; Stop 01/15/17 at 19:30 ; Status DC Sodium Biphosphate/ Sodium Phosphate (Fleet Adult) 133 ml 1X ONCE [place] Last administered on 01/13/17 15:24; Start 01/13/17 at 14:15; Stop 01/13/17 at 14:16 ; Status DC Polyethylene Glycol (miraLAX) 17 gm DAILY PO Last administered on 02/08/17 07: 46; Start 01/14/17 at 09:00 Polyethylene Glycol (miraLAX) 17 gm 1X ONCE PO Last administered on 01/13/17 17:26; Start 01/13/17 at 14:00; Stop 01/13/17 at 14:01; Status DC Acetaminophen (Tylenol) 500 mg PRN Q6HRS PRN PO PAIN / TEMP Last administered on 02/02/17 22:24; Start 01/13/17 at 14:15 Divalproex Sodium (Depakote Sprinkles) 125 mg BID92 PO ; Start 01/15/17 at 09:00 ; Status UNV Oxcarbazepine (Trileptal) 150 mg BID92 PO Last administered on 01/16/17 14:17 ; Start 01/15/17 at 09:00; Stop 01/16/17 at 17:31; Status DC Sodium Chloride 1,000 ml @ 1,000 mls/hr 1X ONCE IV Last administered on 13:50; Start 01/15/17 at 12:00; Stop 01/15/17 at 12:59; Status DC Oxcarbazepine (Trileptal) 150 mg HS PO Last administered on 01/25/17 19:27; Start 01/16/17 at 21:00; Stop 01/26/17 at 18:37; Status DC Oxcarbazepine (Trileptal) 300 mg DAILY PO Last administered on 01/26/17 07:49 ; Start 01/17/17 at 09:00; Stop 01/26/17 at 18:38; Status DC Olanzapine (ZyPREXA ZYDIS) 0.125 mg PRN Q4HRS PRN PO PSYCHOSIS Last administered on 01/27/17 22:00; Start 01/18/17 at 19:00; Stop 02/02/17 at 10 :57; Status DC Mirtazapine (Remeron) 7.5 mg QHS PO Last administered on 02/08/17 19:52; Start 01/23/17 at 21:00 Fluvoxamine Maleate (Luvox) 75 mg HS PO Last administered on 02/02/17 19:26; Start 01/24/17 at 21:00; Stop 02/03/17 at 13:04; Status DC Oxcarbazepine (Trileptal) 300 mg BID PO Last administered on 02/04/17 08:18; Start 01/26/17 at 21:00; Stop 02/04/17 at 19:06; Status DC Trazodone HCl (Desyrel) 50 mg PRN QHS PRN PO INSOMNIA, MAY REPEAT X1 Last administered on 02/01/17 19:26; Start 01/26/17 at 18:45 Quetiapine Fumarate (SEROquel) 75 mg BID92 PO Last administered on 01/30/17 07:55; Start 01/28/17 at 09:00; Stop 01/30/17 at 15:33; Status DC Quetiapine Fumarate (SEROquel) 25 mg BID92 PO Last administered on 02/08/17 14 :28; Start 01/31/17 at 09:00 Olanzapine (ZyPREXA ZYDIS) 1.25 mg PRN Q4HRS PRN PO PSYCHOSIS; Start 02/02/17 at 10:57 Fluvoxamine Maleate (Luvox) 100 mg HS PO Last administered on 02/06/17 19:13 ; Start 02/03/17 at 21:00; Stop 02/07/17 at 11:47; Status DC Oxcarbazepine (Trileptal) 300 mg DAILY PO Last administered on 02/06/17 08:33 ; Start 02/05/17 at 09:00; Stop 02/06/17 at 18:26; Status DC Oxcarbazepine (Trileptal) 600 mg HS PO Last administered on 02/05/17 20:03; Start 02/04/17 at 21:00; Stop 02/06/17 at 18:26; Status DC Fluvoxamine Maleate (Luvox) 125 mg HS PO Last administered on 02/08/17 19:53; Start 02/07/17 at 21:00 Ziprasidone (Geodon) 40 mg DAILY PO Last administered on 02/08/17 07:47; Start 02/07/17 at 11:45; Stop 02/10/17 at 07:00 Ziprasidone (Geodon) 40 mg BID PO ; Start 02/10/17 at 09:00 Active Scripts Active Reported Synthroid (Levothyroxine Sodium) 75 Mcg Tablet 1 Tab PO DAILY06 Senokot (Sennosides) 8.6 Mg Tablet 1 Tab PO BID Seroquel (Quetiapine Fumarate) 50 Mg Tablet 1 Tab PO BID92 Omeprazole 20 Mg Capsule. 1 Cap PO DAILY Nuedexta 20-10 Mg Capsule (Dextromethorphan Hbr/Quinidine) 1 Each Capsule 1 Each PO BID Multivitamins (Multivitamin) 1 Each Tablet 1 Tab PO DAILY Namenda (Memantine Hcl) 10 Mg Tablet 10 Mg PO HS Maxitrol Eye Drops (Jhonathan/Polymyx B Sulf/Dexameth) 5 Ml Drops.susp 2 Drop OU TID Geodon (Ziprasidone Hcl) 40 Mg Capsule 40 Mg PO DAILY Celexa (Citalopram Hydrobromide) 10 Mg Tablet 10 Mg PO DAILY Calcium 500 + Vit D 200 Tablet (Calcium Carbonate/Vitamin D3) 1 Each Tablet 1 Each PO BID Bisacodyl 10 Mg Supp.rect 10 Mg RC PRN DAILY PRN Acetaminophen 500 Mg Tablet 1 Tab PO Q6HRS PRN Mag-Al Plus Suspension (Mag Hydrox/Al Hydrox/Simeth) 30 Ml Oral.susp 15 Ml PO PRN AFTMEALHC PRN Seroquel (Quetiapine Fumarate) 25 Mg Tablet 150 Mg PO HS Analgesic [place] (Methyl Salicylate/Menthol) 29 Gm Oint...g. 1 [place] TP PRN QID PRN Milk Of Magnesia (Magnesium Hydroxide) 2,400 Mg/10 Ml Oral.susp 2,400 Mg PO PRN QHS PRN I have reviewed the current psychotropics carefully including drug interactions. Risk benefit ratio favors no change other than as noted in my dictated progress note. 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
--- NOTE | 2017-02-09 02:04 | PN ---
DATE: 02/06/2017 This is a late entry 02/06, covers elements not covered in my initial note 02/06. SUBJECTIVE: I met with the patient evening of 02/06. The patient has had some swallowing problems and dysphagia evaluation is awaited. She continues to repeat "okay okay," but perhaps a little less at times, a little more redirectable. REVIEW OF SYSTEMS: Ambulation impaired. No CV, , pulmonary, eye system symptoms on review. Reliability poor. MENTAL STATUS EXAM: Oriented to herself. Insight, judgment, recent and remote memory, attention, concentration, fund of knowledge poor, consistent with her diagnosis mentioned in my initial note. PLAN: Stop the Trileptal secondary to drooling that we are seeing with the patient. Maintain Rest unchanged. Await the dysphagia evaluation. Nursing staff has seen some improvement on her current regimen, but the daughter is convinced she did best on a combination of Geodon, Seroquel and Zyprexa and wants her back on that combination. We will await the swallow evaluation and then make a final decision going forward about the psychotropics at the treatment team meeting on 02/07. MAN Abdullahi STOVER MD DR: AMOL/shelley JOB#: [id number] / [id number]
--- NOTE | 2017-02-09 02:10 | PN ---
DATE: 02/07/2017 This is a late entry 02/07, covers elements not covered in my initial note 02/07. SUBJECTIVE: I met with the patient evening of 02/07, and the patient was staffed at a treatment team meeting with the entire team morning of 02/07. Additionally, after the treatment team meeting the entire team nurses social service staff conferred with the patient's daughter, Riri, since Speech Therapy has recommended n.p.o. The daughter is quite keen to have the patient back on Geodon, continue the Luvox and Seroquel, Trileptal has been stopped and then perhaps add Zyprexa and again as the combination of Geodon, Seroquel, Zyprexa that she would like her mother to be on. She is aware of the risks of using 3 atypicals, even 2 or even 1. We have discussed this with her at length. REVIEW OF SYSTEMS: Ambulation impaired, in walker. No CV, , pulmonary, eye, ENT system symptoms on review. Reliability poor. MENTAL STATUS EXAM: Oriented to herself. Insight, judgment, recent and remote memory, attention, concentration, fund of knowledge poor, consistent with her diagnosis mentioned in my initial note. PLAN: Trileptal has been stopped. Maintain Seroquel, Luvox, Remeron together with trazodone p.r.n. Start Geodon 40 mg a day. Check EKG in 3 days and if this shows no QT prolongation, we will increase it to 40 mg b.i.d. Adjust further as clinically indicated. Lengthy discussion of pros and cons about all of treatment options consequent to the extremely complicated and nonresponse to psychotropics so far. MAN Abdullahi STOVER MD DR: AMOL/shelley JOB#: [id number] / [id number]
[2017-02-09 06:07] VITALS: BP 137/65
[2017-02-09] MEDS: LEVOTHYROXINE 75 MCG TABLET PO SCH (06:07)
[2017-02-09] MEDS: MULTIVITAMIN with MINERAL TABLET. PO SCH (08:05)
[2017-02-09] MEDS: PANTOPRAZOLE 40 MG PACKET. PO SCH (08:06)
[2017-02-09] MEDS: QUEtiapine 25 MG TABLET. PO SCH ×2 (08:06→14:40)
[2017-02-09] MEDS: CALCIUM CARB/VIT D3 500/200 TABLET PO SCH ×2 (08:06→19:37)
[2017-02-09] MEDS: ZIPRASIDONE 40 MG CAPSULE. PO SCH (08:07)
[2017-02-09] MEDS: SENNOSIDES 8.6 MG TABLET PO SCH ×2 (08:07→19:37)
[2017-02-09] MEDS: POLYETHYLENE GLYCOL 3350 17 GM PACKET. PO SCH (08:07)
[2017-02-09] MEDS: NEO/POLYMYX/DEXAMETH OPHTH SUSPENSION 5ML BOTTLE. OU SCH ×3 (08:09→19:38)
[2017-02-09] MEDS: DEXTROMETHORPHAN/QUINIDINE 20/10MG CAPSULE. PO SCH ×2 (08:09→19:39)
--- NOTE | 2017-02-09 11:07 | NUR ---
Behavior Intervention Response and Plan: BIRP Note: Behavior: Assumed Care of patient, patient located in Patient Room at shift change. Patient exhibited the following behavior Disorganized, Compulsive, Compliant. Brief assessment on rounds of vital signs, medication needs, lab studies, and pain. Treatment plan problems Dementia w/ depression and Fall. Intervention: Patient assessed and the following interventions initiated safety checks 15 Minute Checks Personal Alarm in place , Cognitive Assessment , Medications. Response: After interactions and interventions patient responded in the following manner, Compulsive , Disorganized ,Compliant. Continue to assess behaviors and condition will continue to monitor throughout the shift as needed. Patient educated on ADL's, and hand hygiene. Plan: Continue to monitor Master Treatment Plan for patient's progress toward short term goals of Medication Compliance, Decreased Agitation, alf goals to return to previous living setting vs placement. Continue to assess patient for changes in above assessment. Monitor for medication needs, pain, and safety concerns. Hourly rounding performed to ensure safe environment.
[2017-02-09 16:29] VITALS: BP 93/68
[2017-02-09] MEDS: QUEtiapine 50 MG TABLET. PO SCH (19:37)
[2017-02-09] MEDS: MIRTAZAPINE 7.5 MG TABLET. PO SCH (19:37)
--- NOTE | 2017-02-09 21:48 | PDOC ---
Exam Note: Ronen Note: Please also refer to the separate dictated note~for this date of service dictated separately.~Patient seen individually. Discussed the patient with Nursing staff reviewed the chart.~Reviewed interim history and current functioning. Reviewed vital signs,~Labs/ Radiology~and current medications noted below. Continue current treatment with the changes noted in the dictated addendum note Assessment: Vital Signs: Vital Signs Date Time Temp Pulse Resp B/P (MAP) Pulse Ox O2 Delivery O2 Flow Rate FiO2 02/09/17 16:29 97.2 68 18 93/68 (76) 97 02/07/17 15:56 Room Air 02/04/17 15:52 0.0 I&O Intake and Output 02/09/17 07:00 Intake Total 300 ml Balance 300 ml Intake Oral 300 ml Current Medications: Meds: Current Medications Lorazepam (Ativan) 0.5 mg PRN Q4HRS PRN PO ANXIETY / AGITATION Last administered on 01/12/17 06:08; Start 01/05/17 at 16:45; Stop 01/12/17 at 19: 11; Status DC Acetaminophen (Tylenol) 500 mg Q6HRS PRN PO PAIN / TEMP Last administered on 07:56; Start 01/05/17 at 17:00; Stop 01/13/17 at 14:02; Status DC Bisacodyl (Dulcolax Supp) 10 mg PRN DAILY PRN RC CONSTIPATION Last administered on 01/19/17 19:54; Start 01/05/17 at 17:00 Calcium/Vitamin D (Oscal D 500mg/ 200uts) 1 tab BID PO Last administered on 19:37; Start 01/05/17 at 21:00 Levothyroxine Sodium (Synthroid) 75 mcg DAILY06 PO Last administered on 06:07; Start 01/06/17 at 06:00 Multi-Ingredient Ointment (Analgesic [place]) 1 peewee PRN QID PRN TP muscle pain; Start 01/05/17 at 17:00 Neomycin/ Polymyxin/ Dexamethasone (Maxitrol) 2 drop TID OU Last administered on 02/09/17 19:38; Start 01/05/17 at 21:00 Sennosides (Senna) 8.6 mg BID PO Last administered on 02/09/17 19:37; Start 01/05/17 at 21:00 Al Hydroxide/Mg Hydroxide (Mylanta Plus Xs) 15 ml PRN AFTMEALHC PRN PO DYSPEPSIA; Start 01/05/17 at 17:15 Magnesium Hydroxide (Milk Of Magnesia) 2,400 mg PRN QHS PRN PO CONSTIPATION Last administered on 01/28/17 14:23; Start 01/05/17 at 17:15 Multivitamins/ Calcium (Thera-M Plus) 1 tab DAILY PO Last administered on 08:05; Start 01/06/17 at 09:00 Pantoprazole Sodium (Protonix) 40 mg DAILYAC PO Last administered on 08:43; Start 01/06/17 at 07:30; Stop 01/09/17 at 07:50; Status DC Citalopram Hydrobromide (CeleXA) 10 mg DAILY PO Last administered on 10:09; Start 01/06/17 at 09:00; Stop 01/07/17 at 19:34; Status DC Memantine (Namenda) 10 mg HS PO Last administered on 02/04/17 19:16; Start 01/05/17 at 21:00; Stop 02/05/17 at 16:43; Status DC Quetiapine Fumarate (SEROquel) 150 mg QHS PO Last administered on 02/09/17 19: 37; Start 01/05/17 at 21:00 Quetiapine Fumarate (SEROquel) 50 mg BID92 PO Last administered on 01/10/17 14 :06; Start 01/06/17 at 09:00; Stop 01/10/17 at 19:13; Status DC Ziprasidone (Geodon) 40 mg DAILY PO Last administered on 01/11/17 09:21; Start 01/06/17 at 09:00; Stop 01/11/17 at 18:37; Status DC Pneumococcal Polyvalent Vaccine (Pneumovax 23) 0.5 ml ONCE ONCE VAX IM Last administered on 01/07/17 23:11; Start 01/07/17 at 21:00; Stop 01/07/17 at 21 :01; Status DC Influenza Virus Vaccine Quadrival (Fluarix Quad [id number] Syringe) 0.5 ml ONCE ONCE VAX IM Last administered on 01/07/17 23:13; Start 01/07/17 at 21:00; Stop 01/07/17 at 21:01; Status DC Fluvoxamine Maleate (Luvox) 25 mg HS PO Last administered on 01/09/17 19:47; Start 01/07/17 at 21:00; Stop 01/10/17 at 20:59; Status DC Fluvoxamine Maleate (Luvox) 50 mg HS PO Last administered on 01/23/17 19:56; Start 01/10/17 at 21:00; Stop 01/24/17 at 19:14; Status DC Pantoprazole Sodium (Protonix Packet) 40 mg DAILYAC PO Last administered on 08:06; Start 01/09/17 at 08:15 Quetiapine Fumarate (SEROquel) 75 mg BID92 PO Last administered on 01/27/17 07:41; Start 01/11/17 at 09:00; Stop 01/27/17 at 15:53; Status DC Clonazepam (KlonoPIN) 0.25 mg DAILY PO Last administered on 01/19/17 10:20; Start 01/12/17 at 09:00; Stop 01/19/17 at 17:57; Status DC Clonazepam (KlonoPIN) 0.5 mg STK-MED ONCE .ROUTE Last administered on 06:37; Start 01/12/17 at 06:37; Stop 01/12/17 at 06:38; Status DC Magnesium Citrate (Citroma) 296 ml PRN 1X PRN PO CONSTIPATION Last administered on 01/12/17 19:34; Start 01/12/17 at 07:45 Lorazepam (Ativan) 0.25 mg PRN Q4HRS PRN PO ANXIETY / AGITATION Last administered on 01/14/17 23:14; Start 01/12/17 at 19:15; Stop 01/15/17 at 19:30 ; Status DC Sodium Biphosphate/ Sodium Phosphate (Fleet Adult) 133 ml 1X ONCE [place] Last administered on 01/13/17 15:24; Start 01/13/17 at 14:15; Stop 01/13/17 at 14:16 ; Status DC Polyethylene Glycol (miraLAX) 17 gm DAILY PO Last administered on 02/09/17 08: 07; Start 01/14/17 at 09:00 Polyethylene Glycol (miraLAX) 17 gm 1X ONCE PO Last administered on 01/13/17 17:26; Start 01/13/17 at 14:00; Stop 01/13/17 at 14:01; Status DC Acetaminophen (Tylenol) 500 mg PRN Q6HRS PRN PO PAIN / TEMP Last administered on 02/02/17 22:24; Start 01/13/17 at 14:15 Divalproex Sodium (Depakote Sprinkles) 125 mg BID92 PO ; Start 01/15/17 at 09:00 ; Status UNV Oxcarbazepine (Trileptal) 150 mg BID92 PO Last administered on 01/16/17 14:17 ; Start 01/15/17 at 09:00; Stop 01/16/17 at 17:31; Status DC Sodium Chloride 1,000 ml @ 1,000 mls/hr 1X ONCE IV Last administered on 13:50; Start 01/15/17 at 12:00; Stop 01/15/17 at 12:59; Status DC Oxcarbazepine (Trileptal) 150 mg HS PO Last administered on 01/25/17 19:27; Start 01/16/17 at 21:00; Stop 01/26/17 at 18:37; Status DC Oxcarbazepine (Trileptal) 300 mg DAILY PO Last administered on 01/26/17 07:49 ; Start 01/17/17 at 09:00; Stop 01/26/17 at 18:38; Status DC Olanzapine (ZyPREXA ZYDIS) 0.125 mg PRN Q4HRS PRN PO PSYCHOSIS Last administered on 01/27/17 22:00; Start 01/18/17 at 19:00; Stop 02/02/17 at 10 :57; Status DC Mirtazapine (Remeron) 7.5 mg QHS PO Last administered on 02/09/17 19:37; Start 01/23/17 at 21:00 Fluvoxamine Maleate (Luvox) 75 mg HS PO Last administered on 02/02/17 19:26; Start 01/24/17 at 21:00; Stop 02/03/17 at 13:04; Status DC Oxcarbazepine (Trileptal) 300 mg BID PO Last administered on 02/04/17 08:18; Start 01/26/17 at 21:00; Stop 02/04/17 at 19:06; Status DC Trazodone HCl (Desyrel) 50 mg PRN QHS PRN PO INSOMNIA, MAY REPEAT X1 Last administered on 02/01/17 19:26; Start 01/26/17 at 18:45 Quetiapine Fumarate (SEROquel) 75 mg BID92 PO Last administered on 01/30/17 07:55; Start 01/28/17 at 09:00; Stop 01/30/17 at 15:33; Status DC Quetiapine Fumarate (SEROquel) 25 mg BID92 PO Last administered on 02/09/17 14 :40; Start 01/31/17 at 09:00 Olanzapine (ZyPREXA ZYDIS) 1.25 mg PRN Q4HRS PRN PO PSYCHOSIS; Start 02/02/17 at 10:57 Fluvoxamine Maleate (Luvox) 100 mg HS PO Last administered on 02/06/17 19:13 ; Start 02/03/17 at 21:00; Stop 02/07/17 at 11:47; Status DC Oxcarbazepine (Trileptal) 300 mg DAILY PO Last administered on 02/06/17 08:33 ; Start 02/05/17 at 09:00; Stop 02/06/17 at 18:26; Status DC Oxcarbazepine (Trileptal) 600 mg HS PO Last administered on 02/05/17 20:03; Start 02/04/17 at 21:00; Stop 02/06/17 at 18:26; Status DC Fluvoxamine Maleate (Luvox) 125 mg HS PO Last administered on 02/09/17 19:38; Start 02/07/17 at 21:00 Ziprasidone (Geodon) 40 mg DAILY PO Last administered on 02/09/17 08:07; Start 02/07/17 at 11:45; Stop 02/10/17 at 07:00 Ziprasidone (Geodon) 40 mg BID PO ; Start 02/10/17 at 09:00 Active Scripts Active Reported Synthroid (Levothyroxine Sodium) 75 Mcg Tablet 1 Tab PO DAILY06 Senokot (Sennosides) 8.6 Mg Tablet 1 Tab PO BID Seroquel (Quetiapine Fumarate) 50 Mg Tablet 1 Tab PO BID92 Omeprazole 20 Mg Capsule.dr 1 Cap PO DAILY Nuedexta 20-10 Mg Capsule (Dextromethorphan Hbr/Quinidine) 1 Each Capsule 1 Each PO BID Multivitamins (Multivitamin) 1 Each Tablet 1 Tab PO DAILY Namenda (Memantine Hcl) 10 Mg Tablet 10 Mg PO HS Maxitrol Eye Drops (Jhonathan/Polymyx B Sulf/Dexameth) 5 Ml Drops.susp 2 Drop OU TID Geodon (Ziprasidone Hcl) 40 Mg Capsule 40 Mg PO DAILY Celexa (Citalopram Hydrobromide) 10 Mg Tablet 10 Mg PO DAILY Calcium 500 + Vit D 200 Tablet (Calcium Carbonate/Vitamin D3) 1 Each Tablet 1 Each PO BID Bisacodyl 10 Mg Supp.rect 10 Mg RC PRN DAILY PRN Acetaminophen 500 Mg Tablet 1 Tab PO Q6HRS PRN Mag-Al Plus Suspension (Mag Hydrox/Al Hydrox/Simeth) 30 Ml Oral.susp 15 Ml PO PRN AFTMEALHC PRN Seroquel (Quetiapine Fumarate) 25 Mg Tablet 150 Mg PO HS Analgesic [place] (Methyl Salicylate/Menthol) 29 Gm Oint...g. 1 [place] TP PRN QID PRN Milk Of Magnesia (Magnesium Hydroxide) 2,400 Mg/10 Ml Oral.susp 2,400 Mg PO PRN QHS PRN I have reviewed the current psychotropics carefully including drug interactions. Risk benefit ratio favors no change other than as noted in my dictated progress note. Diagnosis: Problems: (1) Alzheimer disease (2) Impulse control disorder (3) Hypothyroid (4) Dementia with behavioral disturbance (5) Anxiety disorder (6) Dementia, vascular, with depression (7) Dementia, vascular, with delusions (8) Dementia in Alzheimer's disease with depression (9) Dementia in Alzheimer's disease with delusions (10) Impulse control disorder GRANT STOVER MD Feb 09, 2017 21:48
--- NOTE | 2017-02-10 00:09 | NUR ---
Behavior Intervention Response and Plan: BIRP Note: Behavior: Assumed Care of patient, patient located in Day Room at shift change. Patient exhibited the following behavior Restless, Irritable, Disorganized. Brief assessment on rounds of vital signs, medication needs, lab studies, and pain. Treatment plan problems 1 and 2. Intervention: Patient assessed and the following interventions initiated safety checks 15 Minute Checks Cognitive Assessment , Head to toe Assessment , Medications. Response: After interactions and interventions patient responded in the following manner, Restless , Compliant ,Resistive. Continue to assess behaviors and condition will continue to monitor throughout the shift as needed. Patient educated on ADL's, and hand hygiene. 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 Continue to assess patient for changes in above assessment. Monitor for medication needs, pain, and safety concerns. Hourly rounding performed to ensure safe environment.
[2017-02-10 05:54] VITALS: BP 150/80
[2017-02-10] MEDS: QUEtiapine 25 MG TABLET. PO SCH ×2 (07:56→13:23)
[2017-02-10] MEDS: CALCIUM CARB/VIT D3 500/200 TABLET PO SCH ×2 (07:56→19:51)
[2017-02-10] MEDS: SENNOSIDES 8.6 MG TABLET PO SCH ×2 (07:56→19:51)
[2017-02-10] MEDS: POLYETHYLENE GLYCOL 3350 17 GM PACKET. PO SCH (07:56)
[2017-02-10] MEDS: PANTOPRAZOLE 40 MG PACKET. PO SCH (07:56)
[2017-02-10] MEDS: DEXTROMETHORPHAN/QUINIDINE 20/10MG CAPSULE. PO SCH (07:56)
[2017-02-10] MEDS: LEVOTHYROXINE 75 MCG TABLET PO SCH (07:56)
[2017-02-10] MEDS: MULTIVITAMIN with MINERAL TABLET. PO SCH ×2 (07:56→19:51)
[2017-02-10] MEDS: NEO/POLYMYX/DEXAMETH OPHTH SUSPENSION 5ML BOTTLE. OU SCH ×3 (07:57→19:56)
[2017-02-10] MEDS: ZIPRASIDONE 40 MG CAPSULE. PO SCH ×2 (08:03→19:51)
--- NOTE | 2017-02-10 10:00 | EKG ---
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
--- NOTE | 2017-02-10 16:08 | NUR ---
Behavior Intervention Response and Plan: BIRP Note: Behavior: Assumed Care of patient, patient located in Day Room at shift change. Patient exhibited the following behavior Disorganized, Compulsive, Compliant. Brief assessment on rounds of vital signs, medication needs, lab studies, and pain. Treatment plan problems Dementia w/ depression and Fall. Intervention: Patient assessed and the following interventions initiated safety checks 15 Minute Checks Personal Alarm in place , Cognitive Assessment , Medications. Response: After interactions and interventions patient responded in the following manner, Compulsive , Disorganized ,Compliant. Continue to assess behaviors and condition will continue to monitor throughout the shift as needed. Patient educated on ADL's, and hand hygiene. Plan: Continue to monitor Master Treatment Plan for patient's progress toward short term goals of Medication Compliance, Decreased Agitation, penitentiary goals to return to previous living setting vs placement. Continue to assess patient for changes in above assessment. Monitor for medication needs, pain, and safety concerns. Hourly rounding performed to ensure safe environment.
[2017-02-10 16:14] VITALS: BP 115/64
[2017-02-10] MEDS: QUEtiapine 50 MG TABLET. PO SCH (19:51)
[2017-02-10] MEDS: MIRTAZAPINE 7.5 MG TABLET. PO SCH (19:51)
--- NOTE | 2017-02-10 20:03 | PDOC ---
Exam Note: Ronen Note: Please also refer to the separate dictated note~for this date of service dictated separately.~Patient seen individually. Discussed the patient with Nursing staff reviewed the chart.~Reviewed interim history and current functioning. Reviewed vital signs,~Labs/ Radiology~and current medications noted below. Continue current treatment with the changes noted in the dictated addendum note Assessment: Vital Signs: Vital Signs Date Time Temp Pulse Resp B/P (MAP) Pulse Ox O2 Delivery O2 Flow Rate FiO2 02/10/17 16:14 98.0 71 22 115/64 (81) 96 02/07/17 15:56 Room Air 02/04/17 15:52 0.0 I&O Intake and Output 02/10/17 07:00 Intake Total 900 ml Balance 900 ml Intake Oral 900 ml Current Medications: Meds: Current Medications Lorazepam (Ativan) 0.5 mg PRN Q4HRS PRN PO ANXIETY / AGITATION Last administered on 01/12/17 06:08; Start 01/05/17 at 16:45; Stop 01/12/17 at 19: 11; Status DC Acetaminophen (Tylenol) 500 mg Q6HRS PRN PO PAIN / TEMP Last administered on 07:56; Start 01/05/17 at 17:00; Stop 01/13/17 at 14:02; Status DC Bisacodyl (Dulcolax Supp) 10 mg PRN DAILY PRN RC CONSTIPATION Last administered on 01/19/17 19:54; Start 01/05/17 at 17:00 Calcium/Vitamin D (Oscal D 500mg/ 200uts) 1 tab BID PO Last administered on 19:51; Start 01/05/17 at 21:00 Levothyroxine Sodium (Synthroid) 75 mcg DAILY06 PO Last administered on 07:56; Start 01/06/17 at 06:00 Multi-Ingredient Ointment (Analgesic Buckingham) 1 peewee PRN QID PRN TP muscle pain; Start 01/05/17 at 17:00 Neomycin/ Polymyxin/ Dexamethasone (Maxitrol) 2 drop TID OU Last administered on 02/10/17 19:56; Start 01/05/17 at 21:00 Sennosides (Senna) 8.6 mg BID PO Last administered on 02/10/17 19:51; Start 01/05/17 at 21:00 Al Hydroxide/Mg Hydroxide (Mylanta Plus Xs) 15 ml PRN AFTMEALHC PRN PO DYSPEPSIA; Start 01/05/17 at 17:15 Magnesium Hydroxide (Milk Of Magnesia) 2,400 mg PRN QHS PRN PO CONSTIPATION Last administered on 01/28/17 14:23; Start 01/05/17 at 17:15 Multivitamins/ Calcium (Thera-M Plus) 1 tab DAILY PO Last administered on 19:51; Start 01/06/17 at 09:00 Pantoprazole Sodium (Protonix) 40 mg DAILYAC PO Last administered on 08:43; Start 01/06/17 at 07:30; Stop 01/09/17 at 07:50; Status DC Citalopram Hydrobromide (CeleXA) 10 mg DAILY PO Last administered on 10:09; Start 01/06/17 at 09:00; Stop 01/07/17 at 19:34; Status DC Memantine (Namenda) 10 mg HS PO Last administered on 02/04/17 19:16; Start 01/05/17 at 21:00; Stop 02/05/17 at 16:43; Status DC Quetiapine Fumarate (SEROquel) 150 mg QHS PO Last administered on 02/10/17 19: 51; Start 01/05/17 at 21:00 Quetiapine Fumarate (SEROquel) 50 mg BID92 PO Last administered on 01/10/17 14 :06; Start 01/06/17 at 09:00; Stop 01/10/17 at 19:13; Status DC Ziprasidone (Geodon) 40 mg DAILY PO Last administered on 01/11/17 09:21; Start 01/06/17 at 09:00; Stop 01/11/17 at 18:37; Status DC Pneumococcal Polyvalent Vaccine (Pneumovax 23) 0.5 ml ONCE ONCE VAX IM Last administered on 01/07/17 23:11; Start 01/07/17 at 21:00; Stop 01/07/17 at 21 :01; Status DC Influenza Virus Vaccine Quadrival (Fluarix Quad [id number] Syringe) 0.5 ml ONCE ONCE VAX IM Last administered on 01/07/17 23:13; Start 01/07/17 at 21:00; Stop 01/07/17 at 21:01; Status DC Fluvoxamine Maleate (Luvox) 25 mg HS PO Last administered on 01/09/17 19:47; Start 01/07/17 at 21:00; Stop 01/10/17 at 20:59; Status DC Fluvoxamine Maleate (Luvox) 50 mg HS PO Last administered on 01/23/17 19:56; Start 01/10/17 at 21:00; Stop 01/24/17 at 19:14; Status DC Pantoprazole Sodium (Protonix Packet) 40 mg DAILYAC PO Last administered on 07:56; Start 01/09/17 at 08:15 Quetiapine Fumarate (SEROquel) 75 mg BID92 PO Last administered on 01/27/17 07:41; Start 01/11/17 at 09:00; Stop 01/27/17 at 15:53; Status DC Clonazepam (KlonoPIN) 0.25 mg DAILY PO Last administered on 01/19/17 10:20; Start 01/12/17 at 09:00; Stop 01/19/17 at 17:57; Status DC Clonazepam (KlonoPIN) 0.5 mg STK-MED ONCE .ROUTE Last administered on 06:37; Start 01/12/17 at 06:37; Stop 01/12/17 at 06:38; Status DC Magnesium Citrate (Citroma) 296 ml PRN 1X PRN PO CONSTIPATION Last administered on 01/12/17 19:34; Start 01/12/17 at 07:45 Lorazepam (Ativan) 0.25 mg PRN Q4HRS PRN PO ANXIETY / AGITATION Last administered on 01/14/17 23:14; Start 01/12/17 at 19:15; Stop 01/15/17 at 19:30 ; Status DC Sodium Biphosphate/ Sodium Phosphate (Fleet Adult) 133 ml 1X ONCE DE Last administered on 01/13/17 15:24; Start 01/13/17 at 14:15; Stop 01/13/17 at 14:16 ; Status DC Polyethylene Glycol (miraLAX) 17 gm DAILY PO Last administered on 02/10/17 07: 56; Start 01/14/17 at 09:00 Polyethylene Glycol (miraLAX) 17 gm 1X ONCE PO Last administered on 01/13/17 17:26; Start 01/13/17 at 14:00; Stop 01/13/17 at 14:01; Status DC Acetaminophen (Tylenol) 500 mg PRN Q6HRS PRN PO PAIN / TEMP Last administered on 02/02/17 22:24; Start 01/13/17 at 14:15 Divalproex Sodium (Depakote Sprinkles) 125 mg BID92 PO ; Start 01/15/17 at 09:00 ; Status UNV Oxcarbazepine (Trileptal) 150 mg BID92 PO Last administered on 01/16/17 14:17 ; Start 01/15/17 at 09:00; Stop 01/16/17 at 17:31; Status DC Sodium Chloride 1,000 ml @ 1,000 mls/hr 1X ONCE IV Last administered on 13:50; Start 01/15/17 at 12:00; Stop 01/15/17 at 12:59; Status DC Oxcarbazepine (Trileptal) 150 mg HS PO Last administered on 01/25/17 19:27; Start 01/16/17 at 21:00; Stop 01/26/17 at 18:37; Status DC Oxcarbazepine (Trileptal) 300 mg DAILY PO Last administered on 01/26/17 07:49 ; Start 01/17/17 at 09:00; Stop 01/26/17 at 18:38; Status DC Olanzapine (ZyPREXA ZYDIS) 0.125 mg PRN Q4HRS PRN PO PSYCHOSIS Last administered on 01/27/17 22:00; Start 01/18/17 at 19:00; Stop 02/02/17 at 10 :57; Status DC Mirtazapine (Remeron) 7.5 mg QHS PO Last administered on 02/10/17 19:51; Start 01/23/17 at 21:00 Fluvoxamine Maleate (Luvox) 75 mg HS PO Last administered on 02/02/17 19:26; Start 01/24/17 at 21:00; Stop 02/03/17 at 13:04; Status DC Oxcarbazepine (Trileptal) 300 mg BID PO Last administered on 02/04/17 08:18; Start 01/26/17 at 21:00; Stop 02/04/17 at 19:06; Status DC Trazodone HCl (Desyrel) 50 mg PRN QHS PRN PO INSOMNIA, MAY REPEAT X1 Last administered on 02/01/17 19:26; Start 01/26/17 at 18:45 Quetiapine Fumarate (SEROquel) 75 mg BID92 PO Last administered on 01/30/17 07:55; Start 01/28/17 at 09:00; Stop 01/30/17 at 15:33; Status DC Quetiapine Fumarate (SEROquel) 25 mg BID92 PO Last administered on 02/10/17 13 :23; Start 01/31/17 at 09:00 Olanzapine (ZyPREXA ZYDIS) 1.25 mg PRN Q4HRS PRN PO PSYCHOSIS Last administered on 02/10/17 13:19; Start 02/02/17 at 10:57 Fluvoxamine Maleate (Luvox) 100 mg HS PO Last administered on 02/06/17 19:13 ; Start 02/03/17 at 21:00; Stop 02/07/17 at 11:47; Status DC Oxcarbazepine (Trileptal) 300 mg DAILY PO Last administered on 02/06/17 08:33 ; Start 02/05/17 at 09:00; Stop 02/06/17 at 18:26; Status DC Oxcarbazepine (Trileptal) 600 mg HS PO Last administered on 02/05/17 20:03; Start 02/04/17 at 21:00; Stop 02/06/17 at 18:26; Status DC Fluvoxamine Maleate (Luvox) 125 mg HS PO Last administered on 02/09/17 19:38; Start 02/07/17 at 21:00; Stop 02/10/17 at 18:35; Status DC Ziprasidone (Geodon) 40 mg DAILY PO Last administered on 02/09/17 08:07; Start 02/07/17 at 11:45; Stop 02/10/17 at 07:00; Status DC Ziprasidone (Geodon) 40 mg BID PO Last administered on 02/10/17t 19:51; Start 02/10/17 at 09:00 Fluvoxamine Maleate (Luvox) 150 mg HS PO ; Start 02/11/17 at 21:00 Active Scripts Active Reported Synthroid (Levothyroxine Sodium) 75 Mcg Tablet 1 Tab PO DAILY06 Senokot (Sennosides) 8.6 Mg Tablet 1 Tab PO BID Seroquel (Quetiapine Fumarate) 50 Mg Tablet 1 Tab PO BID92 Omeprazole 20 Mg Capsule. 1 Cap PO DAILY Nuedexta 20-10 Mg Capsule (Dextromethorphan Hbr/Quinidine) 1 Each Capsule 1 Each PO BID Multivitamins (Multivitamin) 1 Each Tablet 1 Tab PO DAILY Namenda (Memantine Hcl) 10 Mg Tablet 10 Mg PO HS Maxitrol Eye Drops (Jhonathan/Polymyx B Sulf/Dexameth) 5 Ml Drops.susp 2 Drop OU TID Geodon (Ziprasidone Hcl) 40 Mg Capsule 40 Mg PO DAILY Celexa (Citalopram Hydrobromide) 10 Mg Tablet 10 Mg PO DAILY Calcium 500 + Vit D 200 Tablet (Calcium Carbonate/Vitamin D3) 1 Each Tablet 1 Each PO BID Bisacodyl 10 Mg Supp.rect 10 Mg RC PRN DAILY PRN Acetaminophen 500 Mg Tablet 1 Tab PO Q6HRS PRN Mag-Al Plus Suspension (Mag Hydrox/Al Hydrox/Simeth) 30 Ml Oral.susp 15 Ml PO PRN AFTMEALHC PRN Seroquel (Quetiapine Fumarate) 25 Mg Tablet 150 Mg PO HS Analgesic [place] (Methyl Salicylate/Menthol) 29 Gm Oint...g. 1 Peewee TP PRN QID PRN Milk Of Magnesia (Magnesium Hydroxide) 2,400 Mg/10 Ml Oral.susp 2,400 Mg PO PRN QHS PRN I have reviewed the current psychotropics carefully including drug interactions. Risk benefit ratio favors no change other than as noted in my dictated progress note. 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
--- NOTE | 2017-02-10 23:21 | PN ---
DATE: 02/08/2017 This is a late entry 02/08/2017 covers elements not covered in my initial note of 02/08/2017. I met with the patient on the evening of 02/08/2017. SUBJECTIVE: The patient continues to be fairly repetitive with her "okay, okay, okay" verbalizations. These are persistent, perhaps a little less loud than before. Morning of 02/08/2017, her swallowing was better evening, she had some drooling. She is less grabby, attends physical therapy and occupational therapy, a little more cooperative with this. REVIEW OF SYSTEMS: No CV, , pulmonary, eye, ENT system symptoms on review. Reliability poor. Gait unsteady. MENTAL STATUS EXAM: Oriented to herself. Insight, judgment, recent and remote memory, attention, concentration, fund of knowledge poor, consistent with her diagnosis, mentioned in my initial note. PLAN: Continue current psychotropics mentioned in my initial note. Adjust further as clinically appropriate. GRANT STOVER MD DR: AMOL/shelley JOB#: [id number] / [id number]
--- NOTE | 2017-02-11 00:04 | NUR ---
Behavior Intervention Response and Plan: BIRP Note: Behavior: Assumed Care of patient, patient located in Day Room at shift change. Patient exhibited the following behavior Restless, Disorganized, Compulsive. Brief assessment on rounds of vital signs, medication needs, lab studies, and pain. Treatment plan problems 1 and 2. Intervention: Patient assessed and the following interventions initiated safety checks 15 Minute Checks Cognitive Assessment , Head to toe Assessment , Medications. Response: After interactions and interventions patient responded in the following manner, Anxious , Cooperative ,Compliant. Continue to assess behaviors and condition will continue to monitor throughout the shift as needed. Patient educated on ADL's, and hand hygiene. 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 Continue to assess patient for changes in above assessment. Monitor for medication needs, pain, and safety concerns. Hourly rounding performed to ensure safe environment.
[2017-02-11] MEDS: LEVOTHYROXINE 75 MCG TABLET PO SCH (05:11)
[2017-02-11 05:55] VITALS: BP 151/73
[2017-02-11 06:44] LABS: BASO # 0.1 x10^3/uL (0.0-0.2); BASO % 1 % (0-3); EOS # 0.3 x10^3/uL (0.0-0.7); EOS % 3 % (0-3); HEMATOCRIT 35.4 % (36.0-47.0); HEMOGLOBIN 11.8 g/dL (12.0-15.5); LYMPH # 1.5 x10^3/uL (1.0-4.8); LYMPH % 18 % (24-48); MEAN CORPUSCULAR HEMOGLOBIN 28 pg (25-35); MEAN CORPUSCULAR HGB CONC 33 g/dL (31-37); MEAN CORPUSCULAR VOLUME 85 fL (79-100); MONO # 0.7 x10^3/uL (0.0-1.1); MONO % 8 % (0-9); NEUT % 70 % (31-73); PLATELET COUNT 292 x10^3/uL (140-400); RED BLOOD COUNT 4.19 x10^6/uL (3.50-5.40); RED CELL DISTRIBUTION WIDTH 16.4 % (11.5-14.5); WHITE BLOOD COUNT 8.6 x10^3/uL (4.0-11.0)
[2017-02-11 07:07] LABS: ALBUMIN 3.1 g/dL (3.4-5.0); ALBUMIN/GLOBULIN RATIO 0.6 (1.0-1.7); CALCIUM 9.2 mg/dL (8.5-10.1); CREATININE 0.9 mg/dL (0.6-1.0); GFR 59.7; POTASSIUM 4.1 mmol/L (3.5-5.1); TOTAL BILIRUBIN 0.3 mg/dL (0.2-1.0); TOTAL PROTEIN 8.2 g/dL (6.4-8.2)
[2017-02-11] MEDS: SENNOSIDES 8.6 MG TABLET PO SCH ×2 (07:55→19:19)
[2017-02-11] MEDS: PANTOPRAZOLE 40 MG PACKET. PO SCH (07:55)
[2017-02-11] MEDS: QUEtiapine 25 MG TABLET. PO SCH ×2 (07:56→14:01)
[2017-02-11] MEDS: POLYETHYLENE GLYCOL 3350 17 GM PACKET. PO SCH (07:56)
[2017-02-11] MEDS: ZIPRASIDONE 40 MG CAPSULE. PO SCH ×2 (07:56→19:19)
[2017-02-11] MEDS: CALCIUM CARB/VIT D3 500/200 TABLET PO SCH ×2 (07:56→19:19)
[2017-02-11] MEDS: MULTIVITAMIN with MINERAL TABLET. PO SCH (07:56)
[2017-02-11] MEDS: NEO/POLYMYX/DEXAMETH OPHTH SUSPENSION 5ML BOTTLE. OU SCH ×3 (07:58→19:19)
--- NOTE | 2017-02-11 08:40 | NUR ---
Behavior Intervention Response and Plan: BIRP Note: Behavior: Assumed Care of patient, patient located in Dining Room at shift change. Patient exhibited the following behavior Restless, Disorganized, Resistive. Brief assessment on rounds of vital signs, medication needs, lab studies, and pain. Treatment plan problems 1 & 2. Intervention: Patient assessed and the following interventions initiated safety checks 15 Minute Checks Cognitive Assessment , Medications , Oral Hydration. Response: After interactions and interventions patient responded in the following manner, Calm , Appropriate ,Compliant. Continue to assess behaviors and condition will continue to monitor throughout the shift as needed. Patient educated on ADL's, and hand hygiene. Plan: Continue to monitor Master Treatment Plan for patient's progress toward short term goals of Decreased Agitation, Decreased Aggression, manager long term care goals to return to previous living setting vs placement. Continue to assess patient for changes in above assessment. Monitor for medication needs, pain, and safety concerns. Hourly rounding performed to ensure safe environment.
--- NOTE | 2017-02-11 09:00 | NUR ---
SW received message from ALMA Mcneill stating he spoke w/someone from PT's facility and was told the Pt. is no longer appropriate for their facility. KELLI attempted to contact [facility], was transferred to several different people, and left a message for JOSE Zarate.
--- NOTE | 2017-02-11 09:54 | PN ---
DATE: 02/09/2017 This late entry 02/09/2017 covers elements not covered in my initial note of 02/09/2017. I met with the patient in the evening of 02/09/2017. Oral fluids are being pushed. She is compliant with medications and drinking fluids, better. REVIEW OF SYSTEMS: No CV, , pulmonary, eye, ENT system symptoms on review. Reliability poor. MENTAL STATUS EXAM: She continues to have her verbalizations of "okay, okay, okay, okay," but again these are better than before. Insight, judgment, recent and remote memory, attention, concentration, fund of knowledge poor consistent with her diagnosis mentioned in my initial note. PLAN: Continue psychotropics mentioned in my initial note. Adjust further as clinically indicated. MAN Abdullahi STOVER MD DR: AMOL/shelley JOB#: [id number] / [id number]
--- NOTE | 2017-02-11 13:00 | NUR ---
SW received a return call from Lalito at [facility]. Pt. is not appropriate to return to [facility] based on her level of care needs. SW confirmed [facility] is NOT memory care. SW will need to begin looking for new placement. Lalito has attempted to contact Pt's dtr, Riri, to discuss this issue but has not received a return call as of yet. KELLI will wait for Lalito to discuss this w/dtr and then proceed to look for new placement.
[2017-02-11 16:00] VITALS: BP 119/63
--- NOTE | 2017-02-11 16:30 | NUR ---
SW received message from pt's dtr/dpoa regarding the discussion w/pt's facility and not accepting pt back at dc. Riri asked KELLI to follow in Saturday after 10:00 to further discuss a new plan for dc.
[2017-02-11] MEDS: MAGNESIUM HYDROXIDE 2,400 MG/30 ML ORAL.SUSP. PO PRN (17:11)
[2017-02-11] MEDS: QUEtiapine 50 MG TABLET. PO SCH (19:19)
[2017-02-11] MEDS: MIRTAZAPINE 7.5 MG TABLET. PO SCH (19:19)
--- NOTE | 2017-02-11 20:01 | PDOC ---
Exam Note: Ronen Note: Please also refer to the separate dictated note~for this date of service dictated separately.~Patient seen individually. Discussed the patient with Nursing staff reviewed the chart.~Reviewed interim history and current functioning. Reviewed vital signs,~Labs/ Radiology~and current medications noted below. Continue current treatment with the changes noted in the dictated addendum note Assessment: Vital Signs: Vital Signs Date Time Temp Pulse Resp B/P (MAP) Pulse Ox O2 Delivery O2 Flow Rate FiO2 02/11/17 16:00 99.0 94 18 119/63 (81) 96 02/07/17 15:56 Room Air I&O Intake and Output 02/11/17 07:00 Intake Total 540 ml Balance 540 ml Intake Oral 540 ml Labs: Laboratory Tests Test 02/11/17 06:31 White Blood Count 8.6 x10^3/uL (4.0-11.0) Red Blood Count 4.19 x10^6/uL (3.50-5.40) Hemoglobin 11.8 g/dL (12.0-15.5) L Hematocrit 35.4 % (36.0-47.0) L Mean Corpuscular Volume 85 fL (79-100) Mean Corpuscular Hemoglobin 28 pg (25-35) Mean Corpuscular Hemoglobin Concent 33 g/dL (31-37) Red Cell Distribution Width 16.4 % (11.5-14.5) H Platelet Count 292 x10^3/uL (140-400) Neutrophils (%) (Auto) 70 % (31-73) Lymphocytes (%) (Auto) 18 % (24-48) L Monocytes (%) (Auto) 8 % (0-9) Eosinophils (%) (Auto) 3 % (0-3) Basophils (%) (Auto) 1 % (0-3) Neutrophils # (Auto) 6.0 x10^3uL (1.8-7.7) Lymphocytes # (Auto) 1.5 x10^3/uL (1.0-4.8) Monocytes # (Auto) 0.7 x10^3/uL (0.0-1.1) Eosinophils # (Auto) 0.3 x10^3/uL (0.0-0.7) Basophils # (Auto) 0.1 x10^3/uL (0.0-0.2) Sodium Level 143 mmol/L (136-145) Potassium Level 4.1 mmol/L (3.5-5.1) Chloride Level 107 mmol/L (98-107) Carbon Dioxide Level 28 mmol/L (21-32) Anion Gap 8 (6-14) Blood Urea Nitrogen 27 mg/dL (7-20) H Creatinine 0.9 mg/dL (0.6-1.0) Estimated GFR (Cockcroft-Gault) 59.7 BUN/Creatinine Ratio 30 (6-20) H Glucose Level 100 mg/dL (70-99) H Calcium Level 9.2 mg/dL (8.5-10.1) Magnesium Level 2.2 mg/dL (1.8-2.4) Total Bilirubin 0.3 mg/dL (0.2-1.0) Aspartate Amino Transferase (AST) 25 U/L (15-37) Alanine Aminotransferase (ALT) 53 U/L (14-59) Alkaline Phosphatase 147 U/L (46-116) H Total Protein 8.2 g/dL (6.4-8.2) Albumin 3.1 g/dL (3.4-5.0) L Albumin/Globulin Ratio 0.6 (1.0-1.7) L Current Medications: Meds: Current Medications Lorazepam (Ativan) 0.5 mg PRN Q4HRS PRN PO ANXIETY / AGITATION Last administered on 01/12/17 06:08; Start 01/05/17 at 16:45; Stop 01/12/17 at 19: 11; Status DC Acetaminophen (Tylenol) 500 mg Q6HRS PRN PO PAIN / TEMP Last administered on 07:56; Start 01/05/17 at 17:00; Stop 01/13/17 at 14:02; Status DC Bisacodyl (Dulcolax Supp) 10 mg PRN DAILY PRN RC CONSTIPATION Last administered on 01/19/17 19:54; Start 01/05/17 at 17:00 Calcium/Vitamin D (Oscal D 500mg/ 200uts) 1 tab BID PO Last administered on 19:19; Start 01/05/17 at 21:00 Levothyroxine Sodium (Synthroid) 75 mcg DAILY06 PO Last administered on 05:11; Start 01/06/17 at 06:00 Multi-Ingredient Ointment (Analgesic Trimont) 1 peewee PRN QID PRN TP muscle pain; Start 01/05/17 at 17:00 Neomycin/ Polymyxin/ Dexamethasone (Maxitrol) 2 drop TID OU Last administered on 02/11/17 19:19; Start 01/05/17 at 21:00 Sennosides (Senna) 8.6 mg BID PO Last administered on 02/11/17 19:19; Start 01/05/17 at 21:00 Al Hydroxide/Mg Hydroxide (Mylanta Plus Xs) 15 ml PRN AFTMEALHC PRN PO DYSPEPSIA; Start 01/05/17 at 17:15 Magnesium Hydroxide (Milk Of Magnesia) 2,400 mg PRN QHS PRN PO CONSTIPATION Last administered on 02/11/17 17:11; Start 01/05/17 at 17:15 Multivitamins/ Calcium (Thera-M Plus) 1 tab DAILY PO Last administered on 07:56; Start 01/06/17 at 09:00 Pantoprazole Sodium (Protonix) 40 mg DAILYAC PO Last administered on 08:43; Start 01/06/17 at 07:30; Stop 01/09/17 at 07:50; Status DC Citalopram Hydrobromide (CeleXA) 10 mg DAILY PO Last administered on 10:09; Start 01/06/17 at 09:00; Stop 01/07/17 at 19:34; Status DC Memantine (Namenda) 10 mg HS PO Last administered on 02/04/17 19:16; Start 01/05/17 at 21:00; Stop 02/05/17 at 16:43; Status DC Quetiapine Fumarate (SEROquel) 150 mg QHS PO Last administered on 02/11/17 19: 19; Start 01/05/17 at 21:00 Quetiapine Fumarate (SEROquel) 50 mg BID92 PO Last administered on 01/10/17 14 :06; Start 01/06/17 at 09:00; Stop 01/10/17 at 19:13; Status DC Ziprasidone (Geodon) 40 mg DAILY PO Last administered on 01/11/17 09:21; Start 01/06/17 at 09:00; Stop 01/11/17 at 18:37; Status DC Pneumococcal Polyvalent Vaccine (Pneumovax 23) 0.5 ml ONCE ONCE VAX IM Last administered on 01/07/17 23:11; Start 01/07/17 at 21:00; Stop 01/07/17 at 21 :01; Status DC Influenza Virus Vaccine Quadrival (Fluarix Quad [id number] Syringe) 0.5 ml ONCE ONCE VAX IM Last administered on 01/07/17 23:13; Start 01/07/17 at 21:00; Stop 01/07/17 at 21:01; Status DC Fluvoxamine Maleate (Luvox) 25 mg HS PO Last administered on 01/09/17 19:47; Start 01/07/17 at 21:00; Stop 01/10/17 at 20:59; Status DC Fluvoxamine Maleate (Luvox) 50 mg HS PO Last administered on 01/23/17 19:56; Start 01/10/17 at 21:00; Stop 01/24/17 at 19:14; Status DC Pantoprazole Sodium (Protonix Packet) 40 mg DAILYAC PO Last administered on 07:55; Start 01/09/17 at 08:15 Quetiapine Fumarate (SEROquel) 75 mg BID92 PO Last administered on 01/27/17 07:41; Start 01/11/17 at 09:00; Stop 01/27/17 at 15:53; Status DC Clonazepam (KlonoPIN) 0.25 mg DAILY PO Last administered on 01/19/17 10:20; Start 01/12/17 at 09:00; Stop 01/19/17 at 17:57; Status DC Clonazepam (KlonoPIN) 0.5 mg STK-MED ONCE .ROUTE Last administered on 06:37; Start 01/12/17 at 06:37; Stop 01/12/17 at 06:38; Status DC Magnesium Citrate (Citroma) 296 ml PRN 1X PRN PO CONSTIPATION Last administered on 01/12/17 19:34; Start 01/12/17 at 07:45 Lorazepam (Ativan) 0.25 mg PRN Q4HRS PRN PO ANXIETY / AGITATION Last administered on 01/14/17 23:14; Start 01/12/17 at 19:15; Stop 01/15/17 at 19:30 ; Status DC Sodium Biphosphate/ Sodium Phosphate (Fleet Adult) 133 ml 1X ONCE [place] Last administered on 01/13/17 15:24; Start 01/13/17 at 14:15; Stop 01/13/17 at 14:16 ; Status DC Polyethylene Glycol (miraLAX) 17 gm DAILY PO Last administered on 02/11/17 07: 56; Start 01/14/17 at 09:00 Polyethylene Glycol (miraLAX) 17 gm 1X ONCE PO Last administered on 01/13/17 17:26; Start 01/13/17 at 14:00; Stop 01/13/17 at 14:01; Status DC Acetaminophen (Tylenol) 500 mg PRN Q6HRS PRN PO PAIN / TEMP Last administered on 02/02/17 22:24; Start 01/13/17 at 14:15 Divalproex Sodium (Depakote Sprinkles) 125 mg BID92 PO ; Start 01/15/17 at 09:00 ; Status UNV Oxcarbazepine (Trileptal) 150 mg BID92 PO Last administered on 01/16/17 14:17 ; Start 01/15/17 at 09:00; Stop 01/16/17 at 17:31; Status DC Sodium Chloride 1,000 ml @ 1,000 mls/hr 1X ONCE IV Last administered on 13:50; Start 01/15/17 at 12:00; Stop 01/15/17 at 12:59; Status DC Oxcarbazepine (Trileptal) 150 mg HS PO Last administered on 01/25/17 19:27; Start 01/16/17 at 21:00; Stop 01/26/17 at 18:37; Status DC Oxcarbazepine (Trileptal) 300 mg DAILY PO Last administered on 01/26/17 07:49 ; Start 01/17/17 at 09:00; Stop 01/26/17 at 18:38; Status DC Olanzapine (ZyPREXA ZYDIS) 0.125 mg PRN Q4HRS PRN PO PSYCHOSIS Last administered on 01/27/17 22:00; Start 01/18/17 at 19:00; Stop 02/02/17 at 10 :57; Status DC Mirtazapine (Remeron) 7.5 mg QHS PO Last administered on 02/11/17 19:19; Start 01/23/17 at 21:00 Fluvoxamine Maleate (Luvox) 75 mg HS PO Last administered on 02/02/17 19:26; Start 01/24/17 at 21:00; Stop 02/03/17 at 13:04; Status DC Oxcarbazepine (Trileptal) 300 mg BID PO Last administered on 02/04/17 08:18; Start 01/26/17 at 21:00; Stop 02/04/17 at 19:06; Status DC Trazodone HCl (Desyrel) 50 mg PRN QHS PRN PO INSOMNIA, MAY REPEAT X1 Last administered on 02/01/17 19:26; Start 01/26/17 at 18:45 Quetiapine Fumarate (SEROquel) 75 mg BID92 PO Last administered on 01/30/17 07:55; Start 01/28/17 at 09:00; Stop 01/30/17 at 15:33; Status DC Quetiapine Fumarate (SEROquel) 25 mg BID92 PO Last administered on 02/11/17 14 :01; Start 01/31/17 at 09:00 Olanzapine (ZyPREXA ZYDIS) 1.25 mg PRN Q4HRS PRN PO PSYCHOSIS Last administered on 02/10/17 13:19; Start 02/02/17 at 10:57 Fluvoxamine Maleate (Luvox) 100 mg HS PO Last administered on 02/06/17 19:13 ; Start 02/03/17 at 21:00; Stop 02/07/17 at 11:47; Status DC Oxcarbazepine (Trileptal) 300 mg DAILY PO Last administered on 02/06/17 08:33 ; Start 02/05/17 at 09:00; Stop 02/06/17 at 18:26; Status DC Oxcarbazepine (Trileptal) 600 mg HS PO Last administered on 02/05/17 20:03; Start 02/04/17 at 21:00; Stop 02/06/17 at 18:26; Status DC Fluvoxamine Maleate (Luvox) 125 mg HS PO Last administered on 02/09/17 19:38; Start 02/07/17 at 21:00; Stop 02/10/17 at 18:35; Status DC Ziprasidone (Geodon) 40 mg DAILY PO Last administered on 02/09/17 08:07; Start 02/07/17 at 11:45; Stop 02/10/17 at 07:00; Status DC Ziprasidone (Geodon) 40 mg BID PO Last administered on 02/11/17 19:19; Start 02/10/17 at 09:00 Fluvoxamine Maleate (Luvox) 150 mg HS PO Last administered on 02/11/17 19:37; Start 02/11/17 at 21:00 Active Scripts Active Reported Synthroid (Levothyroxine Sodium) 75 Mcg Tablet 1 Tab PO DAILY06 Senokot (Sennosides) 8.6 Mg Tablet 1 Tab PO BID Seroquel (Quetiapine Fumarate) 50 Mg Tablet 1 Tab PO BID92 Omeprazole 20 Mg Capsule.dr 1 Cap PO DAILY Nuedexta 20-10 Mg Capsule (Dextromethorphan Hbr/Quinidine) 1 Each Capsule 1 Each PO BID Multivitamins (Multivitamin) 1 Each Tablet 1 Tab PO DAILY Namenda (Memantine Hcl) 10 Mg Tablet 10 Mg PO HS Maxitrol Eye Drops (Jhonathan/Polymyx B Sulf/Dexameth) 5 Ml Drops.susp 2 Drop OU TID Geodon (Ziprasidone Hcl) 40 Mg Capsule 40 Mg PO DAILY Celexa (Citalopram Hydrobromide) 10 Mg Tablet 10 Mg PO DAILY Calcium 500 + Vit D 200 Tablet (Calcium Carbonate/Vitamin D3) 1 Each Tablet 1 Each PO BID Bisacodyl 10 Mg Supp.rect 10 Mg RC PRN DAILY PRN Acetaminophen 500 Mg Tablet 1 Tab PO Q6HRS PRN Mag-Al Plus Suspension (Mag Hydrox/Al Hydrox/Simeth) 30 Ml Oral.susp 15 Ml PO PRN AFTMEALHC PRN Seroquel (Quetiapine Fumarate) 25 Mg Tablet 150 Mg PO HS Analgesic [place]imont (Methyl Salicylate/Menthol) 29 Gm Oint...g. 1 Peewee TP PRN QID PRN Milk Of Magnesia (Magnesium Hydroxide) 2,400 Mg/10 Ml Oral.susp 2,400 Mg PO PRN QHS PRN I have reviewed the current psychotropics carefully including drug interactions. Risk benefit ratio favors no change other than as noted in my dictated progress note. 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
--- NOTE | 2017-02-11 21:00 | NUR ---
Behavior Intervention Response and Plan: BIRP Note: Behavior: Assumed Care of patient, patient located in Day Room at shift change. Patient exhibited the following behavior Disorganized, Compulsive, Restless. Brief assessment on rounds of vital signs, medication needs, lab studies, and pain. Treatment plan problems .1&2 Intervention: Patient assessed and the following interventions initiated safety checks 15 Minute Checks Cognitive Assessment , Head to toe Assessment , Medications. Response: After interactions and interventions patient responded in the following manner, Compliant , Cooperative ,Anxious. Continue to assess behaviors and condition will continue to monitor throughout the shift as needed. Patient educated on ADL's, and hand hygiene. 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 Continue to assess patient for changes in above assessment. Monitor for medication needs, pain, and safety concerns. Hourly rounding performed to ensure safe environment.
[2017-02-12] MEDS: LEVOTHYROXINE 75 MCG TABLET PO SCH (05:47)
[2017-02-12 06:24] VITALS: BP 143/66
--- NOTE | 2017-02-12 07:09 | PN ---
DATE: 02/10/2017 PSYCHIATRIC PROGRESS NOTE This is an entry 02/10/2017 covers elements not covered in my initial note 02/10/2017. Met with the patient in the evening of 02/10/2017. She continues to be quite labile, yelling at times, but perhaps less so than before. EKG, QTC interval is unremarkable and Geodon has been increased to 40 mg twice a day. We will stop the Nuedexta as it has probably little benefit at this stage. REVIEW OF SYSTEMS: No CV, , pulmonary, eye, ENT system symptoms on review. Reliability poor. MENTAL STATUS EXAM: Oriented to herself. Insight, judgment, recent and remote memory, attention, concentration, fund of knowledge poor, consistent with her diagnosis. She is quite obsessive, repetitive with her verbalizations. LABORATORY DATA: Reviewed. IMPRESSION: Unchanged from initial note. PLAN: In addition to above, increase Luvox to 150 mg p.o. at bedtime. Very carefully reviewed drug interactions, reasons for change and risk, benefit ratio. Will make further changes as clinically indicated. MAN Abdullahi STOVER MD DR: AMOL/shelley JOB#: [id number] / [id number]
[2017-02-12] MEDS: MULTIVITAMIN with MINERAL TABLET. PO SCH (07:33)
[2017-02-12] MEDS: ZIPRASIDONE 40 MG CAPSULE. PO SCH ×2 (07:33→19:17)
[2017-02-12] MEDS: PANTOPRAZOLE 40 MG PACKET. PO SCH (07:33)
[2017-02-12] MEDS: CALCIUM CARB/VIT D3 500/200 TABLET PO SCH ×2 (07:33→19:17)
[2017-02-12] MEDS: QUEtiapine 25 MG TABLET. PO SCH ×2 (07:33→13:56)
[2017-02-12] MEDS: SENNOSIDES 8.6 MG TABLET PO SCH ×2 (07:33→19:17)
[2017-02-12] MEDS: POLYETHYLENE GLYCOL 3350 17 GM PACKET. PO SCH (07:33)
[2017-02-12] MEDS: NEO/POLYMYX/DEXAMETH OPHTH SUSPENSION 5ML BOTTLE. OU SCH ×3 (07:34→19:17)
--- NOTE | 2017-02-12 08:20 | NUR ---
Behavior Intervention Response and Plan: BIRP Note: Behavior: Assumed Care of patient, patient located in Dining Room at shift change. Patient exhibited the following behavior Restless, Disorganized, Anxious. Brief assessment on rounds of vital signs, medication needs, lab studies, and pain. Treatment plan problems 1 & 2. Intervention: Patient assessed and the following interventions initiated safety checks 15 Minute Checks Cognitive Assessment , Medications , Oral Hydration. Response: After interactions and interventions patient responded in the following manner, Calm , Appropriate ,Compliant. Continue to assess behaviors and condition will continue to monitor throughout the shift as needed. Patient educated on ADL's, and hand hygiene. 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 Continue to assess patient for changes in above assessment. Monitor for medication needs, pain, and safety concerns. Hourly rounding performed to ensure safe environment.
--- NOTE | 2017-02-12 10:23 | NUR ---
SW left pt's dtr/dpoa, Riri, a message to further discuss new dc plan as pt's facility is not accepting pt back at dc.
--- NOTE | 2017-02-12 14:31 | NUR ---
NAIF attempted to contact pt's dtr/dpoa, Riri again. NAIF inquired about the status of her discussion w/pt's facility. Riri reporting the facility will not be able to accept pt. back w/her current level of needs. Riri stated she is hopeful they will come out and reassess pt. once Dr. Minaya has completed all medication changes and they may reconsider accepting pt. back at [facility]. NAIF stated per the discussion w/Dr. Minaya yesterday, he will not be making any additional medication changes. Riri was very surprised by this statement and instantly asked for Dr. Minaya to call her to discuss this further. NAIF explained the process for looking for new placement, and pt. would most likely require a LTCF w/memory care rather then another AL. Riri asked what she should tell facilities are pt's needs. NAIF stated they will require a referral from this facility, and there are several facilities that will likely not entertain a referral as pt. has been to [facility] for 1+months and now w/this facility for 1+months. Placement will be more difficult as some facilities do not accept referrals from a recent psych admit. Riri stated she would like to tour the facilities prior to pt. admitting. NAIF stated facilities that are able to accept pt. will notify SW and her regarding acceptance and Riri could tour at that time. NAIF encouraged Riri to notify SW of facilities that she would prefer for SW to send referrals to, however, it would not guarantee acceptance. Riri stated she would like to talk w/Dr. Minaya and will touch base w/NAIF on Saturday to further discuss placement options. Naif left a message for Dr. Minaya to contact Riri after rounds this evening.
[2017-02-12 15:12] VITALS: BP 134/67
[2017-02-12] MEDS: MAGNESIUM HYDROXIDE 2,400 MG/30 ML ORAL.SUSP. PO PRN (16:42)
--- NOTE | 2017-02-12 17:30 | NUR ---
Attempted to provide milk of magnesia to patient, she was extremely disorganized and placed mashed potatoes in the cup holding the MoMg. Undid the administration, will give report to hourly shift.
--- NOTE | 2017-02-12 18:47 | RAD ---
AP supine abdomen radiograph 02/12/2017 CLINICAL INDICATION: Constipation versus obstruction. COMPARISON: Abdominal radiograph 01/12/2017 FINDINGS: There is a nonobstructive bowel gas pattern with gas noted to the rectum. Prior total left hip arthroplasty. Multilevel lumbar spondylosis and right hip osteoarthritis. IMPRESSION: No radiographic evidence of bowel obstruction. Electronically signed by: Austin Franco MD (02/12/2017 6:44 PM) [facility]
[2017-02-12] MEDS: MIRTAZAPINE 7.5 MG TABLET. PO SCH (19:17)
[2017-02-12] MEDS: QUEtiapine 50 MG TABLET. PO SCH (19:18)
--- NOTE | 2017-02-12 20:01 | PDOC ---
Exam Note: Ronen Note: Please also refer to the separate dictated note~for this date of service dictated separately.~Patient seen individually. Discussed the patient with Nursing staff reviewed the chart.~Reviewed interim history and current functioning. Reviewed vital signs,~Labs/ Radiology~and current medications noted below. Continue current treatment with the changes noted in the dictated addendum note Assessment: Vital Signs: Vital Signs Date Time Temp Pulse Resp B/P (MAP) Pulse Ox O2 Delivery O2 Flow Rate FiO2 02/12/17 15:12 97.3 82 16 134/67 (89) 99 02/07/17 15:56 Room Air I&O Intake and Output 02/12/17 07:00 Intake Total 1200 ml Balance 1200 ml Intake Oral 1200 ml Current Medications: Meds: Current Medications Lorazepam (Ativan) 0.5 mg PRN Q4HRS PRN PO ANXIETY / AGITATION Last administered on 01/12/17 06:08; Start 01/05/17 at 16:45; Stop 01/12/17 at 19: 11; Status DC Acetaminophen (Tylenol) 500 mg Q6HRS PRN PO PAIN / TEMP Last administered on 07:56; Start 01/05/17 at 17:00; Stop 01/13/17 at 14:02; Status DC Bisacodyl (Dulcolax Supp) 10 mg PRN DAILY PRN RC CONSTIPATION Last administered on 01/19/17 19:54; Start 01/05/17 at 17:00 Calcium/Vitamin D (Oscal D 500mg/ 200uts) 1 tab BID PO Last administered on 19:17; Start 01/05/17 at 21:00 Levothyroxine Sodium (Synthroid) 75 mcg DAILY06 PO Last administered on 05:47; Start 01/06/17 at 06:00 Multi-Ingredient Ointment (Analgesic Garrison) 1 peewee PRN QID PRN TP muscle pain; Start 01/05/17 at 17:00 Neomycin/ Polymyxin/ Dexamethasone (Maxitrol) 2 drop TID OU Last administered on 02/12/17 19:17; Start 01/05/17 at 21:00 Sennosides (Senna) 8.6 mg BID PO Last administered on 02/12/17 19:17; Start 01/05/17 at 21:00 Al Hydroxide/Mg Hydroxide (Mylanta Plus Xs) 15 ml PRN AFTMEALHC PRN PO DYSPEPSIA; Start 01/05/17 at 17:15 Magnesium Hydroxide (Milk Of Magnesia) 2,400 mg PRN QHS PRN PO CONSTIPATION Last administered on 02/11/17 17:11; Start 01/05/17 at 17:15 Multivitamins/ Calcium (Thera-M Plus) 1 tab DAILY PO Last administered on 07:33; Start 01/06/17 at 09:00 Pantoprazole Sodium (Protonix) 40 mg DAILYAC PO Last administered on 08:43; Start 01/06/17 at 07:30; Stop 01/09/17 at 07:50; Status DC Citalopram Hydrobromide (CeleXA) 10 mg DAILY PO Last administered on 10:09; Start 01/06/17 at 09:00; Stop 01/07/17 at 19:34; Status DC Memantine (Namenda) 10 mg HS PO Last administered on 02/04/17 19:16; Start 01/05/17 at 21:00; Stop 02/05/17 at 16:43; Status DC Quetiapine Fumarate (SEROquel) 150 mg QHS PO Last administered on 02/12/17 19: 18; Start 01/05/17 at 21:00 Quetiapine Fumarate (SEROquel) 50 mg BID92 PO Last administered on 01/10/17 14 :06; Start 01/06/17 at 09:00; Stop 01/10/17 at 19:13; Status DC Ziprasidone (Geodon) 40 mg DAILY PO Last administered on 01/11/17 09:21; Start 01/06/17 at 09:00; Stop 01/11/17 at 18:37; Status DC Pneumococcal Polyvalent Vaccine (Pneumovax 23) 0.5 ml ONCE ONCE VAX IM Last administered on 01/07/17 23:11; Start 01/07/17 at 21:00; Stop 01/07/17 at 21 :01; Status DC Influenza Virus Vaccine Quadrival (Fluarix Quad [id number] Syringe) 0.5 ml ONCE ONCE VAX IM Last administered on 01/07/17 23:13; Start 01/07/17 at 21:00; Stop 01/07/17 at 21:01; Status DC Fluvoxamine Maleate (Luvox) 25 mg HS PO Last administered on 01/09/17 19:47; Start 01/07/17 at 21:00; Stop 01/10/17 at 20:59; Status DC Fluvoxamine Maleate (Luvox) 50 mg HS PO Last administered on 01/23/17 19:56; Start 01/10/17 at 21:00; Stop 01/24/17 at 19:14; Status DC Pantoprazole Sodium (Protonix Packet) 40 mg DAILYAC PO Last administered on 07:33; Start 01/09/17 at 08:15 Quetiapine Fumarate (SEROquel) 75 mg BID92 PO Last administered on 01/27/17 07:41; Start 01/11/17 at 09:00; Stop 01/27/17 at 15:53; Status DC Clonazepam (KlonoPIN) 0.25 mg DAILY PO Last administered on 01/19/17 10:20; Start 01/12/17 at 09:00; Stop 01/19/17 at 17:57; Status DC Clonazepam (KlonoPIN) 0.5 mg STK-MED ONCE .ROUTE Last administered on 06:37; Start 01/12/17 at 06:37; Stop 01/12/17 at 06:38; Status DC Magnesium Citrate (Citroma) 296 ml PRN 1X PRN PO CONSTIPATION Last administered on 01/12/17 19:34; Start 01/12/17 at 07:45 Lorazepam (Ativan) 0.25 mg PRN Q4HRS PRN PO ANXIETY / AGITATION Last administered on 01/14/17 23:14; Start 01/12/17 at 19:15; Stop 01/15/17 at 19:30 ; Status DC Sodium Biphosphate/ Sodium Phosphate (Fleet Adult) 133 ml 1X ONCE AR Last administered on 01/13/17 15:24; Start 01/13/17 at 14:15; Stop 01/13/17 at 14:16 ; Status DC Polyethylene Glycol (miraLAX) 17 gm DAILY PO Last administered on 02/12/17 07: 33; Start 01/14/17 at 09:00 Polyethylene Glycol (miraLAX) 17 gm 1X ONCE PO Last administered on 01/13/17 17:26; Start 01/13/17 at 14:00; Stop 01/13/17 at 14:01; Status DC Acetaminophen (Tylenol) 500 mg PRN Q6HRS PRN PO PAIN / TEMP Last administered on 02/02/17 22:24; Start 01/13/17 at 14:15 Divalproex Sodium (Depakote Sprinkles) 125 mg BID92 PO ; Start 01/15/17 at 09:00 ; Status UNV Oxcarbazepine (Trileptal) 150 mg BID92 PO Last administered on 01/16/17 14:17 ; Start 01/15/17 at 09:00; Stop 01/16/17 at 17:31; Status DC Sodium Chloride 1,000 ml @ 1,000 mls/hr 1X ONCE IV Last administered on 13:50; Start 01/15/17 at 12:00; Stop 01/15/17 at 12:59; Status DC Oxcarbazepine (Trileptal) 150 mg HS PO Last administered on 01/25/17 19:27; Start 01/16/17 at 21:00; Stop 01/26/17 at 18:37; Status DC Oxcarbazepine (Trileptal) 300 mg DAILY PO Last administered on 01/26/17 07:49 ; Start 01/17/17 at 09:00; Stop 01/26/17 at 18:38; Status DC Olanzapine (ZyPREXA ZYDIS) 0.125 mg PRN Q4HRS PRN PO PSYCHOSIS Last administered on 01/27/17 22:00; Start 01/18/17 at 19:00; Stop 02/02/17 at 10 :57; Status DC Mirtazapine (Remeron) 7.5 mg QHS PO Last administered on 02/12/17 19:17; Start 01/23/17 at 21:00 Fluvoxamine Maleate (Luvox) 75 mg HS PO Last administered on 02/02/17 19:26; Start 01/24/17 at 21:00; Stop 02/03/17 at 13:04; Status DC Oxcarbazepine (Trileptal) 300 mg BID PO Last administered on 02/04/17 08:18; Start 01/26/17 at 21:00; Stop 02/04/17 at 19:06; Status DC Trazodone HCl (Desyrel) 50 mg PRN QHS PRN PO INSOMNIA, MAY REPEAT X1 Last administered on 02/01/17 19:26; Start 01/26/17 at 18:45 Quetiapine Fumarate (SEROquel) 75 mg BID92 PO Last administered on 01/30/17 07:55; Start 01/28/17 at 09:00; Stop 01/30/17 at 15:33; Status DC Quetiapine Fumarate (SEROquel) 25 mg BID92 PO Last administered on 02/12/17 13 :56; Start 01/31/17 at 09:00 Olanzapine (ZyPREXA ZYDIS) 1.25 mg PRN Q4HRS PRN PO PSYCHOSIS Last administered on 02/10/17 13:19; Start 02/02/17 at 10:57 Fluvoxamine Maleate (Luvox) 100 mg HS PO Last administered on 02/06/17 19:13 ; Start 02/03/17 at 21:00; Stop 02/07/17 at 11:47; Status DC Oxcarbazepine (Trileptal) 300 mg DAILY PO Last administered on 02/06/17 08:33 ; Start 02/05/17 at 09:00; Stop 02/06/17 at 18:26; Status DC Oxcarbazepine (Trileptal) 600 mg HS PO Last administered on 02/05/17 20:03; Start 02/04/17 at 21:00; Stop 02/06/17 at 18:26; Status DC Fluvoxamine Maleate (Luvox) 125 mg HS PO Last administered on 02/09/17 19:38; Start 02/07/17 at 21:00; Stop 02/10/17 at 18:35; Status DC Ziprasidone (Geodon) 40 mg DAILY PO Last administered on 02/09/17 08:07; Start 02/07/17 at 11:45; Stop 02/10/17 at 07:00; Status DC Ziprasidone (Geodon) 40 mg BID PO Last administered on 02/12/17 19:17; Start 02/10/17 at 09:00 Fluvoxamine Maleate (Luvox) 150 mg HS PO Last administered on 02/12/17 19:17; Start 02/11/17 at 21:00 Olanzapine (ZyPREXA) 5 mg DAILY10 PO ; Start 02/13/17 at 10:00 Active Scripts Active Reported Synthroid (Levothyroxine Sodium) 75 Mcg Tablet 1 Tab PO DAILY06 Senokot (Sennosides) 8.6 Mg Tablet 1 Tab PO BID Seroquel (Quetiapine Fumarate) 50 Mg Tablet 1 Tab PO BID92 Omeprazole 20 Mg Capsule.dr 1 Cap PO DAILY Nuedexta 20-10 Mg Capsule (Dextromethorphan Hbr/Quinidine) 1 Each Capsule 1 Each PO BID Multivitamins (Multivitamin) 1 Each Tablet 1 Tab PO DAILY Namenda (Memantine Hcl) 10 Mg Tablet 10 Mg PO HS Maxitrol Eye Drops (Jhonathan/Polymyx B Sulf/Dexameth) 5 Ml Drops.susp 2 Drop OU TID Geodon (Ziprasidone Hcl) 40 Mg Capsule 40 Mg PO DAILY Celexa (Citalopram Hydrobromide) 10 Mg Tablet 10 Mg PO DAILY Calcium 500 + Vit D 200 Tablet (Calcium Carbonate/Vitamin D3) 1 Each Tablet 1 Each PO BID Bisacodyl 10 Mg Supp.rect 10 Mg RC PRN DAILY PRN Acetaminophen 500 Mg Tablet 1 Tab PO Q6HRS PRN Mag-Al Plus Suspension (Mag Hydrox/Al Hydrox/Simeth) 30 Ml Oral.susp 15 Ml PO PRN AFTMEALHC PRN Seroquel (Quetiapine Fumarate) 25 Mg Tablet 150 Mg PO HS Analgesic Garrison (Methyl Salicylate/Menthol) 29 Gm Oint...g. 1 Peewee TP PRN QID PRN Milk Of Magnesia (Magnesium Hydroxide) 2,400 Mg/10 Ml Oral.susp 2,400 Mg PO PRN QHS PRN I have reviewed the current psychotropics carefully including drug interactions. Risk benefit ratio favors no change other than as noted in my dictated progress note. 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
--- NOTE | 2017-02-12 20:33 | NUR ---
Behavior Intervention Response and Plan: BIRP Note: Behavior: Assumed Care of patient, patient located in Day Room at shift change. Patient exhibited the following behavior Interactive, Calm, Disorganized. Brief assessment on rounds of vital signs, medication needs, lab studies, and pain. Treatment plan problems .1&2 Intervention: Patient assessed and the following interventions initiated safety checks 15 Minute Checks Cognitive Assessment , Head to toe Assessment , Medications. Response: After interactions and interventions patient responded in the following manner, Compliant , Cooperative ,Attention Seeking. Continue to assess behaviors and condition will continue to monitor throughout the shift as needed. Patient educated on ADL's, and hand hygiene. 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 Continue to assess patient for changes in above assessment. Monitor for medication needs, pain, and safety concerns. Hourly rounding performed to ensure safe environment.
[2017-02-13] MEDS: LEVOTHYROXINE 75 MCG TABLET PO SCH (05:13)
[2017-02-13 06:30] VITALS: BP 159/81
[2017-02-13] MEDS: CALCIUM CARB/VIT D3 500/200 TABLET PO SCH ×2 (07:43→19:15)
[2017-02-13] MEDS: SENNOSIDES 8.6 MG TABLET PO SCH ×2 (07:43→19:15)
[2017-02-13] MEDS: MULTIVITAMIN with MINERAL TABLET. PO SCH (07:44)
[2017-02-13] MEDS: ZIPRASIDONE 40 MG CAPSULE. PO SCH ×2 (07:44→19:14)
[2017-02-13] MEDS: PANTOPRAZOLE 40 MG PACKET. PO SCH (07:44)
[2017-02-13] MEDS: POLYETHYLENE GLYCOL 3350 17 GM PACKET. PO SCH (07:44)
[2017-02-13] MEDS: MAGNESIUM HYDROXIDE 2,400 MG/30 ML ORAL.SUSP. PO PRN (07:44)
[2017-02-13] MEDS: QUEtiapine 25 MG TABLET. PO SCH ×2 (07:44→13:35)
[2017-02-13] MEDS: NEO/POLYMYX/DEXAMETH OPHTH SUSPENSION 5ML BOTTLE. OU SCH ×3 (07:45→19:14)
--- NOTE | 2017-02-13 09:10 | NUR ---
Behavior Intervention Response and Plan: BIRP Note: Behavior: Assumed Care of patient, patient located in Day Room at shift change. Patient exhibited the following behavior Restless, Disorganized, Resistive. Brief assessment on rounds of vital signs, medication needs, lab studies, and pain. Treatment plan problems 1 & 2. Intervention: Patient assessed and the following interventions initiated safety checks 15 Minute Checks Cognitive Assessment , Head to toe Assessment , Medications. Response: After interactions and interventions patient responded in the following manner, Calm , Appropriate ,Compliant. Continue to assess behaviors and condition will continue to monitor throughout the shift as needed. Patient educated on ADL's, and hand hygiene. 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 Continue to assess patient for changes in above assessment. Monitor for medication needs, pain, and safety concerns. Hourly rounding performed to ensure safe environment.
[2017-02-13] MEDS: OLANZapine 5 MG TABLET PO SCH (11:06)
--- NOTE | 2017-02-13 12:16 | PN ---
DATE: 02/11/2017 PSYCHIATRIC PROGRESS NOTE This is a late entry for 02/11/2017 covers elements not covered in my initial note of 02/11/2017. SUBJECTIVE:. The patient continues to be repetitive in verbalizations "okay okay" over and over. Compliant with medications and yogurt, having difficulty swallowing meals and pudding. No real changes. We were hoping some of the agitation obsessive, repetitive, compulsive behaviors would improve. BUN and creatinine ratio , alkaline phosphatase is 147. REVIEW OF SYSTEMS: No CV, , pulmonary, eye, ENT system symptoms on review. Reliability poor. MENTAL STATUS EXAM: Oriented to herself. Insight, judgment, recent and remote memory, attention, concentration, fund of knowledge poor, consistent with her diagnosis mentioned in my initial note. PLAN: Continue current psychotropics mentioned in my initial note. Adjust further as clinically indicated. MAN Abdullahi STOVER MD DR: AMOL/shelley JOB#: [id number] / [id number]
--- NOTE | 2017-02-13 15:00 | NUR ---
WEEKLY THERAPEUTIC RECREATION NOTE Date of Admission: 01/05/2017 Date of AT Assessment: 01/09/2017 Goal aimed: to increase relaxation Initial goal: Pt. will participate in all sensory stimulation activities. Weekly progress towards goal: on track Group participation level: none to minimal. Pt. participated in hand massages on Saturday Behaviors observed: Pt. constantly saying "ok, ok, ok," and is difficult to redirect. Less grabbing and squeezing of hands of staff. Plan: no changes to goal
[2017-02-13 16:30] VITALS: BP 124/74
--- NOTE | 2017-02-13 17:25 | NUR ---
Patient is agitated, pushing away food, grabbing at staff, and talking louder than normal for her. PRN med provided per eMAR. Patient has excessive secretions from her mouth, lung sounds are clear to auscultation all barker..
[2017-02-13] MEDS: MIRTAZAPINE 7.5 MG TABLET. PO SCH (19:15)
[2017-02-13] MEDS: QUEtiapine 50 MG TABLET. PO SCH (19:15)
--- NOTE | 2017-02-13 20:40 | NUR ---
Behavior Intervention Response and Plan: BIRP Note: Behavior: Assumed Care of patient, patient located in Day Room at shift change. Patient exhibited the following behavior Restless, Irritable, Resistive. Brief assessment on rounds of vital signs, medication needs, lab studies, and pain. Treatment plan problems . 1&2 Intervention: Patient assessed and the following interventions initiated safety checks 15 Minute Checks Cognitive Assessment , Head to toe Assessment , Medications. Response: After interactions and interventions patient responded in the following manner, Non Compliant , Anxious ,Non Compliant with Meds. Continue to assess behaviors and condition will continue to monitor throughout the shift as needed. Patient educated on ADL's, and hand hygiene. Plan: Continue to monitor Master Treatment Plan for patient's progress toward short term goals of Decreased Anxiety, Medication Compliance, senior living goals to return to previous living setting vs placement. Continue to assess patient for changes in above assessment. Monitor for medication needs, pain, and safety concerns. Hourly rounding performed to ensure safe environment.
--- NOTE | 2017-02-13 21:11 | PDOC ---
Exam Note: Ronen Note: Please also refer to the separate dictated note~for this date of service dictated separately.~Patient seen individually. Discussed the patient with Nursing staff reviewed the chart.~Reviewed interim history and current functioning. Reviewed vital signs,~Labs/ Radiology~and current medications noted below. Continue current treatment with the changes noted in the dictated addendum note Assessment: Vital Signs: Vital Signs Date Time Temp Pulse Resp B/P (MAP) Pulse Ox O2 Delivery O2 Flow Rate FiO2 02/13/17 16:30 97.5 78 18 124/74 (91) 98 Room Air I&O Intake and Output 02/13/17 07:00 Intake Total 940 ml Balance 940 ml Intake Oral 940 ml Current Medications: Meds: Current Medications Lorazepam (Ativan) 0.5 mg PRN Q4HRS PRN PO ANXIETY / AGITATION Last administered on 01/12/17 06:08; Start 01/05/17 at 16:45; Stop 01/12/17 at 19: 11; Status DC Acetaminophen (Tylenol) 500 mg Q6HRS PRN PO PAIN / TEMP Last administered on 07:56; Start 01/05/17 at 17:00; Stop 01/13/17 at 14:02; Status DC Bisacodyl (Dulcolax Supp) 10 mg PRN DAILY PRN RC CONSTIPATION Last administered on 01/19/17 19:54; Start 01/05/17 at 17:00 Calcium/Vitamin D (Oscal D 500mg/ 200uts) 1 tab BID PO Last administered on 19:15; Start 01/05/17 at 21:00 Levothyroxine Sodium (Synthroid) 75 mcg DAILY06 PO Last administered on 05:13; Start 01/06/17 at 06:00 Multi-Ingredient Ointment (Analgesic Cascade) 1 peewee PRN QID PRN TP muscle pain; Start 01/05/17 at 17:00 Neomycin/ Polymyxin/ Dexamethasone (Maxitrol) 2 drop TID OU Last administered on 02/13/17 19:14; Start 01/05/17 at 21:00 Sennosides (Senna) 8.6 mg BID PO Last administered on 02/13/17 19:15; Start 01/05/17 at 21:00 Al Hydroxide/Mg Hydroxide (Mylanta Plus Xs) 15 ml PRN AFTMEALHC PRN PO DYSPEPSIA; Start 01/05/17 at 17:15 Magnesium Hydroxide (Milk Of Magnesia) 2,400 mg PRN QHS PRN PO CONSTIPATION Last administered on 02/13/17 07:44; Start 01/05/17 at 17:15 Multivitamins/ Calcium (Thera-M Plus) 1 tab DAILY PO Last administered on 07:44; Start 01/06/17 at 09:00 Pantoprazole Sodium (Protonix) 40 mg DAILYAC PO Last administered on 08:43; Start 01/06/17 at 07:30; Stop 01/09/17 at 07:50; Status DC Citalopram Hydrobromide (CeleXA) 10 mg DAILY PO Last administered on 10:09; Start 01/06/17 at 09:00; Stop 01/07/17 at 19:34; Status DC Memantine (Namenda) 10 mg HS PO Last administered on 02/04/17 19:16; Start 01/05/17 at 21:00; Stop 02/05/17 at 16:43; Status DC Quetiapine Fumarate (SEROquel) 150 mg QHS PO Last administered on 02/13/17 19: 15; Start 01/05/17 at 21:00 Quetiapine Fumarate (SEROquel) 50 mg BID92 PO Last administered on 01/10/17 14 :06; Start 01/06/17 at 09:00; Stop 01/10/17 at 19:13; Status DC Ziprasidone (Geodon) 40 mg DAILY PO Last administered on 01/11/17 09:21; Start 01/06/17 at 09:00; Stop 01/11/17 at 18:37; Status DC Pneumococcal Polyvalent Vaccine (Pneumovax 23) 0.5 ml ONCE ONCE VAX IM Last administered on 01/07/17 23:11; Start 01/07/17 at 21:00; Stop 01/07/17 at 21 :01; Status DC Influenza Virus Vaccine Quadrival (Fluarix Quad [id number] Syringe) 0.5 ml ONCE ONCE VAX IM Last administered on 01/07/17 23:13; Start 01/07/17 at 21:00; Stop 01/07/17 at 21:01; Status DC Fluvoxamine Maleate (Luvox) 25 mg HS PO Last administered on 01/09/17 19:47; Start 01/07/17 at 21:00; Stop 01/10/17 at 20:59; Status DC Fluvoxamine Maleate (Luvox) 50 mg HS PO Last administered on 01/23/17 19:56; Start 01/10/17 at 21:00; Stop 01/24/17 at 19:14; Status DC Pantoprazole Sodium (Protonix Packet) 40 mg DAILYAC PO Last administered on 07:44; Start 01/09/17 at 08:15 Quetiapine Fumarate (SEROquel) 75 mg BID92 PO Last administered on 01/27/17 07:41; Start 01/11/17 at 09:00; Stop 01/27/17 at 15:53; Status DC Clonazepam (KlonoPIN) 0.25 mg DAILY PO Last administered on 01/19/17 10:20; Start 01/12/17 at 09:00; Stop 01/19/17 at 17:57; Status DC Clonazepam (KlonoPIN) 0.5 mg STK-MED ONCE .ROUTE Last administered on 06:37; Start 01/12/17 at 06:37; Stop 01/12/17 at 06:38; Status DC Magnesium Citrate (Citroma) 296 ml PRN 1X PRN PO CONSTIPATION Last administered on 01/12/17 19:34; Start 01/12/17 at 07:45 Lorazepam (Ativan) 0.25 mg PRN Q4HRS PRN PO ANXIETY / AGITATION Last administered on 01/14/17 23:14; Start 01/12/17 at 19:15; Stop 01/15/17 at 19:30 ; Status DC Sodium Biphosphate/ Sodium Phosphate (Fleet Adult) 133 ml 1X ONCE MS Last administered on 01/13/17 15:24; Start 01/13/17 at 14:15; Stop 01/13/17 at 14:16 ; Status DC Polyethylene Glycol (miraLAX) 17 gm DAILY PO Last administered on 02/13/17 07: 44; Start 01/14/17 at 09:00 Polyethylene Glycol (miraLAX) 17 gm 1X ONCE PO Last administered on 01/13/17 17:26; Start 01/13/17 at 14:00; Stop 01/13/17 at 14:01; Status DC Acetaminophen (Tylenol) 500 mg PRN Q6HRS PRN PO PAIN / TEMP Last administered on 02/02/17 22:24; Start 01/13/17 at 14:15 Divalproex Sodium (Depakote Sprinkles) 125 mg BID92 PO ; Start 01/15/17 at 09:00 ; Status UNV Oxcarbazepine (Trileptal) 150 mg BID92 PO Last administered on 01/16/17 14:17 ; Start 01/15/17 at 09:00; Stop 01/16/17 at 17:31; Status DC Sodium Chloride 1,000 ml @ 1,000 mls/hr 1X ONCE IV Last administered on 13:50; Start 01/15/17 at 12:00; Stop 01/15/17 at 12:59; Status DC Oxcarbazepine (Trileptal) 150 mg HS PO Last administered on 01/25/17 19:27; Start 01/16/17 at 21:00; Stop 01/26/17 at 18:37; Status DC Oxcarbazepine (Trileptal) 300 mg DAILY PO Last administered on 01/26/17 07:49 ; Start 01/17/17 at 09:00; Stop 01/26/17 at 18:38; Status DC Olanzapine (ZyPREXA ZYDIS) 0.125 mg PRN Q4HRS PRN PO PSYCHOSIS Last administered on 01/27/17 22:00; Start 01/18/17 at 19:00; Stop 02/02/17 at 10 :57; Status DC Mirtazapine (Remeron) 7.5 mg QHS PO Last administered on 02/13/17 19:15; Start 01/23/17 at 21:00 Fluvoxamine Maleate (Luvox) 75 mg HS PO Last administered on 02/02/17 19:26; Start 01/24/17 at 21:00; Stop 02/03/17 at 13:04; Status DC Oxcarbazepine (Trileptal) 300 mg BID PO Last administered on 02/04/17 08:18; Start 01/26/17 at 21:00; Stop 02/04/17 at 19:06; Status DC Trazodone HCl (Desyrel) 50 mg PRN QHS PRN PO INSOMNIA, MAY REPEAT X1 Last administered on 02/01/17 19:26; Start 01/26/17 at 18:45 Quetiapine Fumarate (SEROquel) 75 mg BID92 PO Last administered on 01/30/17 07:55; Start 01/28/17 at 09:00; Stop 01/30/17 at 15:33; Status DC Quetiapine Fumarate (SEROquel) 25 mg BID92 PO Last administered on 02/13/17 13 :35; Start 01/31/17 at 09:00 Olanzapine (ZyPREXA ZYDIS) 1.25 mg PRN Q4HRS PRN PO PSYCHOSIS Last administered on 02/13/17 17:25; Start 02/02/17 at 10:57 Fluvoxamine Maleate (Luvox) 100 mg HS PO Last administered on 02/06/17 19:13 ; Start 02/03/17 at 21:00; Stop 02/07/17 at 11:47; Status DC Oxcarbazepine (Trileptal) 300 mg DAILY PO Last administered on 02/06/17 08:33 ; Start 02/05/17 at 09:00; Stop 02/06/17 at 18:26; Status DC Oxcarbazepine (Trileptal) 600 mg HS PO Last administered on 02/05/17 20:03; Start 02/04/17 at 21:00; Stop 02/06/17 at 18:26; Status DC Fluvoxamine Maleate (Luvox) 125 mg HS PO Last administered on 02/09/17 19:38; Start 02/07/17 at 21:00; Stop 02/10/17 at 18:35; Status DC Ziprasidone (Geodon) 40 mg DAILY PO Last administered on 02/09/17 08:07; Start 02/07/17 at 11:45; Stop 02/10/17 at 07:00; Status DC Ziprasidone (Geodon) 40 mg BID PO Last administered on 02/13/17 19:14; Start 02/10/17 at 09:00; Stop 02/13/17 at 21:00; Status DC Fluvoxamine Maleate (Luvox) 150 mg HS PO Last administered on 02/13/17 19:15; Start 02/11/17 at 21:00 Olanzapine (ZyPREXA) 5 mg DAILY10 PO Last administered on 02/13/17 11:06; Start 02/13/17 at 10:00 Ziprasidone (Geodon) 40 mg BID94 PO ; Start 02/14/17 at 09:00 Active Scripts Active Reported Synthroid (Levothyroxine Sodium) 75 Mcg Tablet 1 Tab PO DAILY06 Senokot (Sennosides) 8.6 Mg Tablet 1 Tab PO BID Seroquel (Quetiapine Fumarate) 50 Mg Tablet 1 Tab PO BID92 Omeprazole 20 Mg Capsule.dr 1 Cap PO DAILY Nuedexta 20-10 Mg Capsule (Dextromethorphan Hbr/Quinidine) 1 Each Capsule 1 Each PO BID Multivitamins (Multivitamin) 1 Each Tablet 1 Tab PO DAILY Namenda (Memantine Hcl) 10 Mg Tablet 10 Mg PO HS Maxitrol Eye Drops (Jhonathan/Polymyx B Sulf/Dexameth) 5 Ml Drops.susp 2 Drop OU TID Geodon (Ziprasidone Hcl) 40 Mg Capsule 40 Mg PO DAILY Celexa (Citalopram Hydrobromide) 10 Mg Tablet 10 Mg PO DAILY Calcium 500 + Vit D 200 Tablet (Calcium Carbonate/Vitamin D3) 1 Each Tablet 1 Each PO BID Bisacodyl 10 Mg Supp.rect 10 Mg RC PRN DAILY PRN Acetaminophen 500 Mg Tablet 1 Tab PO Q6HRS PRN Mag-Al Plus Suspension (Mag Hydrox/Al Hydrox/Simeth) 30 Ml Oral.susp 15 Ml PO PRN AFTMEALHC PRN Seroquel (Quetiapine Fumarate) 25 Mg Tablet 150 Mg PO HS Analgesic Cascade (Methyl Salicylate/Menthol) 29 Gm Oint...g. 1 Peewee TP PRN QID PRN Milk Of Magnesia (Magnesium Hydroxide) 2,400 Mg/10 Ml Oral.susp 2,400 Mg PO PRN QHS PRN I have reviewed the current psychotropics carefully including drug interactions. Risk benefit ratio favors no change other than as noted in my dictated progress note. Diagnosis: Problems: (1) Alzheimer disease (2) Impulse control disorder (3) Hypothyroid (4) Dementia with behavioral disturbance (5) Anxiety disorder (6) Dementia, vascular, with depression (7) Dementia, vascular, with delusions (8) Dementia in Alzheimer's disease with depression (9) Dementia in Alzheimer's disease with delusions (10) Impulse control disorder GRANT STOVER MD Feb 13, 2017 21:11
[2017-02-14] MEDS: LEVOTHYROXINE 75 MCG TABLET PO SCH (05:41)
[2017-02-14 05:52] VITALS: BP 149/91
--- NOTE | 2017-02-14 07:13 | PN ---
DATE: 02/12/2017 This late entry, date of service 02/12/2017, covers elements not covered in my initial note 02/12/2017. Met with the patient in the evening of 02/12/2017. Earlier in the day discussed with [facility] staff regarding the daughter's concerns about the patient's nonresponse to psychotropics. Also returned a call from the patient's daughter Adri, , and had a very lengthy discussion with her about the patient's diagnosis, progress, current medications. Daughter is quite insistent that patient should be started on scheduled Zyprexa because she feels when she left freedom. She was doing the best she could on a combination of Seroquel, Geodon and Zyprexa scheduled. I have discussed at great length the risks/benefit ratio of using atypical especially 3 of them in a patient with dementia, but after a lengthy discussion, I can understand the daughter's point of view that the patient's quality of life is so compromised and she would not be accepted at any facility unless we can have some sense of stability from a psychiatric standpoint, and daughter feels this was best achieved on that combination of 3 atypicals. We will go ahead add the Zyprexa scheduled 5 mg as well. REVIEW OF SYSTEMS: No CV, , pulmonary, eye, ENT system symptoms on review. Gait unsteady. MENTAL STATUS EXAM: Oriented to herself. Insight, judgment, recent and remote memory, attention, concentration, fund of knowledge poor, consistent with her diagnosis. She is constantly stating okay, okay, okay, but this is less intense. LABORATORY DATA: Reviewed. IMPRESSION: Unchanged from initial note. PLAN: Continue psychotropics mentioned in my initial note and the change noted above. GRANT STOVER MD DR: AMOL/shelley JOB#: [id number] / [id number]
[2017-02-14] MEDS: POLYETHYLENE GLYCOL 3350 17 GM PACKET. PO SCH (08:04)
[2017-02-14] MEDS: PANTOPRAZOLE 40 MG PACKET. PO SCH (08:04)
[2017-02-14] MEDS: QUEtiapine 25 MG TABLET. PO SCH ×2 (08:05→14:35)
[2017-02-14] MEDS: CALCIUM CARB/VIT D3 500/200 TABLET PO SCH ×2 (08:05→19:30)
[2017-02-14] MEDS: SENNOSIDES 8.6 MG TABLET PO SCH ×2 (08:06→19:30)
[2017-02-14] MEDS: ZIPRASIDONE 40 MG CAPSULE. PO SCH ×2 (08:06→16:50)
[2017-02-14] MEDS: MULTIVITAMIN with MINERAL TABLET. PO SCH (08:06)
[2017-02-14] MEDS: NEO/POLYMYX/DEXAMETH OPHTH SUSPENSION 5ML BOTTLE. OU SCH ×2 (08:09→14:00)
[2017-02-14] MEDS: OLANZapine 5 MG TABLET PO SCH (08:18)
[2017-02-14] MEDS: BISACODYL 10 MG SUPP.RECT RC PRN (14:36)
--- NOTE | 2017-02-14 15:06 | NUR ---
Behavior Intervention Response and Plan: BIRP Note: Behavior: Assumed Care of patient, patient located in Patient Room at shift change. Patient exhibited the following behavior Restless, Anxious, Disorganized. Brief assessment on rounds of vital signs, medication needs, lab studies, and pain. Treatment plan problems 1-2. Intervention: Patient assessed and the following interventions initiated safety checks 15 Minute Checks Cognitive Assessment , Head to toe Assessment , Medications. Response: After interactions and interventions patient responded in the following manner, Restless , Disorganized ,Anxious. Continue to assess behaviors and condition will continue to monitor throughout the shift as needed. Patient educated on ADL's, and hand hygiene. 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 Continue to assess patient for changes in above assessment. Monitor for medication needs, pain, and safety concerns. Hourly rounding performed to ensure safe environment.
[2017-02-14 16:33] VITALS: BP 155/86
[2017-02-14] MEDS: ACETAMINOPHEN 500 MG TABLET PO PRN (17:26)
[2017-02-14] MEDS: MIRTAZAPINE 7.5 MG TABLET. PO SCH (19:30)
[2017-02-14] MEDS: QUEtiapine 50 MG TABLET. PO SCH (19:30)
--- NOTE | 2017-02-14 19:55 | PDOC ---
Exam Note: Ronen Note: Please also refer to the separate dictated note~for this date of service dictated separately.~Patient seen individually. Discussed the patient with Nursing staff reviewed the chart.~Reviewed interim history and current functioning. Reviewed vital signs,~Labs/ Radiology~and current medications noted below. Continue current treatment with the changes noted in the dictated addendum note Assessment: Vital Signs: Vital Signs Date Time Temp Pulse Resp B/P (MAP) Pulse Ox O2 Delivery O2 Flow Rate FiO2 02/14/17 16:33 97.3 20 155/86 (109) 02/14/17 05:52 82 98 Room Air I&O Intake and Output 02/14/17 07:00 Intake Total 650 ml Balance 650 ml Intake Oral 650 ml Current Medications: Meds: Current Medications Lorazepam (Ativan) 0.5 mg PRN Q4HRS PRN PO ANXIETY / AGITATION Last administered on 01/12/17 06:08; Start 01/05/17 at 16:45; Stop 01/12/17 at 19: 11; Status DC Acetaminophen (Tylenol) 500 mg Q6HRS PRN PO PAIN / TEMP Last administered on 07:56; Start 01/05/17 at 17:00; Stop 01/13/17 at 14:02; Status DC Bisacodyl (Dulcolax Supp) 10 mg PRN DAILY PRN RC CONSTIPATION Last administered on 02/14/17 14:36; Start 01/05/17 at 17:00 Calcium/Vitamin D (Oscal D 500mg/ 200uts) 1 tab BID PO Last administered on 19:30; Start 01/05/17 at 21:00 Levothyroxine Sodium (Synthroid) 75 mcg DAILY06 PO Last administered on 05:41; Start 01/06/17 at 06:00 Multi-Ingredient Ointment (Analgesic Milton) 1 peewee PRN QID PRN TP muscle pain; Start 01/05/17 at 17:00 Neomycin/ Polymyxin/ Dexamethasone (Maxitrol) 2 drop TID OU Last administered on 02/14/17 14:00; Start 01/05/17 at 21:00; Stop 02/14/17 at 18:56; Status DC Sennosides (Senna) 8.6 mg BID PO Last administered on 02/14/17 19:30; Start 01/05/17 at 21:00 Al Hydroxide/Mg Hydroxide (Mylanta Plus Xs) 15 ml PRN AFTMEALHC PRN PO DYSPEPSIA; Start 01/05/17 at 17:15 Magnesium Hydroxide (Milk Of Magnesia) 2,400 mg PRN QHS PRN PO CONSTIPATION Last administered on 02/13/17 07:44; Start 01/05/17 at 17:15 Multivitamins/ Calcium (Thera-M Plus) 1 tab DAILY PO Last administered on 08:06; Start 01/06/17 at 09:00 Pantoprazole Sodium (Protonix) 40 mg DAILYAC PO Last administered on 08:43; Start 01/06/17 at 07:30; Stop 01/09/17 at 07:50; Status DC Citalopram Hydrobromide (CeleXA) 10 mg DAILY PO Last administered on 10:09; Start 01/06/17 at 09:00; Stop 01/07/17 at 19:34; Status DC Memantine (Namenda) 10 mg HS PO Last administered on 02/04/17 19:16; Start 01/05/17 at 21:00; Stop 02/05/17 at 16:43; Status DC Quetiapine Fumarate (SEROquel) 150 mg QHS PO Last administered on 02/14/17 19: 30; Start 01/05/17 at 21:00 Quetiapine Fumarate (SEROquel) 50 mg BID92 PO Last administered on 01/10/17 14 :06; Start 01/06/17 at 09:00; Stop 01/10/17 at 19:13; Status DC Ziprasidone (Geodon) 40 mg DAILY PO Last administered on 01/11/17 09:21; Start 01/06/17 at 09:00; Stop 01/11/17 at 18:37; Status DC Pneumococcal Polyvalent Vaccine (Pneumovax 23) 0.5 ml ONCE ONCE VAX IM Last administered on 01/07/17 23:11; Start 01/07/17 at 21:00; Stop 01/07/17 at 21 :01; Status DC Influenza Virus Vaccine Quadrival (Fluarix Quad 2537-8760 Syringe) 0.5 ml ONCE ONCE VAX IM Last administered on 01/07/17 23:13; Start 01/07/17 at 21:00; Stop 01/07/17 at 21:01; Status DC Fluvoxamine Maleate (Luvox) 25 mg HS PO Last administered on 01/09/17 19:47; Start 01/07/17 at 21:00; Stop 01/10/17 at 20:59; Status DC Fluvoxamine Maleate (Luvox) 50 mg HS PO Last administered on 01/23/17 19:56; Start 01/10/17 at 21:00; Stop 01/24/17 at 19:14; Status DC Pantoprazole Sodium (Protonix Packet) 40 mg DAILYAC PO Last administered on 08:04; Start 01/09/17 at 08:15 Quetiapine Fumarate (SEROquel) 75 mg BID92 PO Last administered on 01/27/17 07:41; Start 01/11/17 at 09:00; Stop 01/27/17 at 15:53; Status DC Clonazepam (KlonoPIN) 0.25 mg DAILY PO Last administered on 01/19/17 10:20; Start 01/12/17 at 09:00; Stop 01/19/17 at 17:57; Status DC Clonazepam (KlonoPIN) 0.5 mg STK-MED ONCE .ROUTE Last administered on 06:37; Start 01/12/17 at 06:37; Stop 01/12/17 at 06:38; Status DC Magnesium Citrate (Citroma) 296 ml PRN 1X PRN PO CONSTIPATION Last administered on 01/12/17 19:34; Start 01/12/17 at 07:45 Lorazepam (Ativan) 0.25 mg PRN Q4HRS PRN PO ANXIETY / AGITATION Last administered on 01/14/17 23:14; Start 01/12/17 at 19:15; Stop 01/15/17 at 19:30 ; Status DC Sodium Biphosphate/ Sodium Phosphate (Fleet Adult) 133 ml 1X ONCE CA Last administered on 01/13/17 15:24; Start 01/13/17 at 14:15; Stop 01/13/17 at 14:16 ; Status DC Polyethylene Glycol (miraLAX) 17 gm DAILY PO Last administered on 02/14/17 08: 04; Start 01/14/17 at 09:00 Polyethylene Glycol (miraLAX) 17 gm 1X ONCE PO Last administered on 01/13/17 17:26; Start 01/13/17 at 14:00; Stop 01/13/17 at 14:01; Status DC Acetaminophen (Tylenol) 500 mg PRN Q6HRS PRN PO PAIN / TEMP Last administered on 02/14/17 17:26; Start 01/13/17 at 14:15 Divalproex Sodium (Depakote Sprinkles) 125 mg BID92 PO ; Start 01/15/17 at 09:00 ; Status UNV Oxcarbazepine (Trileptal) 150 mg BID92 PO Last administered on 01/16/17 14:17 ; Start 01/15/17 at 09:00; Stop 01/16/17 at 17:31; Status DC Sodium Chloride 1,000 ml @ 1,000 mls/hr 1X ONCE IV Last administered on 13:50; Start 01/15/17 at 12:00; Stop 01/15/17 at 12:59; Status DC Oxcarbazepine (Trileptal) 150 mg HS PO Last administered on 01/25/17 19:27; Start 01/16/17 at 21:00; Stop 01/26/17 at 18:37; Status DC Oxcarbazepine (Trileptal) 300 mg DAILY PO Last administered on 01/26/17 07:49 ; Start 01/17/17 at 09:00; Stop 01/26/17 at 18:38; Status DC Olanzapine (ZyPREXA ZYDIS) 0.125 mg PRN Q4HRS PRN PO PSYCHOSIS Last administered on 01/27/17 22:00; Start 01/18/17 at 19:00; Stop 02/02/17 at 10 :57; Status DC Mirtazapine (Remeron) 7.5 mg QHS PO Last administered on 02/14/17 19:30; Start 01/23/17 at 21:00 Fluvoxamine Maleate (Luvox) 75 mg HS PO Last administered on 02/02/17 19:26; Start 01/24/17 at 21:00; Stop 02/03/17 at 13:04; Status DC Oxcarbazepine (Trileptal) 300 mg BID PO Last administered on 02/04/17 08:18; Start 01/26/17 at 21:00; Stop 02/04/17 at 19:06; Status DC Trazodone HCl (Desyrel) 50 mg PRN QHS PRN PO INSOMNIA, MAY REPEAT X1 Last administered on 02/01/17 19:26; Start 01/26/17 at 18:45 Quetiapine Fumarate (SEROquel) 75 mg BID92 PO Last administered on 01/30/17 07:55; Start 01/28/17 at 09:00; Stop 01/30/17 at 15:33; Status DC Quetiapine Fumarate (SEROquel) 25 mg BID92 PO Last administered on 02/14/17 14 :35; Start 01/31/17 at 09:00 Olanzapine (ZyPREXA ZYDIS) 1.25 mg PRN Q4HRS PRN PO PSYCHOSIS Last administered on 02/14/17 17:25; Start 02/02/17 at 10:57 Fluvoxamine Maleate (Luvox) 100 mg HS PO Last administered on 02/06/17 19:13 ; Start 02/03/17 at 21:00; Stop 02/07/17 at 11:47; Status DC Oxcarbazepine (Trileptal) 300 mg DAILY PO Last administered on 02/06/17 08:33 ; Start 02/05/17 at 09:00; Stop 02/06/17 at 18:26; Status DC Oxcarbazepine (Trileptal) 600 mg HS PO Last administered on 02/05/17 20:03; Start 02/04/17 at 21:00; Stop 02/06/17 at 18:26; Status DC Fluvoxamine Maleate (Luvox) 125 mg HS PO Last administered on 02/09/17 19:38; Start 02/07/17 at 21:00; Stop 02/10/17 at 18:35; Status DC Ziprasidone (Geodon) 40 mg DAILY PO Last administered on 02/09/17 08:07; Start 02/07/17 at 11:45; Stop 02/10/17 at 07:00; Status DC Ziprasidone (Geodon) 40 mg BID PO Last administered on 02/13/17 19:14; Start 02/10/17 at 09:00; Stop 02/13/17 at 21:00; Status DC Fluvoxamine Maleate (Luvox) 150 mg HS PO Last administered on 02/14/17 19:30; Start 02/11/17 at 21:00 Olanzapine (ZyPREXA) 5 mg DAILY10 PO Last administered on 02/14/17 08:18; Start 02/13/17 at 10:00 Ziprasidone (Geodon) 40 mg BID94 PO Last administered on 02/14/17 16:50; Start 02/14/17 at 09:00 Active Scripts Active Reported Synthroid (Levothyroxine Sodium) 75 Mcg Tablet 1 Tab PO DAILY06 Senokot (Sennosides) 8.6 Mg Tablet 1 Tab PO BID Seroquel (Quetiapine Fumarate) 50 Mg Tablet 1 Tab PO BID92 Omeprazole 20 Mg Capsule.dr 1 Cap PO DAILY Nuedexta 20-10 Mg Capsule (Dextromethorphan Hbr/Quinidine) 1 Each Capsule 1 Each PO BID Multivitamins (Multivitamin) 1 Each Tablet 1 Tab PO DAILY Namenda (Memantine Hcl) 10 Mg Tablet 10 Mg PO HS Maxitrol Eye Drops (Jhonathan/Polymyx B Sulf/Dexameth) 5 Ml Drops.susp 2 Drop OU TID Geodon (Ziprasidone Hcl) 40 Mg Capsule 40 Mg PO DAILY Celexa (Citalopram Hydrobromide) 10 Mg Tablet 10 Mg PO DAILY Calcium 500 + Vit D 200 Tablet (Calcium Carbonate/Vitamin D3) 1 Each Tablet 1 Each PO BID Bisacodyl 10 Mg Supp.rect 10 Mg RC PRN DAILY PRN Acetaminophen 500 Mg Tablet 1 Tab PO Q6HRS PRN Mag-Al Plus Suspension (Mag Hydrox/Al Hydrox/Simeth) 30 Ml Oral.susp 15 Ml PO PRN AFTMEALHC PRN Seroquel (Quetiapine Fumarate) 25 Mg Tablet 150 Mg PO HS Analgesic Milton (Methyl Salicylate/Menthol) 29 Gm Oint...g. 1 Peewee TP PRN QID PRN Milk Of Magnesia (Magnesium Hydroxide) 2,400 Mg/10 Ml Oral.susp 2,400 Mg PO PRN QHS PRN I have reviewed the current psychotropics carefully including drug interactions. Risk benefit ratio favors no change other than as noted in my dictated progress note. 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
[2017-02-14] MEDS: traZODone 50 MG TABLET. PO PRN ×2 (21:16→22:46)
--- NOTE | 2017-02-14 22:05 | PN ---
DATE: 02/13/2017 This entry 02/13/2017 covers elements not covered in my initial note of 02/13/2017. Met with the patient evening of 02/13/2017. SUBJECTIVE: The patient continues to repeat "okay, okay, okay," but this seems less loud as compared to earlier. She is still intermittently agitated, but less so than before, grabbing at staff around her less. REVIEW OF SYSTEMS: Ambulation impaired. No CV, , pulmonary, eye, ENT system symptoms on review. MENTAL STATUS EXAM: Oriented to herself. Insight, judgment, recent and remote memory, attention, concentration, fund of knowledge poor, consistent with her diagnosis mentioned in my initial note. PLAN: The patient's daughter has requested Geodon to be changed to 40 mg in the morning and 3:00 p.m., and we will go ahead and adjust this. Continue rest of psychotropics, but in fact changing the Geodon schedule might help reduce some mood lability during the day. GRANT STOVER MD DR: AMOL/shelley JOB#: [id number] / [id number]
--- NOTE | 2017-02-14 22:35 | NUR ---
Behavior Intervention Response and Plan: BIRP Note: Behavior: Assumed Care of patient, patient located in Day Room at shift change. Patient exhibited the following behavior Disorganized, Compulsive, Restless. Brief assessment on rounds of vital signs, medication needs, lab studies, and pain. Treatment plan problems 1 and 2. Intervention: Patient assessed and the following interventions initiated safety checks 15 Minute Checks Cognitive Assessment , Head to toe Assessment , Medications. Response: After interactions and interventions patient responded in the following manner, Restless , Compulsive ,Cooperative. Continue to assess behaviors and condition will continue to monitor throughout the shift as needed. Patient educated on ADL's, and hand hygiene. Plan: Continue to monitor Master Treatment Plan for patient's progress toward short term goals of Decreased Agitation, Decreased Aggression, terminal carman goals to return to previous living setting vs placement. Continue to assess patient for changes in above assessment. Monitor for medication needs, pain, and safety concerns. Hourly rounding performed to ensure safe environment.
[2017-02-15] MEDS: LEVOTHYROXINE 75 MCG TABLET PO SCH (05:36)
[2017-02-15 05:48] VITALS: BP 154/63
[2017-02-15] MEDS: PANTOPRAZOLE 40 MG PACKET. PO SCH (07:56)
[2017-02-15] MEDS: CALCIUM CARB/VIT D3 500/200 TABLET PO SCH ×2 (08:17→19:44)
[2017-02-15] MEDS: POLYETHYLENE GLYCOL 3350 17 GM PACKET. PO SCH (08:17)
[2017-02-15] MEDS: MULTIVITAMIN with MINERAL TABLET. PO SCH (08:17)
[2017-02-15] MEDS: QUEtiapine 25 MG TABLET. PO SCH ×2 (08:17→14:09)
[2017-02-15] MEDS: ZIPRASIDONE 40 MG CAPSULE. PO SCH ×2 (08:17→16:10)
[2017-02-15] MEDS: SENNOSIDES 8.6 MG TABLET PO SCH ×2 (08:17→19:45)
--- NOTE | 2017-02-15 10:24 | NUR ---
Behavior Intervention Response and Plan: BIRP Note: Behavior: Assumed Care of patient, patient located in Dining Room at shift change. Patient exhibited the following behavior Restless, Disorganized, Compliant. Brief assessment on rounds of vital signs, medication needs, lab studies, and pain. Treatment plan problems 1-2. Intervention: Patient assessed and the following interventions initiated safety checks 15 Minute Checks Cognitive Assessment , Head to toe Assessment , Medications. Response: After interactions and interventions patient responded in the following manner, Restless , Disorganized ,Compliant. Continue to assess behaviors and condition will continue to monitor throughout the shift as needed. Patient educated on ADL's, and hand hygiene. 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 Continue to assess patient for changes in above assessment. Monitor for medication needs, pain, and safety concerns. Hourly rounding performed to ensure safe environment.
[2017-02-15] MEDS: OLANZapine 5 MG TABLET PO SCH (14:09)
--- NOTE | 2017-02-15 15:38 | NUR ---
KELLI Weekly Progress Note Pt. continues to repeat "OK" but is less aggressive. Pt's dtr, Riri continues to request further medication changes in hopes it will improve pt. to a baseline she exhibited several months ago. Pt's facility, [facility] will not be accepting pt. back at [place]. SW is in the process of securing new placement for pt. Pt's dtr is requesting further information about said facilities as she is very concerned with the type of place pt. will transition to at dc. SW has had discussions w/Riri to help prepare for the lack of options Pt. will have w/facilities based on her current needs and behaviors.
[2017-02-15 16:04] VITALS: BP 107/64
[2017-02-15] MEDS: QUEtiapine 50 MG TABLET. PO SCH (19:44)
[2017-02-15] MEDS: MIRTAZAPINE 7.5 MG TABLET. PO SCH (19:45)
--- NOTE | 2017-02-15 19:51 | PDOC ---
Exam Note: Ronen Note: Please also refer to the separate dictated note~for this date of service dictated separately.~Patient seen individually. Discussed the patient with Nursing staff reviewed the chart.~Reviewed interim history and current functioning. Reviewed vital signs,~Labs/ Radiology~and current medications noted below. Continue current treatment with the changes noted in the dictated addendum note Assessment: Vital Signs: Vital Signs Date Time Temp Pulse Resp B/P (MAP) Pulse Ox O2 Delivery O2 Flow Rate FiO2 02/15/17 16:04 98.1 93 20 107/64 (78) 94 02/14/17 05:52 Room Air I&O Intake and Output 02/15/17 07:00 Intake Total 960 ml Balance 960 ml Intake Oral 960 ml # Bowel Movements 2 Current Medications: Meds: Current Medications Lorazepam (Ativan) 0.5 mg PRN Q4HRS PRN PO ANXIETY / AGITATION Last administered on 01/12/17 06:08; Start 01/05/17 at 16:45; Stop 01/12/17 at 19: 11; Status DC Acetaminophen (Tylenol) 500 mg Q6HRS PRN PO PAIN / TEMP Last administered on 07:56; Start 01/05/17 at 17:00; Stop 01/13/17 at 14:02; Status DC Bisacodyl (Dulcolax Supp) 10 mg PRN DAILY PRN RC CONSTIPATION Last administered on 02/14/17 14:36; Start 01/05/17 at 17:00 Calcium/Vitamin D (Oscal D 500mg/ 200uts) 1 tab BID PO Last administered on 19:44; Start 01/05/17 at 21:00 Levothyroxine Sodium (Synthroid) 75 mcg DAILY06 PO Last administered on 05:36; Start 01/06/17 at 06:00 Multi-Ingredient Ointment (Analgesic Loa) 1 peewee PRN QID PRN TP muscle pain; Start 01/05/17 at 17:00 Neomycin/ Polymyxin/ Dexamethasone (Maxitrol) 2 drop TID OU Last administered on 02/14/17 14:00; Start 01/05/17 at 21:00; Stop 02/14/17 at 18:56; Status DC Sennosides (Senna) 8.6 mg BID PO Last administered on 02/15/17 19:45; Start 01/05/17 at 21:00 Al Hydroxide/Mg Hydroxide (Mylanta Plus Xs) 15 ml PRN AFTMEALHC PRN PO DYSPEPSIA; Start 01/05/17 at 17:15 Magnesium Hydroxide (Milk Of Magnesia) 2,400 mg PRN QHS PRN PO CONSTIPATION Last administered on 02/13/17 07:44; Start 01/05/17 at 17:15 Multivitamins/ Calcium (Thera-M Plus) 1 tab DAILY PO Last administered on 08:17; Start 01/06/17 at 09:00 Pantoprazole Sodium (Protonix) 40 mg DAILYAC PO Last administered on 08:43; Start 01/06/17 at 07:30; Stop 01/09/17 at 07:50; Status DC Citalopram Hydrobromide (CeleXA) 10 mg DAILY PO Last administered on 10:09; Start 01/06/17 at 09:00; Stop 01/07/17 at 19:34; Status DC Memantine (Namenda) 10 mg HS PO Last administered on 02/04/17 19:16; Start 01/05/17 at 21:00; Stop 02/05/17 at 16:43; Status DC Quetiapine Fumarate (SEROquel) 150 mg QHS PO Last administered on 02/15/17 19: 44; Start 01/05/17 at 21:00 Quetiapine Fumarate (SEROquel) 50 mg BID92 PO Last administered on 01/10/17 14 :06; Start 01/06/17 at 09:00; Stop 01/10/17 at 19:13; Status DC Ziprasidone (Geodon) 40 mg DAILY PO Last administered on 01/11/17 09:21; Start 01/06/17 at 09:00; Stop 01/11/17 at 18:37; Status DC Pneumococcal Polyvalent Vaccine (Pneumovax 23) 0.5 ml ONCE ONCE VAX IM Last administered on 01/07/17 23:11; Start 01/07/17 at 21:00; Stop 01/07/17 at 21 :01; Status DC Influenza Virus Vaccine Quadrival (Fluarix Quad [id number] Syringe) 0.5 ml ONCE ONCE VAX IM Last administered on 01/07/17 23:13; Start 01/07/17 at 21:00; Stop 01/07/17 at 21:01; Status DC Fluvoxamine Maleate (Luvox) 25 mg HS PO Last administered on 01/09/17 19:47; Start 01/07/17 at 21:00; Stop 01/10/17 at 20:59; Status DC Fluvoxamine Maleate (Luvox) 50 mg HS PO Last administered on 01/23/17 19:56; Start 01/10/17 at 21:00; Stop 01/24/17 at 19:14; Status DC Pantoprazole Sodium (Protonix Packet) 40 mg DAILYAC PO Last administered on 07:56; Start 01/09/17 at 08:15 Quetiapine Fumarate (SEROquel) 75 mg BID92 PO Last administered on 01/27/17 07:41; Start 01/11/17 at 09:00; Stop 01/27/17 at 15:53; Status DC Clonazepam (KlonoPIN) 0.25 mg DAILY PO Last administered on 01/19/17 10:20; Start 01/12/17 at 09:00; Stop 01/19/17 at 17:57; Status DC Clonazepam (KlonoPIN) 0.5 mg STK-MED ONCE .ROUTE Last administered on 06:37; Start 01/12/17 at 06:37; Stop 01/12/17 at 06:38; Status DC Magnesium Citrate (Citroma) 296 ml PRN 1X PRN PO CONSTIPATION Last administered on 01/12/17 19:34; Start 01/12/17 at 07:45 Lorazepam (Ativan) 0.25 mg PRN Q4HRS PRN PO ANXIETY / AGITATION Last administered on 01/14/17 23:14; Start 01/12/17 at 19:15; Stop 01/15/17 at 19:30 ; Status DC Sodium Biphosphate/ Sodium Phosphate (Fleet Adult) 133 ml 1X ONCE WA Last administered on 01/13/17 15:24; Start 01/13/17 at 14:15; Stop 01/13/17 at 14:16 ; Status DC Polyethylene Glycol (miraLAX) 17 gm DAILY PO Last administered on 02/15/17 08: 17; Start 01/14/17 at 09:00 Polyethylene Glycol (miraLAX) 17 gm 1X ONCE PO Last administered on 01/13/17 17:26; Start 01/13/17 at 14:00; Stop 01/13/17 at 14:01; Status DC Acetaminophen (Tylenol) 500 mg PRN Q6HRS PRN PO PAIN / TEMP Last administered on 02/14/17 17:26; Start 01/13/17 at 14:15 Divalproex Sodium (Depakote Sprinkles) 125 mg BID92 PO ; Start 01/15/17 at 09:00 ; Status UNV Oxcarbazepine (Trileptal) 150 mg BID92 PO Last administered on 01/16/17 14:17 ; Start 01/15/17 at 09:00; Stop 01/16/17 at 17:31; Status DC Sodium Chloride 1,000 ml @ 1,000 mls/hr 1X ONCE IV Last administered on 13:50; Start 01/15/17 at 12:00; Stop 01/15/17 at 12:59; Status DC Oxcarbazepine (Trileptal) 150 mg HS PO Last administered on 01/25/17 19:27; Start 01/16/17 at 21:00; Stop 01/26/17 at 18:37; Status DC Oxcarbazepine (Trileptal) 300 mg DAILY PO Last administered on 01/26/17 07:49 ; Start 01/17/17 at 09:00; Stop 01/26/17 at 18:38; Status DC Olanzapine (ZyPREXA ZYDIS) 0.125 mg PRN Q4HRS PRN PO PSYCHOSIS Last administered on 01/27/17 22:00; Start 01/18/17 at 19:00; Stop 02/02/17 at 10 :57; Status DC Mirtazapine (Remeron) 7.5 mg QHS PO Last administered on 02/15/17 19:45; Start 01/23/17 at 21:00 Fluvoxamine Maleate (Luvox) 75 mg HS PO Last administered on 02/02/17 19:26; Start 01/24/17 at 21:00; Stop 02/03/17 at 13:04; Status DC Oxcarbazepine (Trileptal) 300 mg BID PO Last administered on 02/04/17 08:18; Start 01/26/17 at 21:00; Stop 02/04/17 at 19:06; Status DC Trazodone HCl (Desyrel) 50 mg PRN QHS PRN PO INSOMNIA, MAY REPEAT X1 Last administered on 02/14/17 22:46; Start 01/26/17 at 18:45 Quetiapine Fumarate (SEROquel) 75 mg BID92 PO Last administered on 01/30/17 07:55; Start 01/28/17 at 09:00; Stop 01/30/17 at 15:33; Status DC Quetiapine Fumarate (SEROquel) 25 mg BID92 PO Last administered on 02/15/17 14 :09; Start 01/31/17 at 09:00 Olanzapine (ZyPREXA ZYDIS) 1.25 mg PRN Q4HRS PRN PO PSYCHOSIS Last administered on 02/14/17 17:25; Start 02/02/17 at 10:57 Fluvoxamine Maleate (Luvox) 100 mg HS PO Last administered on 02/06/17 19:13 ; Start 02/03/17 at 21:00; Stop 02/07/17 at 11:47; Status DC Oxcarbazepine (Trileptal) 300 mg DAILY PO Last administered on 02/06/17 08:33 ; Start 02/05/17 at 09:00; Stop 02/06/17 at 18:26; Status DC Oxcarbazepine (Trileptal) 600 mg HS PO Last administered on 02/05/17 20:03; Start 02/04/17 at 21:00; Stop 02/06/17 at 18:26; Status DC Fluvoxamine Maleate (Luvox) 125 mg HS PO Last administered on 02/09/17 19:38; Start 02/07/17 at 21:00; Stop 02/10/17 at 18:35; Status DC Ziprasidone (Geodon) 40 mg DAILY PO Last administered on 02/09/17 08:07; Start 02/07/17 at 11:45; Stop 02/10/17 at 07:00; Status DC Ziprasidone (Geodon) 40 mg BID PO Last administered on 02/13/17 19:14; Start 02/10/17 at 09:00; Stop 02/13/17 at 21:00; Status DC Fluvoxamine Maleate (Luvox) 150 mg HS PO Last administered on 02/15/17 19:44; Start 02/11/17 at 21:00 Olanzapine (ZyPREXA) 5 mg DAILY10 PO Last administered on 02/15/17 14:09; Start 02/13/17 at 10:00 Ziprasidone (Geodon) 40 mg BID94 PO Last administered on 02/15/17 16:10; Start 02/14/17 at 09:00 Active Scripts Active Reported Synthroid (Levothyroxine Sodium) 75 Mcg Tablet 1 Tab PO DAILY06 Senokot (Sennosides) 8.6 Mg Tablet 1 Tab PO BID Seroquel (Quetiapine Fumarate) 50 Mg Tablet 1 Tab PO BID92 Omeprazole 20 Mg Capsule.dr 1 Cap PO DAILY Nuedexta 20-10 Mg Capsule (Dextromethorphan Hbr/Quinidine) 1 Each Capsule 1 Each PO BID Multivitamins (Multivitamin) 1 Each Tablet 1 Tab PO DAILY Namenda (Memantine Hcl) 10 Mg Tablet 10 Mg PO HS Maxitrol Eye Drops (Jhonathan/Polymyx B Sulf/Dexameth) 5 Ml Drops.susp 2 Drop OU TID Geodon (Ziprasidone Hcl) 40 Mg Capsule 40 Mg PO DAILY Celexa (Citalopram Hydrobromide) 10 Mg Tablet 10 Mg PO DAILY Calcium 500 + Vit D 200 Tablet (Calcium Carbonate/Vitamin D3) 1 Each Tablet 1 Each PO BID Bisacodyl 10 Mg Supp.rect 10 Mg RC PRN DAILY PRN Acetaminophen 500 Mg Tablet 1 Tab PO Q6HRS PRN Mag-Al Plus Suspension (Mag Hydrox/Al Hydrox/Simeth) 30 Ml Oral.susp 15 Ml PO PRN AFTMEALHC PRN Seroquel (Quetiapine Fumarate) 25 Mg Tablet 150 Mg PO HS Analgesic Loa (Methyl Salicylate/Menthol) 29 Gm Oint...g. 1 Peewee TP PRN QID PRN Milk Of Magnesia (Magnesium Hydroxide) 2,400 Mg/10 Ml Oral.susp 2,400 Mg PO PRN QHS PRN I have reviewed the current psychotropics carefully including drug interactions. Risk benefit ratio favors no change other than as noted in my dictated progress note. 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
--- NOTE | 2017-02-15 21:13 | NUR ---
Behavior Intervention Response and Plan: BIRP Note: Behavior: Assumed Care of patient, patient located in Day Room at shift change. Patient exhibited the following behavior Restless, Drowsy, Cooperative. Brief assessment on rounds of vital signs, medication needs, lab studies, and pain. Treatment plan problems 1 and 2. Intervention: Patient assessed and the following interventions initiated safety checks 15 Minute Checks Cognitive Assessment , Head to toe Assessment , Medications. Response: After interactions and interventions patient responded in the following manner, Calm , Compliant ,Cooperative. Continue to assess behaviors and condition will continue to monitor throughout the shift as needed. Patient educated on ADL's, and hand hygiene. 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 Continue to assess patient for changes in above assessment. Monitor for medication needs, pain, and safety concerns. Hourly rounding performed to ensure safe environment.
--- NOTE | 2017-02-16 04:29 | PN ---
DATE: 02/14/2017 This is a late entry for 02/14/2017 covers elements not covered in my initial note of 02/14/2017. SUBJECTIVE: I met with the patient in the evening of 02/14/2017. The patient was staffed at a treatment team meeting at length the morning of 02/14/2017 and the patient's daughter, Riri attended the conference as well. Lengthy discussion about the patient's diagnosis, progress, medications, lack of progress. The patient continues to be repetitive in her verbalizations "okay, okay, okay", grabs at times, but the latter is better and she has not been grabbing or scratching, allowed the nursing staff to put eyedrops per Dr. Justice. Slept 7-8 hours. Appetite is 50% of her pureed meal. REVIEW OF SYSTEMS: No CV, , pulmonary, eye, ENT system symptoms on review. Reliability poor. MENTAL STATUS EXAM: Oriented to herself. Insight, judgment, recent and remote memory, attention, concentration, fund of knowledge poor, consistent with her diagnosis mentioned in my initial note. PLAN: Continue current psychotropics mentioned in my initial note, may need to increase Luvox in due course. Reviewed all of the drug interactions at some length. GRANT STOVER MD DR: AMOL/shelley JOB#: [id number] / [id number]
[2017-02-16] MEDS: LEVOTHYROXINE 75 MCG TABLET PO SCH (05:35)
[2017-02-16 05:55] VITALS: BP 152/60
[2017-02-16 06:43] LABS: BASO # 0.1 x10^3/uL (0.0-0.2); BASO % 0 % (0-3); EOS # 0.1 x10^3/uL (0.0-0.7); EOS % 0 % (0-3); HEMATOCRIT 36.9 % (36.0-47.0); HEMOGLOBIN 12.1 g/dL (12.0-15.5); LYMPH # 1.2 x10^3/uL (1.0-4.8); LYMPH % 8 % (24-48); MEAN CORPUSCULAR HEMOGLOBIN 28 pg (25-35); MEAN CORPUSCULAR HGB CONC 33 g/dL (31-37); MEAN CORPUSCULAR VOLUME 85 fL (79-100); MONO # 1.5 x10^3/uL (0.0-1.1); MONO % 10 % (0-9); NEUT # 11.5 x10^3uL (1.8-7.7); NEUT % 81 % (31-73); PLATELET COUNT 276 x10^3/uL (140-400); RED BLOOD COUNT 4.34 x10^6/uL (3.50-5.40); RED CELL DISTRIBUTION WIDTH 16.9 % (11.5-14.5); WHITE BLOOD COUNT 14.3 x10^3/uL (4.0-11.0)
[2017-02-16 07:01] LABS: ALBUMIN 3.1 g/dL (3.4-5.0); ALBUMIN/GLOBULIN RATIO 0.6 (1.0-1.7); CALCIUM 9.2 mg/dL (8.5-10.1); GFR 52.8; POTASSIUM 3.8 mmol/L (3.5-5.1); TOTAL BILIRUBIN 0.4 mg/dL (0.2-1.0); TOTAL PROTEIN 8.4 g/dL (6.4-8.2)
--- NOTE | 2017-02-16 07:30 | NUR ---
Patients lab work received this AM. WBC reported at 14.3 which is increased form 8.6 on 02/11. This nurse assessed patients lung sounds. Patient is unable to follow directions which makes it difficult to assess lung sounds. Vital signs obtained BP 115/82, P 88, SPO2 97%, T 97.9 Ax. 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 Dr. Justice notified of increase in WBC, assessment, and Vital signs. Telephone orders received for, CXR, UA, Lactic acid.
[2017-02-16] MEDS: CALCIUM CARB/VIT D3 500/200 TABLET PO SCH (07:44)
[2017-02-16] MEDS: PANTOPRAZOLE 40 MG PACKET. PO SCH (07:45)
[2017-02-16] MEDS: MULTIVITAMIN with MINERAL TABLET. PO SCH (07:45)
[2017-02-16] MEDS: SENNOSIDES 8.6 MG TABLET PO SCH (07:45)
[2017-02-16] MEDS: QUEtiapine 25 MG TABLET. PO SCH ×2 (07:45→13:14)
[2017-02-16] MEDS: POLYETHYLENE GLYCOL 3350 17 GM PACKET. PO SCH (07:45)
[2017-02-16] MEDS: ZIPRASIDONE 40 MG CAPSULE. PO SCH ×2 (07:45→13:15)
--- NOTE | 2017-02-16 08:00 | NUR ---
Behavior Intervention Response and Plan: BIRP Note: Behavior: Assumed Care of patient, patient located in Day Room at shift change. Patient exhibited the following behavior Restless, Disorganized, Compliant. Brief assessment on rounds of vital signs, medication needs, lab studies, and pain. Treatment plan problems . Intervention: Patient assessed and the following interventions initiated safety checks 15 Minute Checks Head to toe Assessment , Cognitive Assessment , Medications. Response: After interactions and interventions patient responded in the following manner, Interactive , Manic ,Anxious. Continue to assess behaviors and condition will continue to monitor throughout the shift as needed. Patient educated on ADL's, and hand hygiene. Plan: Continue to monitor Master Treatment Plan for patient's progress toward short term goals of Improved Mood, Decreased Anxiety, chcf goals to return to previous living setting vs placement. Continue to assess patient for changes in above assessment. Monitor for medication needs, pain, and safety concerns. Hourly rounding performed to ensure safe environment.
--- NOTE | 2017-02-16 08:25 | RAD ---
AP chest. History: Change in patient condition AP view was taken of the chest. There is no prior study for comparison. Heart is normal in size. There is no pleural effusion. There is a minimal infiltrate or possibly a nodule in the right upper lobe. There is slight interstitial prominence from fibrosis or interstitial infiltrates or slight edema. Impression: 1. Nodule versus infiltrate right upper lobe follow-up would be of benefit. 2. Mild interstitial prominence from infiltrates or edema.
[2017-02-16] MEDS: OLANZapine 5 MG TABLET PO SCH (10:00)
--- NOTE | 2017-02-16 10:04 | NUR ---
0855 orders for CXR, and Lactic acid completed. CXR showed mild infiltrate in Right upper lobe or possible nodule. Follow up suggested. Lactic acid is slightly high at 2.1. notified, Nursing superior notified. Staff still attempting to obtain UA.
[2017-02-16] MEDS ORDERED: MAGN296S9 PO (14:35)
[2017-02-16] MEDS ORDERED: QUET25TA PO (14:36)
[2017-02-16] MEDS ORDERED: MIRT15TA PO (14:36)
[2017-02-16] MEDS ORDERED: OLAN5TAB3 PO (14:38)
[2017-02-16] MEDS ORDERED: OLAN5TAB5 PO (14:39)
[2017-02-16] MEDS ORDERED: PANT40GR PO (14:41)
[2017-02-16] MEDS ORDERED: METH29OI TP (14:42)
[2017-02-16] MEDS ORDERED: FLUV150C PO (14:44)
[2017-02-16] MEDS ORDERED: TRAZ50TA15 PO (14:46)
--- NOTE | 2017-02-16 15:20 | NUR ---
Transition Record was faxed to follow-up provider with the following elements: Reason for admission, procedures, tests, principal diagnosis, pending studies, patient instructions, 01/10 contact information for unit, phone number to obtain pending test results, plan for follow-up care, physician follow-up, advanced directive information, and medication list with dose, duration and instructions. This information was included in the following documents: History and physical, lab results, study results, progress notes, social work planning form, DC instruction form, patient visit summary, and medication reconciliation form. Date & time record faxed: 12/17/16 0091 Record faxed to: [facility] Record discussed with/ report given to: Gilberto MARQUEZ
--- NOTE | 2017-02-16 18:54 | PDOC ---
Exam Note: Ronen Note: Please also refer to the separate dictated note~for this date of service dictated separately.~Patient seen individually. Discussed the patient with Nursing staff reviewed the chart.~Reviewed interim history and current functioning. Reviewed vital signs,~Labs/ Radiology~and current medications noted below. Continue current treatment with the changes noted in the dictated addendum note Assessment: Vital Signs: Vital Signs Date Time Temp Pulse Resp B/P (MAP) Pulse Ox O2 Delivery O2 Flow Rate FiO2 02/16/17 05:55 98.0 79 16 152/60 (90) 98 Room Air I&O Intake and Output 02/16/17 07:00 Intake Total 720 ml Balance 720 ml Intake Oral 720 ml Labs: Laboratory Tests Test 02/16/17 06:16 02/16/17 08:13 White Blood Count 14.3 x10^3/uL (4.0-11.0) #H Red Blood Count 4.34 x10^6/uL (3.50-5.40) Hemoglobin 12.1 g/dL (12.0-15.5) Hematocrit 36.9 % (36.0-47.0) Mean Corpuscular Volume 85 fL (79-100) Mean Corpuscular Hemoglobin 28 pg (25-35) Mean Corpuscular Hemoglobin Concent 33 g/dL (31-37) Red Cell Distribution Width 16.9 % (11.5-14.5) H Platelet Count 276 x10^3/uL (140-400) Neutrophils (%) (Auto) 81 % (31-73) H Lymphocytes (%) (Auto) 8 % (24-48) L Monocytes (%) (Auto) 10 % (0-9) H Eosinophils (%) (Auto) 0 % (0-3) Basophils (%) (Auto) 0 % (0-3) Neutrophils # (Auto) 11.5 x10^3uL (1.8-7.7) H Lymphocytes # (Auto) 1.2 x10^3/uL (1.0-4.8) Monocytes # (Auto) 1.5 x10^3/uL (0.0-1.1) H Eosinophils # (Auto) 0.1 x10^3/uL (0.0-0.7) Basophils # (Auto) 0.1 x10^3/uL (0.0-0.2) Sodium Level 143 mmol/L (136-145) Potassium Level 3.8 mmol/L (3.5-5.1) Chloride Level 105 mmol/L (98-107) Carbon Dioxide Level 28 mmol/L (21-32) Anion Gap 10 (6-14) Blood Urea Nitrogen 18 mg/dL (7-20) Creatinine 1.0 mg/dL (0.6-1.0) Estimated GFR (Cockcroft-Gault) 52.8 BUN/Creatinine Ratio 18 (6-20) Glucose Level 107 mg/dL (70-99) H Calcium Level 9.2 mg/dL (8.5-10.1) Magnesium Level 2.0 mg/dL (1.8-2.4) Total Bilirubin 0.4 mg/dL (0.2-1.0) Aspartate Amino Transferase (AST) 27 U/L (15-37) Alanine Aminotransferase (ALT) 53 U/L (14-59) Alkaline Phosphatase 133 U/L (46-116) H Total Protein 8.4 g/dL (6.4-8.2) H Albumin 3.1 g/dL (3.4-5.0) L Albumin/Globulin Ratio 0.6 (1.0-1.7) L Lactic Acid Level 2.1 mmol/L (0.4-2.0) H Current Medications: Meds: Current Medications Lorazepam (Ativan) 0.5 mg PRN Q4HRS PRN PO ANXIETY / AGITATION Last administered on 01/12/17 06:08; Start 01/05/17 at 16:45; Stop 01/12/17 at 19: 11; Status DC Acetaminophen (Tylenol) 500 mg Q6HRS PRN PO PAIN / TEMP Last administered on 07:56; Start 01/05/17 at 17:00; Stop 01/13/17 at 14:02; Status DC Bisacodyl (Dulcolax Supp) 10 mg PRN DAILY PRN RC CONSTIPATION Last administered on 02/14/17 14:36; Start 01/05/17 at 17:00; Stop 02/16/17 at 15: 41; Status DC Calcium/Vitamin D (Oscal D 500mg/ 200uts) 1 tab BID PO Last administered on 12/ 9/17at 07:44; Start 01/05/17 at 21:00; Stop 02/16/17 at 15:41; Status DC Levothyroxine Sodium (Synthroid) 75 mcg DAILY06 PO Last administered on 05:35; Start 01/06/17 at 06:00; Stop 02/16/17 at 15:41; Status DC Multi-Ingredient Ointment (Analgesic [place]) 1 peewee PRN QID PRN TP muscle pain; Start 01/05/17 at 17:00; Stop 02/16/17 at 15:41; Status DC Neomycin/ Polymyxin/ Dexamethasone (Maxitrol) 2 drop TID OU Last administered on 02/14/17 14:00; Start 01/05/17 at 21:00; Stop 02/14/17 at 18:56; Status DC Sennosides (Senna) 8.6 mg BID PO Last administered on 02/16/17 07:45; Start 01/05/17 at 21:00; Stop 02/16/17 at 15:41; Status DC Al Hydroxide/Mg Hydroxide (Mylanta Plus Xs) 15 ml PRN AFTMEALHC PRN PO DYSPEPSIA; Start 01/05/17 at 17:15; Stop 02/16/17 at 15:41; Status DC Magnesium Hydroxide (Milk Of Magnesia) 2,400 mg PRN QHS PRN PO CONSTIPATION Last administered on 02/13/17 07:44; Start 01/05/17 at 17:15; Stop 02/16/17 at 15:41; Status DC Multivitamins/ Calcium (Thera-M Plus) 1 tab DAILY PO Last administered on 07:45; Start 01/06/17 at 09:00; Stop 02/16/17 at 15:41; Status DC Pantoprazole Sodium (Protonix) 40 mg DAILYAC PO Last administered on 08:43; Start 01/06/17 at 07:30; Stop 01/09/17 at 07:50; Status DC Citalopram Hydrobromide (CeleXA) 10 mg DAILY PO Last administered on 10:09; Start 01/06/17 at 09:00; Stop 01/07/17 at 19:34; Status DC Memantine (Namenda) 10 mg HS PO Last administered on 02/04/17 19:16; Start 01/05/17 at 21:00; Stop 02/05/17 at 16:43; Status DC Quetiapine Fumarate (SEROquel) 150 mg QHS PO Last administered on 02/15/17 19: 44; Start 01/05/17 at 21:00; Stop 02/16/17 at 15:41; Status DC Quetiapine Fumarate (SEROquel) 50 mg BID92 PO Last administered on 01/10/17 14 :06; Start 01/06/17 at 09:00; Stop 01/10/17 at 19:13; Status DC Ziprasidone (Geodon) 40 mg DAILY PO Last administered on 01/11/17 09:21; Start 01/06/17 at 09:00; Stop 01/11/17 at 18:37; Status DC Pneumococcal Polyvalent Vaccine (Pneumovax 23) 0.5 ml ONCE ONCE VAX IM Last administered on 01/07/17 23:11; Start 01/07/17 at 21:00; Stop 01/07/17 at 21 :01; Status DC Influenza Virus Vaccine Quadrival (Fluarix Quad [id number] Syringe) 0.5 ml ONCE ONCE VAX IM Last administered on 01/07/17 23:13; Start 01/07/17 at 21:00; Stop 01/07/17 at 21:01; Status DC Fluvoxamine Maleate (Luvox) 25 mg HS PO Last administered on 01/09/17 19:47; Start 01/07/17 at 21:00; Stop 01/10/17 at 20:59; Status DC Fluvoxamine Maleate (Luvox) 50 mg HS PO Last administered on 01/23/17 19:56; Start 01/10/17 at 21:00; Stop 01/24/17 at 19:14; Status DC Pantoprazole Sodium (Protonix Packet) 40 mg DAILYAC PO Last administered on 07:45; Start 01/09/17 at 08:15; Stop 02/16/17 at 15:41; Status DC Quetiapine Fumarate (SEROquel) 75 mg BID92 PO Last administered on 01/27/17 07:41; Start 01/11/17 at 09:00; Stop 01/27/17 at 15:53; Status DC Clonazepam (KlonoPIN) 0.25 mg DAILY PO Last administered on 01/19/17 10:20; Start 01/12/17 at 09:00; Stop 01/19/17 at 17:57; Status DC Clonazepam (KlonoPIN) 0.5 mg STK-MED ONCE .ROUTE Last administered on 06:37; Start 01/12/17 at 06:37; Stop 01/12/17 at 06:38; Status DC Magnesium Citrate (Citroma) 296 ml PRN 1X PRN PO CONSTIPATION Last administered on 01/12/17 19:34; Start 01/12/17 at 07:45; Stop 02/16/17 at 15:41 ; Status DC Lorazepam (Ativan) 0.25 mg PRN Q4HRS PRN PO ANXIETY / AGITATION Last administered on 01/14/17 23:14; Start 01/12/17 at 19:15; Stop 01/15/17 at 19:30 ; Status DC Sodium Biphosphate/ Sodium Phosphate (Fleet Adult) 133 ml 1X ONCE IL Last administered on 01/13/17 15:24; Start 01/13/17 at 14:15; Stop 01/13/17 at 14:16 ; Status DC Polyethylene Glycol (miraLAX) 17 gm DAILY PO Last administered on 02/16/17 07: 45; Start 01/14/17 at 09:00; Stop 02/16/17 at 15:41; Status DC Polyethylene Glycol (miraLAX) 17 gm 1X ONCE PO Last administered on 01/13/17 17:26; Start 01/13/17 at 14:00; Stop 01/13/17 at 14:01; Status DC Acetaminophen (Tylenol) 500 mg PRN Q6HRS PRN PO PAIN / TEMP Last administered on 02/14/17 17:26; Start 01/13/17 at 14:15; Stop 02/16/17 at 15:41; Status DC Divalproex Sodium (Depakote Sprinkles) 125 mg BID92 PO ; Start 01/15/17 at 09:00 ; Status UNV Oxcarbazepine (Trileptal) 150 mg BID92 PO Last administered on 01/16/17 14:17 ; Start 01/15/17 at 09:00; Stop 01/16/17 at 17:31; Status DC Sodium Chloride 1,000 ml @ 1,000 mls/hr 1X ONCE IV Last administered on 13:50; Start 01/15/17 at 12:00; Stop 01/15/17 at 12:59; Status DC Oxcarbazepine (Trileptal) 150 mg HS PO Last administered on 01/25/17 19:27; Start 01/16/17 at 21:00; Stop 01/26/17 at 18:37; Status DC Oxcarbazepine (Trileptal) 300 mg DAILY PO Last administered on 01/26/17 07:49 ; Start 01/17/17 at 09:00; Stop 01/26/17 at 18:38; Status DC Olanzapine (ZyPREXA ZYDIS) 0.125 mg PRN Q4HRS PRN PO PSYCHOSIS Last administered on 01/27/17 22:00; Start 01/18/17 at 19:00; Stop 02/02/17 at 10 :57; Status DC Mirtazapine (Remeron) 7.5 mg QHS PO Last administered on 02/15/17 19:45; Start 01/23/17 at 21:00; Stop 02/16/17 at 15:41; Status DC Fluvoxamine Maleate (Luvox) 75 mg HS PO Last administered on 02/02/17 19:26; Start 01/24/17 at 21:00; Stop 02/03/17 at 13:04; Status DC Oxcarbazepine (Trileptal) 300 mg BID PO Last administered on 02/04/17 08:18; Start 01/26/17 at 21:00; Stop 02/04/17 at 19:06; Status DC Trazodone HCl (Desyrel) 50 mg PRN QHS PRN PO INSOMNIA, MAY REPEAT X1 Last administered on 02/14/17 22:46; Start 01/26/17 at 18:45; Stop 02/16/17 at 15: 41; Status DC Quetiapine Fumarate (SEROquel) 75 mg BID92 PO Last administered on 01/30/17 07:55; Start 01/28/17 at 09:00; Stop 01/30/17 at 15:33; Status DC Quetiapine Fumarate (SEROquel) 25 mg BID92 PO Last administered on 02/16/17 07 :45; Start 01/31/17 at 09:00; Stop 02/16/17 at 15:41; Status DC Olanzapine (ZyPREXA ZYDIS) 1.25 mg PRN Q4HRS PRN PO PSYCHOSIS Last administered on 02/14/17 17:25; Start 02/02/17 at 10:57; Stop 02/16/17 at 15: 41; Status DC Fluvoxamine Maleate (Luvox) 100 mg HS PO Last administered on 02/06/17 19:13 ; Start 02/03/17 at 21:00; Stop 02/07/17 at 11:47; Status DC Oxcarbazepine (Trileptal) 300 mg DAILY PO Last administered on 02/06/17 08:33 ; Start 02/05/17 at 09:00; Stop 02/06/17 at 18:26; Status DC Oxcarbazepine (Trileptal) 600 mg HS PO Last administered on 02/05/17 20:03; Start 02/04/17 at 21:00; Stop 02/06/17 at 18:26; Status DC Fluvoxamine Maleate (Luvox) 125 mg HS PO Last administered on 02/09/17 19:38; Start 02/07/17 at 21:00; Stop 02/10/17 at 18:35; Status DC Ziprasidone (Geodon) 40 mg DAILY PO Last administered on 02/09/17 08:07; Start 02/07/17 at 11:45; Stop 02/10/17 at 07:00; Status DC Ziprasidone (Geodon) 40 mg BID PO Last administered on 02/13/17 19:14; Start 02/10/17 at 09:00; Stop 02/13/17 at 21:00; Status DC Fluvoxamine Maleate (Luvox) 150 mg HS PO Last administered on 02/15/17 19:44; Start 02/11/17 at 21:00; Stop 02/16/17 at 15:41; Status DC Olanzapine (ZyPREXA) 5 mg DAILY10 PO Last administered on 02/15/17 14:09; Start 02/13/17 at 10:00; Stop 02/16/17 at 15:41; Status DC Ziprasidone (Geodon) 40 mg BID94 PO Last administered on 02/16/17 07:45; Start 02/14/17 at 09:00; Stop 02/16/17 at 15:41; Status DC Active Scripts Active Reported Trazodone Hcl 50 Mg Tablet 50 Mg PO PRN QHS PRN Fluvoxamine Maleate 150 Mg Cap.er.24h 150 Mg PO QHS Analgesic [place] (Methyl Salicylate/Menthol) 28 Gm Oint...g. 1 Gm TP PRN QID PRN Protonix (Pantoprazole Sodium) 40 Mg Granpkt.dr 40 Mg PO DAILYAC Zyprexa Zydis (Olanzapine) 5 Mg Tab.rapdis 2.5 Mg PO PRN Q2HR PRN Zyprexa (Olanzapine) 5 Mg Tablet 5 Mg PO DAILY10 Quetiapine Fumarate 25 Mg Tablet 25 Mg PO BID92 Remeron (Mirtazapine) 15 Mg Tablet 7.5 Mg PO QHS Magnesium Citrate 296 Ml Solution 296 Ml PO ONCE PRN Synthroid (Levothyroxine Sodium) 75 Mcg Tablet 1 Tab PO DAILY06 Senokot (Sennosides) 8.6 Mg Tablet 1 Tab PO BID Multivitamins (Multivitamin) 1 Each Tablet 1 Tab PO DAILY Geodon (Ziprasidone Hcl) 40 Mg Capsule 40 Mg PO BID94 Calcium 500 + Vit D 200 Tablet (Calcium Carbonate/Vitamin D3) 1 Each Tablet 1 Each PO BID Bisacodyl 10 Mg Supp.rect 10 Mg RC PRN DAILY PRN Acetaminophen 500 Mg Tablet 1 Tab PO Q6HRS PRN Mag-Al Plus Suspension (Mag Hydrox/Al Hydrox/Simeth) 30 Ml Oral.susp 15 Ml PO PRN AFTMEALHC PRN Seroquel (Quetiapine Fumarate) 25 Mg Tablet 150 Mg PO HS Analgesic [place] (Methyl Salicylate/Menthol) 29 Gm Oint...g. 1 Peewee TP PRN QID PRN Milk Of Magnesia (Magnesium Hydroxide) 2,400 Mg/10 Ml Oral.susp 2,400 Mg PO PRN QHS PRN I have reviewed the current psychotropics carefully including drug interactions. Risk benefit ratio favors no change other than as noted in my dictated progress note. Diagnosis: Problems: (1) Impulse control disorder (2) Dementia in Alzheimer's disease with delusions (3) Dementia in Alzheimer's disease with depression (4) Dementia, vascular, with delusions (5) Dementia, vascular, with depression (6) Anxiety disorder (7) Dementia with behavioral disturbance (8) Impulse control disorder GRANT STOVER MD Feb 16, 2017 18:54
--- NOTE | 2017-02-17 10:39 | DS ---
DATE OF DISCHARGE: 02/16/2017 This late entry 02/16/2017 covers elements not covered in my initial note 02/16/2017. REASON FOR ADMISSION: Please refer to the admission history for details. Briefly, the patient is an 86-year-old female admitted from [facility] referred by primary care physician, Dr. Toledo, her psychiatrist, on account of worsening confusion, agitation, hitting, pinching other residents and caregivers, extremely repetitive in her verbalizations, agitated. She was unmanageable at failed outpatient psychiatric interventions resulting in this referral. SIGNIFICANT FINDINGS AND CLINICAL COURSE: Following admission, the patient was seen daily individually by myself, followed medically per Dr. Ruiz/Dr Justice. The patient had a very complicated stay. Many changes in her psychotropics were initiated and then discontinued either due to nonresponse or due to over sedation, risk of aspiration, and poor oral intake with the agitation, repetitive verbalizations of "okay, okay, okay, okay" and grabbing at others persisted, though somewhat improved with the end of her stay. Adjustments were made in her psychotropics and towards the latter part of her stay, she was on a combination of Seroquel 25 mg 0900, 1400; 150 mg at bedtime, Luvox 150 mg at bedtime for her compulsive repetitive verbalization, Zyprexa p.r.n., Remeron 7.5 mg at bedtime, trazodone 50 mg at bedtime p.r.n., may repeat x 1, Zyprexa 5 mg daily at 10:00 a.m., Geodon 40 mg b.i.d. at 9:00 a.m. and 4:00 p.m. I was trying to keep the patient on only 1 atypical antipsychotic even that with significant risk given her age and diagnosis and condition, but the daughter was extremely insistent that she be placed back on the combination of 3 atypical antipsychotics Seroquel, Geodon, and Zyprexa that she was taking on a scheduled basis when she was at [facility] and seemed to be most stabilized from a psychiatric standpoint. Very lengthy discussion with the daughter about risks, benefit ratio could not change her mind and given the fact that we failed multiple changes in her psychotropics and no placement was accepting her the way she was and the daughter's clear conviction, that the 3 atypicals were the only thing that stabilized her. We did place her on that. Plan was to gradually taper and discontinue at least two of them if not all 3 when she was stable back at the [facility]. However, at this stage of her hospitalization, she seemed to develop a pneumonia, was medically compromised possibly aspirating, transferred to [address] [place] [address] Justice. CONDITION AT DISCHARGE: Some improvement from a psychiatric standpoint. Medically, she was slightly more compromised. REVIEW OF SYSTEMS: No CV, , eye, ENT or pulmonary system symptoms on review. Reliability poor. MENTAL STATUS EXAM: Oriented to herself. Insight, judgment, recent and remote memory, attention, concentration, fund of knowledge poor, consistent with her diagnosis. FINAL DIAGNOSES: Major neurocognitive disorder, Alzheimer, vascular with depression, delusion, behavioral disturbance; anxiety disorder, unspecified; impulse control disorder, unspecified, pneumonia. Rest diagnoses unchanged from admission. DISCHARGE MEDICATIONS: Please refer to the EMRAD. DISCHARGE INSTRUCTIONS: Further psychiatric and medical followup on [address] [place] [address]. Time for discharge day management greater than 30 minutes. GRANT STOVER MD DR: AMOL/shelley JOB#: [id number] / [id number]
--- NOTE | 2017-02-17 12:09 | PN ---
DATE: 02/15/2017 PSYCHIATRIC PROGRESS NOTE This is a late entry 02/15/2017, covers elements not covered in my initial note 02/15/2017. Met with the patient in the evening of 02/15/2017. The patient slept 5 hours previous evening. She was a little better in the morning, less repetitive, less agitated, less grabbing, still very confused, but tired. REVIEW OF SYSTEMS: No CV, , pulmonary, eye, ENT system symptoms on review. Reliability poor. MENTAL STATUS EXAM: Oriented to herself. Insight, judgment, recent and remote memory, attention, concentration, fund of knowledge poor, consistent with her diagnosis mentioned in my initial note. PLAN: No change from a psychiatric standpoint. Adjust as clinically indicated. MAN Abdullahi STOVER MD DR: AMOL/shelley JOB#: [id number] / [id number]
--- NOTE | 2017-02-18 21:42 | DS ---
DATE OF DISCHARGE: 02/16/2017 ADDENDUM This note is being dictated to specify taper for the patient's 2 atypical antipsychotics since she was discharged on 3 atypicals having failed prior interventions with a single atypical antipsychotic and 2 atypical antipsychotics. Once the patient is back at the nursing facility and she has been stable for about 45 days, the Zyprexa should be reduced from 5 mg a day to 2.5 mg a day for 4 weeks and then discontinue. Once she continues to be stable even with taper and discontinuing the Zyprexa, the Geodon could be tapered from 40 mg twice a day 1 month later down to 40 mg once a day for 1 month and then discontinue. This would leave her on just one atypical antipsychotic, which is Seroquel. GRANT STOVER MD DR: Chayo JOB#: [id number] / [id number]
== END 2017-02-16 15:07 | disposition short-term general hospital (02) | DRG 56 ==
LOC: ER 13:01 → GEROPSY 15:07
PROVIDERS: ADMIT Psychiatry & Neurology Psychiatry; ATTEND Psychiatry & Neurology Psychiatry
DX: G30.9 Alzheimer's disease, unspecified (principal); J69.0 Pneumonitis due to inhalation of food and vomit; F01.51 Vascular dementia, unspecified severity, with behavioral disturbance; F22 Delusional disorders; D50.9 Iron deficiency anemia, unspecified; F10.20 Alcohol dependence, uncomplicated; F02.81 Dementia in other diseases classified elsewhere, unspecified severity, with behavioral disturbance; G31.83 Neurocognitive disorder with Lewy bodies; K70.10 Alcoholic hepatitis without ascites; E86.0 Dehydration; R13.10 Dysphagia, unspecified; E03.9 Hypothyroidism, unspecified; F32.9 Major depressive disorder, single episode, unspecified; F41.9 Anxiety disorder, unspecified; F63.9 Impulse disorder, unspecified; F91.9 Conduct disorder, unspecified; G47.00 Insomnia, unspecified; G89.29 Other chronic pain; Y90.0 Blood alcohol level of less than 20 mg/100 ml; H35.30 Unspecified macular degeneration; R19.7 Diarrhea, unspecified; K59.00 Constipation, unspecified; N18.9 Chronic kidney disease, unspecified; Z79.899 Other long term (current) drug therapy; Z91.81 History of falling; Z88.8 Allergy status to other drugs, medicaments and biological substances
CPT/HCPCS: 36415; 51701; 71010; 74000; 76700; 80053; 80061; 80076; 81001; 82306; 82553; 82607; 83036; 83540; 83550; 83605; 83735; 84436; 84443; 84480; 85007; 85025; 86592; 86593; 90686; 90732; 93005; 92610; 97116; 97530; 99285-25; J7030

== ENCOUNTER 2017-02-16 15:13 | Inpatient (IN) | payer MEDICARE, BC ==
[~2017-02-16] VITALS: Ht 157.5 cm; Wt 49.1 kg
[~2017-02-16 15:13] MED LIST changes: +ACET500T68 PO; +BISA10SU2 RC; +CALC-157 PO; +CITA10TA8 PO; +DEXT1CAP PO; +FLUV150C PO; +LEVO75TA PO; +MAGN296S9 PO; +MEMA10TA PO; +MIRT15TA PO; +MULT1TAB52 PO; +NEO/5DRO OU; +OLAN5TAB3 PO; +OMEP20CA9 PO; +PANT40GR PO; +QUET25TA PO; +QUET50TA5 PO; +SENN8.6T99 PO; +ZIPR40CA2 PO
[2017-02-16 15:40] VITALS: BP 112/75
[2017-02-16] MEDS ORDERED: ACETAMINOPHEN 500 MG TABLET PO PRN (16:00)
[2017-02-16] MEDS ORDERED: BISACODYL 10 MG SUPP.RECT RC PRN (16:00)
[2017-02-16] MEDS ORDERED: METHYL SALICYLATE/MENTHOL TOPICAL OINTMENT 29GM TUBE. TP PRN ×2 (16:00)
[2017-02-16] MEDS ORDERED: MAGNESIUM CITRATE 296 ML SOLUTION. PO PRN (16:00)
[2017-02-16 16:11] VITALS: BP 112/75
[2017-02-16] MEDS ORDERED: PIP/TAZO PER PHARMACY MC PRN (16:30)
[2017-02-16] MEDS ORDERED: MAGNESIUM HYDROXIDE 2,400 MG/30 ML ORAL.SUSP. PO PRN (16:30)
[2017-02-16] MEDS ORDERED: MAG HYDROX/AL HYDROX/SIMETH 30 ML ORAL.SUSP PO PRN (16:30)
[2017-02-16] MEDS: VANCOMYCIN PER PHARMACY MC PRN (17:03)
[2017-02-16] MEDS: ZIPRASIDONE 40 MG CAPSULE. PO SCH (17:15)
[2017-02-16] MEDS: PIPERACILLIN/TAZOBACTAM 3.375 GM in IV NORMAL SALINE 50ML 50 ML IV SCH (18:00)
[2017-02-16] MEDS ORDERED: VANCOMYCIN 1.25 GM in IV NORMAL SALINE 250ML 250 ML IV ONE (19:00)
[2017-02-16 19:30] VITALS: BP 112/75
[2017-02-16] MEDS: MIRTAZAPINE 15 MG TABLET PO SCH ×2 (21:00→21:14)
[2017-02-16] MEDS: QUEtiapine 25 MG TABLET. PO SCH ×2 (21:00→21:13)
[2017-02-16] MEDS: CALCIUM CARB/VIT D3 500/200 TABLET PO SCH ×2 (21:00→21:14)
[2017-02-16] MEDS: SENNOSIDES 8.6 MG TABLET PO SCH ×2 (21:00→21:13)
[2017-02-16 22:53] VITALS: BP 119/76
[2017-02-17 00:15] LABS: BILIRUBIN,URINE NEG (NEG); CLARITY,URINE CLOUDY; COLOR,URINE YELLOW; GLUCOSE,URINE NEG (NEG); NITRITE,URINE POS (NEG); UROBILINOGEN,URINE 0.2 mg/dL (0.2 mg/dL)
[2017-02-17 00:16] LABS: BACTERIA,URINE MOD /HPF (0-FEW); RBC,URINE RARE /HPF (0-2); SQUAMOUS EPITHELIAL CELL,UR OCC /LPF
[2017-02-17] MEDS: PIPERACILLIN/TAZOBACTAM 3.375 GM in IV NORMAL SALINE 50ML 50 ML IV SCH ×5 (00:26→23:29)
[2017-02-17] MEDS: LEVOTHYROXINE 75 MCG TABLET PO SCH (05:09)
[2017-02-17 05:10] VITALS: BP 119/61
[2017-02-17 08:27] LABS: HEMATOCRIT 32.4 % (36.0-47.0); HEMOGLOBIN 10.6 g/dL (12.0-15.5); RED BLOOD COUNT 3.8 x10^6/uL (3.50-5.40); RED CELL DISTRIBUTION WIDTH 17.6 % (11.5-14.5); WHITE BLOOD COUNT 11.8 x10^3/uL (4.0-11.0)
[2017-02-17 08:34] LABS: CALCIUM 8.5 mg/dL (8.5-10.1); GFR 52.8; POTASSIUM 3.7 mmol/L (3.5-5.1)
[2017-02-17] MEDS: SENNOSIDES 8.6 MG TABLET PO SCH ×2 (09:00→20:46)
[2017-02-17] MEDS: MULTIVITAMIN with MINERAL TABLET. PO SCH (09:00)
[2017-02-17] MEDS: OLANZapine 5 MG TABLET PO SCH (09:10)
[2017-02-17] MEDS: CALCIUM CARB/VIT D3 500/200 TABLET PO SCH ×2 (09:10→20:46)
[2017-02-17] MEDS: ZIPRASIDONE 40 MG CAPSULE. PO SCH ×2 (09:10→15:28)
[2017-02-17] MEDS: PANTOPRAZOLE 40 MG PACKET. PO SCH (09:10)
[2017-02-17] MEDS: QUEtiapine 25 MG TABLET. PO SCH ×3 (10:20→20:45)
[2017-02-17 11:13] VITALS: BP 123/57
--- NOTE | 2017-02-17 12:20 | HP ---
ADMIT DATE: 02/17/2017 HISTORY OF PRESENT ILLNESS: The patient is an 86-year-old female patient, who was transferred from [facility] on the account of fever, leukocytosis and a chest x-ray showing right upper lobe infiltrate. She was basically transferred to [address] [place] [address] and was started on antibiotic for healthcare-associated pneumonia. The patient, herself is extremely demented and does not give any useful information. She is also known to have recurrent episode of aspiration; however, that she is allowed to eat, although the speech therapy recommended n.p.o. status. PAST MEDICAL HISTORY: Significant for hypothyroidism, hypovitaminosis D, senile macular degeneration and encephalopathy. PAST SURGICAL HISTORY: Unremarkable. ALLERGIES: She is allergic to DIVALPROEX SODIUM, HYDROCODONE, OXYCODONE, and SERTRALINE. FAMILY HISTORY: Unremarkable. SOCIAL HISTORY: She is a resident at [facility]. She does not smoke, drink alcohol or use recreational drugs. REVIEW OF SYSTEMS: Unobtainable. MEDICATIONS: She is currently on following medications: She is on Tylenol 500 mg every 6 hours, bisacodyl 10 mg suppository rectally daily p.r.n. for constipation, calcium carbonate with vitamin D 500/200 one tablet twice a day, fluvoxamine 150 mg extended release at bedtime, levothyroxine 75 mcg once a day, Maalox 15 mL every 4 hours as needed, every 72 hours for constipation, milk of magnesia 30 mL p.o. daily p.r.n. for constipation. She is on mirtazapine 7.5 mg at bedtime, multivitamin 1 tablet once a day, olanzapine 5 mg daily, olanzapine 2.5 mg every 2 hours, Protonix 40 mg daily, quetiapine fumarate 150 mg at bedtime and quetiapine fumarate 25 mg twice a day, senna 1 tablet twice a day, trazodone 50 mg at bedtime, ziprasidone 40 mg p.o. b.i.d. PHYSICAL EXAMINATION: GENERAL: On examining her, she was pale, cachectic, but no jaundice, cyanosis, or thyromegaly. No jugular venous distension. No limb edema. VITAL SIGNS: Her heart rate was 96, blood pressure 112/75, temperature was 97.8, respiratory rate 20, and oxygen saturation was 95% on room air. HEAD, EYES, EARS, NOSE AND THROAT: Showed normocephalic, atraumatic. NECK: Supple. HEART: Showed normal first and second heart sounds with no gallop, rub or murmur. CHEST: Clear to auscultation. No crepitation or rhonchi. ABDOMEN: Slightly distended, soft, nontender. No guarding or rigidity. No organomegaly. All hernial orifice intact. Bowel sounds normal. NEUROLOGIC: She is demented, does not give any useful information. Her cranial nerves are grossly intact. She moves upper extremities to much good extent than lower extremities. She is mostly bedbound, chair bound. LABORATORY DATA: Her lab work before transferring her down to [address] [place] [address] showed that her white cell count has risen to 14,300, hemoglobin was 12, hematocrit 36.9, MCV 85 and platelet count of 276,000. Her chemistry showed serum sodium of 143, potassium 3.8, chloride 105, bicarbonate 28, anion gap of 10, BUN 18, creatinine 1, estimated GFR was 53 mL per minute. Her glucose 107, lactic acid was high at 2.1. Calcium was 9.2, magnesium was 2. Total bilirubin, AST, ALT were normal. Alkaline phosphatase was slightly elevated. Her total protein was 8.4, albumin was 3.1. Her urinalysis is unremarkable. Her chest x-ray showed that the heart size is normal. There is no pleural effusion. There is minimal infiltrate or possibly nodule in the right upper lobe. There is slight edema. ASSESSMENT AND PLAN: Given the patient has leukocytosis and chest x-ray showed right upper lobe infiltrate a decision was made to transfer her down to [address] [place] [address] and she will be treated for healthcare-associated pneumonia as she has tendency to aspirate, we will obviously cover spectrum broadly. We will start her Zosyn, vancomycin, and levofloxacin. Other medical problems include hypothyroidism, hypovitaminosis D, senile macular degeneration and septic encephalopathy. We will obviously monitor her lab work and adjust her antibiotic accordingly. MARGARET MADSEN MD DR: GA/shelley JOB#: [id number] / [id number]
[2017-02-17 15:34] VITALS: BP 124/74
[2017-02-17] MEDS: VANCOMYCIN 750 MG in IV NORMAL SALINE 250ML 250 ML IV SCH (19:00)
--- NOTE | 2017-02-17 19:16 | PDOC ---
Exam Note: Ronen Note: Please also refer to the separate dictated note~for this date of service dictated separately.~Patient seen individually. Discussed the patient with Nursing staff reviewed the chart.~Reviewed interim history and current functioning. Reviewed vital signs,~Labs/ Radiology~and current medications noted below. Continue current treatment with the changes noted in the dictated addendum note Assessment: Vital Signs: Vital Signs Date Time Temp Pulse Resp B/P (MAP) Pulse Ox O2 Delivery O2 Flow Rate FiO2 02/17/17 15:34 97.2 64 22 124/74 (91) 91 Room Air I&O Intake and Output 02/17/17 07:00 Intake Total 715 ml Output Total 150 ml Balance 565 ml Intake Oral 195 ml IV Total 520 ml Output Urine Total 150 ml # Voids 4 Labs: Laboratory Tests Test 02/16/17 22:51 02/16/17 23:55 02/17/17 07:35 Lactic Acid Level 0.8 mmol/L (0.4-2.0) Urine Collection Type Void Urine Color Yellow Urine Clarity Cloudy Urine pH 6.0 Urine Specific Michael 1.010 Urine Protein Neg (NEG-TRACE) Urine Glucose (UA) Neg mg/dL (NEG) Urine Ketones (Stick) Neg mg/dL (NEG) Urine Blood Trace (NEG) Urine Nitrite Pos (NEG) Urine Bilirubin Neg (NEG) Urine Urobilinogen Dipstick 0.2 mg/dL (0.2 mg/dL) Urine Leukocyte Esterase Small (NEG) Urine RBC Rare /HPF (0-2) Urine WBC 1-4 /HPF (0-4) Urine Squamous Epithelial Cells Occ /LPF Urine Bacteria Mod /HPF (0-FEW) White Blood Count 11.8 x10^3/uL (4.0-11.0) H Red Blood Count 3.80 x10^6/uL (3.50-5.40) Hemoglobin 10.6 g/dL (12.0-15.5) L Hematocrit 32.4 % (36.0-47.0) L Mean Corpuscular Volume 85 fL (79-100) Mean Corpuscular Hemoglobin 28 pg (25-35) Mean Corpuscular Hemoglobin Concent 33 g/dL (31-37) Red Cell Distribution Width 17.6 % (11.5-14.5) H Platelet Count 215 x10^3/uL (140-400) Sodium Level 144 mmol/L (136-145) Potassium Level 3.7 mmol/L (3.5-5.1) Chloride Level 108 mmol/L (98-107) H Carbon Dioxide Level 26 mmol/L (21-32) Anion Gap 10 (6-14) Blood Urea Nitrogen 19 mg/dL (7-20) Creatinine 1.0 mg/dL (0.6-1.0) Estimated GFR (Cockcroft-Gault) 52.8 Glucose Level 105 mg/dL (70-99) H Calcium Level 8.5 mg/dL (8.5-10.1) Current Medications: Meds: Current Medications Acetaminophen (Tylenol) 500 mg PRN Q6HRS PRN PO PAIN / TEMP; Start 02/16/17 at 16:00 Bisacodyl (Dulcolax Supp) 10 mg PRN DAILY PRN RC CONSTIPATION; Start 02/16/17 at 16:00 Calcium/Vitamin D (Oscal D 500mg/ 200uts) 1 tab BID PO Last administered on 09:10; Start 02/16/17 at 21:00 Levothyroxine Sodium (Synthroid) 75 mcg DAILY06 PO Last administered on 05:09; Start 02/17/17 at 06:00 Magnesium Citrate (Citroma) 296 ml PRN DAILY PRN PO CONSTIPATION; Start at 16:00 Multi-Ingredient Ointment (Analgesic [place]) 1 peewee PRN QID PRN TP PAIN; Start at 16:00; Status UNV Multi-Ingredient Ointment (Analgesic [place]) 1 peewee PRN QID PRN TP muscle pain; Start 02/16/17 at 16:00 Mirtazapine (Remeron) 7.5 mg QHS PO ; Start 02/16/17 at 21:00 Olanzapine (ZyPREXA ZYDIS) 2.5 mg PRN Q2HR PRN PO ANXIETY / AGITATION Last administered on 02/17/17 17:40; Start 02/16/17 at 16:00 Olanzapine (ZyPREXA) 5 mg DAILY10 PO Last administered on 02/17/17 09:10; Start 02/17/17 at 10:00 Pantoprazole Sodium (Protonix Packet) 40 mg DAILYAC PO Last administered on 09:10; Start 02/17/17 at 07:30 Quetiapine Fumarate (SEROquel) 25 mg BID92 PO Last administered on 02/17/17 15:28; Start 02/17/17 at 09:00 Quetiapine Fumarate (SEROquel) 150 mg HS PO ; Start 02/16/17 at 21:00 Sennosides (Senna) 8.6 mg BID PO ; Start 02/16/17 at 21:00 Trazodone HCl (Desyrel) 50 mg PRN QHS PRN PO INSOMNIA, MAY REPEAT X1; Start at 16:00 Ziprasidone (Geodon) 40 mg BID94 PO Last administered on 02/17/17 15:28; Start 02/16/17 at 16:00 Fluvoxamine Maleate (Luvox) 150 mg QHS PO ; Start 02/16/17 at 21:00 Al Hydroxide/Mg Hydroxide (Mylanta Plus Xs) 30 ml PRN AFTMEALHC PRN PO DYSPEPSIA; Start 02/16/17 at 16:30 Magnesium Hydroxide (Milk Of Magnesia) 2,400 mg PRN QHS PRN PO CONSTIPATION Last administered on 02/17/17 09:10; Start 02/16/17 at 16:30 Multivitamins/ Calcium (Thera-M Plus) 1 tab DAILY PO ; Start 02/17/17 at 09:00 Piperacillin Sod/ Tazobactam Sod (Zosyn Per Pharmacy) 1 each PRN DAILY PRN MC SEE COMMENTS; Start 02/16/17 at 16:30 Vancomycin HCl (Vanco Per Pharmacy) 1 each PRN DAILY PRN MC SEE COMMENTS Last administered on 02/16/17 17:03; Start 02/16/17 at 16:30 Levofloxacin/ Dextrose (Levaquin Per Pharmacy) 1 each PRN DAILY PRN MC SEE COMMENTS; Start 02/16/17 at 16:30; Stop 02/17/17 at 12:09; Status DC Levofloxacin/ Dextrose 50 ml @ 50 mls/hr Q24H IV Last administered on 21:12; Start 02/16/17 at 17:00; Stop 02/17/17 at 11:53; Status DC Piperacillin Sod/ Tazobactam Sod 3.375 gm/Sodium Chloride 50 ml @ 100 mls/hr Q6HRS IV Last administered on 02/17/17 18:21; Start 02/16/17 at 18:00 Vancomycin HCl 1.25 gm/Sodium Chloride 250 ml @ 166.667 mls/hr 1X ONCE IV Last administered on 02/16/17t 19:49; Start 02/16/17 at 19:00; Stop 02/16/17 at 20:30; Status DC Vancomycin HCl 750 mg/Sodium Chloride 250 ml @ 250 mls/hr Q24H IV ; Start 12/25 at 19:00 Vancomycin HCl 1 each 1X ONCE MC ; Start 02/18/17 at 18:30; Stop 02/18/17 at 18:31 Active Scripts Active Reported Trazodone Hcl 50 Mg Tablet 50 Mg PO PRN QHS PRN Fluvoxamine Maleate 150 Mg Cap.er.24h 150 Mg PO QHS Analgesic [place] (Methyl Salicylate/Menthol) 28 Gm Oint...g. 1 Gm TP PRN QID PRN Protonix (Pantoprazole Sodium) 40 Mg Granpkt.dr 40 Mg PO DAILYAC Zyprexa Zydis (Olanzapine) 5 Mg Tab.rapdis 2.5 Mg PO PRN Q2HR PRN Zyprexa (Olanzapine) 5 Mg Tablet 5 Mg PO DAILY10 Quetiapine Fumarate 25 Mg Tablet 25 Mg PO BID92 Remeron (Mirtazapine) 15 Mg Tablet 7.5 Mg PO QHS Magnesium Citrate 296 Ml Solution 296 Ml PO ONCE PRN Synthroid (Levothyroxine Sodium) 75 Mcg Tablet 1 Tab PO DAILY06 Senokot (Sennosides) 8.6 Mg Tablet 1 Tab PO BID Multivitamins (Multivitamin) 1 Each Tablet 1 Tab PO DAILY Geodon (Ziprasidone Hcl) 40 Mg Capsule 40 Mg PO BID94 Calcium 500 + Vit D 200 Tablet (Calcium Carbonate/Vitamin D3) 1 Each Tablet 1 Each PO BID Bisacodyl 10 Mg Supp.rect 10 Mg RC PRN DAILY PRN Acetaminophen 500 Mg Tablet 1 Tab PO Q6HRS PRN Mag-Al Plus Suspension (Mag Hydrox/Al Hydrox/Simeth) 30 Ml Oral.susp 15 Ml PO PRN AFTMEALHC PRN Seroquel (Quetiapine Fumarate) 25 Mg Tablet 150 Mg PO HS Analgesic [place] (Methyl Salicylate/Menthol) 29 Gm Oint...g. 1 [place] TP PRN QID PRN Milk Of Magnesia (Magnesium Hydroxide) 2,400 Mg/10 Ml Oral.susp 2,400 Mg PO PRN QHS PRN I have reviewed the current psychotropics carefully including drug interactions. Risk benefit ratio favors no change other than as noted in my dictated progress note. Diagnosis: Problems: (1) Impulse control disorder (2) Dementia in Alzheimer's disease with delusions (3) Dementia in Alzheimer's disease with depression (4) Dementia, vascular, with delusions (5) Dementia, vascular, with depression (6) Anxiety disorder GRANT STOVER MD Feb 17, 2017 19:16
[2017-02-17 19:41] VITALS: BP 116/51
--- NOTE | 2017-02-17 20:41 | PN ---
DATE: 02/17/2017 SUBJECTIVE: The patient is resting, sitting slightly propped up in her recliner, no apparent distress. She is extremely demented, does not give any useful information. The nursing staff did not voice any concern and stated that she had an uneventful night. PHYSICAL EXAMINATION: GENERAL: When I examined her, she was pale, cachectic, but no jaundice, cyanosis, or thyromegaly. No jugular venous distension. No limb edema. VITAL SIGNS: Heart rate was 63, blood pressure 123/57, temperature was 98.2, respiratory rate was 18 and oxygen saturation was 96% on room air. HEAD, EYES, EARS, NOSE AND THROAT: Showed normocephalic, atraumatic. NECK: Supple. HEART: Showed normal first and second sounds. No gallop, rub or murmur. CHEST: Clear to auscultation. No crepitation or rhonchi. ABDOMEN: Distended, soft, nontender. No guarding or rigidity. No organomegaly. Hernial orifice intact. Bowel sounds normal. NEUROLOGIC: She was demented without any localizing sign. Her intake was 715, output was 150. LABORATORY DATA: Her lab work this morning showed a white cell count is down to 11,800, hemoglobin 10.6, hematocrit 32, MCV 85, platelet count 215,000. Her chemistry showed a serum sodium 144, potassium 3.7, chloride 108, bicarbonate 26, anion gap of 10, BUN 19, creatinine 1, estimated GFR was 53 mL per minute, her glucose 105. Lactic acid was down to 0.8 and calcium was 8.5. ASSESSMENT: 1. Leukocytosis, sepsis with lactic acidosis, right upper lobe infiltrate consistent with healthcare-associated pneumonia. 2. Hypothyroidism. 3. Hypovitaminosis D. 4. Senile macular degeneration. 5. Protein-calorie malnutrition with serum albumin is only 3.1. 6. Severe dementia. PLAN: I will discontinue the levofloxacin. Continue with Zosyn and vancomycin. MARGARET MADSEN MD DR: GA/shelley JOB#: [id number] / [id number]
[2017-02-17] MEDS: MIRTAZAPINE 15 MG TABLET PO SCH (20:44)
[2017-02-17] MEDS: traZODone 50 MG TABLET. PO PRN (20:45)
--- NOTE | 2017-02-18 01:03 | PN ---
DATE: 02/17/2017 This note covers elements not covered in my initial note of 02/17/2017. SUBJECTIVE: I met with the patient in the evening of 02/17/2017. Discussed with nursing staff, reviewed the chart. I have been asked to consult and follow the patient while she is on [facility] where she was transferred due to aspiration pneumonia while she was on [facility] being stabilized for her severe dementia with marked obsessive and compulsive verbalizations agitation, mood lability. Per nursing report, the patient remains confused. REVIEW OF SYSTEMS: No CV, , pulmonary, eye, ENT system symptoms on review. Reliability poor. MENTAL STATUS EXAM: Oriented to herself. Insight, judgment, recent and remote memory, attention, concentration, fund of knowledge poor, consistent with her diagnosis. IMPRESSION: Major neurocognitive disorder, Alzheimer, vascular with depression, delusion, behavioral disturbance. Rest unchanged. PLAN: No change from a psychiatric standpoint. Continue current psychotropics mentioned in my initial note. When she is medically stable, we will reassess whether she needs to come back to [facility] or not. MAN Abdullahi STOVER MD DR: AMOL/shelley JOB#: [id number] / [id number]
[2017-02-18] MEDS: LEVOTHYROXINE 75 MCG TABLET PO SCH (04:57)
[2017-02-18] MEDS: PIPERACILLIN/TAZOBACTAM 3.375 GM in IV NORMAL SALINE 50ML 50 ML IV SCH ×3 (04:57→18:17)
[2017-02-18 05:19] VITALS: BP 133/56
[2017-02-18 06:33] LABS: CALCIUM 8.8 mg/dL (8.5-10.1); CREATININE 0.9 mg/dL (0.6-1.0); GFR 59.7; POTASSIUM 3.6 mmol/L (3.5-5.1)
[2017-02-18 06:42] LABS: HEMOGLOBIN 10.5 g/dL (12.0-15.5); RED BLOOD COUNT 3.74 x10^6/uL (3.50-5.40); RED CELL DISTRIBUTION WIDTH 16.9 % (11.5-14.5); WHITE BLOOD COUNT 8.3 x10^3/uL (4.0-11.0)
[2017-02-18] MEDS: CALCIUM CARB/VIT D3 500/200 TABLET PO SCH ×2 (08:04→20:45)
[2017-02-18] MEDS: MULTIVITAMIN with MINERAL TABLET. PO SCH (08:04)
[2017-02-18] MEDS: SENNOSIDES 8.6 MG TABLET PO SCH ×2 (08:05→20:45)
[2017-02-18] MEDS: PANTOPRAZOLE 40 MG PACKET. PO SCH (08:05)
[2017-02-18] MEDS: ZIPRASIDONE 40 MG CAPSULE. PO SCH ×2 (08:06→17:01)
[2017-02-18] MEDS: QUEtiapine 25 MG TABLET. PO SCH ×3 (08:06→20:46)
[2017-02-18] MEDS: OLANZapine 5 MG TABLET PO SCH (10:00)
[2017-02-18 15:30] VITALS: BP 108/64
--- NOTE | 2017-02-18 18:36 | PDOC ---
Exam Note: Ronen Note: Please also refer to the separate dictated note~for this date of service dictated separately.~Patient seen individually. Discussed the patient with Nursing staff reviewed the chart.~Reviewed interim history and current functioning. Reviewed vital signs,~Labs/ Radiology~and current medications noted below. Continue current treatment with the changes noted in the dictated addendum note Assessment: Vital Signs: Vital Signs Date Time Temp Pulse Resp B/P (MAP) Pulse Ox O2 Delivery O2 Flow Rate FiO2 02/18/17 15:30 97.8 83 20 108/64 (79) 98 Room Air I&O Intake and Output 02/18/17 07:00 Intake Total 530 ml Balance 530 ml Intake Oral 460 ml IV Total 70 ml # Voids 4 Labs: Laboratory Tests Test 02/18/17 06:12 White Blood Count 8.3 x10^3/uL (4.0-11.0) Red Blood Count 3.74 x10^6/uL (3.50-5.40) Hemoglobin 10.5 g/dL (12.0-15.5) L Hematocrit 32.0 % (36.0-47.0) L Mean Corpuscular Volume 86 fL (79-100) Mean Corpuscular Hemoglobin 28 pg (25-35) Mean Corpuscular Hemoglobin Concent 33 g/dL (31-37) Red Cell Distribution Width 16.9 % (11.5-14.5) H Platelet Count 210 x10^3/uL (140-400) Sodium Level 145 mmol/L (136-145) Potassium Level 3.6 mmol/L (3.5-5.1) Chloride Level 109 mmol/L (98-107) H Carbon Dioxide Level 27 mmol/L (21-32) Anion Gap 9 (6-14) Blood Urea Nitrogen 22 mg/dL (7-20) H Creatinine 0.9 mg/dL (0.6-1.0) Estimated GFR (Cockcroft-Gault) 59.7 Glucose Level 102 mg/dL (70-99) H Calcium Level 8.8 mg/dL (8.5-10.1) Current Medications: Meds: Current Medications Acetaminophen (Tylenol) 500 mg PRN Q6HRS PRN PO PAIN / TEMP; Start 02/16/17 at 16:00 Bisacodyl (Dulcolax Supp) 10 mg PRN DAILY PRN RC CONSTIPATION; Start 02/16/17 at 16:00 Calcium/Vitamin D (Oscal D 500mg/ 200uts) 1 tab BID PO Last administered on 08:04; Start 02/16/17 at 21:00 Levothyroxine Sodium (Synthroid) 75 mcg DAILY06 PO Last administered on 04:57; Start 02/17/17 at 06:00 Magnesium Citrate (Citroma) 296 ml PRN DAILY PRN PO CONSTIPATION Last administered on 02/18/17 08:04; Start 02/16/17 at 16:00 Multi-Ingredient Ointment (Analgesic [place]) 1 peewee PRN QID PRN TP PAIN; Start at 16:00; Status UNV Multi-Ingredient Ointment (Analgesic [place]) 1 peewee PRN QID PRN TP muscle pain; Start 02/16/17 at 16:00 Mirtazapine (Remeron) 7.5 mg QHS PO ; Start 02/16/17 at 21:00 Olanzapine (ZyPREXA ZYDIS) 2.5 mg PRN Q2HR PRN PO ANXIETY / AGITATION Last administered on 02/18/17 17:01; Start 02/16/17 at 16:00 Olanzapine (ZyPREXA) 5 mg DAILY10 PO Last administered on 02/18/17 10:00; Start 02/17/17 at 10:00 Pantoprazole Sodium (Protonix Packet) 40 mg DAILYAC PO Last administered on 08:05; Start 02/17/17 at 07:30 Quetiapine Fumarate (SEROquel) 25 mg BID92 PO Last administered on 02/18/17 13:21; Start 02/17/17 at 09:00 Quetiapine Fumarate (SEROquel) 150 mg HS PO Last administered on 02/17/17 20: 45; Start 02/16/17 at 21:00 Sennosides (Senna) 8.6 mg BID PO Last administered on 02/18/17 08:05; Start 02/16/17 at 21:00 Trazodone HCl (Desyrel) 50 mg PRN QHS PRN PO INSOMNIA, MAY REPEAT X1 Last administered on 02/17/17 20:45; Start 02/16/17 at 16:00 Ziprasidone (Geodon) 40 mg BID94 PO Last administered on 02/18/17 17:01; Start 02/16/17 at 16:00 Fluvoxamine Maleate (Luvox) 150 mg QHS PO Last administered on 02/17/17 20:46 ; Start 02/16/17 at 21:00 Al Hydroxide/Mg Hydroxide (Mylanta Plus Xs) 30 ml PRN AFTMEALHC PRN PO DYSPEPSIA; Start 02/16/17 at 16:30 Magnesium Hydroxide (Milk Of Magnesia) 2,400 mg PRN QHS PRN PO CONSTIPATION Last administered on 02/17/17 09:10; Start 02/16/17 at 16:30 Multivitamins/ Calcium (Thera-M Plus) 1 tab DAILY PO Last administered on 02/18 08:04; Start 02/17/17 at 09:00 Piperacillin Sod/ Tazobactam Sod (Zosyn Per Pharmacy) 1 each PRN DAILY PRN MC SEE COMMENTS; Start 02/16/17 at 16:30 Vancomycin HCl (Vanco Per Pharmacy) 1 each PRN DAILY PRN MC SEE COMMENTS Last administered on 02/16/17 17:03; Start 02/16/17 at 16:30 Levofloxacin/ Dextrose (Levaquin Per Pharmacy) 1 each PRN DAILY PRN MC SEE COMMENTS; Start 02/16/17 at 16:30; Stop 02/17/17 at 12:09; Status DC Levofloxacin/ Dextrose 50 ml @ 50 mls/hr Q24H IV Last administered on 21:12; Start 02/16/17 at 17:00; Stop 02/17/17 at 11:53; Status DC Piperacillin Sod/ Tazobactam Sod 3.375 gm/Sodium Chloride 50 ml @ 100 mls/hr Q6HRS IV Last administered on 02/18/17 18:17; Start 02/16/17 at 18:00 Vancomycin HCl 1.25 gm/Sodium Chloride 250 ml @ 166.667 mls/hr 1X ONCE IV Last administered on 02/16/17 19:49; Start 02/16/17 at 19:00; Stop 02/16/17 at 20:30; Status DC Vancomycin HCl 750 mg/Sodium Chloride 250 ml @ 250 mls/hr Q24H IV Last administered on 02/17/17t 19:00; Start 02/17/17 at 19:00 Vancomycin HCl 1 each 1X ONCE MC ; Start 02/18/17 at 18:30; Stop 02/18/17 at 18:31; Status DC Active Scripts Active Reported Trazodone Hcl 50 Mg Tablet 50 Mg PO PRN QHS PRN Fluvoxamine Maleate 150 Mg Cap.er.24h 150 Mg PO QHS Analgesic [place] (Methyl Salicylate/Menthol) 28 Gm Oint...g. 1 Gm TP PRN QID PRN Protonix (Pantoprazole Sodium) 40 Mg Granpkt.dr 40 Mg PO DAILYAC Zyprexa Zydis (Olanzapine) 5 Mg Tab.rapdis 2.5 Mg PO PRN Q2HR PRN Zyprexa (Olanzapine) 5 Mg Tablet 5 Mg PO DAILY10 Quetiapine Fumarate 25 Mg Tablet 25 Mg PO BID92 Remeron (Mirtazapine) 15 Mg Tablet 7.5 Mg PO QHS Magnesium Citrate 296 Ml Solution 296 Ml PO ONCE PRN Synthroid (Levothyroxine Sodium) 75 Mcg Tablet 1 Tab PO DAILY06 Senokot (Sennosides) 8.6 Mg Tablet 1 Tab PO BID Multivitamins (Multivitamin) 1 Each Tablet 1 Tab PO DAILY Geodon (Ziprasidone Hcl) 40 Mg Capsule 40 Mg PO BID94 Calcium 500 + Vit D 200 Tablet (Calcium Carbonate/Vitamin D3) 1 Each Tablet 1 Each PO BID Bisacodyl 10 Mg Supp.rect 10 Mg RC PRN DAILY PRN Acetaminophen 500 Mg Tablet 1 Tab PO Q6HRS PRN Mag-Al Plus Suspension (Mag Hydrox/Al Hydrox/Simeth) 30 Ml Oral.susp 15 Ml PO PRN AFTMEALHC PRN Seroquel (Quetiapine Fumarate) 25 Mg Tablet 150 Mg PO HS Analgesic [place] (Methyl Salicylate/Menthol) 29 Gm Oint...g. 1 [place] TP PRN QID PRN Milk Of Magnesia (Magnesium Hydroxide) 2,400 Mg/10 Ml Oral.susp 2,400 Mg PO PRN QHS PRN I have reviewed the current psychotropics carefully including drug interactions. Risk benefit ratio favors no change other than as noted in my dictated progress note. Diagnosis: Problems: (1) Impulse control disorder (2) Dementia in Alzheimer's disease with delusions (3) Dementia in Alzheimer's disease with depression (4) Dementia, vascular, with delusions (5) Dementia, vascular, with depression (6) Anxiety disorder (7) Dementia with behavioral disturbance (8) Impulse control disorder GRANT STOVER MD Feb 18, 2017 18:36
[2017-02-18 19:23] VITALS: BP 117/80
[2017-02-18] MEDS: VANCOMYCIN 750 MG in IV NORMAL SALINE 250ML 250 ML IV SCH (19:55)
[2017-02-18] MEDS: MIRTAZAPINE 15 MG TABLET PO SCH (20:45)
--- NOTE | 2017-02-18 21:18 | PDOC ---
Exam Note: Ronen Note: Please also refer to the separate dictated note~for this date of service dictated separately.~Patient seen individually. Discussed the patient with Nursing staff reviewed the chart.~Reviewed interim history and current functioning. Reviewed vital signs,~Labs/ Radiology~and current medications noted below. Continue current treatment with the changes noted in the dictated addendum note Assessment: Vital Signs: Vital Signs Date Time Temp Pulse Resp B/P (MAP) Pulse Ox O2 Delivery O2 Flow Rate FiO2 02/18/17 19:23 97.3 102 18 117/80 (92) Room Air 02/18/17 15:30 98 I&O Intake and Output 02/18/17 07:00 Intake Total 530 ml Balance 530 ml Intake Oral 460 ml IV Total 70 ml # Voids 4 Labs: Laboratory Tests Test 02/18/17 06:12 02/18/17 18:30 White Blood Count 8.3 x10^3/uL (4.0-11.0) Red Blood Count 3.74 x10^6/uL (3.50-5.40) Hemoglobin 10.5 g/dL (12.0-15.5) L Hematocrit 32.0 % (36.0-47.0) L Mean Corpuscular Volume 86 fL (79-100) Mean Corpuscular Hemoglobin 28 pg (25-35) Mean Corpuscular Hemoglobin Concent 33 g/dL (31-37) Red Cell Distribution Width 16.9 % (11.5-14.5) H Platelet Count 210 x10^3/uL (140-400) Sodium Level 145 mmol/L (136-145) Potassium Level 3.6 mmol/L (3.5-5.1) Chloride Level 109 mmol/L (98-107) H Carbon Dioxide Level 27 mmol/L (21-32) Anion Gap 9 (6-14) Blood Urea Nitrogen 22 mg/dL (7-20) H Creatinine 0.9 mg/dL (0.6-1.0) Estimated GFR (Cockcroft-Gault) 59.7 Glucose Level 102 mg/dL (70-99) H Calcium Level 8.8 mg/dL (8.5-10.1) Vancomycin Level Trough 7.0 mcg/mL (10.0-20.0) L Vancomycin Last Dose Date 02/17/17 Vancomycin Last Dose Time 1900 Current Medications: Meds: Current Medications Acetaminophen (Tylenol) 500 mg PRN Q6HRS PRN PO PAIN / TEMP; Start 02/16/17 at 16:00 Bisacodyl (Dulcolax Supp) 10 mg PRN DAILY PRN RC CONSTIPATION; Start 02/16/17 at 16:00 Calcium/Vitamin D (Oscal D 500mg/ 200uts) 1 tab BID PO Last administered on 20:45; Start 02/16/17 at 21:00 Levothyroxine Sodium (Synthroid) 75 mcg DAILY06 PO Last administered on 04:57; Start 02/17/17 at 06:00 Magnesium Citrate (Citroma) 296 ml PRN DAILY PRN PO CONSTIPATION Last administered on 02/18/17 08:04; Start 02/16/17 at 16:00 Multi-Ingredient Ointment (Analgesic [place]) 1 peewee PRN QID PRN TP PAIN; Start at 16:00; Status UNV Multi-Ingredient Ointment (Analgesic [place]) 1 peewee PRN QID PRN TP muscle pain; Start 02/16/17 at 16:00 Mirtazapine (Remeron) 7.5 mg QHS PO Last administered on 02/18/17 20:45; Start 02/16/17 at 21:00 Olanzapine (ZyPREXA ZYDIS) 2.5 mg PRN Q2HR PRN PO ANXIETY / AGITATION Last administered on 02/18/17 17:01; Start 02/16/17 at 16:00 Olanzapine (ZyPREXA) 5 mg DAILY10 PO Last administered on 02/18/17 10:00; Start 02/17/17 at 10:00 Pantoprazole Sodium (Protonix Packet) 40 mg DAILYAC PO Last administered on 08:05; Start 02/17/17 at 07:30 Quetiapine Fumarate (SEROquel) 25 mg BID92 PO Last administered on 02/18/17 13:21; Start 02/17/17 at 09:00 Quetiapine Fumarate (SEROquel) 150 mg HS PO Last administered on 02/18/17 20: 46; Start 02/16/17 at 21:00 Sennosides (Senna) 8.6 mg BID PO Last administered on 02/18/17 20:45; Start 02/16/17 at 21:00 Trazodone HCl (Desyrel) 50 mg PRN QHS PRN PO INSOMNIA, MAY REPEAT X1 Last administered on 02/17/17 20:45; Start 02/16/17 at 16:00 Ziprasidone (Geodon) 40 mg BID94 PO Last administered on 02/18/17 17:01; Start 02/16/17 at 16:00 Fluvoxamine Maleate (Luvox) 150 mg QHS PO Last administered on 02/18/17 20:47 ; Start 02/16/17 at 21:00 Al Hydroxide/Mg Hydroxide (Mylanta Plus Xs) 30 ml PRN AFTMEALHC PRN PO DYSPEPSIA; Start 02/16/17 at 16:30 Magnesium Hydroxide (Milk Of Magnesia) 2,400 mg PRN QHS PRN PO CONSTIPATION Last administered on 02/17/17 09:10; Start 02/16/17 at 16:30 Multivitamins/ Calcium (Thera-M Plus) 1 tab DAILY PO Last administered on 02/18 08:04; Start 02/17/17 at 09:00 Piperacillin Sod/ Tazobactam Sod (Zosyn Per Pharmacy) 1 each PRN DAILY PRN MC SEE COMMENTS; Start 02/16/17 at 16:30 Vancomycin HCl (Vanco Per Pharmacy) 1 each PRN DAILY PRN MC SEE COMMENTS Last administered on 02/16/17 17:03; Start 02/16/17 at 16:30 Levofloxacin/ Dextrose (Levaquin Per Pharmacy) 1 each PRN DAILY PRN MC SEE COMMENTS; Start 02/16/17 at 16:30; Stop 02/17/17 at 12:09; Status DC Levofloxacin/ Dextrose 50 ml @ 50 mls/hr Q24H IV Last administered on 21:12; Start 02/16/17 at 17:00; Stop 02/17/17 at 11:53; Status DC Piperacillin Sod/ Tazobactam Sod 3.375 gm/Sodium Chloride 50 ml @ 100 mls/hr Q6HRS IV Last administered on 02/18/17 18:17; Start 02/16/17 at 18:00 Vancomycin HCl 1.25 gm/Sodium Chloride 250 ml @ 166.667 mls/hr 1X ONCE IV Last administered on 02/16/17 19:49; Start 02/16/17 at 19:00; Stop 02/16/17 at 20:30; Status DC Vancomycin HCl 750 mg/Sodium Chloride 250 ml @ 250 mls/hr Q24H IV Last administered on 02/18/17 19:55; Start 02/17/17 at 19:00; Stop 02/18/17 at 23 :00 Vancomycin HCl 1 each 1X ONCE MC Last administered on 02/18/17 18:30; Start 02/18/17 at 18:30; Stop 02/18/17 at 18:31; Status DC Vancomycin HCl 750 mg/Sodium Chloride 250 ml @ 250 mls/hr Q12H IV ; Start 02/24 at 08:00 Active Scripts Active Reported Trazodone Hcl 50 Mg Tablet 50 Mg PO PRN QHS PRN Fluvoxamine Maleate 150 Mg Cap.er.24h 150 Mg PO QHS Analgesic [place] (Methyl Salicylate/Menthol) 28 Gm Oint...g. 1 Gm TP PRN QID PRN Protonix (Pantoprazole Sodium) 40 Mg Granpkt.dr 40 Mg PO DAILYAC Zyprexa Zydis (Olanzapine) 5 Mg Tab.rapdis 2.5 Mg PO PRN Q2HR PRN Zyprexa (Olanzapine) 5 Mg Tablet 5 Mg PO DAILY10 Quetiapine Fumarate 25 Mg Tablet 25 Mg PO BID92 Remeron (Mirtazapine) 15 Mg Tablet 7.5 Mg PO QHS Magnesium Citrate 296 Ml Solution 296 Ml PO ONCE PRN Synthroid (Levothyroxine Sodium) 75 Mcg Tablet 1 Tab PO DAILY06 Senokot (Sennosides) 8.6 Mg Tablet 1 Tab PO BID Multivitamins (Multivitamin) 1 Each Tablet 1 Tab PO DAILY Geodon (Ziprasidone Hcl) 40 Mg Capsule 40 Mg PO BID94 Calcium 500 + Vit D 200 Tablet (Calcium Carbonate/Vitamin D3) 1 Each Tablet 1 Each PO BID Bisacodyl 10 Mg Supp.rect 10 Mg RC PRN DAILY PRN Acetaminophen 500 Mg Tablet 1 Tab PO Q6HRS PRN Mag-Al Plus Suspension (Mag Hydrox/Al Hydrox/Simeth) 30 Ml Oral.susp 15 Ml PO PRN AFTMEALHC PRN Seroquel (Quetiapine Fumarate) 25 Mg Tablet 150 Mg PO HS Analgesic [place] (Methyl Salicylate/Menthol) 29 Gm Oint...g. 1 [place] TP PRN QID PRN Milk Of Magnesia (Magnesium Hydroxide) 2,400 Mg/10 Ml Oral.susp 2,400 Mg PO PRN QHS PRN I have reviewed the current psychotropics carefully including drug interactions. Risk benefit ratio favors no change other than as noted in my dictated progress note. Diagnosis: Problems: (1) Alzheimer disease (2) Impulse control disorder (3) Hypothyroid (4) Dementia with behavioral disturbance (5) Anxiety disorder (6) Dementia, vascular, with depression (7) Dementia, vascular, with delusions (8) Dementia in Alzheimer's disease with depression (9) Dementia in Alzheimer's disease with delusions (10) Impulse control disorder GRANT STOVER MD Feb 18, 2017 21:18
[2017-02-18 22:42] VITALS: BP 137/70
[2017-02-18] MEDS: VANCOMYCIN PER PHARMACY MC PRN (23:00)
[2017-02-18] MEDS: traZODone 50 MG TABLET. PO PRN (23:10)
[2017-02-19] MEDS: PIPERACILLIN/TAZOBACTAM 3.375 GM in IV NORMAL SALINE 50ML 50 ML IV SCH ×3 (00:13→08:52)
[2017-02-19] MEDS: LEVOTHYROXINE 75 MCG TABLET PO SCH (05:33)
[2017-02-19 06:22] VITALS: BP 153/78
--- NOTE | 2017-02-19 07:31 | RAD ---
Portable chest, 02/19/2017: History: Follow-up pneumonia Comparison is made to a study from 02/16/2017. The heart is within normal limits in size. There is calcific plaquing of aorta. There is mild interstitial prominence in both lungs. Mild patchy right upper lobe opacities persist. This may have worsened slightly. No new pulmonary infiltrate is seen. There is no evidence of pleural fluid or pneumothorax. The bony structures are demineralized. IMPRESSION: 1. Right upper lobe infiltrates appear to have worsened slightly, again suggesting pneumonia. Further imaging follow-up would be prudent to exclude an underlying neoplasm. 2. Bilateral interstitial opacities, probably due to underlying fibrosis.
[2017-02-19] MEDS ORDERED: VANCOMYCIN 750 MG in IV NORMAL SALINE 250ML 250 ML IV SCH (08:00)
[2017-02-19 08:26] LABS: BASO # 0.1 x10^3/uL (0.0-0.2); BASO % 1 % (0-3); EOS # 0.3 x10^3/uL (0.0-0.7); EOS % 4 % (0-3); HEMATOCRIT 32.6 % (36.0-47.0); HEMOGLOBIN 10.7 g/dL (12.0-15.5); LYMPH % 13 % (24-48); MEAN CORPUSCULAR HEMOGLOBIN 28 pg (25-35); MEAN CORPUSCULAR HGB CONC 33 g/dL (31-37); MEAN CORPUSCULAR VOLUME 86 fL (79-100); MONO # 0.8 x10^3/uL (0.0-1.1); MONO % 11 % (0-9); NEUT # 5.1 x10^3uL (1.8-7.7); NEUT % 71 % (31-73); PLATELET COUNT 245 x10^3/uL (140-400); RED BLOOD COUNT 3.82 x10^6/uL (3.50-5.40); RED CELL DISTRIBUTION WIDTH 16.4 % (11.5-14.5); WHITE BLOOD COUNT 7.2 x10^3/uL (4.0-11.0)
[2017-02-19 08:36] LABS: ALBUMIN 2.6 g/dL (3.4-5.0); ALBUMIN/GLOBULIN RATIO 0.5 (1.0-1.7); CALCIUM 8.9 mg/dL (8.5-10.1); CREATININE 0.9 mg/dL (0.6-1.0); GFR 59.7; MAGNESIUM 2.3 mg/dL (1.8-2.4); POTASSIUM 3.5 mmol/L (3.5-5.1); TOTAL BILIRUBIN 0.4 mg/dL (0.2-1.0); TOTAL PROTEIN 7.7 g/dL (6.4-8.2)
[2017-02-19] MEDS: QUEtiapine 25 MG TABLET. PO SCH ×2 (08:49→14:57)
[2017-02-19] MEDS: OLANZapine 5 MG TABLET PO SCH (08:49)
[2017-02-19] MEDS: CALCIUM CARB/VIT D3 500/200 TABLET PO SCH (08:49)
[2017-02-19] MEDS: MULTIVITAMIN with MINERAL TABLET. PO SCH (08:49)
[2017-02-19] MEDS: PANTOPRAZOLE 40 MG PACKET. PO SCH (08:49)
[2017-02-19] MEDS: ZIPRASIDONE 40 MG CAPSULE. PO SCH ×2 (08:50→16:00)
[2017-02-19] MEDS: SENNOSIDES 8.6 MG TABLET PO SCH (08:50)
[2017-02-19] MEDS ORDERED: LEVO500T59 PO (10:01)
[2017-02-19 11:01] VITALS: BP 121/71
--- NOTE | 2017-02-19 11:02 | PN ---
DATE: 02/18/2017 CURRENT PROBLEMS: 1. Leukocytosis with right upper lobe infiltrate. 2. Sepsis with lactic acidosis. 3. Hypothyroidism. 4. Vitamin D deficiency. 5. Macular degeneration. 6. Dementia behavior disturbance. SUBJECTIVE: The patient is doing better. She is sitting up in the chair. She is mumbling the same word over and over. This what she was doing upstairs. She is unable to follow directions or stop talking while I tried to examine her. She is able to drink some water. PHYSICAL EXAMINATION: VITAL SIGNS: Blood pressure 108/64, pulse 83, respirations 20, temperature 97.8, pulse ox 98% on room air. GENERAL: Sitting up in a chair. She has just come from the shower. Her color is pale. SKIN: Warm and dry. HEENT: Her tongue was moist. NECK: Supple. LUNGS: Clear. CARDIOVASCULAR: Regular rhythm and rate with a 2/6 systolic murmur. ABDOMEN: Soft, nontender. EXTREMITIES: Without edema. Initial urine culture is negative. PLAN: Repeat chest x-ray tomorrow and will need to go back [facility] to [facility]. White blood cell count has come down today. PAUL GREEN DO DR: MORIAH/shelley JOB#: [id number] / [id number]
[2017-02-19 15:30] VITALS: BP 102/55
--- NOTE | 2017-02-19 19:41 | DS ---
DATE OF DISCHARGE: 02/19/2017 CURRENT PROBLEMS: 1. Aspiration pneumonia. 2. Leukocytosis. 3. Right upper lobe infiltrate. 4. Severe dementia with behavior disturbance. 5. Vitamin D deficiency. HOSPITAL COURSE: The patient was transferred down from the [facility] on 02/16/2017 for suspected aspiration pneumonia. She had a right upper lobe pneumonia and was treated with IV antibiotics. Her overall clinical condition has improved. She is a chronic aspirator. The family has signed a waiver so she can eat. On day of transfer back up to the [facility], chest x-ray read out slightly worsened right upper lobe, but she has been doing fine and so will be transferred up today on p.o. Levaquin. PAUL GREEN DO DR: MORIAH/shelley JOB#: [id number] / [id number]
--- NOTE | 2017-02-20 04:27 | PN ---
DATE: 02/18/2017 PSYCHIATRIC PROGRESS NOTE This is a late entry for 02/18/2017, covers the elements not covered in my initial note of 02/18/2017. SUBJECTIVE: I met with the patient in the evening of 02/18/2017. Per nursing report, she continues to repeat out "okay, okay, okay." Medically, she is being stabilized, but remains confused with marked mood lability, agitation, grabbing out at times. REVIEW OF SYSTEMS: No CV, , pulmonary, eye, ENT system symptoms on review. Reliability poor. MENTAL STATUS EXAM: Oriented to herself. Insight, judgment, recent and remote memory, attention, concentration, fund of knowledge poor, consistent with her diagnosis mentioned in my initial note. PLAN: Continue psychotropics mentioned in my initial note. Depending on if [facility] the [facility], she may [facility] the [facility], but if behaviors preclude her being accepted back at the nursing facility, she may have to come back to the [facility] for further stabilization. Nevertheless, we have attempted significant adjustments in her psychotropics so far with very limited results. We will have to keep this in mind. GRANT STOVER MD DR: AMOL/shelley JOB#: [id number] / [id number]
== END 2017-02-19 16:42 | DRG 871 ==
LOC: 1 SOUTH 15:13
PROVIDERS: ADMIT Internal Medicine; ATTEND Internal Medicine
DX: A41.9 Sepsis, unspecified organism (principal); J69.0 Pneumonitis due to inhalation of food and vomit; E46 Unspecified protein-calorie malnutrition; G93.41 Metabolic encephalopathy; F01.51 Vascular dementia, unspecified severity, with behavioral disturbance; F02.81 Dementia in other diseases classified elsewhere, unspecified severity, with behavioral disturbance; Z68.1 Body mass index [BMI] 19.9 or less, adult; G30.9 Alzheimer's disease, unspecified; E03.9 Hypothyroidism, unspecified; E55.9 Vitamin D deficiency, unspecified; F22 Delusional disorders; F32.9 Major depressive disorder, single episode, unspecified; F41.9 Anxiety disorder, unspecified; F63.9 Impulse disorder, unspecified; H35.30 Unspecified macular degeneration; Y95 Nosocomial condition; Z88.8 Allergy status to other drugs, medicaments and biological substances
CPT/HCPCS: 36415; 71010; 80048; 80053; 80202; 81001; 83605; 83735; 85025; 85027; 87086; J1956; J2543; J3370; J7050; 97530

== ENCOUNTER 2017-02-19 17:05 | Inpatient (IN) | payer MEDICARE, BC ==
[~2017-02-19] VITALS: Ht 157.5 cm; Wt 51.8 kg
[~2017-02-19 17:05] MED LIST changes: +LEVO500T59 PO
[2017-02-19 17:14] VITALS: BP 135/65
[2017-02-19] MEDS ORDERED: METHYL SALICYLATE/MENTHOL TOPICAL OINTMENT 29GM TUBE. TP PRN ×2 (17:15→17:45)
[2017-02-19] MEDS ORDERED: MAG HYDROX/AL HYDROX/SIMETH 30 ML ORAL.SUSP PO PRN (17:15)
[2017-02-19] MEDS ORDERED: MAGNESIUM HYDROXIDE 2,400 MG/30 ML ORAL.SUSP. PO PRN (17:15)
[2017-02-19] MEDS ORDERED: traZODone 50 MG TABLET. PO PRN (17:30)
[2017-02-19] MEDS ORDERED: ACETAMINOPHEN 325 MG TABLET PO PRN (17:30)
[2017-02-19] MEDS ORDERED: BISACODYL 10 MG SUPP.RECT RC PRN (17:45)
[2017-02-19] MEDS ORDERED: NON FORMULARY ITEM (Magnesium Hydroxide (Milk Of Magnesia) 2,400 MG) PO PRN (17:45)
[2017-02-19] MEDS ORDERED: MAGNESIUM CITRATE 296 ML SOLUTION. PO PRN (17:45)
[2017-02-19] MEDS ORDERED: AL HYDROX PO PRN (17:45)
[2017-02-19] MEDS ORDERED: MAG HYDROX PO PRN (17:45)
[2017-02-19] MEDS ORDERED: SIMETH PO PRN (17:45)
[2017-02-19] MEDS: CALCIUM CARB/VIT D3 500/200 TABLET PO SCH (20:35)
[2017-02-19] MEDS: QUEtiapine 50 MG TABLET. PO SCH (20:35)
[2017-02-19] MEDS: SENNOSIDES 8.6 MG TABLET PO SCH (20:35)
[2017-02-19] MEDS: MIRTAZAPINE 15 MG TABLET PO SCH (20:38)
--- NOTE | 2017-02-19 22:03 | PDOC ---
Exam Note: Ronen Note: Please also refer to the separate dictated note~for this date of service dictated separately.~Patient seen individually. Discussed the patient with Nursing staff reviewed the chart.~Reviewed interim history and current functioning. Reviewed vital signs,~Labs/ Radiology~and current medications noted below. Continue current treatment with the changes noted in the dictated addendum note Assessment: Vital Signs: Vital Signs Date Time Temp Pulse Resp B/P (MAP) Pulse Ox O2 Delivery O2 Flow Rate FiO2 02/19/17 17:14 97.3 75 18 135/65 (88) Room Air Current Medications: Meds: Current Medications Acetaminophen (Tylenol) 650 mg PRN Q6HRS PRN PO PAIN / TEMP; Start 02/19/17 at 17:30; Status Cancel Multi-Ingredient Ointment (Analgesic [place]) 1 peewee PRN QID PRN TP MUSCLE PAIN; Start 02/19/17 at 17:15 Al Hydroxide/Mg Hydroxide (Mylanta Plus Xs) 15 ml PRN AFTMEALHC PRN PO DYSPEPSIA; Start 02/19/17 at 17:15 Magnesium Hydroxide (Milk Of Magnesia) 2,400 mg PRN QHS PRN PO CONSTIPATION; Start 02/19/17 at 17:15 Levofloxacin (Levaquin) 500 mg DAILY PO ; Start 02/20/17 at 09:00; Stop at 08:59; Status Cancel Mirtazapine (Remeron) 7.5 mg QHS PO Last administered on 02/19/17t 20:38; Start 02/19/17 at 21:00 Olanzapine (ZyPREXA ZYDIS) 2.5 mg PRN Q2HR PRN PO ANXIETY / AGITATION; Start 02/19/17 at 17:30 Olanzapine (ZyPREXA) 5 mg DAILY10 PO ; Start 02/20/17 at 10:00 Quetiapine Fumarate (SEROquel) 25 mg BID92 PO ; Start 02/20/17 at 09:00 Quetiapine Fumarate (SEROquel) 150 mg HS PO Last administered on 02/19/17t 20: 35; Start 02/19/17 at 21:00 Trazodone HCl (Desyrel) 50 mg PRN QHS PRN PO INSOMNIA, MAY REPEAT X1; Start at 17:30 Ziprasidone (Geodon) 40 mg BID94 PO ; Start 02/20/17 at 09:00 Fluvoxamine Maleate (Luvox) 150 mg HS PO Last administered on 02/19/17 20:34 ; Start 02/19/17 at 21:00 Acetaminophen (Tylenol) 500 mg PRN Q6HRS PRN PO PAIN / TEMP; Start 02/19/17 at 17:45 Bisacodyl (Dulcolax Supp) 10 mg PRN DAILY PRN RC CONSTIPATION; Start 02/19/17 at 17:45 Calcium/Vitamin D (Oscal D 500mg/ 200uts) 1 tab BID PO Last administered on 20:35; Start 02/19/17 at 21:00 Levofloxacin (Levaquin) 500 mg DAILY PO ; Start 02/20/17 at 09:00 Levothyroxine Sodium (Synthroid) 75 mcg DAILY06 PO ; Start 02/20/17 at 06:00 Magnesium Citrate (Citroma) 296 ml PRN 1X PRN PO CONSTIPATION; Start 02/19/17 at 17:45 Multi-Ingredient Ointment (Analgesic [place]) 1 peewee PRN QID PRN TP muscle pain; Start 02/19/17 at 17:45; Status UNV Pantoprazole Sodium (Protonix Packet) 40 mg DAILYAC PO ; Start 02/20/17 at 07: 30 Sennosides (Senna) 8.6 mg BID PO Last administered on 02/19/17 20:35; Start 02/19/17 at 21:00 Non-Formulary Medication 15 ml PRN AFTMEALHC PRN PO DYSPEPSIA; Start 02/19/17 at 17:45; Status UNV Non-Formulary Medication 2,400 mg PRN QHS PRN PO CONSTIPATION; Start 02/19/17 at 17:45; Status UNV Multivitamins/ Calcium (Thera-M Plus) 1 tab DAILY PO ; Start 02/20/17 at 09:00 Active Scripts Active Levaquin (Levofloxacin) 500 Mg Tablet 1 Tab PO DAILY Reported Trazodone Hcl 50 Mg Tablet 50 Mg PO PRN QHS PRN LAST DOSE GIVEN: DATE: TIME: NEXT DOSE DUE: DATE: TIME: Fluvoxamine Maleate 150 Mg Cap.er.24h 150 Mg PO QHS LAST DOSE GIVEN: DATE: TIME: NEXT DOSE DUE: DATE: TIME: Protonix (Pantoprazole Sodium) 40 Mg Granpkt.dr 40 Mg PO DAILYAC LAST DOSE GIVEN: DATE: TIME: NEXT DOSE DUE: DATE: TIME: Zyprexa Zydis (Olanzapine) 5 Mg Tab.rapdis 2.5 Mg PO PRN Q2HR PRN LAST DOSE GIVEN: DATE: TIME: NEXT DOSE DUE: DATE: TIME: Zyprexa (Olanzapine) 5 Mg Tablet 5 Mg PO DAILY10 LAST DOSE GIVEN: DATE: TIME: NEXT DOSE DUE: DATE: TIME: Quetiapine Fumarate 25 Mg Tablet 25 Mg PO BID92 LAST DOSE GIVEN: DATE: TIME: NEXT DOSE DUE: DATE: TIME: Remeron (Mirtazapine) 15 Mg Tablet 7.5 Mg PO QHS LAST DOSE GIVEN: DATE: TIME: NEXT DOSE DUE: DATE: TIME: Magnesium Citrate 296 Ml Solution 296 Ml PO ONCE PRN LAST DOSE GIVEN: DATE: TIME: NEXT DOSE DUE: DATE: TIME: Synthroid (Levothyroxine Sodium) 75 Mcg Tablet 1 Tab PO DAILY06 LAST DOSE GIVEN: DATE: TIME: NEXT DOSE DUE: DATE: TIME: Senokot (Sennosides) 8.6 Mg Tablet 1 Tab PO BID LAST DOSE GIVEN: DATE: TIME: NEXT DOSE DUE: DATE: TIME: Multivitamins (Multivitamin) 1 Each Tablet 1 Tab PO DAILY LAST DOSE GIVEN: DATE: TIME: NEXT DOSE DUE: DATE: TIME: Geodon (Ziprasidone Hcl) 40 Mg Capsule 40 Mg PO BID94 LAST DOSE GIVEN: DATE: TIME: NEXT DOSE DUE: DATE: TIME: Calcium 500 + Vit D 200 Tablet (Calcium Carbonate/Vitamin D3) 1 Each Tablet 1 Each PO BID LAST DOSE GIVEN: DATE: TIME: NEXT DOSE DUE: DATE: TIME: Bisacodyl 10 Mg Supp.rect 10 Mg RC PRN DAILY PRN LAST DOSE GIVEN: DATE: TIME: NEXT DOSE DUE: DATE: TIME: Acetaminophen 500 Mg Tablet 1 Tab PO Q6HRS PRN LAST DOSE GIVEN: DATE: TIME: NEXT DOSE DUE: DATE: TIME: Mag-Al Plus Suspension (Mag Hydrox/Al Hydrox/Simeth) 30 Ml Oral.susp 15 Ml PO PRN AFTMEALHC PRN LAST DOSE GIVEN: DATE: TIME: NEXT DOSE DUE: DATE: TIME: Seroquel (Quetiapine Fumarate) 25 Mg Tablet 150 Mg PO HS LAST DOSE GIVEN: DATE: TIME: NEXT DOSE DUE: DATE: TIME: Analgesic [place] (Methyl Salicylate/Menthol) 29 Gm Oint...g. 1 Peewee TP PRN QID PRN LAST DOSE GIVEN: DATE: TIME: NEXT DOSE DUE: DATE: TIME: Milk Of Magnesia (Magnesium Hydroxide) 2,400 Mg/10 Ml Oral.susp 2,400 Mg PO PRN QHS PRN LAST DOSE GIVEN: DATE: TIME: NEXT DOSE DUE: DATE: TIME: I have reviewed the current psychotropics carefully including drug interactions. Risk benefit ratio favors no change other than as noted in my dictated progress note. Diagnosis: Problems: (1) Alzheimer disease (2) Impulse control disorder (3) Hypothyroid (4) Dementia with behavioral disturbance (5) Anxiety disorder (6) Dementia, vascular, with depression (7) Dementia, vascular, with delusions (8) Dementia in Alzheimer's disease with depression (9) Dementia in Alzheimer's disease with delusions (10) Impulse control disorder GRANT STOVER MD Feb 19, 2017 22:03
[2017-02-20 05:58] LABS: BASO # 0.1 x10^3/uL (0.0-0.2); BASO % 1 % (0-3); EOS # 0.3 x10^3/uL (0.0-0.7); EOS % 5 % (0-3); HEMATOCRIT 33.6 % (36.0-47.0); HEMOGLOBIN 11.1 g/dL (12.0-15.5); LYMPH # 1.6 x10^3/uL (1.0-4.8); LYMPH % 24 % (24-48); MEAN CORPUSCULAR HEMOGLOBIN 28 pg (25-35); MEAN CORPUSCULAR HGB CONC 33 g/dL (31-37); MEAN CORPUSCULAR VOLUME 85 fL (79-100); MONO # 0.8 x10^3/uL (0.0-1.1); MONO % 12 % (0-9); NEUT # 3.7 x10^3uL (1.8-7.7); NEUT % 58 % (31-73); PLATELET COUNT 268 x10^3/uL (140-400); RED BLOOD COUNT 3.94 x10^6/uL (3.50-5.40); RED CELL DISTRIBUTION WIDTH 16.8 % (11.5-14.5); WHITE BLOOD COUNT 6.5 x10^3/uL (4.0-11.0)
[2017-02-20 06:05] LABS: ALBUMIN 2.7 g/dL (3.4-5.0); ALBUMIN/GLOBULIN RATIO 0.5 (1.0-1.7); CALCIUM 8.9 mg/dL (8.5-10.1); CREATININE 0.8 mg/dL (0.6-1.0); GFR 68.3; MAGNESIUM 2.2 mg/dL (1.8-2.4); POTASSIUM 3.4 mmol/L (3.5-5.1); TOTAL BILIRUBIN 0.4 mg/dL (0.2-1.0); TOTAL PROTEIN 7.9 g/dL (6.4-8.2)
[2017-02-20 06:15] VITALS: BP 136/62
[2017-02-20] MEDS: PANTOPRAZOLE 40 MG PACKET. PO SCH (08:07)
[2017-02-20] MEDS: LEVOTHYROXINE 75 MCG TABLET PO SCH (08:07)
[2017-02-20] MEDS: MULTIVITAMIN with MINERAL TABLET. PO SCH (08:57)
[2017-02-20] MEDS: QUEtiapine 25 MG TABLET. PO SCH ×2 (08:57→15:10)
[2017-02-20] MEDS: levoFLOXacin 500 MG TABLET PO SCH (08:57)
[2017-02-20] MEDS: ZIPRASIDONE 40 MG CAPSULE. PO SCH ×2 (08:57→15:10)
[2017-02-20] MEDS: OLANZapine 5 MG TABLET PO SCH (09:00)
[2017-02-20] MEDS: SENNOSIDES 8.6 MG TABLET PO SCH ×2 (09:00→21:08)
[2017-02-20] MEDS ORDERED: levoFLOXacin 500 MG TABLET PO SCH (09:00)
[2017-02-20] MEDS: CALCIUM CARB/VIT D3 500/200 TABLET PO SCH ×2 (09:00→21:09)
[2017-02-20 13:42] LABS: THYROID STIM HORMONE (TSH) 0.662 uIU/mL (0.358-3.740)
--- NOTE | 2017-02-20 15:35 | HP ---
ADMIT DATE: 02/19/2017 HISTORY OF PRESENT ILLNESS: This is an 86-year-old female who was [facility]. She had previously been on it since 01/05 and was transferred down to [address] [place] [address] for treatment of pneumonia and dehydration. She was readmitted back up to the [facility] on 02/19. There are no changes to the previous 2 history and physicals. Please refer to them for further information. PAUL GREEN DO DR: MORIAH/shelley JOB#: [id number] / [id number]
[2017-02-20 16:24] VITALS: BP 111/70
--- NOTE | 2017-02-20 20:03 | PDOC ---
Exam Note: Ronen Note: Please also refer to the separate dictated note~for this date of service dictated separately.~Patient seen individually. Discussed the patient with Nursing staff reviewed the chart.~Reviewed interim history and current functioning. Reviewed vital signs,~Labs/ Radiology~and current medications noted below. Continue current treatment with the changes noted in the dictated addendum note Assessment: Vital Signs: Vital Signs Date Time Temp Pulse Resp B/P (MAP) Pulse Ox O2 Delivery O2 Flow Rate FiO2 02/20/17 16:24 97.6 88 24 111/70 (84) 94 02/19/17 17:14 Room Air I&O Intake and Output 02/20/17 07:00 Intake Total 240 ml Balance 240 ml Intake Oral 240 ml # Bowel Movements 1 Labs: Laboratory Tests Test 02/20/17 05:41 White Blood Count 6.5 x10^3/uL (4.0-11.0) Red Blood Count 3.94 x10^6/uL (3.50-5.40) Hemoglobin 11.1 g/dL (12.0-15.5) L Hematocrit 33.6 % (36.0-47.0) L Mean Corpuscular Volume 85 fL (79-100) Mean Corpuscular Hemoglobin 28 pg (25-35) Mean Corpuscular Hemoglobin Concent 33 g/dL (31-37) Red Cell Distribution Width 16.8 % (11.5-14.5) H Platelet Count 268 x10^3/uL (140-400) Neutrophils (%) (Auto) 58 % (31-73) Lymphocytes (%) (Auto) 24 % (24-48) Monocytes (%) (Auto) 12 % (0-9) H Eosinophils (%) (Auto) 5 % (0-3) H Basophils (%) (Auto) 1 % (0-3) Neutrophils # (Auto) 3.7 x10^3uL (1.8-7.7) Lymphocytes # (Auto) 1.6 x10^3/uL (1.0-4.8) Monocytes # (Auto) 0.8 x10^3/uL (0.0-1.1) Eosinophils # (Auto) 0.3 x10^3/uL (0.0-0.7) Basophils # (Auto) 0.1 x10^3/uL (0.0-0.2) Sodium Level 142 mmol/L (136-145) Potassium Level 3.4 mmol/L (3.5-5.1) L Chloride Level 104 mmol/L (98-107) Carbon Dioxide Level 29 mmol/L (21-32) Anion Gap 9 (6-14) Blood Urea Nitrogen 12 mg/dL (7-20) Creatinine 0.8 mg/dL (0.6-1.0) Estimated GFR (Cockcroft-Gault) 68.3 BUN/Creatinine Ratio 15 (6-20) Glucose Level 85 mg/dL (70-99) Calcium Level 8.9 mg/dL (8.5-10.1) Magnesium Level 2.2 mg/dL (1.8-2.4) Iron Level 61 ug/dL (50-170) Total Iron Binding Capacity 247 ug/dL (250-450) L Iron Saturation 25 % (15-34) Total Bilirubin 0.4 mg/dL (0.2-1.0) Aspartate Amino Transferase (AST) 22 U/L (15-37) Alanine Aminotransferase (ALT) 34 U/L (14-59) Alkaline Phosphatase 114 U/L (46-116) Total Protein 7.9 g/dL (6.4-8.2) Albumin 2.7 g/dL (3.4-5.0) L Albumin/Globulin Ratio 0.5 (1.0-1.7) L Triglycerides Level 65 mg/dL (0-150) Cholesterol Level 181 mg/dL (0-200) LDL Cholesterol, Calculated 111 mg/dL (0-100) H VLDL Cholesterol, Calculated 13 mg/dL (0-40) Non-HDL Cholesterol Calculated 124 mg/dL (0-129) HDL Cholesterol 57 mg/dL (40-60) Cholesterol/HDL Ratio 3.0 Vitamin B12 Level 708 pg/mL (247-911) 25-Hydroxy Vitamin D Total 32.6 ng/mL (30-100) Thyroid Stimulating Hormone (TSH) 0.662 uIU/mL (0.358-3.740) Current Medications: Meds: Current Medications Acetaminophen (Tylenol) 650 mg PRN Q6HRS PRN PO PAIN / TEMP; Start 02/19/17 at 17:30; Status Cancel Multi-Ingredient Ointment (Analgesic [place]) 1 peewee PRN QID PRN TP MUSCLE PAIN; Start 02/19/17 at 17:15 Al Hydroxide/Mg Hydroxide (Mylanta Plus Xs) 15 ml PRN AFTMEALHC PRN PO DYSPEPSIA; Start 02/19/17 at 17:15 Magnesium Hydroxide (Milk Of Magnesia) 2,400 mg PRN QHS PRN PO CONSTIPATION; Start 02/19/17 at 17:15 Levofloxacin (Levaquin) 500 mg DAILY PO ; Start 02/20/17 at 09:00; Stop at 08:59; Status Cancel Mirtazapine (Remeron) 7.5 mg QHS PO Last administered on 02/19/17 20:38; Start 02/19/17 at 21:00 Olanzapine (ZyPREXA ZYDIS) 2.5 mg PRN Q2HR PRN PO ANXIETY / AGITATION; Start 02/19/17 at 17:30 Olanzapine (ZyPREXA) 5 mg DAILY10 PO Last administered on 02/20/17 09:00; Start 02/20/17 at 10:00 Quetiapine Fumarate (SEROquel) 25 mg BID92 PO Last administered on 02/20/17 15:10; Start 02/20/17 at 09:00 Quetiapine Fumarate (SEROquel) 150 mg HS PO Last administered on 02/19/17 20: 35; Start 02/19/17 at 21:00 Trazodone HCl (Desyrel) 50 mg PRN QHS PRN PO INSOMNIA, MAY REPEAT X1; Start at 17:30 Ziprasidone (Geodon) 40 mg BID94 PO Last administered on 02/20/17 15:10; Start 02/20/17 at 09:00 Fluvoxamine Maleate (Luvox) 150 mg HS PO Last administered on 02/19/17 20:34 ; Start 02/19/17 at 21:00 Acetaminophen (Tylenol) 500 mg PRN Q6HRS PRN PO PAIN / TEMP; Start 02/19/17 at 17:45 Bisacodyl (Dulcolax Supp) 10 mg PRN DAILY PRN RC CONSTIPATION; Start 02/19/17 at 17:45 Calcium/Vitamin D (Oscal D 500mg/ 200uts) 1 tab BID PO Last administered on 09:00; Start 02/19/17 at 21:00 Levofloxacin (Levaquin) 500 mg DAILY PO Last administered on 02/20/17 08:57; Start 02/20/17 at 09:00 Levothyroxine Sodium (Synthroid) 75 mcg DAILY06 PO Last administered on 08:07; Start 02/20/17 at 06:00 Magnesium Citrate (Citroma) 296 ml PRN 1X PRN PO CONSTIPATION; Start 02/19/17 at 17:45 Multi-Ingredient Ointment (Analgesic [place]) 1 peewee PRN QID PRN TP muscle pain; Start 02/19/17 at 17:45; Status UNV Pantoprazole Sodium (Protonix Packet) 40 mg DAILYAC PO Last administered on 08:07; Start 02/20/17 at 07:30 Sennosides (Senna) 8.6 mg BID PO Last administered on 02/20/17 09:00; Start 02/19/17 at 21:00 Non-Formulary Medication 15 ml PRN AFTMEALHC PRN PO DYSPEPSIA; Start 02/19/17 at 17:45; Status UNV Non-Formulary Medication 2,400 mg PRN QHS PRN PO CONSTIPATION; Start 02/19/17 at 17:45; Status UNV Multivitamins/ Calcium (Thera-M Plus) 1 tab DAILY PO Last administered on 02/20 08:57; Start 02/20/17 at 09:00 Active Scripts Active Levaquin (Levofloxacin) 500 Mg Tablet 1 Tab PO DAILY Reported Trazodone Hcl 50 Mg Tablet 50 Mg PO PRN QHS PRN LAST DOSE GIVEN: DATE: TIME: NEXT DOSE DUE: DATE: TIME: Fluvoxamine Maleate 150 Mg Cap.er.24h 150 Mg PO QHS LAST DOSE GIVEN: DATE: TIME: NEXT DOSE DUE: DATE: TIME: Protonix (Pantoprazole Sodium) 40 Mg Granpkt.dr 40 Mg PO DAILYAC LAST DOSE GIVEN: DATE: TIME: NEXT DOSE DUE: DATE: TIME: Zyprexa Zydis (Olanzapine) 5 Mg Tab.rapdis 2.5 Mg PO PRN Q2HR PRN LAST DOSE GIVEN: DATE: TIME: NEXT DOSE DUE: DATE: TIME: Zyprexa (Olanzapine) 5 Mg Tablet 5 Mg PO DAILY10 LAST DOSE GIVEN: DATE: TIME: NEXT DOSE DUE: DATE: TIME: Quetiapine Fumarate 25 Mg Tablet 25 Mg PO BID92 LAST DOSE GIVEN: DATE: TIME: NEXT DOSE DUE: DATE: TIME: Remeron (Mirtazapine) 15 Mg Tablet 7.5 Mg PO QHS LAST DOSE GIVEN: DATE: TIME: NEXT DOSE DUE: DATE: TIME: Magnesium Citrate 296 Ml Solution 296 Ml PO ONCE PRN LAST DOSE GIVEN: DATE: TIME: NEXT DOSE DUE: DATE: TIME: Synthroid (Levothyroxine Sodium) 75 Mcg Tablet 1 Tab PO DAILY06 LAST DOSE GIVEN: DATE: TIME: NEXT DOSE DUE: DATE: TIME: Senokot (Sennosides) 8.6 Mg Tablet 1 Tab PO BID LAST DOSE GIVEN: DATE: TIME: NEXT DOSE DUE: DATE: TIME: Multivitamins (Multivitamin) 1 Each Tablet 1 Tab PO DAILY LAST DOSE GIVEN: DATE: TIME: NEXT DOSE DUE: DATE: TIME: Geodon (Ziprasidone Hcl) 40 Mg Capsule 40 Mg PO BID94 LAST DOSE GIVEN: DATE: TIME: NEXT DOSE DUE: DATE: TIME: Calcium 500 + Vit D 200 Tablet (Calcium Carbonate/Vitamin D3) 1 Each Tablet 1 Each PO BID LAST DOSE GIVEN: DATE: TIME: NEXT DOSE DUE: DATE: TIME: Bisacodyl 10 Mg Supp.rect 10 Mg RC PRN DAILY PRN LAST DOSE GIVEN: DATE: TIME: NEXT DOSE DUE: DATE: TIME: Acetaminophen 500 Mg Tablet 1 Tab PO Q6HRS PRN LAST DOSE GIVEN: DATE: TIME: NEXT DOSE DUE: DATE: TIME: Mag-Al Plus Suspension (Mag Hydrox/Al Hydrox/Simeth) 30 Ml Oral.susp 15 Ml PO PRN AFTMEALHC PRN LAST DOSE GIVEN: DATE: TIME: NEXT DOSE DUE: DATE: TIME: Seroquel (Quetiapine Fumarate) 25 Mg Tablet 150 Mg PO HS LAST DOSE GIVEN: DATE: TIME: NEXT DOSE DUE: DATE: TIME: Analgesic [place] (Methyl Salicylate/Menthol) 29 Gm Oint...g. 1 Peewee TP PRN QID PRN LAST DOSE GIVEN: DATE: TIME: NEXT DOSE DUE: DATE: TIME: Milk Of Magnesia (Magnesium Hydroxide) 2,400 Mg/10 Ml Oral.susp 2,400 Mg PO PRN QHS PRN LAST DOSE GIVEN: DATE: TIME: NEXT DOSE DUE: DATE: TIME: I have reviewed the current psychotropics carefully including drug interactions. Risk benefit ratio favors no change other than as noted in my dictated progress note. Diagnosis: Problems: (1) Pneumonia (2) Alzheimer disease (3) Impulse control disorder (4) Hypothyroid (5) Dementia with behavioral disturbance (6) Anxiety disorder (7) Dementia, vascular, with depression (8) Dementia, vascular, with delusions (9) Dementia in Alzheimer's disease with depression (10) Dementia in Alzheimer's disease with delusions (11) Impulse control disorder GRANT STOVER MD Feb 20, 2017 20:03
[2017-02-20 20:13] LABS: T3 TOTAL 64 ng/dL (71-180); THYROXINE 5.5 ug/dL (4.5-12.0)
[2017-02-20] MEDS: MIRTAZAPINE 15 MG TABLET PO SCH (21:09)
[2017-02-20] MEDS: QUEtiapine 50 MG TABLET. PO SCH (21:10)
--- NOTE | 2017-02-20 22:10 | HP ---
ADMIT DATE: 02/20/2017 This note covers elements not covered in my initial note 02/20/2017. I met with the patient evening of 02/20/2017 for this evaluation. IDENTIFYING DATA: The patient is an 86-year-old female who returns back to us after medical stabilization on for her aspiration pneumonia. She is referred back by Dr. Ruiz on account of ongoing mood lability, anxiety, repetitive verbalizations of okay, okay, okay, being quite difficult to manage and redirect. She has failed prior psychiatric interventions. The patient seen individually evening of 02/20/2017, discussed with nursing staff, reviewed the chart. CHIEF COMPLAINT: "Okay." HISTORY OF PRESENT ILLNESS: The patient has a history of dementia, Alzheimer's vascular type. She has been residing at the nursing facility, getting increasingly agitated, repetitive, obsessive, confused, psychotic and aggressive. She is referred to inpatient psychiatric stabilization during her most recent admission. Towards the end of that stage, she developed aspiration pneumonia and was transferred to [address] [place] [address] for stabilization. While on , she continued to have mood lability, psychotic symptoms, agitation, repetitive verbalizations and referred back to us for inpatient psychiatric stabilization. PAST PSYCHIATRIC HISTORY: As above. PAST MEDICAL HISTORY: Impulse control disorder, macular degeneration, status post aspiration pneumonia. CODE STATUS: DNR. DIET: Pureed with thin liquids. ACCU-CHEKS: None. MEDICATIONS: Takes it crushed in pudding. CURRENT PSYCHOTROPICS: Trazodone 25 mg b.i.d., ziprasidone 40 mg b.i.d., olanzapine 5 mg daily plus p.r.n., Zyprexa p.r.n., trazodone 50 mg at bedtime. The patient is also on Luvox 150 mg at bedtime, Remeron 7.5 mg p.o. at bedtime. She is on mood stabilizers, which have since been discontinued. FAMILY HISTORY: Noncontributory. SOCIAL HISTORY: No alcohol, drug abuse, physical, sexual or elder abuse history is noted. Not known to be a perpetrator. MENTAL STATUS EXAMINATION: The patient is oriented to herself. Much less anxious, repetitive as I sat with her, pleasant, able to have a few word conversation. Insight, judgment, recent and remote memory, attention, concentration, fund of knowledge poor, consistent with her diagnoses. IMPRESSION: Major neurocognitive disorder, Alzheimer, vascular with depression, delusion, behavioral disturbance; anxiety disorder, unspecified; impulse control disorder, unspecified; status post aspiration pneumonia. PLAN: Admit to geropsychiatry unit at [facility]. I will see the patient daily individually from a psychiatric standpoint. Medical followup per Dr. Ruiz/Dr Justice. The patient was previously on Trileptal, which has since been discontinued. We will observe the patient's baseline then adjust psychotropics as clinically indicated. MAN Abdullahi STOVER MD DR: AMOL/shelley JOB#: [id number] / [id number]
[2017-02-21 03:11] LABS: HEMOGLOBIN A1C 5.5 % (4.8-5.6)
[2017-02-21] MEDS: LEVOTHYROXINE 75 MCG TABLET PO SCH (05:01)
[2017-02-21 06:10] VITALS: BP 135/60
[2017-02-21] MEDS: PANTOPRAZOLE 40 MG PACKET. PO SCH (07:45)
[2017-02-21] MEDS: QUEtiapine 25 MG TABLET. PO SCH ×2 (09:14→15:33)
[2017-02-21] MEDS: OLANZapine 5 MG TABLET PO SCH (09:14)
[2017-02-21] MEDS: SENNOSIDES 8.6 MG TABLET PO SCH ×2 (09:14→20:20)
[2017-02-21] MEDS: CALCIUM CARB/VIT D3 500/200 TABLET PO SCH ×2 (09:14→20:20)
[2017-02-21] MEDS: MULTIVITAMIN with MINERAL TABLET. PO SCH (09:14)
[2017-02-21] MEDS: levoFLOXacin 500 MG TABLET PO SCH (09:14)
[2017-02-21] MEDS: ZIPRASIDONE 40 MG CAPSULE. PO SCH ×2 (09:15→15:34)
[2017-02-21] MEDS: ACETAMINOPHEN 500 MG TABLET PO PRN (16:10)
[2017-02-21 16:24] VITALS: BP 134/75
--- NOTE | 2017-02-21 20:05 | PDOC ---
Exam Note: Ronen Note: Please also refer to the separate dictated note~for this date of service dictated separately.~Patient seen individually. Discussed the patient with Nursing staff reviewed the chart.~Reviewed interim history and current functioning. Reviewed vital signs,~Labs/ Radiology~and current medications noted below. Continue current treatment with the changes noted in the dictated addendum note Assessment: Vital Signs: Vital Signs Date Time Temp Pulse Resp B/P (MAP) Pulse Ox O2 Delivery O2 Flow Rate FiO2 02/21/17 16:24 97.6 69 18 134/75 (94) 96 02/19/17 17:14 Room Air I&O Intake and Output 02/21/17 07:00 Intake Total 900 ml Balance 900 ml Intake Oral 900 ml Current Medications: Meds: Current Medications Acetaminophen (Tylenol) 650 mg PRN Q6HRS PRN PO PAIN / TEMP; Start 02/19/17 at 17:30; Status Cancel Multi-Ingredient Ointment (Analgesic [place]) 1 peewee PRN QID PRN TP MUSCLE PAIN; Start 02/19/17 at 17:15 Al Hydroxide/Mg Hydroxide (Mylanta Plus Xs) 15 ml PRN AFTMEALHC PRN PO DYSPEPSIA; Start 02/19/17 at 17:15 Magnesium Hydroxide (Milk Of Magnesia) 2,400 mg PRN QHS PRN PO CONSTIPATION; Start 02/19/17 at 17:15 Levofloxacin (Levaquin) 500 mg DAILY PO ; Start 02/20/17 at 09:00; Stop at 08:59; Status Cancel Mirtazapine (Remeron) 7.5 mg QHS PO Last administered on 02/20/17 21:09; Start 02/19/17 at 21:00 Olanzapine (ZyPREXA ZYDIS) 2.5 mg PRN Q2HR PRN PO ANXIETY / AGITATION; Start 02/19/17 at 17:30 Olanzapine (ZyPREXA) 5 mg DAILY10 PO Last administered on 02/21/17 09:14; Start 02/20/17 at 10:00 Quetiapine Fumarate (SEROquel) 25 mg BID92 PO Last administered on 02/21/17 15:33; Start 02/20/17 at 09:00 Quetiapine Fumarate (SEROquel) 150 mg HS PO Last administered on 02/20/17 21: 10; Start 02/19/17 at 21:00 Trazodone HCl (Desyrel) 50 mg PRN QHS PRN PO INSOMNIA, MAY REPEAT X1; Start at 17:30 Ziprasidone (Geodon) 40 mg BID94 PO Last administered on 02/21/17 15:34; Start 02/20/17 at 09:00 Fluvoxamine Maleate (Luvox) 150 mg HS PO Last administered on 02/20/17 21:10 ; Start 02/19/17 at 21:00 Acetaminophen (Tylenol) 500 mg PRN Q6HRS PRN PO PAIN / TEMP Last administered on 02/21/17 16:10; Start 02/19/17 at 17:45 Bisacodyl (Dulcolax Supp) 10 mg PRN DAILY PRN RC CONSTIPATION; Start 02/19/17 at 17:45 Calcium/Vitamin D (Oscal D 500mg/ 200uts) 1 tab BID PO Last administered on 09:14; Start 02/19/17 at 21:00 Levofloxacin (Levaquin) 500 mg DAILY PO Last administered on 02/21/17 09:14; Start 02/20/17 at 09:00 Levothyroxine Sodium (Synthroid) 75 mcg DAILY06 PO Last administered on 05:01; Start 02/20/17 at 06:00 Magnesium Citrate (Citroma) 296 ml PRN 1X PRN PO CONSTIPATION; Start 02/19/17 at 17:45 Multi-Ingredient Ointment (Analgesic [place]) 1 peewee PRN QID PRN TP muscle pain; Start 02/19/17 at 17:45; Status UNV Pantoprazole Sodium (Protonix Packet) 40 mg DAILYAC PO Last administered on 07:45; Start 02/20/17 at 07:30 Sennosides (Senna) 8.6 mg BID PO Last administered on 02/21/17 09:14; Start 02/19/17 at 21:00 Non-Formulary Medication 15 ml PRN AFTMEALHC PRN PO DYSPEPSIA; Start 02/19/17 at 17:45; Status UNV Non-Formulary Medication 2,400 mg PRN QHS PRN PO CONSTIPATION; Start 02/19/17 at 17:45; Status UNV Multivitamins/ Calcium (Thera-M Plus) 1 tab DAILY PO Last administered on 02/21t 09:14; Start 02/20/17 at 09:00 Active Scripts Active Levaquin (Levofloxacin) 500 Mg Tablet 1 Tab PO DAILY Reported Trazodone Hcl 50 Mg Tablet 50 Mg PO PRN QHS PRN LAST DOSE GIVEN: DATE: TIME: NEXT DOSE DUE: DATE: TIME: Fluvoxamine Maleate 150 Mg Cap.er.24h 150 Mg PO QHS LAST DOSE GIVEN: DATE: TIME: NEXT DOSE DUE: DATE: TIME: Protonix (Pantoprazole Sodium) 40 Mg Granpkt.dr 40 Mg PO DAILYAC LAST DOSE GIVEN: DATE: TIME: NEXT DOSE DUE: DATE: TIME: Zyprexa Zydis (Olanzapine) 5 Mg Tab.rapdis 2.5 Mg PO PRN Q2HR PRN LAST DOSE GIVEN: DATE: TIME: NEXT DOSE DUE: DATE: TIME: Zyprexa (Olanzapine) 5 Mg Tablet 5 Mg PO DAILY10 LAST DOSE GIVEN: DATE: TIME: NEXT DOSE DUE: DATE: TIME: Quetiapine Fumarate 25 Mg Tablet 25 Mg PO BID92 LAST DOSE GIVEN: DATE: TIME: NEXT DOSE DUE: DATE: TIME: Remeron (Mirtazapine) 15 Mg Tablet 7.5 Mg PO QHS LAST DOSE GIVEN: DATE: TIME: NEXT DOSE DUE: DATE: TIME: Magnesium Citrate 296 Ml Solution 296 Ml PO ONCE PRN LAST DOSE GIVEN: DATE: TIME: NEXT DOSE DUE: DATE: TIME: Synthroid (Levothyroxine Sodium) 75 Mcg Tablet 1 Tab PO DAILY06 LAST DOSE GIVEN: DATE: TIME: NEXT DOSE DUE: DATE: TIME: Senokot (Sennosides) 8.6 Mg Tablet 1 Tab PO BID LAST DOSE GIVEN: DATE: TIME: NEXT DOSE DUE: DATE: TIME: Multivitamins (Multivitamin) 1 Each Tablet 1 Tab PO DAILY LAST DOSE GIVEN: DATE: TIME: NEXT DOSE DUE: DATE: TIME: Geodon (Ziprasidone Hcl) 40 Mg Capsule 40 Mg PO BID94 LAST DOSE GIVEN: DATE: TIME: NEXT DOSE DUE: DATE: TIME: Calcium 500 + Vit D 200 Tablet (Calcium Carbonate/Vitamin D3) 1 Each Tablet 1 Each PO BID LAST DOSE GIVEN: DATE: TIME: NEXT DOSE DUE: DATE: TIME: Bisacodyl 10 Mg Supp.rect 10 Mg RC PRN DAILY PRN LAST DOSE GIVEN: DATE: TIME: NEXT DOSE DUE: DATE: TIME: Acetaminophen 500 Mg Tablet 1 Tab PO Q6HRS PRN LAST DOSE GIVEN: DATE: TIME: NEXT DOSE DUE: DATE: TIME: Mag-Al Plus Suspension (Mag Hydrox/Al Hydrox/Simeth) 30 Ml Oral.susp 15 Ml PO PRN AFTMEALHC PRN LAST DOSE GIVEN: DATE: TIME: NEXT DOSE DUE: DATE: TIME: Seroquel (Quetiapine Fumarate) 25 Mg Tablet 150 Mg PO HS LAST DOSE GIVEN: DATE: TIME: NEXT DOSE DUE: DATE: TIME: Analgesic [place] (Methyl Salicylate/Menthol) 29 Gm Oint...g. 1 Peewee TP PRN QID PRN LAST DOSE GIVEN: DATE: TIME: NEXT DOSE DUE: DATE: TIME: Milk Of Magnesia (Magnesium Hydroxide) 2,400 Mg/10 Ml Oral.susp 2,400 Mg PO PRN QHS PRN LAST DOSE GIVEN: DATE: TIME: NEXT DOSE DUE: DATE: TIME: I have reviewed the current psychotropics carefully including drug interactions. Risk benefit ratio favors no change other than as noted in my dictated progress note. 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
[2017-02-21] MEDS: QUEtiapine 50 MG TABLET. PO SCH (20:20)
[2017-02-21] MEDS: MIRTAZAPINE 15 MG TABLET PO SCH (20:20)
[2017-02-22] MEDS: LEVOTHYROXINE 75 MCG TABLET PO SCH (06:04)
[2017-02-22 06:22] VITALS: BP 136/70
[2017-02-22] MEDS: ACETAMINOPHEN 500 MG TABLET PO PRN (06:44)
[2017-02-22] MEDS: PANTOPRAZOLE 40 MG PACKET. PO SCH (08:45)
[2017-02-22] MEDS: levoFLOXacin 500 MG TABLET PO SCH (08:45)
[2017-02-22] MEDS: SENNOSIDES 8.6 MG TABLET PO SCH ×2 (08:45→19:45)
[2017-02-22] MEDS: CALCIUM CARB/VIT D3 500/200 TABLET PO SCH ×2 (08:45→19:45)
[2017-02-22] MEDS: QUEtiapine 25 MG TABLET. PO SCH ×2 (08:46→14:03)
[2017-02-22] MEDS: MULTIVITAMIN with MINERAL TABLET. PO SCH (08:46)
[2017-02-22] MEDS: ZIPRASIDONE 40 MG CAPSULE. PO SCH ×2 (08:46→16:31)
[2017-02-22] MEDS: OLANZapine 5 MG TABLET PO SCH (10:10)
[2017-02-22 16:15] VITALS: BP 123/60
[2017-02-22] MEDS: QUEtiapine 50 MG TABLET. PO SCH (19:45)
[2017-02-22] MEDS: MIRTAZAPINE 15 MG TABLET PO SCH (19:45)
[2017-02-23] MEDS: LEVOTHYROXINE 75 MCG TABLET PO SCH (05:28)
[2017-02-23 06:10] VITALS: BP 164/88
--- NOTE | 2017-02-23 07:33 | PN ---
DATE: 02/21/2017 This is a late entry for 02/21/2017 and covers elements not covered in my initial note of 02/21/2017. SUBJECTIVE: The patient was staffed at a treatment team meeting with the entire team morning of 02/21/2017. The patient's daughter, Chen attended the conference. We tried to conference in her other daughter, Marbella, who was not available. Overall, the patient is doing better, less labile in her mood, yesterday less repetitive with okay, okay, okay. REVIEW OF SYSTEMS: No CV, , pulmonary, eye, ENT system symptoms on review. Reliability poor. MENTAL STATUS EXAM: Oriented to herself. Insight, judgment, recent and remote memory, attention, concentration, fund of knowledge poor, consistent with her diagnosis as mentioned in my initial note. PLAN: Continue psychotropics mentioned in my initial note. Discussed placement options with daughter. Make further adjustments as clinically indicated. GRANT STOVER MD DR: AMOL/shelley JOB#: [id number] / [id number]
[2017-02-23] MEDS: PANTOPRAZOLE 40 MG PACKET. PO SCH (09:12)
[2017-02-23] MEDS: ZIPRASIDONE 40 MG CAPSULE. PO SCH ×2 (09:13→14:55)
[2017-02-23] MEDS: MULTIVITAMIN with MINERAL TABLET. PO SCH (09:13)
[2017-02-23] MEDS: CALCIUM CARB/VIT D3 500/200 TABLET PO SCH ×2 (09:13→20:19)
[2017-02-23] MEDS: OLANZapine 5 MG TABLET PO SCH (09:13)
[2017-02-23] MEDS: levoFLOXacin 500 MG TABLET PO SCH (09:13)
[2017-02-23] MEDS: SENNOSIDES 8.6 MG TABLET PO SCH ×2 (09:13→20:20)
[2017-02-23] MEDS: QUEtiapine 25 MG TABLET. PO SCH ×2 (09:13→14:57)
--- NOTE | 2017-02-23 10:21 | PDOC ---
Exam Note: Ronen Note: This is late entry for date of service 02/22/2017.Please also refer to the separate dictated note~for this date of service dictated separately.~Patient seen individually. Discussed the patient with Nursing staff reviewed the chart.~ Reviewed interim history and current functioning. Reviewed vital signs,~Labs/ Radiology~and current medications noted below. Continue current treatment with the changes noted in the dictated addendum note Assessment: Vital Signs: VS - Last 72 Hours, by Label Date Time Temp Pulse Resp B/P (MAP) Pulse Ox O2 Delivery O2 Flow Rate FiO2 02/23/17 06:10 97.7 74 18 164/88 (113) 97 02/22/17 16:15 97.8 73 16 123/60 (81) 92 Room Air 02/22/17 06:22 97.4 71 18 136/70 (92) 100 Room Air 02/21/17 16:24 97.6 69 18 134/75 (94) 96 02/21/17 06:10 97.2 73 18 135/60 (85) 91 02/20/17 16:24 97.6 88 24 111/70 (84) 94 Vital Signs Date Time Temp Pulse Resp B/P (MAP) Pulse Ox O2 Delivery O2 Flow Rate FiO2 02/23/17 06:10 97.7 74 18 164/88 (113) 97 02/22/17 16:15 Room Air I&O Intake and Output 02/23/17 07:00 Intake Total 840 ml Balance 840 ml Intake Oral 840 ml Intake and Output 02/23/17 07:00 Intake Total 840 ml Balance 840 ml Intake Oral 840 ml Labs: Current Medications Medications (Trade) Dose Ordered Sig/He Route PRN Reason Start Time Stop Time Status Last Admin Dose Admin Acetaminophen (Tylenol) 650 mg PRN Q6HRS PRN PO PAIN / TEMP 02/19/17 17:30 Cancel Multi-Ingredient Ointment (Analgesic [place]) 1 peewee PRN QID PRN TP MUSCLE PAIN 02/19/17 17:15 Al Hydroxide/Mg Hydroxide (Mylanta Plus Xs) 15 ml PRN AFTMEALHC PRN PO DYSPEPSIA 02/19/17 17:15 Magnesium Hydroxide (Milk Of Magnesia) 2,400 mg PRN QHS PRN PO CONSTIPATION 02/19/17 17:15 Levofloxacin (Levaquin) 500 mg DAILY PO 02/20/17 09:00 02/27/17 08:59 Cancel Mirtazapine (Remeron) 7.5 mg QHS PO 02/19/17 21:00 02/22/17 19:45 Olanzapine (ZyPREXA ZYDIS) 2.5 mg PRN Q2HR PRN PO ANXIETY / AGITATION 02/19/17 17:30 Olanzapine (ZyPREXA) 5 mg DAILY10 PO 02/20/17 10:00 02/23/17 09:13 Quetiapine Fumarate (SEROquel) 25 mg BID92 PO 02/20/17 09:00 02/23/17 09:13 Quetiapine Fumarate (SEROquel) 150 mg HS PO 02/19/17 21:00 02/22/17 19:45 Trazodone HCl (Desyrel) 50 mg PRN QHS PRN PO INSOMNIA, MAY REPEAT X1 02/19/17 17:30 Ziprasidone (Geodon) 40 mg BID94 PO 02/20/17 09:00 02/23/17 09:13 Fluvoxamine Maleate (Luvox) 150 mg HS PO 02/19/17 21:00 02/22/17 19:45 Acetaminophen (Tylenol) 500 mg PRN Q6HRS PRN PO PAIN / TEMP 02/19/17 17:45 02/22/17 06:44 Bisacodyl (Dulcolax Supp) 10 mg PRN DAILY PRN RC CONSTIPATION 02/19/17 17:45 Calcium/Vitamin D (Oscal D 500mg/ 200uts) 1 tab BID PO 02/19/17 21:00 02/23/17 09:13 Levofloxacin (Levaquin) 500 mg DAILY PO 02/20/17 09:00 02/23/17 09:13 Levothyroxine Sodium (Synthroid) 75 mcg DAILY06 PO 02/20/17 06:00 02/23/17 05:28 Magnesium Citrate (Citroma) 296 ml PRN 1X PRN PO CONSTIPATION 02/19/17 17:45 Multi-Ingredient Ointment (Analgesic [place]) 1 peewee PRN QID PRN TP muscle pain 02/19/17 17:45 UNV Pantoprazole Sodium (Protonix Packet) 40 mg DAILYAC PO 02/20/17 07:30 02/23/17 09:12 Sennosides (Senna) 8.6 mg BID PO 02/19/17 21:00 02/23/17 09:13 Non-Formulary Medication 15 ml PRN AFTMEALHC PRN PO DYSPEPSIA 02/19/17 17:45 UNV Non-Formulary Medication 2,400 mg PRN QHS PRN PO CONSTIPATION 02/19/17 17:45 UNV Multivitamins/ Calcium (Thera-M Plus) 1 tab DAILY PO 02/20/17 09:00 02/23/17 09:13 Radiology: Intake and Output 02/23/17 07:00 Intake Total 840 ml Balance 840 ml Intake Oral 840 ml Current Medications: Meds: Current Medications Acetaminophen (Tylenol) 650 mg PRN Q6HRS PRN PO PAIN / TEMP; Start 02/19/17 at 17:30; Status Cancel Multi-Ingredient Ointment (Analgesic [place]) 1 peewee PRN QID PRN TP MUSCLE PAIN; Start 02/19/17 at 17:15 Al Hydroxide/Mg Hydroxide (Mylanta Plus Xs) 15 ml PRN AFTMEALHC PRN PO DYSPEPSIA; Start 02/19/17 at 17:15 Magnesium Hydroxide (Milk Of Magnesia) 2,400 mg PRN QHS PRN PO CONSTIPATION; Start 02/19/17 at 17:15 Levofloxacin (Levaquin) 500 mg DAILY PO ; Start 02/20/17 at 09:00; Stop at 08:59; Status Cancel Mirtazapine (Remeron) 7.5 mg QHS PO Last administered on 02/22/17 19:45; Start 02/19/17 at 21:00 Olanzapine (ZyPREXA ZYDIS) 2.5 mg PRN Q2HR PRN PO ANXIETY / AGITATION; Start 02/19/17 at 17:30 Olanzapine (ZyPREXA) 5 mg DAILY10 PO Last administered on 02/23/17 09:13; Start 02/20/17 at 10:00 Quetiapine Fumarate (SEROquel) 25 mg BID92 PO Last administered on 02/23/17 09:13; Start 02/20/17 at 09:00 Quetiapine Fumarate (SEROquel) 150 mg HS PO Last administered on 02/22/17 19: 45; Start 02/19/17 at 21:00 Trazodone HCl (Desyrel) 50 mg PRN QHS PRN PO INSOMNIA, MAY REPEAT X1; Start at 17:30 Ziprasidone (Geodon) 40 mg BID94 PO Last administered on 02/23/17 09:13; Start 02/20/17 at 09:00 Fluvoxamine Maleate (Luvox) 150 mg HS PO Last administered on 02/22/17 19:45 ; Start 02/19/17 at 21:00 Acetaminophen (Tylenol) 500 mg PRN Q6HRS PRN PO PAIN / TEMP Last administered on 02/22/17 06:44; Start 02/19/17 at 17:45 Bisacodyl (Dulcolax Supp) 10 mg PRN DAILY PRN RC CONSTIPATION; Start 02/19/17 at 17:45 Calcium/Vitamin D (Oscal D 500mg/ 200uts) 1 tab BID PO Last administered on 09:13; Start 02/19/17 at 21:00 Levofloxacin (Levaquin) 500 mg DAILY PO Last administered on 02/23/17 09:13; Start 02/20/17 at 09:00 Levothyroxine Sodium (Synthroid) 75 mcg DAILY06 PO Last administered on 05:28; Start 02/20/17 at 06:00 Magnesium Citrate (Citroma) 296 ml PRN 1X PRN PO CONSTIPATION; Start 02/19/17 at 17:45 Multi-Ingredient Ointment (Analgesic [place]) 1 peewee PRN QID PRN TP muscle pain; Start 02/19/17 at 17:45; Status UNV Pantoprazole Sodium (Protonix Packet) 40 mg DAILYAC PO Last administered on 09:12; Start 02/20/17 at 07:30 Sennosides (Senna) 8.6 mg BID PO Last administered on 02/23/17 09:13; Start 02/19/17 at 21:00 Non-Formulary Medication 15 ml PRN AFTMEALHC PRN PO DYSPEPSIA; Start 02/19/17 at 17:45; Status UNV Non-Formulary Medication 2,400 mg PRN QHS PRN PO CONSTIPATION; Start 02/19/17 at 17:45; Status UNV Multivitamins/ Calcium (Thera-M Plus) 1 tab DAILY PO Last administered on 02/23t 09:13; Start 02/20/17 at 09:00 Active Scripts Active Levaquin (Levofloxacin) 500 Mg Tablet 1 Tab PO DAILY Reported Trazodone Hcl 50 Mg Tablet 50 Mg PO PRN QHS PRN LAST DOSE GIVEN: DATE: TIME: NEXT DOSE DUE: DATE: TIME: Fluvoxamine Maleate 150 Mg Cap.er.24h 150 Mg PO QHS LAST DOSE GIVEN: DATE: TIME: NEXT DOSE DUE: DATE: TIME: Protonix (Pantoprazole Sodium) 40 Mg Granpkt.dr 40 Mg PO DAILYAC LAST DOSE GIVEN: DATE: TIME: NEXT DOSE DUE: DATE: TIME: Zyprexa Zydis (Olanzapine) 5 Mg Tab.rapdis 2.5 Mg PO PRN Q2HR PRN LAST DOSE GIVEN: DATE: TIME: NEXT DOSE DUE: DATE: TIME: Zyprexa (Olanzapine) 5 Mg Tablet 5 Mg PO DAILY10 LAST DOSE GIVEN: DATE: TIME: NEXT DOSE DUE: DATE: TIME: Quetiapine Fumarate 25 Mg Tablet 25 Mg PO BID92 LAST DOSE GIVEN: DATE: TIME: NEXT DOSE DUE: DATE: TIME: Remeron (Mirtazapine) 15 Mg Tablet 7.5 Mg PO QHS LAST DOSE GIVEN: DATE: TIME: NEXT DOSE DUE: DATE: TIME: Magnesium Citrate 296 Ml Solution 296 Ml PO ONCE PRN LAST DOSE GIVEN: DATE: TIME: NEXT DOSE DUE: DATE: TIME: Synthroid (Levothyroxine Sodium) 75 Mcg Tablet 1 Tab PO DAILY06 LAST DOSE GIVEN: DATE: TIME: NEXT DOSE DUE: DATE: TIME: Senokot (Sennosides) 8.6 Mg Tablet 1 Tab PO BID LAST DOSE GIVEN: DATE: TIME: NEXT DOSE DUE: DATE: TIME: Multivitamins (Multivitamin) 1 Each Tablet 1 Tab PO DAILY LAST DOSE GIVEN: DATE: TIME: NEXT DOSE DUE: DATE: TIME: Geodon (Ziprasidone Hcl) 40 Mg Capsule 40 Mg PO BID94 LAST DOSE GIVEN: DATE: TIME: NEXT DOSE DUE: DATE: TIME: Calcium 500 + Vit D 200 Tablet (Calcium Carbonate/Vitamin D3) 1 Each Tablet 1 Each PO BID LAST DOSE GIVEN: DATE: TIME: NEXT DOSE DUE: DATE: TIME: Bisacodyl 10 Mg Supp.rect 10 Mg RC PRN DAILY PRN LAST DOSE GIVEN: DATE: TIME: NEXT DOSE DUE: DATE: TIME: Acetaminophen 500 Mg Tablet 1 Tab PO Q6HRS PRN LAST DOSE GIVEN: DATE: TIME: NEXT DOSE DUE: DATE: TIME: Mag-Al Plus Suspension (Mag Hydrox/Al Hydrox/Simeth) 30 Ml Oral.susp 15 Ml PO PRN AFTMEALHC PRN LAST DOSE GIVEN: DATE: TIME: NEXT DOSE DUE: DATE: TIME: Seroquel (Quetiapine Fumarate) 25 Mg Tablet 150 Mg PO HS LAST DOSE GIVEN: DATE: TIME: NEXT DOSE DUE: DATE: TIME: Analgesic [place] (Methyl Salicylate/Menthol) 29 Gm Oint...g. 1 Peewee TP PRN QID PRN LAST DOSE GIVEN: DATE: TIME: NEXT DOSE DUE: DATE: TIME: Milk Of Magnesia (Magnesium Hydroxide) 2,400 Mg/10 Ml Oral.susp 2,400 Mg PO PRN QHS PRN LAST DOSE GIVEN: DATE: TIME: NEXT DOSE DUE: DATE: TIME: I have reviewed the current psychotropics carefully including drug interactions. Risk benefit ratio favors no change other than as noted in my dictated progress note. Diagnosis: Problems: (1) Impulse control disorder (2) Dementia with behavioral disturbance (3) Anxiety disorder (4) Dementia, vascular, with depression (5) Dementia, vascular, with delusions (6) Dementia in Alzheimer's disease with depression (7) Dementia in Alzheimer's disease with delusions (8) Impulse control disorder GRANT STOVER MD Feb 23, 2017 10:21
[2017-02-23 16:30] VITALS: BP 127/63
[2017-02-23] MEDS: MIRTAZAPINE 15 MG TABLET PO SCH (20:19)
[2017-02-23] MEDS: QUEtiapine 50 MG TABLET. PO SCH (20:20)
--- NOTE | 2017-02-23 21:39 | PDOC ---
Exam Note: Ronen Note: Please also refer to the separate dictated note~for this date of service dictated separately.~Patient seen individually. Discussed the patient with Nursing staff reviewed the chart.~Reviewed interim history and current functioning. Reviewed vital signs,~Labs/ Radiology~and current medications noted below. Continue current treatment with the changes noted in the dictated addendum note Assessment: Vital Signs: Vital Signs Date Time Temp Pulse Resp B/P (MAP) Pulse Ox O2 Delivery O2 Flow Rate FiO2 02/23/17 16:30 97.2 80 16 127/63 (84) 97 02/22/17 16:15 Room Air I&O Intake and Output 02/23/17 07:00 Intake Total 840 ml Balance 840 ml Intake Oral 840 ml Current Medications: Meds: Current Medications Acetaminophen (Tylenol) 650 mg PRN Q6HRS PRN PO PAIN / TEMP; Start 02/19/17 at 17:30; Status Cancel Multi-Ingredient Ointment (Analgesic [place]) 1 peewee PRN QID PRN TP MUSCLE PAIN; Start 02/19/17 at 17:15 Al Hydroxide/Mg Hydroxide (Mylanta Plus Xs) 15 ml PRN AFTMEALHC PRN PO DYSPEPSIA; Start 02/19/17 at 17:15 Magnesium Hydroxide (Milk Of Magnesia) 2,400 mg PRN QHS PRN PO CONSTIPATION; Start 02/19/17 at 17:15 Levofloxacin (Levaquin) 500 mg DAILY PO ; Start 02/20/17 at 09:00; Stop at 08:59; Status Cancel Mirtazapine (Remeron) 7.5 mg QHS PO Last administered on 02/23/17t 20:19; Start 02/19/17 at 21:00 Olanzapine (ZyPREXA ZYDIS) 2.5 mg PRN Q2HR PRN PO ANXIETY / AGITATION; Start 02/19/17 at 17:30 Olanzapine (ZyPREXA) 5 mg DAILY10 PO Last administered on 02/23/17 09:13; Start 02/20/17 at 10:00 Quetiapine Fumarate (SEROquel) 25 mg BID92 PO Last administered on 02/23/17 14:57; Start 02/20/17 at 09:00 Quetiapine Fumarate (SEROquel) 150 mg HS PO Last administered on 02/23/17 20: 20; Start 02/19/17 at 21:00 Trazodone HCl (Desyrel) 50 mg PRN QHS PRN PO INSOMNIA, MAY REPEAT X1; Start at 17:30 Ziprasidone (Geodon) 40 mg BID94 PO Last administered on 02/23/17 14:55; Start 02/20/17 at 09:00 Fluvoxamine Maleate (Luvox) 150 mg HS PO Last administered on 02/23/17 20:19 ; Start 02/19/17 at 21:00 Acetaminophen (Tylenol) 500 mg PRN Q6HRS PRN PO PAIN / TEMP Last administered on 02/22/17 06:44; Start 02/19/17 at 17:45 Bisacodyl (Dulcolax Supp) 10 mg PRN DAILY PRN RC CONSTIPATION; Start 02/19/17 at 17:45 Calcium/Vitamin D (Oscal D 500mg/ 200uts) 1 tab BID PO Last administered on 20:19; Start 02/19/17 at 21:00 Levofloxacin (Levaquin) 500 mg DAILY PO Last administered on 02/23/17 09:13; Start 02/20/17 at 09:00 Levothyroxine Sodium (Synthroid) 75 mcg DAILY06 PO Last administered on 05:28; Start 02/20/17 at 06:00 Magnesium Citrate (Citroma) 296 ml PRN 1X PRN PO CONSTIPATION; Start 02/19/17 at 17:45 Multi-Ingredient Ointment (Analgesic [place]) 1 peewee PRN QID PRN TP muscle pain; Start 02/19/17 at 17:45; Status UNV Pantoprazole Sodium (Protonix Packet) 40 mg DAILYAC PO Last administered on 09:12; Start 02/20/17 at 07:30 Sennosides (Senna) 8.6 mg BID PO Last administered on 02/23/17 20:20; Start 02/19/17 at 21:00 Non-Formulary Medication 15 ml PRN AFTMEALHC PRN PO DYSPEPSIA; Start 02/19/17 at 17:45; Status UNV Non-Formulary Medication 2,400 mg PRN QHS PRN PO CONSTIPATION; Start 02/19/17 at 17:45; Status UNV Multivitamins/ Calcium (Thera-M Plus) 1 tab DAILY PO Last administered on 02/23t 09:13; Start 02/20/17 at 09:00 Active Scripts Active Levaquin (Levofloxacin) 500 Mg Tablet 1 Tab PO DAILY Reported Trazodone Hcl 50 Mg Tablet 50 Mg PO PRN QHS PRN LAST DOSE GIVEN: DATE: TIME: NEXT DOSE DUE: DATE: TIME: Fluvoxamine Maleate 150 Mg Cap.er.24h 150 Mg PO QHS LAST DOSE GIVEN: DATE: TIME: NEXT DOSE DUE: DATE: TIME: Protonix (Pantoprazole Sodium) 40 Mg Granpkt.dr 40 Mg PO DAILYAC LAST DOSE GIVEN: DATE: TIME: NEXT DOSE DUE: DATE: TIME: Zyprexa Zydis (Olanzapine) 5 Mg Tab.rapdis 2.5 Mg PO PRN Q2HR PRN LAST DOSE GIVEN: DATE: TIME: NEXT DOSE DUE: DATE: TIME: Zyprexa (Olanzapine) 5 Mg Tablet 5 Mg PO DAILY10 LAST DOSE GIVEN: DATE: TIME: NEXT DOSE DUE: DATE: TIME: Quetiapine Fumarate 25 Mg Tablet 25 Mg PO BID92 LAST DOSE GIVEN: DATE: TIME: NEXT DOSE DUE: DATE: TIME: Remeron (Mirtazapine) 15 Mg Tablet 7.5 Mg PO QHS LAST DOSE GIVEN: DATE: TIME: NEXT DOSE DUE: DATE: TIME: Magnesium Citrate 296 Ml Solution 296 Ml PO ONCE PRN LAST DOSE GIVEN: DATE: TIME: NEXT DOSE DUE: DATE: TIME: Synthroid (Levothyroxine Sodium) 75 Mcg Tablet 1 Tab PO DAILY06 LAST DOSE GIVEN: DATE: TIME: NEXT DOSE DUE: DATE: TIME: Senokot (Sennosides) 8.6 Mg Tablet 1 Tab PO BID LAST DOSE GIVEN: DATE: TIME: NEXT DOSE DUE: DATE: TIME: Multivitamins (Multivitamin) 1 Each Tablet 1 Tab PO DAILY LAST DOSE GIVEN: DATE: TIME: NEXT DOSE DUE: DATE: TIME: Geodon (Ziprasidone Hcl) 40 Mg Capsule 40 Mg PO BID94 LAST DOSE GIVEN: DATE: TIME: NEXT DOSE DUE: DATE: TIME: Calcium 500 + Vit D 200 Tablet (Calcium Carbonate/Vitamin D3) 1 Each Tablet 1 Each PO BID LAST DOSE GIVEN: DATE: TIME: NEXT DOSE DUE: DATE: TIME: Bisacodyl 10 Mg Supp.rect 10 Mg RC PRN DAILY PRN LAST DOSE GIVEN: DATE: TIME: NEXT DOSE DUE: DATE: TIME: Acetaminophen 500 Mg Tablet 1 Tab PO Q6HRS PRN LAST DOSE GIVEN: DATE: TIME: NEXT DOSE DUE: DATE: TIME: Mag-Al Plus Suspension (Mag Hydrox/Al Hydrox/Simeth) 30 Ml Oral.susp 15 Ml PO PRN AFTMEALHC PRN LAST DOSE GIVEN: DATE: TIME: NEXT DOSE DUE: DATE: TIME: Seroquel (Quetiapine Fumarate) 25 Mg Tablet 150 Mg PO HS LAST DOSE GIVEN: DATE: TIME: NEXT DOSE DUE: DATE: TIME: Analgesic [place] (Methyl Salicylate/Menthol) 29 Gm Oint...g. 1 Pee[place]e TP PRN QID PRN LAST DOSE GIVEN: DATE: TIME: NEXT DOSE DUE: DATE: TIME: Milk Of Magnesia (Magnesium Hydroxide) 2,400 Mg/10 Ml Oral.susp 2,400 Mg PO PRN QHS PRN LAST DOSE GIVEN: DATE: TIME: NEXT DOSE DUE: DATE: TIME: I have reviewed the current psychotropics carefully including drug interactions. Risk benefit ratio favors no change other than as noted in my dictated progress note. Diagnosis: Problems: (1) Impulse control disorder (2) Dementia with behavioral disturbance (3) Anxiety disorder (4) Dementia, vascular, with depression (5) Dementia, vascular, with delusions (6) Dementia in Alzheimer's disease with depression (7) Dementia in Alzheimer's disease with delusions (8) Impulse control disorder GRANT STOVER MD Feb 23, 2017 21:39
[2017-02-24] MEDS: LEVOTHYROXINE 75 MCG TABLET PO SCH (05:11)
[2017-02-24 05:45] VITALS: BP 149/71
--- NOTE | 2017-02-24 08:38 | PN ---
DATE: 02/22/2017 This is a late entry for 02/22/2017 and covers elements not covered in my initial note of 02/22/2017. I met with the patient the evening of 02/22/2017. She has been less repetitive with okay, okay, okay. Able to engage in slightly more conversations. Did well the previous evening. REVIEW OF SYSTEMS: No CV, , pulmonary, eye, ENT system symptoms on review. Reliability poor. MENTAL STATUS EXAM: Oriented to herself. Insight, judgment, recent and remote memory, attention, concentration, fund of knowledge poor, consistent with her diagnosis as mentioned in my initial note. PLAN: Continue current psychotropics as mentioned in my initial note. Adjust as clinically indicated. MAN Abdullahi STOVER MD DR: AMOL/shelley JOB#: [id number] / [id number]
--- NOTE | 2017-02-24 08:40 | PN ---
DATE: 02/23/2017 This note covers elements not covered in my initial note 02/23/2017, met with the patient in the evening of 02/23/2017. The patient remains confused, but the repetitive verbalizations of "okay, okay" are better. REVIEW OF SYSTEMS: Ambulation impaired. No CV, , pulmonary, eye, ENT system symptoms on review. Reliability poor. MENTAL STATUS EXAM: Oriented to herself. Insight, judgment, recent and remote memory, attention, concentration, fund of knowledge poor, consistent with her diagnosis mentioned in my initial note. PLAN: Continue psychotropics mentioned in my initial note. Adjust further as clinically indicated. GRANT STOVER MD DR: AMOL/shelley JOB#: [id number] / [id number]
[2017-02-24] MEDS: PANTOPRAZOLE 40 MG PACKET. PO SCH (09:04)
[2017-02-24] MEDS: ZIPRASIDONE 40 MG CAPSULE. PO SCH ×2 (09:04→15:01)
[2017-02-24] MEDS: CALCIUM CARB/VIT D3 500/200 TABLET PO SCH ×2 (09:04→20:59)
[2017-02-24] MEDS: levoFLOXacin 500 MG TABLET PO SCH (09:04)
[2017-02-24] MEDS: SENNOSIDES 8.6 MG TABLET PO SCH ×2 (09:05→20:59)
[2017-02-24] MEDS: MULTIVITAMIN with MINERAL TABLET. PO SCH (09:05)
[2017-02-24] MEDS: QUEtiapine 25 MG TABLET. PO SCH ×2 (09:05→15:01)
[2017-02-24] MEDS: OLANZapine 5 MG TABLET PO SCH (09:05)
--- NOTE | 2017-02-24 20:11 | PDOC ---
Exam Note: Ronen Note: Please also refer to the separate dictated note~for this date of service dictated separately.~Patient seen individually. Discussed the patient with Nursing staff reviewed the chart.~Reviewed interim history and current functioning. Reviewed vital signs,~Labs/ Radiology~and current medications noted below. Continue current treatment with the changes noted in the dictated addendum note Assessment: Vital Signs: Vital Signs Date Time Temp Pulse Resp B/P (MAP) Pulse Ox O2 Delivery O2 Flow Rate FiO2 02/24/17 05:45 98.0 76 18 149/71 (97) 97 02/22/17 16:15 Room Air I&O Intake and Output 02/24/17 07:00 Intake Total 720 ml Balance 720 ml Intake Oral 720 ml Current Medications: Meds: Current Medications Acetaminophen (Tylenol) 650 mg PRN Q6HRS PRN PO PAIN / TEMP; Start 02/19/17 at 17:30; Status Cancel Multi-Ingredient Ointment (Analgesic [place]) 1 peewee PRN QID PRN TP MUSCLE PAIN; Start 02/19/17 at 17:15 Al Hydroxide/Mg Hydroxide (Mylanta Plus Xs) 15 ml PRN AFTMEALHC PRN PO DYSPEPSIA; Start 02/19/17 at 17:15 Magnesium Hydroxide (Milk Of Magnesia) 2,400 mg PRN QHS PRN PO CONSTIPATION; Start 02/19/17 at 17:15 Levofloxacin (Levaquin) 500 mg DAILY PO ; Start 02/20/17 at 09:00; Stop at 08:59; Status Cancel Mirtazapine (Remeron) 7.5 mg QHS PO Last administered on 02/23/17 20:19; Start 02/19/17 at 21:00 Olanzapine (ZyPREXA ZYDIS) 2.5 mg PRN Q2HR PRN PO ANXIETY / AGITATION Last administered on 02/24/17 17:43; Start 02/19/17 at 17:30 Olanzapine (ZyPREXA) 5 mg DAILY10 PO Last administered on 02/24/17 09:05; Start 02/20/17 at 10:00 Quetiapine Fumarate (SEROquel) 25 mg BID92 PO Last administered on 02/24/17 15:01; Start 02/20/17 at 09:00 Quetiapine Fumarate (SEROquel) 150 mg HS PO Last administered on 02/23/17 20: 20; Start 02/19/17 at 21:00 Trazodone HCl (Desyrel) 50 mg PRN QHS PRN PO INSOMNIA, MAY REPEAT X1; Start at 17:30 Ziprasidone (Geodon) 40 mg BID94 PO Last administered on 02/24/17 15:01; Start 02/20/17 at 09:00 Fluvoxamine Maleate (Luvox) 150 mg HS PO Last administered on 02/23/17 20:19 ; Start 02/19/17 at 21:00 Acetaminophen (Tylenol) 500 mg PRN Q6HRS PRN PO PAIN / TEMP Last administered on 02/22/17 06:44; Start 02/19/17 at 17:45 Bisacodyl (Dulcolax Supp) 10 mg PRN DAILY PRN RC CONSTIPATION; Start 02/19/17 at 17:45 Calcium/Vitamin D (Oscal D 500mg/ 200uts) 1 tab BID PO Last administered on 09:04; Start 02/19/17 at 21:00 Levofloxacin (Levaquin) 500 mg DAILY PO Last administered on 02/24/17 09:04; Start 02/20/17 at 09:00; Stop 02/24/17 at 18:58; Status DC Levothyroxine Sodium (Synthroid) 75 mcg DAILY06 PO Last administered on 05:11; Start 02/20/17 at 06:00 Magnesium Citrate (Citroma) 296 ml PRN 1X PRN PO CONSTIPATION; Start 02/19/17 at 17:45 Multi-Ingredient Ointment (Analgesic [place]) 1 peewee PRN QID PRN TP muscle pain; Start 02/19/17 at 17:45; Status UNV Pantoprazole Sodium (Protonix Packet) 40 mg DAILYAC PO Last administered on 09:04; Start 02/20/17 at 07:30 Sennosides (Senna) 8.6 mg BID PO Last administered on 02/24/17 09:05; Start 02/19/17 at 21:00 Non-Formulary Medication 15 ml PRN AFTMEALHC PRN PO DYSPEPSIA; Start 02/19/17 at 17:45; Status UNV Non-Formulary Medication 2,400 mg PRN QHS PRN PO CONSTIPATION; Start 02/19/17 at 17:45; Status UNV Multivitamins/ Calcium (Thera-M Plus) 1 tab DAILY PO Last administered on 02/24t 09:05; Start 02/20/17 at 09:00 Active Scripts Active Levaquin (Levofloxacin) 500 Mg Tablet 1 Tab PO DAILY Reported Trazodone Hcl 50 Mg Tablet 50 Mg PO PRN QHS PRN LAST DOSE GIVEN: DATE: TIME: NEXT DOSE DUE: DATE: TIME: Fluvoxamine Maleate 150 Mg Cap.er.24h 150 Mg PO QHS LAST DOSE GIVEN: DATE: TIME: NEXT DOSE DUE: DATE: TIME: Protonix (Pantoprazole Sodium) 40 Mg Granpkt.dr 40 Mg PO DAILYAC LAST DOSE GIVEN: DATE: TIME: NEXT DOSE DUE: DATE: TIME: Zyprexa Zydis (Olanzapine) 5 Mg Tab.rapdis 2.5 Mg PO PRN Q2HR PRN LAST DOSE GIVEN: DATE: TIME: NEXT DOSE DUE: DATE: TIME: Zyprexa (Olanzapine) 5 Mg Tablet 5 Mg PO DAILY10 LAST DOSE GIVEN: DATE: TIME: NEXT DOSE DUE: DATE: TIME: Quetiapine Fumarate 25 Mg Tablet 25 Mg PO BID92 LAST DOSE GIVEN: DATE: TIME: NEXT DOSE DUE: DATE: TIME: Remeron (Mirtazapine) 15 Mg Tablet 7.5 Mg PO QHS LAST DOSE GIVEN: DATE: TIME: NEXT DOSE DUE: DATE: TIME: Magnesium Citrate 296 Ml Solution 296 Ml PO ONCE PRN LAST DOSE GIVEN: DATE: TIME: NEXT DOSE DUE: DATE: TIME: Synthroid (Levothyroxine Sodium) 75 Mcg Tablet 1 Tab PO DAILY06 LAST DOSE GIVEN: DATE: TIME: NEXT DOSE DUE: DATE: TIME: Senokot (Sennosides) 8.6 Mg Tablet 1 Tab PO BID LAST DOSE GIVEN: DATE: TIME: NEXT DOSE DUE: DATE: TIME: Multivitamins (Multivitamin) 1 Each Tablet 1 Tab PO DAILY LAST DOSE GIVEN: DATE: TIME: NEXT DOSE DUE: DATE: TIME: Geodon (Ziprasidone Hcl) 40 Mg Capsule 40 Mg PO BID94 LAST DOSE GIVEN: DATE: TIME: NEXT DOSE DUE: DATE: TIME: Calcium 500 + Vit D 200 Tablet (Calcium Carbonate/Vitamin D3) 1 Each Tablet 1 Each PO BID LAST DOSE GIVEN: DATE: TIME: NEXT DOSE DUE: DATE: TIME: Bisacodyl 10 Mg Supp.rect 10 Mg RC PRN DAILY PRN LAST DOSE GIVEN: DATE: TIME: NEXT DOSE DUE: DATE: TIME: Acetaminophen 500 Mg Tablet 1 Tab PO Q6HRS PRN LAST DOSE GIVEN: DATE: TIME: NEXT DOSE DUE: DATE: TIME: Mag-Al Plus Suspension (Mag Hydrox/Al Hydrox/Simeth) 30 Ml Oral.susp 15 Ml PO PRN AFTMEALHC PRN LAST DOSE GIVEN: DATE: TIME: NEXT DOSE DUE: DATE: TIME: Seroquel (Quetiapine Fumarate) 25 Mg Tablet 150 Mg PO HS LAST DOSE GIVEN: DATE: TIME: NEXT DOSE DUE: DATE: TIME: Analgesic [place] (Methyl Salicylate/Menthol) 29 Gm Oint...g. 1 Peewee TP PRN QID PRN LAST DOSE GIVEN: DATE: TIME: NEXT DOSE DUE: DATE: TIME: Milk Of Magnesia (Magnesium Hydroxide) 2,400 Mg/10 Ml Oral.susp 2,400 Mg PO PRN QHS PRN LAST DOSE GIVEN: DATE: TIME: NEXT DOSE DUE: DATE: TIME: I have reviewed the current psychotropics carefully including drug interactions. Risk benefit ratio favors no change other than as noted in my dictated progress note. Diagnosis: Problems: (1) Alzheimer disease (2) Impulse control disorder (3) Hypothyroid (4) Dementia with behavioral disturbance (5) Anxiety disorder (6) Dementia, vascular, with depression (7) Dementia, vascular, with delusions (8) Dementia in Alzheimer's disease with depression (9) Dementia in Alzheimer's disease with delusions (10) Impulse control disorder GRANT STOVER MD Feb 24, 2017 20:10
[2017-02-24] MEDS: MIRTAZAPINE 15 MG TABLET PO SCH (20:59)
[2017-02-24] MEDS: QUEtiapine 50 MG TABLET. PO SCH (20:59)
[2017-02-25] MEDS: LEVOTHYROXINE 75 MCG TABLET PO SCH (05:13)
[2017-02-25 06:31] VITALS: BP 167/69
[2017-02-25] MEDS: PANTOPRAZOLE 40 MG PACKET. PO SCH (07:49)
[2017-02-25] MEDS: CALCIUM CARB/VIT D3 500/200 TABLET PO SCH ×2 (07:49→20:32)
[2017-02-25] MEDS: ZIPRASIDONE 40 MG CAPSULE. PO SCH ×2 (07:49→16:05)
[2017-02-25] MEDS: SENNOSIDES 8.6 MG TABLET PO SCH ×2 (07:50→20:33)
[2017-02-25] MEDS: MULTIVITAMIN with MINERAL TABLET. PO SCH (07:50)
[2017-02-25] MEDS: QUEtiapine 25 MG TABLET. PO SCH ×2 (07:50→13:29)
[2017-02-25 08:18] LABS: ALBUMIN 2.5 g/dL (3.4-5.0); ALBUMIN/GLOBULIN RATIO 0.5 (1.0-1.7); CREATININE 0.8 mg/dL (0.6-1.0); GFR 68.3; POTASSIUM 3.8 mmol/L (3.5-5.1); TOTAL BILIRUBIN 0.2 mg/dL (0.2-1.0); TOTAL PROTEIN 7.6 g/dL (6.4-8.2)
[2017-02-25] MEDS: OLANZapine 5 MG TABLET PO SCH (10:12)
[2017-02-25 15:57] VITALS: BP 139/78
--- NOTE | 2017-02-25 20:00 | PDOC ---
Exam Note: Ronen Note: Please also refer to the separate dictated note~for this date of service dictated separately.~Patient seen individually. Discussed the patient with Nursing staff reviewed the chart.~Reviewed interim history and current functioning. Reviewed vital signs,~Labs/ Radiology~and current medications noted below. Continue current treatment with the changes noted in the dictated addendum note Assessment: Vital Signs: Vital Signs Date Time Temp Pulse Resp B/P (MAP) Pulse Ox O2 Delivery O2 Flow Rate FiO2 02/25/17 15:57 98.0 62 20 139/78 (98) 97 02/22/17 16:15 Room Air I&O Intake and Output 02/25/17 07:00 Intake Total 800 ml Balance 800 ml Intake Oral 800 ml # Voids 1 # Bowel Movements 1 Labs: Laboratory Tests Test 02/25/17 07:14 Sodium Level 143 mmol/L (136-145) Potassium Level 3.8 mmol/L (3.5-5.1) Chloride Level 108 mmol/L (98-107) H Carbon Dioxide Level 26 mmol/L (21-32) Anion Gap 9 (6-14) Blood Urea Nitrogen 15 mg/dL (7-20) Creatinine 0.8 mg/dL (0.6-1.0) Estimated GFR (Cockcroft-Gault) 68.3 BUN/Creatinine Ratio 19 (6-20) Glucose Level 92 mg/dL (70-99) Calcium Level 9.0 mg/dL (8.5-10.1) Total Bilirubin 0.2 mg/dL (0.2-1.0) Aspartate Amino Transferase (AST) 23 U/L (15-37) Alanine Aminotransferase (ALT) 24 U/L (14-59) Alkaline Phosphatase 104 U/L (46-116) Total Protein 7.6 g/dL (6.4-8.2) Albumin 2.5 g/dL (3.4-5.0) L Albumin/Globulin Ratio 0.5 (1.0-1.7) L Current Medications: Meds: Current Medications Acetaminophen (Tylenol) 650 mg PRN Q6HRS PRN PO PAIN / TEMP; Start 02/19/17 at 17:30; Status Cancel Multi-Ingredient Ointment (Analgesic [place]) 1 peewee PRN QID PRN TP MUSCLE PAIN; Start 02/19/17 at 17:15 Al Hydroxide/Mg Hydroxide (Mylanta Plus Xs) 15 ml PRN AFTMEALHC PRN PO DYSPEPSIA; Start 02/19/17 at 17:15 Magnesium Hydroxide (Milk Of Magnesia) 2,400 mg PRN QHS PRN PO CONSTIPATION; Start 02/19/17 at 17:15 Levofloxacin (Levaquin) 500 mg DAILY PO ; Start 02/20/17 at 09:00; Stop at 08:59; Status Cancel Mirtazapine (Remeron) 7.5 mg QHS PO Last administered on 02/24/17 20:59; Start 02/19/17 at 21:00 Olanzapine (ZyPREXA ZYDIS) 2.5 mg PRN Q2HR PRN PO ANXIETY / AGITATION Last administered on 02/24/17 17:43; Start 02/19/17 at 17:30 Olanzapine (ZyPREXA) 5 mg DAILY10 PO Last administered on 02/25/17 10:12; Start 02/20/17 at 10:00 Quetiapine Fumarate (SEROquel) 25 mg BID92 PO Last administered on 02/25/17 13:29; Start 02/20/17 at 09:00 Quetiapine Fumarate (SEROquel) 150 mg HS PO Last administered on 02/24/17 20: 59; Start 02/19/17 at 21:00 Trazodone HCl (Desyrel) 50 mg PRN QHS PRN PO INSOMNIA, MAY REPEAT X1; Start at 17:30 Ziprasidone (Geodon) 40 mg BID94 PO Last administered on 02/25/17 16:05; Start 02/20/17 at 09:00 Fluvoxamine Maleate (Luvox) 150 mg HS PO Last administered on 02/24/17 20:59 ; Start 02/19/17 at 21:00 Acetaminophen (Tylenol) 500 mg PRN Q6HRS PRN PO PAIN / TEMP Last administered on 02/22/17 06:44; Start 02/19/17 at 17:45 Bisacodyl (Dulcolax Supp) 10 mg PRN DAILY PRN RC CONSTIPATION; Start 02/19/17 at 17:45 Calcium/Vitamin D (Oscal D 500mg/ 200uts) 1 tab BID PO Last administered on 07:49; Start 02/19/17 at 21:00 Levofloxacin (Levaquin) 500 mg DAILY PO Last administered on 02/24/17 09:04; Start 02/20/17 at 09:00; Stop 02/24/17 at 18:58; Status DC Levothyroxine Sodium (Synthroid) 75 mcg DAILY06 PO Last administered on 05:13; Start 02/20/17 at 06:00 Magnesium Citrate (Citroma) 296 ml PRN 1X PRN PO CONSTIPATION; Start 02/19/17 at 17:45 Multi-Ingredient Ointment (Analgesic [place]) 1 peewee PRN QID PRN TP muscle pain; Start 02/19/17 at 17:45; Status UNV Pantoprazole Sodium (Protonix Packet) 40 mg DAILYAC PO Last administered on 07:49; Start 02/20/17 at 07:30 Sennosides (Senna) 8.6 mg BID PO Last administered on 02/25/17 07:50; Start 02/19/17 at 21:00 Non-Formulary Medication 15 ml PRN AFTMEALHC PRN PO DYSPEPSIA; Start 02/19/17 at 17:45; Status UNV Non-Formulary Medication 2,400 mg PRN QHS PRN PO CONSTIPATION; Start 02/19/17 at 17:45; Status UNV Multivitamins/ Calcium (Thera-M Plus) 1 tab DAILY PO Last administered on 02/25 07:50; Start 02/20/17 at 09:00 Active Scripts Active Levaquin (Levofloxacin) 500 Mg Tablet 1 Tab PO DAILY Reported Trazodone Hcl 50 Mg Tablet 50 Mg PO PRN QHS PRN LAST DOSE GIVEN: DATE: TIME: NEXT DOSE DUE: DATE: TIME: Fluvoxamine Maleate 150 Mg Cap.er.24h 150 Mg PO QHS LAST DOSE GIVEN: DATE: TIME: NEXT DOSE DUE: DATE: TIME: Protonix (Pantoprazole Sodium) 40 Mg Granpkt.dr 40 Mg PO DAILYAC LAST DOSE GIVEN: DATE: TIME: NEXT DOSE DUE: DATE: TIME: Zyprexa Zydis (Olanzapine) 5 Mg Tab.rapdis 2.5 Mg PO PRN Q2HR PRN LAST DOSE GIVEN: DATE: TIME: NEXT DOSE DUE: DATE: TIME: Zyprexa (Olanzapine) 5 Mg Tablet 5 Mg PO DAILY10 LAST DOSE GIVEN: DATE: TIME: NEXT DOSE DUE: DATE: TIME: Quetiapine Fumarate 25 Mg Tablet 25 Mg PO BID92 LAST DOSE GIVEN: DATE: TIME: NEXT DOSE DUE: DATE: TIME: Remeron (Mirtazapine) 15 Mg Tablet 7.5 Mg PO QHS LAST DOSE GIVEN: DATE: TIME: NEXT DOSE DUE: DATE: TIME: Magnesium Citrate 296 Ml Solution 296 Ml PO ONCE PRN LAST DOSE GIVEN: DATE: TIME: NEXT DOSE DUE: DATE: TIME: Synthroid (Levothyroxine Sodium) 75 Mcg Tablet 1 Tab PO DAILY06 LAST DOSE GIVEN: DATE: TIME: NEXT DOSE DUE: DATE: TIME: Senokot (Sennosides) 8.6 Mg Tablet 1 Tab PO BID LAST DOSE GIVEN: DATE: TIME: NEXT DOSE DUE: DATE: TIME: Multivitamins (Multivitamin) 1 Each Tablet 1 Tab PO DAILY LAST DOSE GIVEN: DATE: TIME: NEXT DOSE DUE: DATE: TIME: Geodon (Ziprasidone Hcl) 40 Mg Capsule 40 Mg PO BID94 LAST DOSE GIVEN: DATE: TIME: NEXT DOSE DUE: DATE: TIME: Calcium 500 + Vit D 200 Tablet (Calcium Carbonate/Vitamin D3) 1 Each Tablet 1 Each PO BID LAST DOSE GIVEN: DATE: TIME: NEXT DOSE DUE: DATE: TIME: Bisacodyl 10 Mg Supp.rect 10 Mg RC PRN DAILY PRN LAST DOSE GIVEN: DATE: TIME: NEXT DOSE DUE: DATE: TIME: Acetaminophen 500 Mg Tablet 1 Tab PO Q6HRS PRN LAST DOSE GIVEN: DATE: TIME: NEXT DOSE DUE: DATE: TIME: Mag-Al Plus Suspension (Mag Hydrox/Al Hydrox/Simeth) 30 Ml Oral.susp 15 Ml PO PRN AFTMEALHC PRN LAST DOSE GIVEN: DATE: TIME: NEXT DOSE DUE: DATE: TIME: Seroquel (Quetiapine Fumarate) 25 Mg Tablet 150 Mg PO HS LAST DOSE GIVEN: DATE: TIME: NEXT DOSE DUE: DATE: TIME: Analgesic [place] (Methyl Salicylate/Menthol) 29 Gm Oint...g. 1 [place]ee[place] TP PRN QID PRN LAST DOSE GIVEN: DATE: TIME: NEXT DOSE DUE: DATE: TIME: Milk Of Magnesia (Magnesium Hydroxide) 2,400 Mg/10 Ml Oral.susp 2,400 Mg PO PRN QHS PRN LAST DOSE GIVEN: DATE: TIME: NEXT DOSE DUE: DATE: TIME: I have reviewed the current psychotropics carefully including drug interactions. Risk benefit ratio favors no change other than as noted in my dictated progress note. Diagnosis: Problems: (1) Alzheimer disease (2) Impulse control disorder (3) Hypothyroid (4) Dementia with behavioral disturbance (5) Anxiety disorder (6) Dementia, vascular, with depression (7) Dementia, vascular, with delusions (8) Dementia in Alzheimer's disease with depression (9) Dementia in Alzheimer's disease with delusions (10) Impulse control disorder GRANT STOVER MD Feb 25, 2017 20:00
[2017-02-25] MEDS: MIRTAZAPINE 15 MG TABLET PO SCH (20:32)
[2017-02-25] MEDS: QUEtiapine 50 MG TABLET. PO SCH (20:33)
--- NOTE | 2017-02-26 03:48 | PN ---
DATE: 02/24/2017 This is a late entry for 02/24/2017, covers elements not covered in my initial note of 02/24/2017. SUBJECTIVE: I met with the patient the evening of 02/24/2017. Overall, the patient did well in the morning of 02/24/2017, came out to the day room, later was anxious, able to have some brief conversation, which is an improvement for her. REVIEW OF SYSTEMS: No CV, , pulmonary, eye, ENT system symptoms on review. Reliability poor. MENTAL STATUS EXAMINATION: Oriented to herself. Insight, judgment, recent and remote memory, attention, concentration, fund of knowledge poor, consistent with her diagnosis mentioned in my initial note. IMPRESSION: Major neurocognitive disorder, Alzheimer, vascular with depression, delusion, behavioral disturbance. Rest unchanged. PLAN: Continue current psychotropics mentioned in my initial note, adjust as indicated clinically. MAN Abdullahi STOVER MD DR: AMOL/shelley JOB#: [id number] / [id number]
[2017-02-26 06:17] VITALS: BP 157/63
[2017-02-26] MEDS: LEVOTHYROXINE 75 MCG TABLET PO SCH (06:27)
[2017-02-26] MEDS: MULTIVITAMIN with MINERAL TABLET. PO SCH (08:37)
[2017-02-26] MEDS: ZIPRASIDONE 40 MG CAPSULE. PO SCH ×2 (08:37→15:36)
[2017-02-26] MEDS: QUEtiapine 25 MG TABLET. PO SCH ×2 (08:37→13:41)
[2017-02-26] MEDS: PANTOPRAZOLE 40 MG PACKET. PO SCH (08:37)
[2017-02-26] MEDS: SENNOSIDES 8.6 MG TABLET PO SCH ×2 (08:37→19:47)
[2017-02-26] MEDS: CALCIUM CARB/VIT D3 500/200 TABLET PO SCH ×2 (08:37→19:47)
[2017-02-26] MEDS: OLANZapine 5 MG TABLET PO SCH (10:16)
[2017-02-26 15:37] VITALS: BP 101/55
[2017-02-26] MEDS: QUEtiapine 50 MG TABLET. PO SCH (19:47)
[2017-02-26] MEDS: MIRTAZAPINE 15 MG TABLET PO SCH (19:47)
--- NOTE | 2017-02-26 20:04 | PDOC ---
Exam Note: Ronen Note: Please also refer to the separate dictated note~for this date of service dictated separately.~Patient seen individually. Discussed the patient with Nursing staff reviewed the chart.~Reviewed interim history and current functioning. Reviewed vital signs,~Labs/ Radiology~and current medications noted below. Continue current treatment with the changes noted in the dictated addendum note Assessment: Vital Signs: Vital Signs Date Time Temp Pulse Resp B/P (MAP) Pulse Ox O2 Delivery O2 Flow Rate FiO2 02/26/17 15:37 98.4 84 20 101/55 (70) 98 02/22/17 16:15 Room Air I&O Intake and Output 02/26/17 07:00 Intake Total 1200 ml Balance 1200 ml Intake Oral 1200 ml # Voids 1 # Bowel Movements 1 Current Medications: Meds: Current Medications Acetaminophen (Tylenol) 650 mg PRN Q6HRS PRN PO PAIN / TEMP; Start 02/19/17 at 17:30; Status Cancel Multi-Ingredient Ointment (Analgesic [place]) 1 peewee PRN QID PRN TP MUSCLE PAIN; Start 02/19/17 at 17:15 Al Hydroxide/Mg Hydroxide (Mylanta Plus Xs) 15 ml PRN AFTMEALHC PRN PO DYSPEPSIA; Start 02/19/17 at 17:15 Magnesium Hydroxide (Milk Of Magnesia) 2,400 mg PRN QHS PRN PO CONSTIPATION; Start 02/19/17 at 17:15 Levofloxacin (Levaquin) 500 mg DAILY PO ; Start 02/20/17 at 09:00; Stop at 08:59; Status Cancel Mirtazapine (Remeron) 7.5 mg QHS PO Last administered on 02/26/17 19:47; Start 02/19/17 at 21:00 Olanzapine (ZyPREXA ZYDIS) 2.5 mg PRN Q2HR PRN PO ANXIETY / AGITATION Last administered on 02/24/17 17:43; Start 02/19/17 at 17:30 Olanzapine (ZyPREXA) 5 mg DAILY10 PO Last administered on 02/26/17 10:16; Start 02/20/17 at 10:00 Quetiapine Fumarate (SEROquel) 25 mg BID92 PO Last administered on 02/26/17 13:41; Start 02/20/17 at 09:00 Quetiapine Fumarate (SEROquel) 150 mg HS PO Last administered on 02/26/17 19: 47; Start 02/19/17 at 21:00 Trazodone HCl (Desyrel) 50 mg PRN QHS PRN PO INSOMNIA, MAY REPEAT X1; Start at 17:30 Ziprasidone (Geodon) 40 mg BID94 PO Last administered on 02/26/17 15:36; Start 02/20/17 at 09:00 Fluvoxamine Maleate (Luvox) 150 mg HS PO Last administered on 02/26/17 19:47 ; Start 02/19/17 at 21:00 Acetaminophen (Tylenol) 500 mg PRN Q6HRS PRN PO PAIN / TEMP Last administered on 02/22/17 06:44; Start 02/19/17 at 17:45 Bisacodyl (Dulcolax Supp) 10 mg PRN DAILY PRN RC CONSTIPATION; Start 02/19/17 at 17:45 Calcium/Vitamin D (Oscal D 500mg/ 200uts) 1 tab BID PO Last administered on 19:47; Start 02/19/17 at 21:00 Levofloxacin (Levaquin) 500 mg DAILY PO Last administered on 02/24/17 09:04; Start 02/20/17 at 09:00; Stop 02/24/17 at 18:58; Status DC Levothyroxine Sodium (Synthroid) 75 mcg DAILY06 PO Last administered on 06:27; Start 02/20/17 at 06:00 Magnesium Citrate (Citroma) 296 ml PRN 1X PRN PO CONSTIPATION; Start 02/19/17 at 17:45 Multi-Ingredient Ointment (Analgesic [place]) 1 peewee PRN QID PRN TP muscle pain; Start 02/19/17 at 17:45; Status UNV Pantoprazole Sodium (Protonix Packet) 40 mg DAILYAC PO Last administered on 08:37; Start 02/20/17 at 07:30 Sennosides (Senna) 8.6 mg BID PO Last administered on 02/26/17 19:47; Start 02/19/17 at 21:00 Non-Formulary Medication 15 ml PRN AFTMEALHC PRN PO DYSPEPSIA; Start 02/19/17 at 17:45; Status UNV Non-Formulary Medication 2,400 mg PRN QHS PRN PO CONSTIPATION; Start 02/19/17 at 17:45; Status UNV Multivitamins/ Calcium (Thera-M Plus) 1 tab DAILY PO Last administered on 02/26t 08:37; Start 02/20/17 at 09:00 Active Scripts Active Levaquin (Levofloxacin) 500 Mg Tablet 1 Tab PO DAILY Reported Trazodone Hcl 50 Mg Tablet 50 Mg PO PRN QHS PRN LAST DOSE GIVEN: DATE: TIME: NEXT DOSE DUE: DATE: TIME: Fluvoxamine Maleate 150 Mg Cap.er.24h 150 Mg PO QHS LAST DOSE GIVEN: DATE: TIME: NEXT DOSE DUE: DATE: TIME: Protonix (Pantoprazole Sodium) 40 Mg Granpkt.dr 40 Mg PO DAILYAC LAST DOSE GIVEN: DATE: TIME: NEXT DOSE DUE: DATE: TIME: Zyprexa Zydis (Olanzapine) 5 Mg Tab.rapdis 2.5 Mg PO PRN Q2HR PRN LAST DOSE GIVEN: DATE: TIME: NEXT DOSE DUE: DATE: TIME: Zyprexa (Olanzapine) 5 Mg Tablet 5 Mg PO DAILY10 LAST DOSE GIVEN: DATE: TIME: NEXT DOSE DUE: DATE: TIME: Quetiapine Fumarate 25 Mg Tablet 25 Mg PO BID92 LAST DOSE GIVEN: DATE: TIME: NEXT DOSE DUE: DATE: TIME: Remeron (Mirtazapine) 15 Mg Tablet 7.5 Mg PO QHS LAST DOSE GIVEN: DATE: TIME: NEXT DOSE DUE: DATE: TIME: Magnesium Citrate 296 Ml Solution 296 Ml PO ONCE PRN LAST DOSE GIVEN: DATE: TIME: NEXT DOSE DUE: DATE: TIME: Synthroid (Levothyroxine Sodium) 75 Mcg Tablet 1 Tab PO DAILY06 LAST DOSE GIVEN: DATE: TIME: NEXT DOSE DUE: DATE: TIME: Senokot (Sennosides) 8.6 Mg Tablet 1 Tab PO BID LAST DOSE GIVEN: DATE: TIME: NEXT DOSE DUE: DATE: TIME: Multivitamins (Multivitamin) 1 Each Tablet 1 Tab PO DAILY LAST DOSE GIVEN: DATE: TIME: NEXT DOSE DUE: DATE: TIME: Geodon (Ziprasidone Hcl) 40 Mg Capsule 40 Mg PO BID94 LAST DOSE GIVEN: DATE: TIME: NEXT DOSE DUE: DATE: TIME: Calcium 500 + Vit D 200 Tablet (Calcium Carbonate/Vitamin D3) 1 Each Tablet 1 Each PO BID LAST DOSE GIVEN: DATE: TIME: NEXT DOSE DUE: DATE: TIME: Bisacodyl 10 Mg Supp.rect 10 Mg RC PRN DAILY PRN LAST DOSE GIVEN: DATE: TIME: NEXT DOSE DUE: DATE: TIME: Acetaminophen 500 Mg Tablet 1 Tab PO Q6HRS PRN LAST DOSE GIVEN: DATE: TIME: NEXT DOSE DUE: DATE: TIME: Mag-Al Plus Suspension (Mag Hydrox/Al Hydrox/Simeth) 30 Ml Oral.susp 15 Ml PO PRN AFTMEALHC PRN LAST DOSE GIVEN: DATE: TIME: NEXT DOSE DUE: DATE: TIME: Seroquel (Quetiapine Fumarate) 25 Mg Tablet 150 Mg PO HS LAST DOSE GIVEN: DATE: TIME: NEXT DOSE DUE: DATE: TIME: Analgesic [place] (Methyl Salicylate/Menthol) 29 Gm Oint...g. 1 [place] TP PRN QID PRN LAST DOSE GIVEN: DATE: TIME: NEXT DOSE DUE: DATE: TIME: Milk Of Magnesia (Magnesium Hydroxide) 2,400 Mg/10 Ml Oral.susp 2,400 Mg PO PRN QHS PRN LAST DOSE GIVEN: DATE: TIME: NEXT DOSE DUE: DATE: TIME: I have reviewed the current psychotropics carefully including drug interactions. Risk benefit ratio favors no change other than as noted in my dictated progress note. Diagnosis: Problems: (1) Alzheimer disease (2) Impulse control disorder (3) Hypothyroid (4) Dementia with behavioral disturbance (5) Anxiety disorder (6) Dementia, vascular, with depression (7) Dementia, vascular, with delusions (8) Dementia in Alzheimer's disease with depression (9) Dementia in Alzheimer's disease with delusions (10) Impulse control disorder GRANT STOVER MD Feb 26, 2017 20:04
--- NOTE | 2017-02-26 23:50 | PN ---
DATE: 02/25/2017 PSYCHIATRIC PROGRESS NOTES SUBJECTIVE: This late entry 02/25/2017 covers elements not covered in my initial note 02/25/2017. Met with the patient in the evening of 02/25/2017. The patient has been more verbally interactive with staff much of the day, but towards the evening, she is again repeating "okay, okay." REVIEW OF SYSTEMS: No CV, , pulmonary, eye, ENT system symptoms on review. Reliability poor. MENTAL STATUS EXAM: Oriented to herself. Insight, judgment, recent and remote memory, attention, concentration, fund of knowledge poor, consistent with her diagnosis mentioned in my initial note. IMPRESSION: Major neurocognitive disorder, Alzheimer, vascular with depression, delusion, behavioral disturbance. Rest unchanged. PLAN: Continue current psychotropics mentioned in my initial note. Adjust further as clinically indicated. MAN Abdullahi STOVER MD DR: MAOL/shelley JOB#: [id number] / [id number]
[2017-02-27] MEDS: LEVOTHYROXINE 75 MCG TABLET PO SCH (05:42)
[2017-02-27 05:50] VITALS: BP 143/57
[2017-02-27] MEDS: QUEtiapine 25 MG TABLET. PO SCH ×2 (08:07→14:05)
[2017-02-27] MEDS: CALCIUM CARB/VIT D3 500/200 TABLET PO SCH ×2 (08:07→19:50)
[2017-02-27] MEDS: MULTIVITAMIN with MINERAL TABLET. PO SCH (08:07)
[2017-02-27] MEDS: SENNOSIDES 8.6 MG TABLET PO SCH ×2 (08:07→19:50)
[2017-02-27] MEDS: PANTOPRAZOLE 40 MG PACKET. PO SCH (08:07)
[2017-02-27] MEDS: OLANZapine 5 MG TABLET PO SCH (08:07)
[2017-02-27] MEDS: ZIPRASIDONE 40 MG CAPSULE. PO SCH ×2 (08:08→16:48)
[2017-02-27 15:33] VITALS: BP 116/58
[2017-02-27] MEDS: MIRTAZAPINE 15 MG TABLET PO SCH (19:50)
[2017-02-27] MEDS: QUEtiapine 50 MG TABLET. PO SCH (19:50)
--- NOTE | 2017-02-27 21:18 | PDOC ---
Exam Note: Roenn Note: Please also refer to the separate dictated note~for this date of service dictated separately.~Patient seen individually. Discussed the patient with Nursing staff reviewed the chart.~Reviewed interim history and current functioning. Reviewed vital signs,~Labs/ Radiology~and current medications noted below. Continue current treatment with the changes noted in the dictated addendum note Assessment: Vital Signs: Vital Signs Date Time Temp Pulse Resp B/P (MAP) Pulse Ox O2 Delivery O2 Flow Rate FiO2 02/27/17 15:33 97.2 72 20 116/58 (77) 99 02/22/17 16:15 Room Air I&O Intake and Output 02/27/17 07:00 Intake Total 1080 ml Balance 1080 ml Intake Oral 1080 ml # Bowel Movements 1 Current Medications: Meds: Current Medications Acetaminophen (Tylenol) 650 mg PRN Q6HRS PRN PO PAIN / TEMP; Start 02/19/17 at 17:30; Status Cancel Multi-Ingredient Ointment (Analgesic [place]) 1 peewee PRN QID PRN TP MUSCLE PAIN; Start 02/19/17 at 17:15 Al Hydroxide/Mg Hydroxide (Mylanta Plus Xs) 15 ml PRN AFTMEALHC PRN PO DYSPEPSIA; Start 02/19/17 at 17:15 Magnesium Hydroxide (Milk Of Magnesia) 2,400 mg PRN QHS PRN PO CONSTIPATION; Start 02/19/17 at 17:15 Levofloxacin (Levaquin) 500 mg DAILY PO ; Start 02/20/17 at 09:00; Stop at 08:59; Status Cancel Mirtazapine (Remeron) 7.5 mg QHS PO Last administered on 02/27/17 19:50; Start 02/19/17 at 21:00 Olanzapine (ZyPREXA ZYDIS) 2.5 mg PRN Q2HR PRN PO ANXIETY / AGITATION Last administered on 02/24/17 17:43; Start 02/19/17 at 17:30 Olanzapine (ZyPREXA) 5 mg DAILY10 PO Last administered on 02/27/17 08:07; Start 02/20/17 at 10:00 Quetiapine Fumarate (SEROquel) 25 mg BID92 PO Last administered on 02/27/17 14:05; Start 02/20/17 at 09:00 Quetiapine Fumarate (SEROquel) 150 mg HS PO Last administered on 02/27/17 19: 50; Start 02/19/17 at 21:00 Trazodone HCl (Desyrel) 50 mg PRN QHS PRN PO INSOMNIA, MAY REPEAT X1; Start at 17:30 Ziprasidone (Geodon) 40 mg BID94 PO Last administered on 02/27/17 16:48; Start 02/20/17 at 09:00 Fluvoxamine Maleate (Luvox) 150 mg HS PO Last administered on 02/27/17 19:50 ; Start 02/19/17 at 21:00 Acetaminophen (Tylenol) 500 mg PRN Q6HRS PRN PO PAIN / TEMP Last administered on 02/22/17 06:44; Start 02/19/17 at 17:45 Bisacodyl (Dulcolax Supp) 10 mg PRN DAILY PRN RC CONSTIPATION; Start 02/19/17 at 17:45 Calcium/Vitamin D (Oscal D 500mg/ 200uts) 1 tab BID PO Last administered on 19:50; Start 02/19/17 at 21:00 Levofloxacin (Levaquin) 500 mg DAILY PO Last administered on 02/24/17 09:04; Start 02/20/17 at 09:00; Stop 02/24/17 at 18:58; Status DC Levothyroxine Sodium (Synthroid) 75 mcg DAILY06 PO Last administered on 05:42; Start 02/20/17 at 06:00 Magnesium Citrate (Citroma) 296 ml PRN 1X PRN PO CONSTIPATION; Start 02/19/17 at 17:45 Multi-Ingredient Ointment (Analgesic [place]) 1 peewee PRN QID PRN TP muscle pain; Start 02/19/17 at 17:45; Status UNV Pantoprazole Sodium (Protonix Packet) 40 mg DAILYAC PO Last administered on 08:07; Start 02/20/17 at 07:30 Sennosides (Senna) 8.6 mg BID PO Last administered on 02/27/17 19:50; Start 02/19/17 at 21:00 Non-Formulary Medication 15 ml PRN AFTMEALHC PRN PO DYSPEPSIA; Start 02/19/17 at 17:45; Status UNV Non-Formulary Medication 2,400 mg PRN QHS PRN PO CONSTIPATION; Start 02/19/17 at 17:45; Status UNV Multivitamins/ Calcium (Thera-M Plus) 1 tab DAILY PO Last administered on 02/27t 08:07; Start 02/20/17 at 09:00 Active Scripts Active Levaquin (Levofloxacin) 500 Mg Tablet 1 Tab PO DAILY Reported Trazodone Hcl 50 Mg Tablet 50 Mg PO PRN QHS PRN LAST DOSE GIVEN: DATE: TIME: NEXT DOSE DUE: DATE: TIME: Fluvoxamine Maleate 150 Mg Cap.er.24h 150 Mg PO QHS LAST DOSE GIVEN: DATE: TIME: NEXT DOSE DUE: DATE: TIME: Protonix (Pantoprazole Sodium) 40 Mg Granpkt.dr 40 Mg PO DAILYAC LAST DOSE GIVEN: DATE: TIME: NEXT DOSE DUE: DATE: TIME: Zyprexa Zydis (Olanzapine) 5 Mg Tab.rapdis 2.5 Mg PO PRN Q2HR PRN LAST DOSE GIVEN: DATE: TIME: NEXT DOSE DUE: DATE: TIME: Zyprexa (Olanzapine) 5 Mg Tablet 5 Mg PO DAILY10 LAST DOSE GIVEN: DATE: TIME: NEXT DOSE DUE: DATE: TIME: Quetiapine Fumarate 25 Mg Tablet 25 Mg PO BID92 LAST DOSE GIVEN: DATE: TIME: NEXT DOSE DUE: DATE: TIME: Remeron (Mirtazapine) 15 Mg Tablet 7.5 Mg PO QHS LAST DOSE GIVEN: DATE: TIME: NEXT DOSE DUE: DATE: TIME: Magnesium Citrate 296 Ml Solution 296 Ml PO ONCE PRN LAST DOSE GIVEN: DATE: TIME: NEXT DOSE DUE: DATE: TIME: Synthroid (Levothyroxine Sodium) 75 Mcg Tablet 1 Tab PO DAILY06 LAST DOSE GIVEN: DATE: TIME: NEXT DOSE DUE: DATE: TIME: Senokot (Sennosides) 8.6 Mg Tablet 1 Tab PO BID LAST DOSE GIVEN: DATE: TIME: NEXT DOSE DUE: DATE: TIME: Multivitamins (Multivitamin) 1 Each Tablet 1 Tab PO DAILY LAST DOSE GIVEN: DATE: TIME: NEXT DOSE DUE: DATE: TIME: Geodon (Ziprasidone Hcl) 40 Mg Capsule 40 Mg PO BID94 LAST DOSE GIVEN: DATE: TIME: NEXT DOSE DUE: DATE: TIME: Calcium 500 + Vit D 200 Tablet (Calcium Carbonate/Vitamin D3) 1 Each Tablet 1 Each PO BID LAST DOSE GIVEN: DATE: TIME: NEXT DOSE DUE: DATE: TIME: Bisacodyl 10 Mg Supp.rect 10 Mg RC PRN DAILY PRN LAST DOSE GIVEN: DATE: TIME: NEXT DOSE DUE: DATE: TIME: Acetaminophen 500 Mg Tablet 1 Tab PO Q6HRS PRN LAST DOSE GIVEN: DATE: TIME: NEXT DOSE DUE: DATE: TIME: Mag-Al Plus Suspension (Mag Hydrox/Al Hydrox/Simeth) 30 Ml Oral.susp 15 Ml PO PRN AFTMEALHC PRN LAST DOSE GIVEN: DATE: TIME: NEXT DOSE DUE: DATE: TIME: Seroquel (Quetiapine Fumarate) 25 Mg Tablet 150 Mg PO HS LAST DOSE GIVEN: DATE: TIME: NEXT DOSE DUE: DATE: TIME: Analgesic [place] (Methyl Salicylate/Menthol) 29 Gm Oint...g. 1 Peewee TP PRN QID PRN LAST DOSE GIVEN: DATE: TIME: NEXT DOSE DUE: DATE: TIME: Milk Of Magnesia (Magnesium Hydroxide) 2,400 Mg/10 Ml Oral.susp 2,400 Mg PO PRN QHS PRN LAST DOSE GIVEN: DATE: TIME: NEXT DOSE DUE: DATE: TIME: I have reviewed the current psychotropics carefully including drug interactions. Risk benefit ratio favors no change other than as noted in my dictated progress note. Diagnosis: Problems: (1) Alzheimer disease (2) Impulse control disorder (3) Hypothyroid (4) Dementia with behavioral disturbance (5) Anxiety disorder (6) Dementia, vascular, with depression (7) Dementia, vascular, with delusions (8) Dementia in Alzheimer's disease with depression (9) Dementia in Alzheimer's disease with delusions (10) Impulse control disorder GRANT STOVER MD Feb 27, 2017 21:18
--- NOTE | 2017-02-28 00:11 | PN ---
DATE: 02/26/2017 This late entry for 02/26/2017 covers elements not covered in my initial note of 02/26/2017. SUBJECTIVE: I met with the patient in the evening of 02/26/2017. Overall, the patient is doing better, less repetitive, though this was again evident late in the evening as I met with her, but during the day, it was better with less repetitiveness "okay, okay, okay." REVIEW OF SYSTEMS: Ambulation impaired. No CV, , pulmonary, eye, ENT system symptoms on review. Reliability poor. MENTAL STATUS EXAM: Oriented to herself. Insight, judgment, recent and remote memory, attention, concentration, fund of knowledge poor, consistent with her diagnosis. IMPRESSION: Major neurocognitive disorder, Alzheimer, vascular with depression, delusion, behavioral disturbance. Rest unchanged from initial note. PLAN: Continue psychotropics mentioned in my initial note. Adjust as clinically indicated. GRANT STOVER MD DR: AMOL/shelley JOB#: [id number] / [id number]
[2017-02-28 05:40] VITALS: BP 157/62
[2017-02-28] MEDS: LEVOTHYROXINE 75 MCG TABLET PO SCH (05:45)
[2017-02-28] MEDS: PANTOPRAZOLE 40 MG PACKET. PO SCH (07:33)
[2017-02-28] MEDS: ZIPRASIDONE 40 MG CAPSULE. PO SCH (07:33)
[2017-02-28] MEDS: CALCIUM CARB/VIT D3 500/200 TABLET PO SCH (07:34)
[2017-02-28] MEDS: SENNOSIDES 8.6 MG TABLET PO SCH (07:34)
[2017-02-28] MEDS: QUEtiapine 25 MG TABLET. PO SCH ×2 (07:34→12:43)
[2017-02-28] MEDS: MULTIVITAMIN with MINERAL TABLET. PO SCH (07:34)
[2017-02-28] MEDS: OLANZapine 5 MG TABLET PO SCH (09:21)
--- NOTE | 2017-02-28 18:16 | PDOC ---
Exam Note: Ronen Note: Please also refer to the separate dictated note~for this date of service dictated separately.~Patient seen individually. Discussed the patient with Nursing staff reviewed the chart.~Reviewed interim history and current functioning. Reviewed vital signs,~Labs/ Radiology~and current medications noted below. Continue current treatment with the changes noted in the dictated addendum note Assessment: Vital Signs: Vital Signs Date Time Temp Pulse Resp B/P (MAP) Pulse Ox O2 Delivery O2 Flow Rate FiO2 02/28/17 05:40 97.2 85 18 157/62 (93) 98 02/22/17 16:15 Room Air I&O Intake and Output 02/28/17 07:00 Intake Total 780 ml Balance 780 ml Intake Oral 780 ml # Bowel Movements 1 Current Medications: Meds: Current Medications Acetaminophen (Tylenol) 650 mg PRN Q6HRS PRN PO PAIN / TEMP; Start 02/19/17 at 17:30; Status Cancel Multi-Ingredient Ointment (Analgesic [place]) 1 peewee PRN QID PRN TP MUSCLE PAIN; Start 02/19/17 at 17:15; Stop 02/28/17 at 15:26; Status DC Al Hydroxide/Mg Hydroxide (Mylanta Plus Xs) 15 ml PRN AFTMEALHC PRN PO DYSPEPSIA; Start 02/19/17 at 17:15; Stop 02/28/17 at 15:26; Status DC Magnesium Hydroxide (Milk Of Magnesia) 2,400 mg PRN QHS PRN PO CONSTIPATION; Start 02/19/17 at 17:15; Stop 02/28/17 at 15:26; Status DC Levofloxacin (Levaquin) 500 mg DAILY PO ; Start 02/20/17 at 09:00; Stop at 08:59; Status Cancel Mirtazapine (Remeron) 7.5 mg QHS PO Last administered on 02/27/17t 19:50; Start 02/19/17 at 21:00; Stop 02/28/17 at 15:26; Status DC Olanzapine (ZyPREXA ZYDIS) 2.5 mg PRN Q2HR PRN PO ANXIETY / AGITATION Last administered on 02/24/17t 17:43; Start 02/19/17 at 17:30; Stop 02/28/17 at 15 :26; Status DC Olanzapine (ZyPREXA) 5 mg DAILY10 PO Last administered on 02/28/17 09:21; Start 02/20/17 at 10:00; Stop 02/28/17 at 15:26; Status DC Quetiapine Fumarate (SEROquel) 25 mg BID92 PO Last administered on 02/28/17 12:43; Start 02/20/17 at 09:00; Stop 02/28/17 at 15:26; Status DC Quetiapine Fumarate (SEROquel) 150 mg HS PO Last administered on 02/27/17 19: 50; Start 02/19/17 at 21:00; Stop 02/28/17 at 15:26; Status DC Trazodone HCl (Desyrel) 50 mg PRN QHS PRN PO INSOMNIA, MAY REPEAT X1; Start at 17:30; Stop 02/28/17 at 15:26; Status DC Ziprasidone (Geodon) 40 mg BID94 PO Last administered on 02/28/17 07:33; Start 02/20/17 at 09:00; Stop 02/28/17 at 15:26; Status DC Fluvoxamine Maleate (Luvox) 150 mg HS PO Last administered on 02/27/17 19:50 ; Start 02/19/17 at 21:00; Stop 02/28/17 at 15:26; Status DC Acetaminophen (Tylenol) 500 mg PRN Q6HRS PRN PO PAIN / TEMP Last administered on 02/22/17 06:44; Start 02/19/17 at 17:45; Stop 02/28/17 at 15:26; Status DC Bisacodyl (Dulcolax Supp) 10 mg PRN DAILY PRN RC CONSTIPATION; Start 02/19/17 at 17:45; Stop 02/28/17 at 15:26; Status DC Calcium/Vitamin D (Oscal D 500mg/ 200uts) 1 tab BID PO Last administered on 07:34; Start 02/19/17 at 21:00; Stop 02/28/17 at 15:26; Status DC Levofloxacin (Levaquin) 500 mg DAILY PO Last administered on 02/24/17 09:04; Start 02/20/17 at 09:00; Stop 02/24/17 at 18:58; Status DC Levothyroxine Sodium (Synthroid) 75 mcg DAILY06 PO Last administered on 05:45; Start 02/20/17 at 06:00; Stop 02/28/17 at 15:26; Status DC Magnesium Citrate (Citroma) 296 ml PRN 1X PRN PO CONSTIPATION; Start 02/19/17 at 17:45; Stop 02/28/17 at 15:26; Status DC Multi-Ingredient Ointment (Analgesic [place]) 1 peewee PRN QID PRN TP muscle pain; Start 02/19/17 at 17:45; Status UNV Pantoprazole Sodium (Protonix Packet) 40 mg DAILYAC PO Last administered on 07:33; Start 02/20/17 at 07:30; Stop 02/28/17 at 15:26; Status DC Sennosides (Senna) 8.6 mg BID PO Last administered on 02/28/17 07:34; Start 02/19/17 at 21:00; Stop 02/28/17 at 15:26; Status DC Non-Formulary Medication 15 ml PRN AFTMEALHC PRN PO DYSPEPSIA; Start 02/19/17 at 17:45; Status UNV Non-Formulary Medication 2,400 mg PRN QHS PRN PO CONSTIPATION; Start 02/19/17 at 17:45; Status UNV Multivitamins/ Calcium (Thera-M Plus) 1 tab DAILY PO Last administered on 02/28 07:34; Start 02/20/17 at 09:00; Stop 02/28/17 at 15:26; Status DC Active Scripts Active Levaquin (Levofloxacin) 500 Mg Tablet 1 Tab PO DAILY Reported Trazodone Hcl 50 Mg Tablet 50 Mg PO PRN QHS PRN LAST DOSE GIVEN: DATE: TIME: NEXT DOSE DUE: DATE: TIME: Fluvoxamine Maleate 150 Mg Cap.er.24h 150 Mg PO QHS LAST DOSE GIVEN: DATE: TIME: NEXT DOSE DUE: DATE: TIME: Protonix (Pantoprazole Sodium) 40 Mg Granpkt.dr 40 Mg PO DAILYAC LAST DOSE GIVEN: DATE: TIME: NEXT DOSE DUE: DATE: TIME: Zyprexa Zydis (Olanzapine) 5 Mg Tab.rapdis 2.5 Mg PO PRN Q2HR PRN LAST DOSE GIVEN: DATE: TIME: NEXT DOSE DUE: DATE: TIME: Zyprexa (Olanzapine) 5 Mg Tablet 5 Mg PO DAILY10 LAST DOSE GIVEN: DATE: TIME: NEXT DOSE DUE: DATE: TIME: Quetiapine Fumarate 25 Mg Tablet 25 Mg PO BID92 LAST DOSE GIVEN: DATE: TIME: NEXT DOSE DUE: DATE: TIME: Remeron (Mirtazapine) 15 Mg Tablet 7.5 Mg PO QHS LAST DOSE GIVEN: DATE: TIME: NEXT DOSE DUE: DATE: TIME: Magnesium Citrate 296 Ml Solution 296 Ml PO ONCE PRN LAST DOSE GIVEN: DATE: TIME: NEXT DOSE DUE: DATE: TIME: Synthroid (Levothyroxine Sodium) 75 Mcg Tablet 1 Tab PO DAILY06 LAST DOSE GIVEN: DATE: TIME: NEXT DOSE DUE: DATE: TIME: Senokot (Sennosides) 8.6 Mg Tablet 1 Tab PO BID LAST DOSE GIVEN: DATE: TIME: NEXT DOSE DUE: DATE: TIME: Multivitamins (Multivitamin) 1 Each Tablet 1 Tab PO DAILY LAST DOSE GIVEN: DATE: TIME: NEXT DOSE DUE: DATE: TIME: Geodon (Ziprasidone Hcl) 40 Mg Capsule 40 Mg PO BID94 LAST DOSE GIVEN: DATE: TIME: NEXT DOSE DUE: DATE: TIME: Calcium 500 + Vit D 200 Tablet (Calcium Carbonate/Vitamin D3) 1 Each Tablet 1 Each PO BID LAST DOSE GIVEN: DATE: TIME: NEXT DOSE DUE: DATE: TIME: Bisacodyl 10 Mg Supp.rect 10 Mg RC PRN DAILY PRN LAST DOSE GIVEN: DATE: TIME: NEXT DOSE DUE: DATE: TIME: Acetaminophen 500 Mg Tablet 1 Tab PO Q6HRS PRN LAST DOSE GIVEN: DATE: TIME: NEXT DOSE DUE: DATE: TIME: Mag-Al Plus Suspension (Mag Hydrox/Al Hydrox/Simeth) 30 Ml Oral.susp 15 Ml PO PRN AFTMEALHC PRN LAST DOSE GIVEN: DATE: TIME: NEXT DOSE DUE: DATE: TIME: Seroquel (Quetiapine Fumarate) 25 Mg Tablet 150 Mg PO HS LAST DOSE GIVEN: DATE: TIME: NEXT DOSE DUE: DATE: TIME: Analgesic [place] (Methyl Salicylate/Menthol) 29 Gm Oint...g. 1 Peewee TP PRN QID PRN LAST DOSE GIVEN: DATE: TIME: NEXT DOSE DUE: DATE: TIME: Milk Of Magnesia (Magnesium Hydroxide) 2,400 Mg/10 Ml Oral.susp 2,400 Mg PO PRN QHS PRN LAST DOSE GIVEN: DATE: TIME: NEXT DOSE DUE: DATE: TIME: I have reviewed the current psychotropics carefully including drug interactions. Risk benefit ratio favors no change other than as noted in my dictated progress note. Diagnosis: Problems: (1) Impulse control disorder (2) Dementia in Alzheimer's disease with delusions (3) Dementia in Alzheimer's disease with depression (4) Dementia, vascular, with depression (5) Dementia, vascular, with delusions (6) Anxiety disorder (7) Dementia with behavioral disturbance GRANT STOVER MD Feb 28, 2017 18:16
--- NOTE | 2017-03-01 11:19 | DS ---
DATE OF DISCHARGE: 02/28/2017 DISCHARGE SUMMARY/PSYCHIATRIC PROGRESS NOTE REASON FOR ADMISSION: Please refer to the admission history for details. HISTORY OF PRESENT ILLNESS: Briefly, the patient is an 86-year-old female who was [facility] on account of worsening confusion, agitation, repeatedly yelling out "okay, okay, okay." Her behaviors were disruptive, unmanageable, agitated, aggressive. She had failed outpatient psychiatric interventions at the [facility] by Dr. Toledo, referred for inpatient psychiatric stabilization. During that admission, multiple changes in her psychotropics were made in a very predetermined regimented manner with minimal response. She was then transferred to the medical surgical floor for medical management, returns back because behaviors continued while on the Med/Surg floor yelling repeating "okay, okay, okay," marked agitation, psychotic symptoms. She returns for further psychiatric stabilization. SIGNIFICANT FINDINGS AND CLINICAL COURSE: Following admission, the patient was seen daily individually by myself, followed medically per Dr. Ruiz/Dr. Justice. Daughter was extremely insistent that the only regimen the patient had responded to in the past from a psychiatric standpoint was a combination of 3 atypical antipsychotics, Seroquel, Geodon and scheduled Zyprexa. We had tried multiple changes in her psychotropics immediately prior psychiatric hospitalization, all of which had failed. I had many lengthy discussions with the daughter and with staff at treatment team meeting and nursing staff daily. The risks of the 3 atypicals used in combination were significant and we avoided it. However, when she failed all other interventions, we did agree to the daughter's persistent request to try the combination again with 3 atypicals since the patient had responded to this in the past at [facility]. She did seem to do better on a combination of Seroquel 25 mg b.i.d., 150 mg at bedtime, Geodon 40 mg b.i.d., Zyprexa 5 mg daily plus p.r.n., trazodone 50 mg at bedtime, Luvox at 150 mg at bedtime for her obsessive ruminative compulsive verbalizations, Remeron 7.5 mg p.o. at bedtime. The patient's course was very complicated with very limited response to psychotropics, but she did seem to respond to the 3 atypicals as noted, though late in the evening, she would revert back to some of the repetitive verbalizations. CONDITION AT DISCHARGE: Improved. REVIEW OF SYSTEMS: No CV, , pulmonary, eye, ENT system symptoms on review. Reliability poor. MENTAL STATUS EXAM: Oriented to herself. Insight, judgment, recent and remote memory, attention, concentration, fund of knowledge poor, consistent with her diagnosis. FINAL DIAGNOSES: Major neurocognitive disorder, Alzheimer, vascular with depression, delusion, behavioral disturbance; anxiety disorder, unspecified; impulse control disorder, unspecified; obsessive compulsive disorder presenting with repeated verbalizations as noted. Rest diagnoses unchanged from admission. DISCHARGE MEDICATIONS: Please refer to the MRAD. After many lengthy discussions with staff and daughter, daughter wanted to make sure I document it clearly in the discharge summary that the patient had failed to respond to all other psychotropics other than the current combination. It is unclear even how long this regimen would last to help her, but for now, she does seem to be doing well on it. The risks are significant with 3 atypicals, but the benefits at this stage seemed to outweigh the risks and further treatment providers may keep this in consideration as the daughter would prefer no reduction in the 3 atypicals. Again, at this stage, I would support that, but certainly that decision would have to be made at each step of her illness. Outpatient psychiatric and medical followup at the [facility]. Time for discharge day management greater than 30 minutes. MAN Abdullahi STOVER MD DR: AMOL/shelley JOB#: [id number] / [id number]
--- NOTE | 2017-03-01 22:46 | PN ---
DATE: 02/27/2017 This late entry 02/27/2017 covers elements not covered in my initial note 02/27/2017. I met with the patient evening of 02/27/2017. Overall, the patient is doing better during the day. Late in the evening, she reverts back to some repeated verbalizations "okay, okay, okay." REVIEW OF SYSTEMS: No CV, , pulmonary, eye, ENT system symptoms on review. Reliability poor. MENTAL STATUS EXAM: Oriented to herself. Insight, judgment, recent and remote memory, attention, concentration, fund of knowledge poor, consistent with her diagnosis. IMPRESSION: Major neurocognitive disorder, Alzheimer, vascular with depression, delusion, behavioral disturbance. Rest unchanged. PLAN: Continue current psychotropics mentioned in my initial note. Possible transition to [facility], 02/28/2017. MAN Abdullahi STOVER MD DR: AMOL/shelley JOB#: [id number] / [id number]
== END 2017-02-28 13:40 | disposition home or self-care (01) | DRG 56 ==
LOC: GEROPSY 17:05
PROVIDERS: ADMIT Psychiatry & Neurology Psychiatry; ATTEND Psychiatry & Neurology Psychiatry
DX: G30.9 Alzheimer's disease, unspecified (principal); E41 Nutritional marasmus; E43 Unspecified severe protein-calorie malnutrition; F01.51 Vascular dementia, unspecified severity, with behavioral disturbance; F02.81 Dementia in other diseases classified elsewhere, unspecified severity, with behavioral disturbance; Z88.8 Allergy status to other drugs, medicaments and biological substances; E03.9 Hypothyroidism, unspecified; F22 Delusional disorders; F32.9 Major depressive disorder, single episode, unspecified; F41.9 Anxiety disorder, unspecified; F42.9 Obsessive-compulsive disorder, unspecified; F63.9 Impulse disorder, unspecified; H35.30 Unspecified macular degeneration; Z66 Do not resuscitate; Z79.899 Other long term (current) drug therapy; Z87.01 Personal history of pneumonia (recurrent); Z68.20 Body mass index [BMI] 20.0-20.9, adult
CPT/HCPCS: 36415; 80053; 80061; 82306; 82607; 83036; 83540; 83550; 83735; 84436; 84443; 84480; 85025; 86593; 97116; 97530